=== PATIENT | male | born 1940 | race Caucasian/White ===

== ENCOUNTER → 2018-05-19 09:24 | Outpatient (CLI) | payer MEDICARE, OTHER, SELFPAY | PROVIDERS: PCP Family Medicine; Visit Provider Orthopaedic Surgery | DX: M75.82 Other shoulder lesions, left shoulder (principal) | CPT/HCPCS: 20610; 99213; J1040 ==

== ENCOUNTER → 2018-07-26 07:56 | Outpatient (BNVA) | payer MEDICARE, OTHER, SELFPAY | PROVIDERS: PCP Family Medicine; Visit Provider Surgery | DX: Z86.010 Personal history of colon polyps (principal); I10 Essential (primary) hypertension; Z12.11 Encounter for screening for malignant neoplasm of colon | CPT/HCPCS: 99202; 99213 ==

== ENCOUNTER 2018-08-29 01:32 | Outpatient (CLI) | payer MEDICARE, OTHER, SELFPAY ==
--- NOTE | 2018-08-29 14:33 | DI.CT_ITS ---
SYMPTOMS/DIAGNOSIS: RIGHT-SIDED PAIN S/P SACROILIAC JOINT FUSION, V45.4, Z98.1 , 724.6, M53.3 CT OF THE PELVIS: There is a right hip prosthesis. There have been bilateral SI joint effusions with hardware in place. There is no evidence of SI joint widening, fracture, lytic or blastic bony lesion. Laminectomy defect is seen at L5. There has been a previous posterior fusion at L4-[address] A disc spacer is seen at this level. Severe degenerative disc changes are seen at L3-4. There are moderate degenerative disc changes at L5-S1. The appendix appears normal. Sigmoid diverticulosis is present. The prostate appears mildly enlarged. IMPRESSION: Bilateral SI joint effusion. Posterior fusion at L5-S1, as well as right hip prosthesis, is also present.
== END 2018-08-29 01:52 ==
PROVIDERS: PCP Family Medicine; Visit Provider Neurological Surgery
DX: M54.5 Low back pain (principal); M43.28 Fusion of spine, sacral and sacrococcygeal region; Z98.1 Arthrodesis status; Z96.641 Presence of right artificial hip joint
CPT/HCPCS: 72192

== ENCOUNTER 2018-09-05 09:04 | Outpatient (REF) | payer MEDICARE, OTHER, SELFPAY ==
[2018-09-05 12:34] LABS: Absolute Basophil Count 0.01 k/cumm (0.0-0.2); Absolute Eosinophil Count 0.13 k/cumm (0.0-0.7); Absolute Lymphocyte Count 1.52 k/cumm (1.2-3.4); Absolute Monocyte Count 0.14 k/cumm (0.11-0.7); Absolute Neutrophil Count 1.89 k/cumm (1.2-6.7); Basophils % 0.3; Eosinophils % 3.5; HCT 42.6 % (40.0-50.0); HGB 13.7 g/dL (13.5-17.5); Lymphocytes % 41.2; Mean Corp. HGB Concentration 32.2 g/dL (32.0-36.0); Mean Corpuscular Hemoglobin 33.7 pg (27.0-33.0); Mean Corpuscular Volume 104.7 fL (80-95); Monocytes % 3.8; Neutrophils % 51.2; Platelet Count 144 x1000/uL (130-400); RBC 4.07 m/cumm (4.50-6.00); White Blood Cell Count 3.69 k/cumm (4.4-10.8)
== END 2018-09-05 09:24 ==
LOC: NCHCN 09:04
PROVIDERS: PCP Family Medicine; Visit Provider Family Medicine
DX: D70.9 Neutropenia, unspecified (principal)
CPT/HCPCS: 85025

== ENCOUNTER → 2018-09-06 08:45 | Outpatient (BNVA) | payer MEDICARE, OTHER, SELFPAY | PROVIDERS: PCP Family Medicine; Referring Provider Family Medicine; Visit Provider Orthopaedic Surgery | DX: M75.82 Other shoulder lesions, left shoulder (principal); I10 Essential (primary) hypertension | CPT/HCPCS: 20610; 99211; 99213; J1040 ==

== ENCOUNTER 2019-01-17 07:50 | Outpatient (REF) | payer MEDICARE, OTHER, SELFPAY ==
[2019-01-17 12:47] LABS: HCT 38.3 % (40.0-50.0); Mean Corp. HGB Concentration 33.9 g/dL (32.0-36.0); Mean Corpuscular Hemoglobin 35.8 pg (27.0-33.0); Mean Corpuscular Volume 105.5 fL (80-95); Mean Platelet Volume 10.8 fL (8.0-11.0); Platelet Count 129 x1000/uL (130-400); RBC 3.63 m/cumm (4.50-6.00); White Blood Cell Count 3.32 k/cumm (4.4-10.8)
[2019-01-17 13:30] LABS: Anion Gap 10.7 mmol/L (3-11); BUN 19 mg/dL (7-18); CO2 29.3 mmol/L (21.0-32.0); CREATININE 0.91 mg/dL (0.70-1.30); Calcium 9.5 mg/dL (8.5-10.1); Chloride 104 mmol/L (98-107); Glucose 90 mg/dL (70-100); Potassium 4.5 mmol/L (3.5-5.1); Sodium 144 mmol/L (136-145)
== END 2019-01-17 08:10 ==
LOC: NCHCN 07:50
PROVIDERS: PCP Family Medicine; Visit Provider Family Medicine
DX: I10 Essential (primary) hypertension (principal); D70.9 Neutropenia, unspecified
CPT/HCPCS: 80048; 85027

== ENCOUNTER 2019-01-20 00:38 | Outpatient (CLI) | payer MEDICARE, OTHER, SELFPAY ==
--- NOTE | 2019-01-20 13:08 | DI.CT_ITS ---
SYMPTOMS/DIAGNOSIS: BUTTOCK AND LEG PAIN, M79.606, M79.[address]: Noncontrast CT was performed. There are Fernandez rods in place bilaterally at L4-5 with disc prosthesis also noted at this level. There is vacuum disc phenomenon at L5-S1. Facet hypertrophic changes noted bilaterally at L4-5 and L5-S1. Bilateral SI joint fixation screws in place, which appear well seated. No change in alignment from CT of 08/29/18. Right hip prothesis again noted in position as well, the components appear well seated by CT criteria. No pelvic mass or adenopathy. CONCLUSION: Spinal, SI joint and right hip hardware in place. No change from 08/29/18.
[2019-01-20 13:24] LABS: CREATININE 0.82 mg/dL (0.70-1.30)
--- NOTE | 2019-01-20 14:06 | DI.MRI_ITS ---
SYMPTOMS/DIAGNOSIS: BUTTOCK AND LEFT PAIN, M79.606, M79.18 LUMBOSACRAL SPINE MRI: MRI examination of the lumbosacral spine was performed according to the usual protocol with additional pre and post contrast T1 fat-sat imaging. Examination is compared with most recent lumbar MRI of 02/11/17. There are bilateral Fernandez rods at L4-5, which are new since the previous examination. There is mild geographic enhancement of portions of the L2 and L3 vertebral bodies adjacent to the intervertebral disc. Left pedicle shows some enhancement at L3 as well. The findings are of uncertain significance and may be due to mechanical process as no cortical destruction or destruction of the vertebral endplates is seen. There is artifact from the Fernandez rods. Spinal canal is fairly well visualized. There is improved appearance of the spinal canal at the L4-5 level in comparison with the previous examination. Previously present left lateral recess narrowing appears to have resolved post surgery. No gross interval change in appearance at the L3-4 level. No new neural foraminal encroachment as visualized. No new disc herniation as visualized. Conus medullaris appears intact. CONCLUSION: Some enhancement is present in L2 and L3 vertebrae in a pattern which is nonspecific. Infectious process not excluded, but the findings may be mechanical in nature. No destructive process seen involving the vertebral cortex. No gross interval change in appearance of the disc space in comparison with the previous examination.
[2019-01-20] MEDS: Gadoterate meglumine 20 ML VIAL 18 ML IVP (14:08)
== END 2019-01-20 00:58 ==
PROVIDERS: PCP Family Medicine; Visit Provider Neurological Surgery
DX: M79.604 Pain in right leg (principal); M79.18 Myalgia, other site; Z96.641 Presence of right artificial hip joint; Z96.698 Presence of other orthopedic joint implants
CPT/HCPCS: 72158; 72192; 82565

== ENCOUNTER → 2019-03-07 09:19 | Outpatient (BNVA) | payer MEDICARE, OTHER, SELFPAY | PROVIDERS: PCP Family Medicine; Referring Provider Family Medicine; Visit Provider Orthopaedic Surgery | DX: M75.82 Other shoulder lesions, left shoulder (principal); M25.512 Pain in left shoulder | CPT/HCPCS: 20610; 99211; J1040 ==

== ENCOUNTER → 2019-04-17 08:51 | Outpatient (BNVA) | payer MEDICARE, OTHER, SELFPAY | PROVIDERS: PCP Family Medicine; Referring Provider Family Medicine; Visit Provider Urology | DX: N40.1 Benign prostatic hyperplasia with lower urinary tract symptoms (principal); N13.8 Other obstructive and reflux uropathy; I10 Essential (primary) hypertension | CPT/HCPCS: 99213 ==

== ENCOUNTER → 2019-05-26 14:10 | Outpatient (BNVA) | payer MEDICARE, OTHER, SELFPAY | PROVIDERS: PCP Family Medicine; Visit Provider Urology | DX: N40.1 Benign prostatic hyperplasia with lower urinary tract symptoms (principal); N13.8 Other obstructive and reflux uropathy; I10 Essential (primary) hypertension | CPT/HCPCS: 52000; 99212 ==

== ENCOUNTER 2019-06-22 10:13 | Outpatient (CLI) | payer MEDICARE, OTHER, SELFPAY ==
--- NOTE | 2019-06-22 09:59 | DI.RAD_ITS ---
EXAM: XR SHOULDER LT COMPLETE 2+V INDICATION: f/u L shoulder pain, RTC tear. COMPARISON: No exams were available for comparison TECHNIQUE: 2D digital imaging was performed. FINDINGS: Three views were obtained. There are two suture anchors in the humeral head. There are mild hypertr ophic degenerative changes of the glenohumeral and acromioclavicular joints. There is subchondral sc lerosis and cyst formation of the humeral head. No other significant bony or soft tissue abnormality seen.
== END 2019-06-22 10:33 ==
PROVIDERS: PCP Family Medicine; Referring Provider Family Medicine; Visit Provider Student in an Organized Health Care Education/Training Program
DX: M25.512 Pain in left shoulder (principal); S46.012A Strain of muscle(s) and tendon(s) of the rotator cuff of left shoulder, initial encounter; X58.XXXA Exposure to other specified factors, initial encounter; M75.82 Other shoulder lesions, left shoulder; M12.812 Other specific arthropathies, not elsewhere classified, left shoulder
CPT/HCPCS: 20610; 99213; 73030; J1040

== ENCOUNTER → 2019-08-24 09:52 | Outpatient (BNVA) | payer MEDICARE, OTHER, SELFPAY | PROVIDERS: PCP Family Medicine; Referring Provider Family Medicine; Visit Provider Student in an Organized Health Care Education/Training Program | DX: M75.81 Other shoulder lesions, right shoulder (principal); I10 Essential (primary) hypertension | CPT/HCPCS: 20610; 99213; J1040 ==

== ENCOUNTER → 2019-09-22 15:14 | Outpatient (BNVA) | payer MEDICARE, OTHER, SELFPAY | PROVIDERS: PCP Family Medicine; Referring Provider Family Medicine; Visit Provider Urology | DX: N40.1 Benign prostatic hyperplasia with lower urinary tract symptoms (principal); N13.8 Other obstructive and reflux uropathy | CPT/HCPCS: 99213 ==

== ENCOUNTER → 2019-10-09 10:38 | Outpatient (BNVA) | payer MEDICARE, OTHER, SELFPAY | PROVIDERS: PCP Family Medicine; Referring Provider Family Medicine; Visit Provider Student in an Organized Health Care Education/Training Program | DX: M75.81 Other shoulder lesions, right shoulder (principal); M75.82 Other shoulder lesions, left shoulder | CPT/HCPCS: 20610; 99212; 99213; J1040 ==

== ENCOUNTER 2019-10-17 10:23 | Observation (INO) | payer MEDICARE, OTHER, SELFPAY ==
[2019-10-17] VITALS (74 sets, daily range): BP systolic 103–160; BP diastolic 46–94; PULSE 79–158; RESP 2–32; TEMP 37–37.7; O2SAT 85–99
--- NOTE | 2019-10-17 10:22 | ED.GENADUL_ITS ---
Discharge Plan Disposition Patient Disposition: [facility] INPATIENT Condition: Fair Discharge Details Chief Complaint: RespSymp Clinical Impression: Acute bronchitis, Nausea, Hypoxia Admit Date/Time: 10/17/19 15:15 Admit Provider: Eben Martin Attending Provider: Eben Martin Primary Care Provider: Janina Reinoso ED Provider: Zunilda Khan Discharge Data Discharge Date/Time-TO BE ENTERED AT DEPARTURE: 10/17/19 17:52 Discharge Physician: Znuilda Khan Medical Decision Making 1030 -- 78-year-old male with a history of GERD, hypertension, hyperlipidemia, depression presents with cough with green sputum, fatigue and nausea for the past few days. States he had a temp of 103 at PCP office. Denies chest pain or shortness of breath. Patient appears generally unwell but nontoxic. Pulse 106. Afebrile. O2 sat 89% on room air, increased to low 90s on 2 L. He has rhonchi and diminished breath sounds throughout. He has lower abdominal tenderness. EKG notes a rate of 103, sinus with no acute ST ischemic changes. Differential diagnosis includes pneumonia, influenza, bronchitis, UTI, dehydration, electrolyte abnormality. Will place an IV, bolus IV fluids, duo nebs, Solu-Medrol, screening labs, urinalysis. Patient has a previous history of PE for which he has been treated with anticoagulation in the past but this has since been stopped. He states he takes it in cases of long trips or immobilization. Will obtain a CT chest to rule out PE versus pneumonia versus CHF as well as acute abdominal abnormality. 1310 --patient still hypoxic to the low 90s on room air. Still with rhonchi. Will give 7.5 mg neb and reassess. Labs and imaging reviewed and unremarkable. White blood cell count 3. Lactate 1.4. Troponin negative. BNP minimally elevated at 389. Urinalysis negative. CT negative for pneumonia, PE. There are sclerotic reasons noted in the bony chest which appear likely consistent with metastasis. Patient states he has had a history of extensive skin cancer that is followed by Dr. Solitario. He denies any other history of cancer. 1400 --heart rate 150s and O2 sat 86% on room air. He increases to low 90s on 1 L. Review of previous records note that patient was a previous smoker and has had low O2 sat in the past, and he states it is not unusual for him to be in the low 90s on room air. EKG done which notes a rate of 142 and possible A. fib. There are P waves visible and rhythm appears regular and thus I do not think this is atrial fibrillation. Patient denies a history of atrial fibrillation. A dose of Lopressor 5 mg IV ordered as patient takes this twice daily and is due for his dose shortly. 1440 --heart rate remains tachycardic, 120s 140s. O2 sat 85% on 5 L, increased to 90% on 6 L. Patient denies any acute complaints. Will admit for tachycardia and hypoxia. Differential diagnosis includes acute COPD exacerbation, acute bronchitis. Patient may benefit for O2 at home as needed upon discharge. Will give Xopenex. 1450 --discussed with hospitalist -accepts patient for admission. 1730 --heart rate 110s. O2 sat 91% on 6 L. Medical Records Medical records reviewed: Yes I reviewed the patient's medical records. Imaging Data Radiologic Study: Radiologist's impression: CT CHEST PE ABD PELVIS W CLINICAL HISTORY: hypoxia, h/o PE, r/o PE. TECHNIQUE: Imaging Protocol: Axial computed tomography images with coronal and sagittal reformatted images were created and reviewed CONTRAST MATERIAL: Intravenous: Omnipaque 350 Contrast volume:100 mL Oral: No COMPARISON: CT pelvic wo from 01/20/2019 FINDINGS: CHEST: Tracheobronchial tree: Patent where visualized. Mediastinum and Yamilet: No dominant adenopathy or fluid collection. Pulmonary parenchyma: Dependent atelectasis. No focal consolidating infiltrates. No architectural distortion. Pleura: No effusion or pneumothorax. Lymph nodes: Within normal limits. Aorta: Atherosclerosis. No thoracic aneurysm or dissection. Heart: Mild cardiomegaly. No pericardial effusion or right heart strain. Coronary artery calcifications. Pulmonary arteries: No evidence of a pulmonary embolus. Bones: Sclerotic appearance of the bones suspicious for metastatic disease. No compression fracture deformities. Old right rib fractures. ABDOMEN: Liver: Normal density. No measurable mass. Gallbladder and biliary tract: No radiodense calculus or dilation. Pancreas: Normal density, no abnormal calcifications or inflammatory process. Spleen: Normal. Kidneys: Normal size, contour and axis. No radiodense stones or obstructive uropathy. Bilateral renal cyst. No solid renal mass. Adrenal glands: No masses seen. Aorta: Atherosclerosis. No aneurysmal dilatation. 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 Lymph nodes: Within normal limits. PELVIS: Bladder: Symmetric distention, no gross wall thickening. Bowel: Diverticulosis in the colon but no evidence of acute diverticulitis. No evidence of acute appendicitis. No evidence of bowel obstruction. Peritoneal cavity: No ascites, collection or mesenteric inflammatory response. Bones: Posterior spinal surgery at L4-L5 and the sacroiliac joints bilaterally. Multilevel degenerative changes throughout the thoracic and lumbar spine. Status post right total hip replacement. Reproductive organs: Enlarged prostate gland. IMPRESSION: 1. No evidence of an acute abdominal or pelvic process. 2. No evidence of a pulmonary embolus, thoracic aortic dissection or aneurysm. 3. Sclerotic bones suspicious for metastatic disease. 4. Findings were discussed with the emergency department on the date of the examination. Lab Data Lab results reviewed: Yes I reviewed the patient's lab results. Labs: 10/17/19 11:15 Blood Blood Culture - Pending 10/17/19 11:09 Blood Blood Culture - Pending 10/17/19 10:26 Nasopharynx Influenza Types A,B Antigen - Final Laboratory Tests Range/Units 10/17/19 10/17/19 10/17/19 11:09 11:09 11:09 WBC (4.4-10.8) k/cumm 3.14 L RBC (4.50-6.00) m/cumm 3.79 L Hgb (13.5-17.5) g/dL 12.8 L Hct (40.0-50.0) % 39.5 L MCV (80-95) fL 104.2 H MCH (27.0-33.0) pg 33.8 H MCHC (32.0-36.0) g/dL 32.4 RDW (11.8-14.1) % 15.6 H Plt Count (130-400) x1000/uL 106 L MPV (8.0-11.0) fL 10.1 Immature Gran % % 0.0 Neutrophils % 73.9 Lymphocytes % 19.7 Monocytes % 4.8 Eosinophils % 1.6 Basophils % 0.0 Absolute Neutrophils (1.2-6.7) k/cumm 2.32 Absolute Lymphocytes (1.2-3.4) k/cumm 0.62 L Absolute Monocytes (0.11-0.7) k/cumm 0.15 Absolute Eosinophils (0.0-0.7) k/cumm 0.05 Absolute Basophils (0.0-0.2) k/cumm 0.00 PT (9.3-11.0) sec INR (0.9-1.1) APTT (21.0-31.4) sec Sodium (136-145) mmol/L 143 Potassium (3.5-5.1) mmol/L 4.0 Chloride (98-107) mmol/L 102 Carbon Dioxide (21.0-32.0) mmol/L 30.3 Anion Gap (3-11) mmol/L 10.7 BUN (7-18) mg/dL 15 Creatinine (0.70-1.30) mg/dL 0.83 Estimated GFR/1.73 m2 (mL/min/1.73m2) >= 60.00 Glucose (74-106) mg/dL 118 H Lactate (0.6-1.4) mmol/L 1.4 Calcium (8.5-10.1) mg/dL 8.5 Magnesium (1.8-2.4) mg/dL 1.1 L Total Bilirubin (0.2-1.0) mg/dL 0.4 AST (15-37) U/L 13 L ALT (16-63) U/L 15 L Alkaline Phosphatase (46-116) U/L 49 Troponin I (<0.06) ng/Ml < 0.05 NT-Pro-B Natriuret Pep (<300) pg/mL Total Protein (6.4-8.2) g/dL 7.0 Albumin (3.4-5.0) g/dL 3.3 L Urine Color (Yellow) Urine Clarity (Clear) Urine pH (5-8) Ur Specific [place] (1.005-1.025) Urine Protein (Negative) mg/dL Urine Ketones (Negative) mg/dL Urine Blood (Negative) Urine Nitrite (Negative) Urine Bilirubin (Negative) Urine Urobilinogen (Up TO 0.2) EU/dL Ur Leukocyte Esterase (Negative) Urine RBC (0-2) HPF Urine WBC (0-5) HPF Ur Epithelial Cells (Negative) HPF Urine Crystals (Negative) HPF Urine Bacteria (Negative) HPF Urine Casts (Negative) LPF Urine Mucus (Negative) Ur Culture Indicated? Urine Glucose (Negative) mg/dL Range/Units 10/17/19 10/17/19 10/17/19 11:09 11:09 11:35 WBC (4.4-10.8) k/cumm RBC (4.50-6.00) m/cumm Hgb (13.5-17.5) g/dL Hct (40.0-50.0) % MCV (80-95) fL MCH (27.0-33.0) pg MCHC (32.0-36.0) g/dL RDW (11.8-14.1) % Plt Count (130-400) x1000/uL MPV (8.0-11.0) fL Immature Gran % % Neutrophils % Lymphocytes % Monocytes % Eosinophils % Basophils % Absolute Neutrophils (1.2-6.7) k/cumm Absolute Lymphocytes (1.2-3.4) k/cumm Absolute Monocytes (0.11-0.7) k/cumm Absolute Eosinophils (0.0-0.7) k/cumm Absolute Basophils (0.0-0.2) k/cumm PT (9.3-11.0) sec 10.7 INR (0.9-1.1) 1.1 APTT (21.0-31.4) sec 26.4 Sodium (136-145) mmol/L Potassium (3.5-5.1) mmol/L Chloride (98-107) mmol/L Carbon Dioxide (21.0-32.0) mmol/L Anion Gap (3-11) mmol/L BUN (7-18) mg/dL Creatinine (0.70-1.30) mg/dL Estimated GFR/1.73 m2 (mL/min/1.73m2) Glucose (74-106) mg/dL Lactate (0.6-1.4) mmol/L Calcium (8.5-10.1) mg/dL Magnesium (1.8-2.4) mg/dL Total Bilirubin (0.2-1.0) mg/dL AST (15-37) U/L ALT (16-63) U/L Alkaline Phosphatase (46-116) U/L Troponin I (<0.06) ng/Ml NT-Pro-B Natriuret Pep (<300) pg/mL 389 H Total Protein (6.4-8.2) g/dL Albumin (3.4-5.0) g/dL Urine Color (Yellow) Yellow Urine Clarity (Clear) Clear Urine pH (5-8) 6.0 Ur Specific [place] (1.005-1.025) 1.020 Urine Protein (Negative) mg/dL 30 H Urine Ketones (Negative) mg/dL Negative Urine Blood (Negative) Negative Urine Nitrite (Negative) Negative Urine Bilirubin (Negative) Negative Urine Urobilinogen (Up TO 0.2) EU/dL 0.2 Ur Leukocyte Esterase (Negative) Negative Urine RBC (0-2) HPF 0-2 Urine WBC (0-5) HPF 0-2 Ur Epithelial Cells (Negative) HPF Rare Urine Crystals (Negative) HPF Negative Urine Bacteria (Negative) HPF Rare Urine Casts (Negative) LPF Negative Urine Mucus (Negative) Moderate Ur Culture Indicated? No Urine Glucose (Negative) mg/dL Negative ECG Data Attestation: I personally reviewed and interpreted this ECG (s) as follows: Interpretation: #1 -- Rate of 103, sinus, T wave inversion in lead III. No acute ST elevation or depression. ND 174. QTc 419. QRS 104. #2 --Rate of 142, sinus, P waves visible, no acute ST elevation or depression. T wave inversion in lead III. QTc 464. QRS 108. HPI General Mode of arrival: ambulatory . Date/Time Provider Initiated Documentation: 10/17/19 10:34 . Limitations to Documentation: no limitations . Information obtained by: patient . History of Present Illness 78 year old M presents to the emergency department with the chief complaint of Cough, nausea, fatigue, Patient reports no radiation. Patient started experiencing this day(s) (5) and it has been constant. No relieving factors improve symptom(s), No exacerbating factors reported . Patient notes cough, fever/ch ills, loss of appetite, malaise and nausea/vomiting (no vomiting); denies chest pain, diaphoresis, headaches, rash, seizure, shortness of breath, syncope and weakness. Patient did receive the following treatments prior to arrival, none Related Data Home Medications Medication Instructions Recorded Confirmed allopurinol 300 mg PO DAILY 12/29/12 10/17/19 aspirin [Aspirin Low-Strength] 81 mg PO DAILY tab-cap 12/29/12 10/17/19 montelukast 10 mg PO DAILY PRN tab-cap 12/29/12 10/17/19 omeprazole 20 mg PO DAILY tab-cap 12/29/12 10/17/19 zolpidem 10 mg PO HS PRN PRN 12/29/12 10/17/19 acyclovir 400 mg PO TID PRN PRN 05/07/16 10/17/19 fluticasone propionate [Flonase 2 spray NS DAILY PRN PRN 05/07/16 10/17/19 Allergy Relief] cholecalciferol (vitamin D3) 1,000 unit PO DAILY 05/12/16 10/17/19 metoprolol tartrate 25 mg PO BID 05/12/16 10/17/19 testosterone cypionate 1.5 ml IM .[id number] 05/12/16 10/17/19 duloxetine [Cymbalta] 60 mg PO DAILY 03/07/17 10/17/19 ibuprofen 800 mg PO TID tab-cap 05/05/17 10/17/19 diazepam 5 mg PO PRN 05/31/17 10/17/19 prazosin 10 mg PO DAILY 05/31/17 10/17/19 furosemide 20 mg tablet 20 mg PO DAILY 04/14/19 10/17/19 loratadine 10 mg tablet 20 mg PO DAILY PRN tab 04/14/19 10/17/19 rivaroxaban 20 mg tablet 20 mg PO DAILY PRN 04/14/19 10/17/19 Marijuana PO 04/17/19 10/09/19 mirabegron 25 mg tablet,extended 25 mg PO Q24H #90 tab 09/28/19 10/17/19 release 24 hr Previous Rx's Medication Instructions Recorded mirabegron 25 mg tablet,extended 25 mg PO Q24H #90 tab 09/28/19 release 24 hr Allergies Allergy/AdvReac Type Severity Reaction Status Date / Time Sulfa (Sulfonamide Allergy as a Unverified 10/17/19 12:17 Antibiotics) child, unsure codeine AdvReac Intermediate sick to Unverified 10/17/19 12:17 stomach oxycodone [Oxycodone] AdvReac respiratory Unverified 10/17/19 12:17 depression Review of Systems All systems reviewed & are unremarkable except as noted in HPI and below Constitutional Constitutional: Reports as per HPI, Denies chills, Reports fatigue, Reports fever(s), Reports lethargy and Reports poor appetite Eyes Eyes: Denies blurry vision ENT Ears, Nose, Mouth, and Throat: Denies dizziness, Denies sore throat and Denies throat swelling Cardiovascular Cardiovascular: Denies chest pain and Denies dyspnea Respiratory Respiratory: Reports cough and Denies dyspnea Gastrointestinal Gastrointestinal: Denies abdominal pain, Denies diarrhea and Denies vomiting Genitourinary Genitourinary: Denies hematuria and Denies dysuria Musculoskeletal Musculoskeletal: Denies back pain and Denies numbness Integumentary/Breasts Skin/Breast: Denies lesions and Denies rash Neurologic Neurologic: Denies dizziness, Denies focal weakness and Denies numbness Endocrine Endocrine: Reports fatigue Allergic/Immunologic Allergic/Immunologic: Denies throat swelling [facility] Medical History Abnormal weight loss Actinic keratosis Adenomatous colon polyp (Acute) Alcohol consumption heavy (Acute) Allergic rhinitis (Acute) Benign essential tremor Bilateral artificial lens implant BPH (benign prostatic hyperplasia) Chronic insomnia Diverticulosis Diverticulosis (Acute) Erectile dysfunction (Acute) Essential hypertension (Acute) GERD GERD (gastroesophageal reflux disease) Gout H/O supraventricular tachycardia (Acute) Heavy alcohol consumption History of DVT (deep vein thrombosis) History of positive PPD History of PSVT (paroxysmal supraventricular tachycardia) History of pulmonary embolism Hx of adenomatous colonic polyps Hyperlipidemia Hypertension Hypogonadism (Acute) Impaired fasting glucose Insomnia (Acute) Low testosterone in male (Acute) Lumbar back pain (Acute) Macrocytosis Male hypogonadism Myelodysplasia (myelodysplastic syndrome) (Acute) Neutropenia Ocular migraine Osteoarthritis Other and unspecified hyperlipidemia (Acute) Overactive bladder Peripheral neuropathy Personal history of venous thrombosis and embolism (Acute) Positive PPD (Acute) Renal cyst Sleep apnea Spinal stenosis in cervical region Spondylosis Spondylosis of cervical joint (Acute) Subjective tinnitus Urinary frequency (Acute) Vitamin D deficiency Surgical History Colonoscopy - IV Sedation Cystoscopy Extraction of cataract BILAT HERNIA REPAIR History of intraocular lens implant (Acute) R THUMB RHINOPLASTY S/P TURP (Acute) Tonsillectomy and adenoidectomy Total replacement of hip (05/13/16) RIGHT/DR. OLEA Family History Mother Personal history of malignant neoplasm PANCREATIC/LIVER Father Heart disease Sister No problems noted. Brother Diabetes Heart disease Brother Heart disease Mental disorder BIPOLAR Social History Smoking/Tobacco Use Status: Former Tobacco Use Alcohol Intake: current Alcohol Intake frequency: a few times a week Drug use: Never Substance use type: does not use Household members: spouse Current gender identity: male Do you feel safe in your relationship?: Yes Exam Const General: cooperative, healthy appearing and no acute distress HENMT Head: normal to inspection Face and sinus: normal facial exam Eyes General: appearance normal, both eyes and all related structures EOM: EOM intact bilaterally Neck Neck: normal visual inspection and No submandibular swelling Lymphatic: no lymphadenopathy noted Chest Chest: normal inspection of the chest and no tenderness Resp Effort & Inspection: normal respiratory effort and able to speak in complete sentences Auscultation: diminished lung sounds bilaterally throughout, rhonchi left upper, left lower and right lower and wheezes scattered wheezes Cardio Rate: regular rate Rhythm: regular rhythm GI Inspection: normal to inspection Palpation: soft, not firm, not rigid and nontender Auscultation: normal bowel sounds Skin General skin exam: no rashes or lesions noted Neuro General: alert, awake and oriented x3 Cognition: normal cognition Speech: speech normal Motor: muscle tone normal throughout Sensory Exam: no sensory deficits noted Extrem General: normal to inspection, full ROM, normal capillary refill, no calf tenderness bilaterally and no edema Psych Appearance: grossly normal Mental Status: mental status grossly normal Speech and Movement: speech and movement normal Affect: normal affect Course Lab/Test Results Lab/Test Results: 10/17/19 10:02 Nasopharynx Influenza Types A,B Antigen - Pending
[2019-10-17] MEDS: Ondansetron 4 MG/2 ML VIAL (10:42)
[2019-10-17] MEDS: Albuterol/Ipratropium 3 ML UPD VIAL (10:56)
[2019-10-17 11:20] LABS: Lactate 1.4 mmol/L (0.6-1.4)
[2019-10-17 11:21] LABS: Absolute Eosinophil Count 0.05 k/cumm (0.0-0.7); Absolute Lymphocyte Count 0.62 k/cumm (1.2-3.4); Absolute Monocyte Count 0.15 k/cumm (0.11-0.7); Absolute Neutrophil Count 2.32 k/cumm (1.2-6.7); Eosinophils % 1.6; HCT 39.5 % (40.0-50.0); HGB 12.8 g/dL (13.5-17.5); Lymphocytes % 19.7; Mean Corp. HGB Concentration 32.4 g/dL (32.0-36.0); Mean Corpuscular Hemoglobin 33.8 pg (27.0-33.0); Mean Corpuscular Volume 104.2 fL (80-95); Mean Platelet Volume 10.1 fL (8.0-11.0); Monocytes % 4.8; Neutrophils % 73.9; Platelet Count 106 x1000/uL (130-400); RBC 3.79 m/cumm (4.50-6.00); RBC Distribution Width 15.6 % (11.8-14.1); White Blood Cell Count 3.14 k/cumm (4.4-10.8)
[2019-10-17] MEDS: methylPREDNISolone SUCC 125 MG VIAL IVP (11:23)
[2019-10-17] MEDS: Normal Saline 500 ML IV ×2 (11:24→13:26)
[2019-10-17 11:33] LABS: INR 1.1 (0.9-1.1); PTT Activated 26.4 sec (21.0-31.4); Prothrombin Time 10.7 sec (9.3-11.0)
[2019-10-17 11:42] LABS: ALT 15 U/L (16-63); AST 13 U/L (15-37); Albumin 3.3 g/dL (3.4-5.0); Alkaline Phosphatase 49 U/L (46-116); Anion Gap 10.7 mmol/L (3-11); BUN 15 mg/dL (7-18); Bilirubin, Total 0.4 mg/dL (0.2-1.0); CO2 30.3 mmol/L (21.0-32.0); CREATININE 0.83 mg/dL (0.70-1.30); Calcium 8.5 mg/dL (8.5-10.1); Chloride 102 mmol/L (98-107); Glucose 118 mg/dL (74-106); Magnesium 1.1 mg/dL (1.8-2.4); Sodium 143 mmol/L (136-145); Troponin I < 0.05 ng/Ml (<0.06)
[2019-10-17 11:43] LABS: Bilirubin Negative (Negative); Blood Negative (Negative); Clarity Clear (Clear); Glucose Negative (Negative); Ketones Negative (Negative); Leukocyte Esterase Negative (Negative); Nitrite Negative (Negative); Urobilinogen 0.2 EU/dL (Up TO 0.2)
[2019-10-17 11:45] LABS: NT-proBNP 389 pg/mL (<300)
[2019-10-17 11:48] LABS: Bacteria Rare HPF (Negative); C & S Indicated? No; Casts Negative LPF (Negative); Crystals Negative HPF (Negative); Epithelial Cells Rare HPF (Negative); Mucus Moderate (Negative); RBC 0-2 HPF (0-2); WBC 0-2 HPF (0-5)
[2019-10-17] MEDS: Omnipaque 350 MG/ML 100 ML BTL IJ (12:03)
--- NOTE | 2019-10-17 12:04 | DI.CT_ITS ---
EXAM: CT CHEST PE ABD PELVIS W CLINICAL HISTORY: hypoxia, h/o PE, r/o PE. TECHNIQUE: Imaging Protocol: Axial computed tomography images with coronal and sagittal reformatted images were created and reviewed CONTRAST MATERIAL: Intravenous: Omnipaque 350 Contrast volume:100 mL Oral: No COMPARISON: CT pelvic wo from 01/20/2019 FINDINGS: CHEST: Tracheobronchial tree: Patent where visualized. Mediastinum and Yamilet: No dominant adenopathy or fluid collection. Pulmonary parenchyma: Dependent atelectasis. No focal consolidating infiltrates. No architectural d istortion. Pleura: No effusion or pneumothorax. Lymph nodes: Within normal limits. Aorta: Atherosclerosis. No thoracic aneurysm or dissection. Heart: Mild cardiomegaly. No pericardial effusion or right heart strain. Coronary artery calcificat ions. Pulmonary arteries: No evidence of a pulmonary embolus. Bones: Sclerotic appearance of the bones suspicious for metastatic disease. No compression fracture deformities. Old right rib fractures. ABDOMEN: Liver: Normal density. No measurable mass. Gallbladder and biliary tract: No radiodense calculus or dilation. Pancreas: Normal density, no abnormal calcifications or inflammatory process. Spleen: Normal. Kidneys: Normal size, contour and axis. No radiodense stones or obstructive uropathy. Bilateral renal cyst. No solid renal mass. Adrenal glands: No masses seen. Aorta: Atherosclerosis. No aneurysmal dilatation. There is a 1.3 cm aneurysm arising from the clint c axis. Lymph nodes: Within normal limits. PELVIS: Bladder: Symmetric distention, no gross wall thickening. Bowel: Diverticulosis in the colon but no evidence of acute diverticulitis. No evidence of acute venkat endicitis. No evidence of bowel obstruction. Peritoneal cavity: No ascites, collection or mesenteric inflammatory response. Bones: Posterior spinal surgery at L4-L5 and the sacroiliac joints bilaterally. Multilevel degenerat rodrigo changes throughout the thoracic and lumbar spine. Status post right total hip replacement. Reproductive organs: Enlarged prostate gland. IMPRESSION: 1. No evidence of an acute abdominal or pelvic process. 2. No evidence of a pulmonary embolus, thoracic aortic dissection or aneurysm. 3. Sclerotic bones suspicious for metastatic disease. 4. Findings were discussed with the emergency department on the date of the examination. DATA REPOSITORY: All CT scans at this facility are submitted to the National Radiology Data Registry (NRDR) Dose Index Registry (DIR) with the [employer] (A[employer]). RADIATION OPTIMIZATION: All CT scans at this facility use at least one of these dose optimization te chniques: automated exposure control; mA and/or kV adjustment per patient size (includes targeted exa ms where dose is matched to clinical indication); or iterative reconstruction.
[2019-10-17] MEDS: MAGNESIUM SULFATE 2 GM/50 ML BAG IVPB (12:27)
[2019-10-17] MEDS: Albuterol 2.5 MG/3 ML INH SOLN VIAL 7.5 MG UPD (12:59)
--- NOTE | 2019-10-17 13:28 | NUR.NOTE ---
lunch tray ordered for pt at 1320 Nursing Note:
--- NOTE | 2019-10-17 13:51 | NUR.NOTE ---
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 pt with no complaints at this time. attempted to remove sao2, pt desat to 88% room air, titrated o2 t 4l/nc sao2 92%. pt with no complaints. MD notified, no new orders recieved. pt eating lunch without incident. no distress noted. will monitor. Nursing Note:
[2019-10-17] MEDS: Metoprolol 5 MG/5 ML VIAL IVP (14:50)
[2019-10-17] MEDS: Ketorolac 30 MG/ML VIAL IVP (15:41)
[2019-10-17] MEDS: levoFLOXacin 750 MG/150 ML BAG 100 MG IVPB (15:41)
[2019-10-17] MEDS: methylPREDNISolone SUCC 40 MG VIAL (16:01)
[2019-10-17] MEDS: Levalbuterol 1.25 MG/3 ML UPD VIAL UPD (16:02)
[2019-10-17] MEDS: MORPHine 10 MG/ML VIAL (16:12)
[2019-10-17] MEDS: Normal Saline 1,000 ML 125 ML IV (18:20)
--- NOTE | 2019-10-17 18:31 | W.PM.HP.N ---
Date of service: 10/17/19 Time of Service: 18:31 Assessment and Plan Assessment and plan (1) COPD exacerbation: Status: Suspected Assessment and plan: IV corticosteroids PRN Xopenex nebulizers supplemental oxygen mucolytic's and cough suppressants. Respiratory physiotherapy with Acapella device. Patient will be started on IV Levaquin tonight and transition to oral Levaquin tomorrow. If he is markedly improved and has no fevers overnight he will be discharged home on a tapered dose of prednisone and 7-day course of Levaquin. (2) Acute purulent bronchitis: Status: Acute Assessment and plan: As above (3) Essential hypertension: Status: Acute Assessment and plan: Continue home medications. (4) DVT prophylaxis: Status: Acute Assessment and plan: In light of his pancytopenia and chronic thrombocytopenia I will discontinue enoxaparin and put him on rivaroxaban 10 mg p.o. daily. Apparently this is been prescribed by his former doctors for DVT prevention for whenever he travels long distance. History of Present Illness History of Present Illness Chief Complaint: Fever chills cough Narrative: 78-year-old male with a history of GERD, hypertension, hyperlipidemia, depression, BPH and remote PE (not currently anticoagulated) presents with cough with green sputum, fatigue and nausea for the past few days Along with fever of 103 per his PCPs office and rigors. Upon arrival to the emergency department he was afebrile but hypoxemic with oxygen saturation 89% on room air and tachycardic with a heart rate of 103 bpm. He had a harsh cough and diffuse rhonchi. Patient was seen the emergency department by Dr. Zunilda Khan who performed routine labs as well as chest x-ray and EKG. Routine labs demonstrated pancytopenia consistent with his history of myelodysplastic syndrome. His total white cell count was 3100 hemoglobin 12.8 g and platelets 106,000. He is CMP was unremarkable. His proBNP was mildly elevated at 389 and his troponin is less than 0.05. Magnesium was low at 1.1. CT of the chest abdomen and pelvis was performed with IV contrast. But no oral contrast. Chest CT scan demonstrated patent tracheobronchial tree no mediastinal hilar lymphadenopathy. Lungs show dependent atelectasis but no focal consolidating infiltrates. No pleural effusion. He had no thoracic aortic aneurysm or dissection. There is mild cardiomegaly and no evidence of right heart strain or pericardial effusion. No pulmonary embolus. He has sclerotic appearance to his spine suspicious for metastatic disease but no compression fracture deformity. He has old right rib fractures. CT of the abdomen and pelvis showed diverticulosis but no diverticulitis. He has an enlarged prostate and is status post right total hip replacement and he has lumbar spinal DJD and thoracic DJD. Treatment in the emergency department consisted of multiple aerosols treatments including DuoNeb treatments and initiation of IV corticosteroids including methylprednisolone 125 mg IV and magnesium also 2 g IV. He was given metoprolol 5 mg IV for his tachycardia. And started on Levaquin 750 mg IV and given Toradol as well as morphine for his pain. Patient is now admitted to the hospital for treatment of acute purulent bronchitis and acute bronchospastic airway disease. He was given supplemental oxygen at 6 L/min per nasal cannula and after multiple DuoNeb treatments his oxygen saturation came up to 94%. He is admitted on observation status for treatment of his acute purulent bronchitis and probable COPD exacerbation. Review of Systems Constitutional Constitutional: Reports body ache(s), Reports chills, Reports excessive sweating, Reports fatigue, Reports fever(s) and Reports poor appetite ENT Ears, Nose, Mouth, and Throat: Denies otalgia, Reports nasal congestion, Reports nasal discharge, Reports post nasal drip and Denies sore throat Cardiovascular Cardiovascular: Denies chest pain, Denies lightheadedness, Denies palpitations, Reports dyspnea and Reports dyspnea on exertion Respiratory Respiratory: Reports as per HPI, Reports change in phlegm color, Reports chest congestion, Reports cough, Reports excessive phlegm production, Reports dyspnea and Reports dyspnea on exertion Gastrointestinal Gastrointestinal: Reports nausea and Denies vomiting Genitourinary Genitourinary: Reports urinary frequency and Reports urinary hesitancy Musculoskeletal Musculoskeletal: Reports system reviewed and no additional complaints, except as docu Integumentary/Breasts Skin/Breast: Reports system reviewed and no additional complaints, except as docu Neurologic Neurologic: Reports system reviewed and no additional complaints, except as docu Endocrine Endocrine: Reports excessive sweating, Reports fatigue and Denies palpitations Hematologic/Lymphatic Hematologic/Lymphatic: Reports easy bruising Allergic/Immunologic Allergic/Immunologic: Reports system reviewed and no additional complaints, except as docu [facility] Medical History Abnormal weight loss Actinic keratosis Adenomatous colon polyp (Acute) Alcohol consumption heavy (Acute) Allergic rhinitis (Acute) Benign essential tremor Bilateral artificial lens implant BPH (benign prostatic hyperplasia) BPH with obstruction/lower urinary tract symptoms (Inactive 12/19/13) Chronic insomnia Diverticulosis Diverticulosis (Acute) Erectile dysfunction (Acute) Essential hypertension (Acute) GERD (gastroesophageal reflux disease) Gout H/O supraventricular tachycardia (Acute) Heavy alcohol consumption History of DVT (deep vein thrombosis) History of positive PPD History of PSVT (paroxysmal supraventricular tachycardia) History of pulmonary embolism History of urinary urgency (Inactive 03/09/13) Hx of adenomatous colonic polyps Hyperlipidemia Impaired fasting glucose Insomnia (Acute) Low testosterone in male (Acute) Lumbar back pain (Acute) Macrocytosis Male hypogonadism Myelodysplasia (myelodysplastic syndrome) (Acute) Neutropenia Ocular migraine Osteoarthritis Other and unspecified hyperlipidemia (Acute) Overactive bladder Peripheral neuropathy Personal history of venous thrombosis and embolism (Acute) Positive PPD (Acute) Renal cyst Sleep apnea Spinal stenosis in cervical region Spondylosis Spondylosis of cervical joint (Acute) Subjective tinnitus Urinary frequency (Acute) Vitamin D deficiency Surgical History Colonoscopy - IV Sedation Cystoscopy Extraction of cataract BILAT HERNIA REPAIR History of intraocular lens implant (Acute) History of lumbar fusion (Acute 03/03/17) performed at [facility] [place], Dr. Jovita Roberts THUMB RHINOPLASTY S/P TURP (Acute) S/P TURP (status post transurethral resection of prostate) (Inactive 12/19/13) Tonsillectomy and adenoidectomy Total replacement of hip (05/13/16) RIGHT/DR. OLEA Family History Mother Personal history of malignant neoplasm PANCREATIC/LIVER Father Heart disease Sister No problems noted. Brother Diabetes Heart disease Brother Heart disease Mental disorder BIPOLAR Social History Smoking/Tobacco Use Status: Former Tobacco Use Alcohol Intake: current Alcohol Intake frequency: a few times a week Drug use: Never Substance use type: does not use Household members: spouse Current gender identity: male Do you feel safe in your relationship?: Yes Meds Home Medications and Allergies Home Medications Medication Instructions Recorded Confirmed Type allopurinol 300 mg PO DAILY 12/29/12 10/17/19 History aspirin [Aspirin Low-Strength] 81 mg PO DAILY tab-cap 12/29/12 10/17/19 History montelukast 10 mg PO DAILY PRN tab-cap 12/29/12 10/17/19 History omeprazole 20 mg PO DAILY tab-cap 12/29/12 10/17/19 History zolpidem 10 mg PO HS PRN PRN 12/29/12 10/17/19 History acyclovir 400 mg PO TID PRN PRN 05/07/16 10/17/19 History fluticasone propionate [Flonase 2 spray NS DAILY PRN PRN 05/07/16 10/17/19 History Allergy Relief] cholecalciferol (vitamin D3) 1,000 unit PO DAILY 05/12/16 10/17/19 History metoprolol tartrate 25 mg PO BID 05/12/16 10/17/19 History testosterone cypionate 1.5 ml IM .[id number] 05/12/16 10/17/19 History duloxetine [Cymbalta] 60 mg PO DAILY 03/07/17 10/17/19 History ibuprofen 800 mg PO TID tab-cap 05/05/17 10/17/19 History diazepam 5 mg PO PRN 05/31/17 10/17/19 History prazosin 10 mg PO DAILY 05/31/17 10/17/19 History furosemide 20 mg tablet 20 mg PO DAILY 04/14/19 10/17/19 History loratadine 10 mg tablet 20 mg PO DAILY PRN tab 04/14/19 10/17/19 History rivaroxaban 20 mg tablet 20 mg PO DAILY PRN 04/14/19 10/17/19 History Marijuana PO 04/17/19 10/09/19 History mirabegron 25 mg tablet,extended 25 mg PO Q24H #90 tab 09/28/19 10/17/19 Rx release 24 hr Allergies Allergy/AdvReac Type Severity Reaction Status Date / Time Sulfa (Sulfonamide Allergy as a Unverified 10/17/19 12:17 Antibiotics) child, unsure codeine AdvReac Intermediate sick to Unverified 10/17/19 12:17 stomach oxycodone [Oxycodone] AdvReac respiratory Unverified 10/17/19 12:17 depression Exam Narrative Exam Narrative: Elderly male who appears to be in no acute respiratory distress. He is alert and oriented person place time circumstance. HEENT is unremarkable for any erythema or exudate. He is status post UV PP surgery for sleep apnea. Nares is moist without purulent discharge. Neck is supple without JVD normal carotid pulses no bruits no cervical lymphadenopathy Lungs reveal bibasilar rales and end expiratory wheezing diffusely. Heart is mildly tachycardic without murmur rub or gallop or thrill or heave. Abdomen soft and nontender nondistended NABS no bruits. Extremities without peripheral cyanosis or edema. He has a number of bruises on the skin as well as evidence of multiple seborrheic keratoses and actinic keratoses. Genitalia rectal exam deferred. Results Labs Result diagrams: 10/17/19 11:09 10/17/19 11:09 Labs: Laboratory Results - last 24 hr 10/17/19 10/17/19 10/17/19 11:09 11:09 11:09 WBC 3.14 L RBC 3.79 L Hgb 12.8 L Hct 39.5 L MCV 104.2 H MCH 33.8 H MCHC 32.4 RDW 15.6 H Plt Count 106 L MPV 10.1 Immature Gran % 0.0 Neutrophils % 73.9 Lymphocytes % 19.7 Monocytes % 4.8 Eosinophils % 1.6 Basophils % 0.0 Absolute Neutrophils 2.32 Absolute Lymphocytes 0.62 L Absolute Monocytes 0.15 Absolute Eosinophils 0.05 Absolute Basophils 0.00 PT INR APTT Sodium 143 Potassium 4.0 Chloride 102 Carbon Dioxide 30.3 Anion Gap 10.7 BUN 15 Creatinine 0.83 Estimated GFR/1.73 m2 >= 60.00 Glucose 118 H Lactate 1.4 Calcium 8.5 Magnesium 1.1 L Total Bilirubin 0.4 AST 13 L ALT 15 L Alkaline Phosphatase 49 Troponin I < 0.05 NT-Pro-B Natriuret Pep Total Protein 7.0 Albumin 3.3 L Urine Color Urine Clarity Urine pH Ur Specific [place] Urine Protein Urine Ketones Urine Blood Urine Nitrite Urine Bilirubin Urine Urobilinogen Ur Leukocyte Esterase Urine RBC Urine WBC Ur Epithelial Cells Urine Crystals Urine Bacteria Urine Casts Urine Mucus Ur Culture Indicated? Urine Glucose 10/17/19 10/17/19 10/17/19 11:09 11:09 11:35 WBC RBC Hgb Hct MCV MCH MCHC RDW Plt Count MPV Immature Gran % Neutrophils % Lymphocytes % Monocytes % Eosinophils % Basophils % Absolute Neutrophils Absolute Lymphocytes Absolute Monocytes Absolute Eosinophils Absolute Basophils PT 10.7 INR 1.1 APTT 26.4 Sodium Potassium Chloride Carbon Dioxide Anion Gap BUN Creatinine Estimated GFR/1.73 m2 Glucose Lactate Calcium Magnesium Total Bilirubin AST ALT Alkaline Phosphatase Troponin I NT-Pro-B Natriuret Pep 389 H Total Protein Albumin Urine Color Yellow Urine Clarity Clear Urine pH 6.0 Ur Specific [place] 1.020 Urine Protein 30 H Urine Ketones Negative Urine Blood Negative Urine Nitrite Negative Urine Bilirubin Negative Urine Urobilinogen 0.2 Ur Leukocyte Esterase Negative Urine RBC 0-2 Urine WBC 0-2 Ur Epithelial Cells Rare Urine Crystals Negative Urine Bacteria Rare Urine Casts Negative Urine Mucus Moderate Ur Culture Indicated? No Urine Glucose Negative Last Vital Signs Temp 37.4 C 10/17/19 17:38 Pulse 118 H 10/17/19 17:38 Resp 19 10/17/19 17:38 BP 114/63 10/17/19 17:38 Pulse Ox 91 L 10/17/19 17:38
[2019-10-17] MEDS: Enoxaparin 40 MG/0.4 ML SYR SC (19:22)
[2019-10-17] MEDS: Benzonatate 200 MG CAP PO (20:00)
[2019-10-17] MEDS: guaiFENesin 600 MG TABCR PO (20:00)
[2019-10-17] MEDS: Metoprolol 25 MG TAB PO (20:00)
[2019-10-17] MEDS: Magnesium Gluconate 500 MG TAB PO (20:11)
[2019-10-17] MEDS: Zolpidem 5 MG TAB 10 MG PO (23:42)
[2019-10-17] MEDS: Acetaminophen 325 MG TAB PO (23:42)
[2019-10-17] MEDS: methylPREDNISolone SUCC 125 MG VIAL 80 MG IVP (23:43)
[2019-10-18] VITALS (12 sets, daily range): BP systolic 153–168; BP diastolic 65–80; PULSE 63–83; RESP 18–22; TEMP 37–37.2; O2SAT 91–100
[2019-10-18] MEDS: Normal Saline 1,000 ML 125 ML IV ×2 (01:20→09:30)
[2019-10-18 07:28] LABS: HGB 12.1 g/dL (13.5-17.5); Mean Corp. HGB Concentration 34.6 g/dL (32.0-36.0); Mean Corpuscular Hemoglobin 35.3 pg (27.0-33.0); Mean Platelet Volume 10.3 fL (8.0-11.0); RBC 3.43 m/cumm (4.50-6.00); RBC Distribution Width 15.8 % (11.8-14.1); White Blood Cell Count 6.33 k/cumm (4.4-10.8)
[2019-10-18 07:41] LABS: Anion Gap 10.4 mmol/L (3-11); BUN 17 mg/dL (7-18); CO2 26.6 mmol/L (21.0-32.0); CREATININE 0.73 mg/dL (0.70-1.30); Calcium 8.6 mg/dL (8.5-10.1); Chloride 107 mmol/L (98-107); Glucose 169 mg/dL (74-106); Magnesium 1.8 mg/dL (1.8-2.4); Sodium 144 mmol/L (136-145)
[2019-10-18 07:47] LABS: Absolute Neutrophil Count 5.76 k/cumm (1.2-6.7); Platelet Count 117 x1000/uL (130-400)
[2019-10-18 07:48] LABS: Absolute Lymphocyte Count 0.51 k/cumm (1.2-3.4); Absolute Monocyte Count 0.06 k/cumm (0.11-0.7); Diff Comment Manual Differential; Macrocytosis 2+; Polychromasia Present
[2019-10-18] MEDS: DULoxetine 30 MG CAP 60 MG PO (08:33)
[2019-10-18] MEDS: guaiFENesin 600 MG TABCR PO (08:33)
[2019-10-18] MEDS: Aspirin 81 MG CHEW PO (08:33)
[2019-10-18] MEDS: Cholecalciferol (Vitamin D3) 1,000 UNIT TAB 1000 UNITS PO (08:34)
[2019-10-18] MEDS: Benzonatate 200 MG CAP PO ×2 (08:34→14:54)
[2019-10-18] MEDS: Mirabegron 25 MG TABCR PO (08:34)
[2019-10-18] MEDS: Magnesium Gluconate 500 MG TAB PO (08:34)
[2019-10-18] MEDS: Allopurinol 300 MG TAB PO (08:34)
[2019-10-18] MEDS: methylPREDNISolone SUCC 125 MG VIAL 80 MG IVP ×2 (08:34→15:51)
[2019-10-18] MEDS: Metoprolol 25 MG TAB PO (08:34)
[2019-10-18] MEDS: Omeprazole 20 MG CAPCR PO (09:41)
[2019-10-18] MEDS: Prazosin 5 MG CAP PO (10:06)
--- NOTE | 2019-10-18 10:09 | PDOC.CMIN ---
- If Service Date Differs Date of service: 10/18/19 Time of Service: 10:09 Care Management Initial Assess REASON FOR HOSPITALIZATION:: COPD Exacerbation PAST MEDICAL HISTORY/PAST SURGICAL HISTORY:: Medical History . Abnormal weight loss. Actinic keratosis. Adenomatous colon polyp (Acute). Alcohol consumption heavy (Acute). Allergic rhinitis (Acute). Benign essential tremor. Bilateral artificial lens implant. BPH (benign prostatic hyperplasia). BPH with obstruction/lower urinary tract symptoms (Inactive 12/19/13). Chronic insomnia. Diverticulosis. Diverticulosis (Acute). Erectile dysfunction (Acute). Essential hypertension (Acute). GERD (gastroesophageal reflux disease). Gout. H/O supraventricular tachycardia (Acute). Heavy alcohol consumption. History of DVT (deep vein thrombosis). History of positive PPD. History of PSVT (paroxysmal supraventricular tachycardia). History of pulmonary embolism. History of urinary urgency (Inactive 03/09/13). Hx of adenomatous colonic polyps. Hyperlipidemia. Impaired fasting glucose. Insomnia (Acute). Low testosterone in male (Acute). Lumbar back pain (Acute). Macrocytosis. Male hypogonadism. Myelodysplasia (myelodysplastic syndrome) (Acute). Neutropenia. Ocular migraine. Osteoarthritis. Other and unspecified hyperlipidemia (Acute). Overactive bladder. Peripheral neuropathy. Personal history of venous thrombosis and embolism (Acute). Positive PPD (Acute). Renal cyst. Sleep apnea. Spinal stenosis in cervical region. Spondylosis. Spondylosis of cervical joint (Acute). Subjective tinnitus. Urinary frequency (Acute). Vitamin D deficiency. Surgical History . Colonoscopy - IV Sedation. Cystoscopy. Extraction of cataract. BILAT. HERNIA REPAIR. History of intraocular lens implant (Acute). History of lumbar fusion (Acute 03/03/17). [facility] [place] [place]. Hussein. Armando THUMB. RHINOPLASTY. S/P TURP (Acute). S/P TURP (status post transurethral resection of prostate) (Inactive 12/19/13). Tonsillectomy and adenoidectomy. Total replacement of hip (05/13/16). RIGHT/DR. OLEA PREVIOUS FUNCTIONAL STATUS/SOCIAL/FAMILY SUPPORTS:: Eduar lives in a single family home in [facility] with his Afsaneh. They have 2 sons who live in [place]. Eduar served in the [employer] for 26 years and then worked for the [employer] service for another 18 years. He is now retired and has moved back to [place] from [place]. 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 CURRENT FUNCTIONAL STATUS:: Eduar was sitting up in a chair when CM met with him. He stated that he was waiting to be discharged. When sked if the doctor told him he could go home he stated that he had not seen the doctor nut the nurse told him he was scheduled to leave. He states he feels much better. He is worried about his who has been ill for a couple of years. He states thst she has been to 11 doctors and none of them are able to find the cause of her dizziness. He shared that they have an appointment at [facility] next week and are hopeful that some resolution or answers can be obtained. He states he cannot leave her for very long because she is unsteady on her feet due to dizziness. ADVANCE DIRECTIVES:: on file. Afsaneh Mattson HCA CODE STATUS:: Full Code INSURANCE COVERAGE / FINANCIAL ISSUES:: medicare. for Life CURRENT HOME/COMMUNITY SERVICES/EQUIPMENT:: none PRIMARY CARE PHYSICIAN:: Janina Reinoso POTENTIAL DISCHARGE NEEDS:: follow up with PCP and discharge plan of care PATIENT/FAMILY EDUCATION NEEDS:: Discharge plan, limitations, follow up care, Ask Me Three. TRANSPORTATION:: via private vehicle with friends/family PLAN:: Eduar will likely be discharged home with no new services. he will follow up with his PCP and discharge plan of care. CM will continue to support patient, family and discharge planning concerns.
[2019-10-18] MEDS: levoFLOXacin 500 MG, levoFLOXacin 250 MG 750 MG PO (12:33)
--- NOTE | 2019-10-18 14:06 | W.NUTCONSULT ---
Date of service: 10/18/19 Time of Service: 14:06 Nutritional Consult ASSESSMENT: 78 year old male admitted with COPD exacerbation. PMH: HTN, hyperlipidemia. BMI wnl for age. Following Regular meal plan with excellent intake. Not considered at nutritional risk at this time. MONITORING AND EVALUATION: po intake and weight trends Time Spent in Nutritional Counseling and Treatment: 0 time spent face to face
--- NOTE | 2019-10-18 16:37 | W.PM.DS.N ---
Date of service: 10/18/19 Time of Service: 16:38 DS: Diagnosis Discharge Diagnosis (1) COPD exacerbation: Status: Suspected Asessment and Plan: Patient is suspected of having a COPD exacerbation with acute purulent bronchitis. He has no formal diagnosis of COPD. However once he is over his acute bronchitis he should follow-up with outpatient pulmonary function test. (2) Acute purulent bronchitis: Status: Acute Asessment and Plan: Patient was started on Levaquin 750 mg IV in the emergency department and continued on oral Levaquin 750 mg daily. He will complete a 7-day course along with a 5-day course of prednisone 60 mg daily. He is given a prescription for both the Levaquin and the prednisone as well as prescriptions for Mucinex and Tessalon Perles and a Pro-air HFA 2 puffs every 6 hours as needed wheezing or dyspnea.. (3) Essential hypertension: Status: Acute Asessment and Plan: No change in his current blood pressure medications. (4) DVT prophylaxis: Status: Acute Asessment and Plan: Patient has a prescription for rivaroxaban which he takes on an as-needed basis whenever he goes on a prolonged trip where he is going to be sitting in a confined position for prolonged periods of time such as air flights or long car rides. He should take his rivaroxaban as directed by his PCP. While here in the hospital he was initially put on enoxaparin I switch that to rivaroxaban 10 mg daily for DVT prophylaxis because of his chronic thrombocytopenia decided not to use the enoxaparin. Discharge Plan Disposition Patient Disposition: HOME Condition: Improving Discharge Details Chief Complaint: RespSymp Clinical Impression: Acute bronchitis, Nausea, Hypoxia Reason For Visit: ACUTE BRONCHITIS,HYPOXEMIA,POSSIBLE COPD Admit Date/Time: 10/17/19 15:15 Admit Provider: Eben Martin Attending Provider: Eben Martin Primary Care Provider: Janina Reinoso ED Provider: Zunilda Khan Hospital Course Hospital Course: 78-year-old male with a history of GERD, hypertension, hyperlipidemia, depression, BPH and remote PE (not currently anticoagulated) presents with cough with green sputum, fatigue and nausea for the past few days Along with fever of 103 per his PCPs office and rigors. Patient presented emergency department hypoxemic with oxygen saturation of 89% on room air and tachycardic with a heart rate of 103 bpm with harsh cough with diffuse rhonchi. Chest CT scan demonstrated patent tracheobronchial tree no mediastinal hilar lymphadenopathy. Lungs show dependent atelectasis but no focal consolidating infiltrates. No pleural effusion. He had no thoracic aortic aneurysm or dissection. There is mild cardiomegaly and no evidence of right heart strain or pericardial effusion. No pulmonary embolus. He has sclerotic appearance to his spine suspicious for metastatic disease but no compression fracture deformity. He has old right rib fractures. CT of the abdomen and pelvis showed diverticulosis but no diverticulitis. He has an enlarged prostate and is status post right total hip replacement and he has lumbar spinal DJD and thoracic DJD. Patient received multiple aerosol treatments in the emergency department in a short period of time.This caused significant tachycardia.He was started on IV corticosteroids and given Levaquin for acute purulent bronchitis. He was admitted as an observation patient overnight. His pulse oximetry was not reading accurately in his finger and we switched to an ear probe and were actually able to wean him off of supplemental oxygen. He did well overnight and had no fevers. He is producing a fair amount of purulent sputum. He will be continued on 7-day course of Levaquin and 5 days of prednisone 60 mg. Home Meds and New Rx's Prescriptions: New levofloxacin [Levaquin] 750 mg Tablet 750 mg PO Q24H 7 Days Qty: 7 RF: 0 prednisone 20 mg tablet 60 mg PO DAILY Qty: 15 RF: 0 albuterol sulfate [ProAir HFA] 90 mcg/actuation HFA aerosol inhaler 2 inh IH Q6H PRN (Reason: shortness of breath or wheezing) Qty: 18 RF: 0 guaifenesin [Mucinex] 600 mg tablet extended release 12hr 600 mg PO Q12H PRN (Reason: cough) Qty: 14 RF: 0 benzonatate [Tessalon Perles] 100 mg capsule 100 mg PO TID PRN (Reason: cough) Qty: 30 RF: 0 Continued Xarelto 20 mg tablet 20 mg PO DAILY PRNRF: 0 furosemide 20 mg tablet 20 mg PO DAILY RF: 0 loratadine 10 mg tablet 20 mg PO DAILY PRNRF: 0 Marijuana PO RF: 0 omeprazole 10 MG capsule,delayed release(DR/EC) 20 mg PO DAILY RF: 0 aspirin [Aspirin Low-Strength] 81 MG tablet,chewable 81 mg PO DAILY RF: 0 montelukast 10 MG tablet 10 mg PO DAILY PRNRF: 0 allopurinol 300 MG tablet 300 mg PO DAILY RF: 0 zolpidem 5 MG tablet 10 mg PO HS PRN PRNRF: 0 ibuprofen 800 MG tablet 800 mg PO TID RF: 0 prazosin 5 MG capsule 10 mg PO DAILY RF: 0 diazepam 5 MG tablet 5 mg PO PRN RF: 0 Myrbetriq 25 mg tablet extended release 24 hr 25 mg PO Q24H Qty: 90 RF: 4 acyclovir 400 MG tablet 400 mg PO TID PRN PRNRF: 0 fluticasone propionate [Flonase Allergy Relief] 9.9 ML spray,suspension 2 spray NS DAILY PRN PRNRF: 0 testosterone cypionate 200 MG/ML oil 1.5 ml IM .[id number] RF: 0 metoprolol tartrate 25 MG tablet 25 mg PO BID RF: 0 cholecalciferol (vitamin D3) 1,000 UNITS tablet 1,000 unit PO DAILY RF: 0 duloxetine [Cymbalta] 60 MG capsule,delayed release(DR/EC) 60 mg PO DAILY RF: 0 Discharge Instructions Instructions: Acute Bronchitis (ED), Acute Nausea and Vomiting (ED) Additional Instructions: Use the albuterol inhaler as needed and directed for cough or shortness of breath. Take the cough medication as needed and directed for cough. Take the Zofran as needed and directed for nausea and vomiting. Take the steroids until finished. Follow-up with your primary care doctor in 1 week. Return to the emergency department with any worsening or new concerning symptoms. Stand Alone Forms: Nursing Discharge Form Referrals: Janina Reinoso MD [Primary Care Provider] - 10/23/19 11:10 am Activity:: Activity as Tolerated Equipment/Supplies:: No Equipment Needed Diet:: As Tolerated Discharge Orders Other Ambulatory Orders: PFT ([facility]) (Outpt) (ONCE) Timeframe: 20191101 Location: None Selected Ordered By: Eben Martin DS: Summary Status at Discharge Functional status at discharge: independent ambulation Overall status at discharge: patient is back to baseline Mental Status: mental status grossly normal Speech and Movement: speech and movement normal Mood: congruent mood Affect: normal affect Exam Narrative Exam Narrative: Elderly male who is alert and oriented person place time circumstance. Respirations are nonlabored. Lungs reveal few scattered crackles and end expiratory wheeze. Heart regular rate and rhythm without appreciable murmur rub or gallop. Extremities without peripheral cyanosis or edema. Psych Mental Status: mental status grossly normal Speech and Movement: speech and movement normal Mood: congruent mood Affect: normal affect DS: Data Vitals/I&O Vitals and I&O: Vital Signs Temperature 37.1 C 10/18/19 15:15 Temperature Source Tympanic 10/18/19 15:15 Pulse 77 10/18/19 15:15 Pulse Rhythm Regular 10/18/19 09:51 Pulse 119 H 10/17/19 17:00 Respiratory Rate 18 10/18/19 15:15 Respiratory Effort 10/18/19 10:11 Respiratory Depth Normal 10/18/19 10:11 Respiratory Pattern Normal 10/18/19 10:11 Blood Pressure 154/77 H 10/18/19 15:15 Blood Pressure Mean 61 10/17/19 17:00 Blood Pressure Position Supine 10/17/19 10:20 Pulse Oximetry 97 10/18/19 15:15 Oxygen Delivery Method Room Air 10/18/19 15:15 Oxygen Flow Rate 0 10/18/19 15:15 Pain Level 0 10/18/19 15:15 Comment 10/17/19 15:08 Intake & Output 10/17/19 10/18/19 10/18/19 23:59 11:59 23:59 Intake Total 1200 / 1210 2355 / 2955 600 / 2955 Output Total 350 / 350 850 / 850 Balance 850 / 860 1505 / 2105 600 / 2105 Weight 83.461 kg 84.1 kg Intake: IV 1200 / 1210 1875 / 1875 Oral 480 / 1080 600 / 1080 Output: Urine 350 / 350 850 / 850 Other: Urine Color Straw Yellow Urine Appearance Clear Clear Urine Odor Normal Voiding Methods Urinal Toilet Data Completed and Pending Labs on day of discharge: Labs from last 24 hours 10/18/19 10/18/19 06:30 06:30 WBC 6.33 D RBC 3.43 L Hgb 12.1 L Hct 35.0 L MCV 102.0 H MCH 35.3 H MCHC 34.6 RDW 15.8 H Plt Count 117 L MPV 10.3 Immature Gran % 0.0 Neutrophils % 76.0 Band Neutrophils % 15.0 Lymphocytes % 8.0 Monocytes % 1.0 Eosinophils % 0.0 Basophils % 0.0 Absolute Neutrophils 5.76 Absolute Lymphocytes 0.51 L Absolute Monocytes 0.06 L Absolute Eosinophils 0.00 Absolute Basophils 0.00 Differential Comment Manual differential RBC Morphology See below Polychromasia Present Macrocytosis 2+ Sodium 144 Potassium 4.0 Chloride 107 Carbon Dioxide 26.6 Anion Gap 10.4 BUN 17 Creatinine 0.73 Estimated GFR/1.73 m2 >= 60.00 Glucose 169 H Calcium 8.6 Magnesium 1.8 Path Cons Comment Pending Preliminary micro results at discharge 10/17/19 11:15 Blood Culture - Preliminary Blood NO GROWTH 24 HOURS 10/17/19 11:09 Blood Culture - Preliminary Blood NO GROWTH 24 HOURS 10/17/19 17:20 Sputum Culture - Preliminary Sputum [facility] Medical History Abnormal weight loss Actinic keratosis Adenomatous colon polyp (Acute) Alcohol consumption heavy (Acute) Allergic rhinitis (Acute) Benign essential tremor Bilateral artificial lens implant BPH (benign prostatic hyperplasia) BPH with obstruction/lower urinary tract symptoms (Inactive 12/19/13) Chronic insomnia Diverticulosis Diverticulosis (Acute) Erectile dysfunction (Acute) Essential hypertension (Acute) GERD (gastroesophageal reflux disease) Gout H/O supraventricular tachycardia (Acute) Heavy alcohol consumption History of DVT (deep vein thrombosis) History of positive PPD History of PSVT (paroxysmal supraventricular tachycardia) History of pulmonary embolism History of urinary urgency (Inactive 03/09/13) Hx of adenomatous colonic polyps Hyperlipidemia Impaired fasting glucose Insomnia (Acute) Low testosterone in male (Acute) Lumbar back pain (Acute) Macrocytosis Male hypogonadism Myelodysplasia (myelodysplastic syndrome) (Acute) Neutropenia Ocular migraine Osteoarthritis Other and unspecified hyperlipidemia (Acute) Overactive bladder Peripheral neuropathy Personal history of venous thrombosis and embolism (Acute) Positive PPD (Acute) Renal cyst Sleep apnea Spinal stenosis in cervical region Spondylosis Spondylosis of cervical joint (Acute) Subjective tinnitus Urinary frequency (Acute) Vitamin D deficiency Surgical History Colonoscopy - IV Sedation Cystoscopy Extraction of cataract BILAT HERNIA REPAIR History of intraocular lens implant (Acute) History of lumbar fusion (Acute 03/03/17) [facility] [place] [place]. Pikus R THUMB RHINOPLASTY S/P TURP (Acute) S/P TURP (status post transurethral resection of prostate) (Inactive 12/19/13) Tonsillectomy and adenoidectomy Total replacement of hip (05/13/16) RIGHT/DR. OLEA Family History Mother Personal history of malignant neoplasm PANCREATIC/LIVER Father Heart disease Sister No problems noted. Brother Diabetes Heart disease Brother Heart disease Mental disorder BIPOLAR Social History Smoking/Tobacco Use Status: Former Tobacco Use Alcohol Intake: current Alcohol Intake frequency: a few times a week Drug use: Never Substance use type: does not use Household members: spouse Current gender identity: male Do you feel safe in your relationship?: Yes
== END 2019-10-18 18:17 | disposition home or self-care (01) ==
LOC: ER 15:56 → MS 17:52
PROVIDERS: Admitting Provider Internal Medicine; Emergency Provider Physician Assistant; PCP Family Medicine; Visit Provider Internal Medicine
DX: J44.1 Chronic obstructive pulmonary disease with (acute) exacerbation (principal); J44.0 Chronic obstructive pulmonary disease with (acute) lower respiratory infection; J20.8 Acute bronchitis due to other specified organisms; R09.02 Hypoxemia; R00.0 Tachycardia, unspecified; E83.42 Hypomagnesemia; K21.9 Gastro-esophageal reflux disease without esophagitis; E78.5 Hyperlipidemia, unspecified; I10 Essential (primary) hypertension; F32.9 Major depressive disorder, single episode, unspecified; N40.0 Benign prostatic hyperplasia without lower urinary tract symptoms; Z86.711 Personal history of pulmonary embolism; R93.7 Abnormal findings on diagnostic imaging of other parts of musculoskeletal system
CPT/HCPCS: 36415; 71275; 74177; 80048; 80053; 87040; 87449; 93005; 94640; 96361; 96365; 96366; 96367; 96375; 96376; 99220; 99285; 99315; J1650; 81003; 81015; 83605; 83735; 83880; 84484; 85025; 85610; 85730; 87070; 87205; 93010; 99217; G0378; J1885; J1956; J2270; J2405; J2930; J3490; J7613; J7614; J7620

== ENCOUNTER 2019-10-30 13:01 | Outpatient (REF) | payer MEDICARE, OTHER, SELFPAY ==
[2019-10-30 14:08] LABS: Abs Immature Grans 0.02 k/cumm (0.0-0.09); Absolute Basophil Count 0.01 k/cumm (0.0-0.2); Absolute Lymphocyte Count 1.48 k/cumm (1.2-3.4); Basophils % 0.3; Eosinophils % 2.8; HCT 39.7 % (40.0-50.0); HGB 12.8 g/dL (13.5-17.5); Immature Grans % 0.6 %; Mean Corp. HGB Concentration 32.2 g/dL (32.0-36.0); Mean Corpuscular Volume 105.3 fL (80-95); Mean Platelet Volume 10.9 fL (8.0-11.0); Monocytes % 2.8; Neutrophils % 52.5; Platelet Count 166 x1000/uL (130-400); RBC 3.77 m/cumm (4.50-6.00); RBC Distribution Width 15.5 % (11.8-14.1); White Blood Cell Count 3.61 k/cumm (4.4-10.8)
[2019-10-30 14:32] LABS: Diff Comment RBC Morph Reviewed; Macrocytosis 2+; Polychromasia Present
[2019-10-30 15:55] LABS: AST 14 U/L (15-37); Albumin 3.3 g/dL (3.4-5.0); Alkaline Phosphatase 45 U/L (46-116); Anion Gap 10.1 mmol/L (3-11); BUN 22 mg/dL (7-18); Bilirubin, Total 0.5 mg/dL (0.2-1.0); CO2 29.9 mmol/L (21.0-32.0); CREATININE 1.03 mg/dL (0.70-1.30); Calcium 8.8 mg/dL (8.5-10.1); Calculated LDL 84 mg/dL (<100); Chloride 105 mmol/L (98-107); Cholesterol 146 mg/dL (<200); Glucose 97 mg/dL (74-106); HDL Cholesterol 48 mg/dL (40-60); Potassium 4.2 mmol/L (3.5-5.1); Sodium 145 mmol/L (136-145); Total Protein 6.6 g/dL (6.4-8.2); Triglyceride 71 mg/dL (<150)
[2019-10-30 16:40] LABS: ALT 22 U/L (16-63)
[2019-10-30 19:34] LABS: Hemoglobin A1C 6.2 % (3.8-5.6)
== END 2019-10-30 13:21 ==
LOC: NCHCN 13:01
PROVIDERS: PCP Family Medicine; Visit Provider Family Medicine
DX: I10 Essential (primary) hypertension (principal); E78.5 Hyperlipidemia, unspecified; R73.09 Other abnormal glucose
CPT/HCPCS: 80053; 80061; 83036; 85025

== ENCOUNTER 2019-11-03 02:18 | Outpatient (CLI) | payer MEDICARE, OTHER, SELFPAY ==
--- NOTE | 2019-11-03 | PFT_ITS ---
PULMONARY FUNCTION TEST REPORT Patient - Eduar Mattson DATE OF SERVICE November 03, 2019 REQUESTING PROVIDER Janina Reinoso M.D. INTERPRETATION OF STUDY Spirometry shows no evidence of obstructive airways disease. No bronchodilator response. LUNG VOLUMES - Lung volumes show no evidence of restriction. DIFFUSION CAPACITY- Moderately reduced even when corrected to alveolar volume. AIRWAY RESISTANCE - Normal. IMPRESSION Isolated moderate diffusion defect. Differential diagnosis includes underlying interstitial lung disease versus pulmonary hypertension. Noncommunicating bullous disease can be considered though it is less likely with alveolar volume measured through diffusion capacity and plethysmography being fairly similar. When this study was compared to previous one from 02/26/17, the patient has a stable FVC and FEV1; however, diffusion capacity has declined significantly. Clinical correlation therefore recommended. Princess Nolasco M.D. GALINA/ T- 11/09/19
[2019-11-03] MEDS: Inhaler, Assist Device 1 EACH MC (14:04)
[2019-11-03] MEDS: Albuterol HFA 18 GM 200 PUFF INH IH (14:04)
== END 2019-11-03 02:38 ==
PROVIDERS: PCP Family Medicine; Visit Provider Family Medicine
DX: R05 Cough (principal); J42 Unspecified chronic bronchitis; R94.2 Abnormal results of pulmonary function studies
CPT/HCPCS: 94060; 94726; 94729

== ENCOUNTER 2020-02-27 01:11 | Outpatient (CLI) | payer MEDICARE, OTHER, SELFPAY ==
--- NOTE | 2020-02-27 | DI.MRI_ITS ---
EXAM: MR LUMBAR SPINE WO/W CLINICAL HISTORY: RECURRENT LUMBAGO,S/P LUMBAR AND SI SURGERY. TECHNIQUE: Multiplanar multisequence MRI was performed. Pre and post gadolinium T1 fat-suppressed a xial and sagittal sequences were performed in addition to the routine sequences. 18 milliliters of Dotarem were administered IV. COMPARISON: MR MR lumbar spine wo/w from 01/20/[address] CHEST PE ABD PELVIS W from 10/17/2019 FINDINGS: Prior laminectomy again noted at L4 and L5. Posterior fusion hardware is in place at the L4-5 leve l with disc spacer. Screws are also seen extending through the SI joints bilaterally. There is abnormal low signal on T1 weighted images and abnormal high signal on T2 and STIR sequences in the L2 and L3 vertebral bodies. There is some metallic artifact related to the hardware at L4 and L5 however there is abnormal signal within the vertebral bodies as well. Sclerosis was seen on prev ious CT. There is enhancement following IV gadolinium. There is some enhancement seen extending out side of the confines of the vertebral body. No pathologic fracture is seen. The overall spinal alig nment appears unchanged. The findings are suspicious for metastatic disease. The L1-2 disc shows a tiny right paracentral disc protrusion. The L2-3 disc shows severe loss of hei ght eccentric to the right. Facet degenerative changes are also present. There is mild central ade l stenosis. There is severe right neural foraminal encroachment and mild to moderate left neural for aminal encroachment. At L3-4, there is moderate to severe loss of disc height and broad-based disc osteophytes. There are facet degenerative changes. There is no significant central canal stenosis. There is severe bilate ral neural foraminal narrowing. At L4-5: There has been previous laminectomy. The canal is widely patent. There is mild bilateral n eural foraminal narrowing. A disc spacer is seen at this level. At L5-S1, there is minimal disc bulging. There are facet degenerative changes causing moderate left and mild right neural foraminal encroachment. IMPRESSION: 1. Abnormal marrow signal and contrast enhancement within the L2 through L5 vertebral bodies, suspic ious for metastatic disease. 2. Degenerative disc changes and facet degenerative changes causing mild central canal stenosis at L2-3. Neural foraminal narrowing is noted at multiple levels, greatest at L3-4. DATA REPOSITORY:
[2020-02-27 10:53] LABS: CREATININE 1.01 mg/dL (0.70-1.30)
[2020-02-27] MEDS: Normal Saline Flush 10 ML SYR IVP (11:00)
[2020-02-27] MEDS: Gadoterate meglumine 20 ML VIAL 18 ML IVP (11:02)
== END 2020-02-27 01:31 ==
PROVIDERS: PCP Family Medicine; Visit Provider Neurological Surgery
DX: M54.5 Low back pain (principal); M51.36 Other intervertebral disc degeneration, lumbar region; Z98.1 Arthrodesis status; R93.7 Abnormal findings on diagnostic imaging of other parts of musculoskeletal system; Z13.89 Encounter for screening for other disorder
CPT/HCPCS: 72158; 82565

== ENCOUNTER 2020-03-11 13:02 | Outpatient (REF) | payer MEDICARE, OTHER, SELFPAY ==
[2020-03-11 16:27] LABS: Folate 9.8 ng/mL (8.6-20.0); Vitamin B12 622 pg/mL (193-986)
[2020-03-12 10:55] LABS: Syphilis Serology (RPR) Negative (Negative)
== END 2020-03-11 13:22 ==
LOC: NCHCN 13:02
PROVIDERS: PCP Family Medicine; Visit Provider Family Medicine
DX: R41.3 Other amnesia (principal)
CPT/HCPCS: 82607; 82746; 84443; 86592

== ENCOUNTER 2020-03-13 01:01 | Outpatient (CLI) | payer MEDICARE, OTHER, SELFPAY ==
--- NOTE | 2020-03-13 11:00 | DI.NM_ITS ---
EXAM: NM BONE SCAN 3 PHASE CLINICAL HISTORY: VERTEBRAL BODY ENHANCEMENT ON MRI,LOW BACK PAIN,M54.5,F/U ABNL MRI. TECHNIQUE: Injected Dose: 25 mCi Tc-99m MDP COMPARISON: MR MRI - LUMBAR SPINE WO CONTRAST from 07/14/2016 MR MRI - LUMBAR SPINE WO CONTRAST from 02/11/2017 CT LUMBAR SPINE WITH CONTRAST from 03/07/[address] CHEST PE ABD PELVIS W from 10/17/[address] CHEST PE ABD PELVIS W from 10/17/2019 MR MR LUMBAR SPINE WO/W from 02/27/2020 FINDINGS: Perfusion: Symmetric. Blood Pool: Symmetric. Delayed: Increased radiotracer uptake at the inferior aspect of L2 and superior aspect of L3 vertebra l bodies. There is otherwise normal radiotracer uptake in the visualized spine. Mild scattered area s of increased radiotracer uptake is seen in the shoulders, wrists and feet bilaterally which is like ly degenerative. IMPRESSION: 1. Increased radiotracer uptake seen in the L2 and L3 vertebral bodies as described above. Compared to prior examinations dating back to 2015, there has been progressive abnormal signal on the MRI and increased sclerosis on the CT scan involving the L2 and L3 vertebral bodies. No cortical disruption, soft tissue mass or focal fluid collection is seen on the recent CT scan or MRI. The findings may r epresent Modic type 1 endplate change but neoplasm cannot be excluded. No evidence of disc signal ch anges or fluid collection is seen and infection is considered less likely. DATA REPOSITORY:
== END 2020-03-13 01:21 ==
PROVIDERS: PCP Family Medicine; Visit Provider Physician Assistant Surgical
DX: M54.5 Low back pain (principal); M51.36 Other intervertebral disc degeneration, lumbar region; R93.7 Abnormal findings on diagnostic imaging of other parts of musculoskeletal system
CPT/HCPCS: 78315

== ENCOUNTER 2020-03-15 02:44 | Outpatient (CLI) | payer MEDICARE, OTHER, SELFPAY ==
--- NOTE | 2020-03-15 | DI.MRI_ITS ---
EXAM: MR BRAIN WO CLINICAL HISTORY: MEMORY IMPAIRMENT, R41.3 TECHNIQUE: Multiplanar multisequence MRI of the brain was performed. COMPARISON: No exams were available for comparison FINDINGS: VENTRICLES AND EXTRA AXIAL SPACES: Normal in size and morphology for the patient's age. MIDLINE SHIFT: None. CEREBRAL PARENCHYMA: No focus of restricted diffusion to suggest acute infarct. No space-occupying le augustin identified. Several foci of hyperintense signal are seen in the white matter on the FLAIR and T2 weighted images most consistent with small vessel ischemic disease. HEMORRHAGE: None. BRAINSTEM/CEREBELLUM: Normal. CALVARIUM: Normal. VISUALIZED PARANASAL SINUSES/MASTOIDS:Clear. GRAYLING OF BECKETT: Normal flow void. PITUITARY GLAND: Unremarkable. OTHER FINDINGS: None. IMPRESSION: Small vessel ischemic disease and age appropriate cerebral atrophy. DATA REPOSITORY:
== END 2020-03-15 03:04 ==
PROVIDERS: PCP Family Medicine; Visit Provider Family Medicine
DX: R41.3 Other amnesia (principal); G31.89 Other specified degenerative diseases of nervous system; I67.82 Cerebral ischemia; M75.81 Other shoulder lesions, right shoulder; M75.102 Unspecified rotator cuff tear or rupture of left shoulder, not specified as traumatic; M12.812 Other specific arthropathies, not elsewhere classified, left shoulder; Z98.890 Other specified postprocedural states
CPT/HCPCS: 99213; 70551

== ENCOUNTER → 2020-03-22 09:46 | Outpatient (BNVA) | payer MEDICARE, OTHER, SELFPAY | PROVIDERS: PCP Family Medicine; Referring Provider Family Medicine; Visit Provider Urology | DX: N40.1 Benign prostatic hyperplasia with lower urinary tract symptoms (principal); R35.1 Nocturia | CPT/HCPCS: 99213 ==

== ENCOUNTER → 2020-03-26 08:21 | Outpatient (BNVA) | payer MEDICARE, OTHER, SELFPAY | PROVIDERS: PCP Family Medicine; Referring Provider Family Medicine; Visit Provider Nurse Practitioner Adult Health | DX: G31.84 Mild cognitive impairment of uncertain or unknown etiology (principal); I10 Essential (primary) hypertension | CPT/HCPCS: 99204; 99215 ==

== ENCOUNTER 2020-05-17 21:40 | Outpatient (REF) | payer MEDICARE, OTHER, SELFPAY ==
[2020-05-17 20:48] LABS: Abs Immature Grans 0.01 10^3/uL (0.0-0.06); Absolute Basophil Count 0.01 10^3/uL (0.0-0.2); Absolute Eosinophil Count 0.09 10^3/uL (0.0-0.7); Absolute Lymphocyte Count 0.77 10^3/uL (1.2-3.4); Absolute Monocyte Count 0.04 10^3/uL (0.1-0.8); Absolute Neutrophil Count 3.29 10^3/uL (1.2-6.7); Basophils % 0.2; Eosinophils % 2.1; HCT 39.6 % (40.0-50.0); Immature Grans % 0.2; Lymphocytes % 18.3; MCH 34.3 pg (27.0-33.0); MCHC 32.8 % (32.0-36.0); MCV 104.5 fL (80-95); MPV 11.4 fL (8.0-11.0); Neutrophils % 78.2; Nucleated RBC 0 %; Platelet Count 126 10^3/uL (130-400); RBC 3.79 10^6/uL (4.36-5.78); RDW 16.6 % (11.8-14.1); WBC 4.21 10^3/uL (4.4-10.8)
[2020-05-17 21:37] LABS: Diff Comment Agrees w/ Instrument; Macrocytosis 1+
== END 2020-05-17 22:00 ==
LOC: NCHCN 21:40
PROVIDERS: PCP Family Medicine; Visit Provider Family Medicine
DX: C90.00 Multiple myeloma not having achieved remission (principal)
CPT/HCPCS: 85025

== ENCOUNTER 2020-05-24 18:40 | Outpatient (REF) | payer MEDICARE, OTHER, SELFPAY ==
[2020-05-24 23:26] LABS: Abs Immature Grans 0.01 10^3/uL (0.0-0.06); Absolute Basophil Count 0.01 10^3/uL (0.0-0.2); Absolute Eosinophil Count 0.13 10^3/uL (0.0-0.7); Absolute Lymphocyte Count 0.57 10^3/uL (1.2-3.4); Absolute Monocyte Count 0.03 10^3/uL (0.1-0.8); Absolute Neutrophil Count 1.34 10^3/uL (1.2-6.7); Basophils % 0.5; Eosinophils % 6.2; HCT 35.3 % (40.0-50.0); HGB 11.3 g/dL (13.5-17.5); Immature Grans % 0.5; Lymphocytes % 27.3; MCV 106.3 fL (80-95); MPV 10.9 fL (8.0-11.0); Monocytes % 1.4; Neutrophils % 64.1; Nucleated RBC 0 %; Platelet Count 142 10^3/uL (130-400); RBC 3.32 10^6/uL (4.36-5.78); RDW 15.8 % (11.8-14.1); RDW-SD 62.2 fL; WBC 2.09 10^3/uL (4.4-10.8)
== END 2020-05-24 19:00 ==
LOC: NCHCN 18:40
PROVIDERS: PCP Family Medicine; Visit Provider Family Medicine
DX: C90.00 Multiple myeloma not having achieved remission (principal)
CPT/HCPCS: 85025

== ENCOUNTER 2020-05-31 10:48 | Outpatient (REF) | payer MEDICARE, OTHER, SELFPAY ==
[2020-05-31 18:34] LABS: HCT 34.8 % (40.0-50.0); HGB 11.2 g/dL (13.5-17.5); MCHC 32.2 % (32.0-36.0); MCV 105.8 fL (80-95); Nucleated RBC 0 %; Platelet Count 119 10^3/uL (130-400); RBC 3.29 10^6/uL (4.36-5.78); RDW 15.3 % (11.8-14.1); RDW-SD 59.7 fL; WBC 2.06 10^3/uL (4.4-10.8)
[2020-05-31 19:18] LABS: Absolute Eosinophil Count 0.12 10^3/uL (0.0-0.7); Absolute Lymphocyte Count 0.87 10^3/uL (1.2-3.4); Absolute Neutrophil Count 1.07 10^3/uL (1.2-6.7); Bands % 2; Diff Comment Manual Differential
[2020-05-31 19:19] LABS: Macrocytosis 1+
== END 2020-05-31 11:08 ==
LOC: NCHCN 10:48
PROVIDERS: PCP Family Medicine; Visit Provider Family Medicine
DX: C90.00 Multiple myeloma not having achieved remission (principal)
CPT/HCPCS: 85025

== ENCOUNTER 2020-06-07 11:20 | Outpatient (REF) | payer MEDICARE, OTHER, SELFPAY ==
[2020-06-07 16:16] LABS: Abs Immature Grans 0.01 10^3/uL (0.0-0.06); Absolute Basophil Count 0.05 10^3/uL (0.0-0.2); Absolute Eosinophil Count 0.11 10^3/uL (0.0-0.7); Absolute Lymphocyte Count 1.05 10^3/uL (1.2-3.4); Absolute Monocyte Count 0.12 10^3/uL (0.1-0.8); Absolute Neutrophil Count 1.02 10^3/uL (1.2-6.7); Basophils % 2.1; Eosinophils % 4.7; HCT 35.3 % (40.0-50.0); HGB 11.4 g/dL (13.5-17.5); Immature Grans % 0.4; Lymphocytes % 44.5; MCH 33.6 pg (27.0-33.0); MCHC 32.3 % (32.0-36.0); MCV 104.1 fL (80-95); MPV 10.5 fL (8.0-11.0); Monocytes % 5.1; Neutrophils % 43.2; Nucleated RBC 0 %; Platelet Count 133 10^3/uL (130-400); RBC 3.39 10^6/uL (4.36-5.78); RDW 15.4 % (11.8-14.1); WBC 2.36 10^3/uL (4.4-10.8)
== END 2020-06-07 11:40 ==
LOC: NCHCN 11:20
PROVIDERS: PCP Family Medicine; Visit Provider Family Medicine
DX: C90.00 Multiple myeloma not having achieved remission (principal)
CPT/HCPCS: 85025

== ENCOUNTER 2020-06-14 10:41 | Outpatient (REF) | payer MEDICARE, OTHER, SELFPAY ==
[2020-06-14 20:04] LABS: Abs Immature Grans 0.04 10^3/uL (0.0-0.06); HCT 36.7 % (40.0-50.0); HGB 11.5 g/dL (13.5-17.5); MCH 33.3 pg (27.0-33.0); MCHC 31.3 % (32.0-36.0); MCV 106.4 fL (80-95); MPV 11.8 fL (8.0-11.0); Nucleated RBC 0 %; Platelet Count 127 10^3/uL (130-400); RBC 3.45 10^6/uL (4.36-5.78); RDW 15.9 % (11.8-14.1); RDW-SD 62.3 fL; WBC 4.07 10^3/uL (4.4-10.8)
[2020-06-14 20:29] LABS: Absolute Lymphocyte Count 0.98 10^3/uL (1.2-3.4); Absolute Monocyte Count 0.24 10^3/uL (0.1-0.8); Absolute Neutrophil Count 2.65 10^3/uL (1.2-6.7); Bands % 5
[2020-06-14 20:30] LABS: Diff Comment Manual Differential; Macrocytosis 2+; Polychromasia Present
== END 2020-06-14 11:01 ==
LOC: NCHCN 10:41
PROVIDERS: PCP Family Medicine; Visit Provider Family Medicine
DX: C90.00 Multiple myeloma not having achieved remission (principal)
CPT/HCPCS: 36415; 85025

== ENCOUNTER 2020-06-14 19:11 | Outpatient (CLI) | payer MEDICARE, OTHER, SELFPAY ==
--- NOTE | 2020-06-14 | DI.US_ITS ---
EXAM: US LOWER EXTREMITY VENOUS RT CLINICAL HISTORY: HX OF DVT DUE TO TRAVEL, Z86.718, SWELLING RT LOWER LEG, R22.41. TECHNIQUE: Right lower extremity venous ultrasound performed using grayscale, color-flow, and spectr al Doppler analysis. COMPARISON: No exams were available for comparison FINDINGS: The common femoral, femoral and popliteal veins demonstrate normal compressibility, augmentation, and color Doppler. The posterior tibial veins are patent. No saphenous vein thrombosis or other superfi cial venous thrombosis is seen. No hematoma or Manriquez's cyst is seen. IMPRESSION: Negative right lower extremity ultrasound. No evidence of DVT. DATA REPOSITORY:
== END 2020-06-14 19:31 ==
PROVIDERS: PCP Family Medicine; Visit Provider Family Medicine
DX: R22.41 Localized swelling, mass and lump, right lower limb (principal); Z86.718 Personal history of other venous thrombosis and embolism
CPT/HCPCS: 93971

== ENCOUNTER 2020-06-21 12:50 | Outpatient (REF) | payer MEDICARE, OTHER, SELFPAY ==
[2020-06-21 21:27] LABS: Abs Immature Grans 0.02 10^3/uL (0.0-0.06); HCT 35.8 % (40.0-50.0); HGB 11.2 g/dL (13.5-17.5); MCH 33.3 pg (27.0-33.0); MCHC 31.3 % (32.0-36.0); MCV 106.5 fL (80-95); Nucleated RBC 0 %; Platelet Count 108 10^3/uL (130-400); RBC 3.36 10^6/uL (4.36-5.78); RDW 15.5 % (11.8-14.1); RDW-SD 60.2 fL; WBC 3.06 10^3/uL (4.4-10.8)
[2020-06-21 22:41] LABS: Absolute Eosinophil Count 0.15 10^3/uL (0.0-0.7); Absolute Monocyte Count 0.12 10^3/uL (0.1-0.8); Absolute Neutrophil Count 1.68 10^3/uL (1.2-6.7); Atypical Lymphocytes % 16; Bands % 2; Diff Comment Manual Differential; Macrocytosis 1+
[2020-06-21 22:42] LABS: Polychromasia Present
== END 2020-06-21 13:10 ==
LOC: NCHCN 12:50
PROVIDERS: PCP Family Medicine; Visit Provider Family Medicine
DX: C90.00 Multiple myeloma not having achieved remission (principal)
CPT/HCPCS: 85025

== ENCOUNTER → 2020-06-24 07:59 | Outpatient (BNVA) | payer MEDICARE, OTHER, SELFPAY | PROVIDERS: PCP Family Medicine; Referring Provider Family Medicine; Visit Provider Student in an Organized Health Care Education/Training Program | DX: M75.81 Other shoulder lesions, right shoulder (principal); I10 Essential (primary) hypertension | CPT/HCPCS: 20610; 99213; J1040 ==

== ENCOUNTER 2020-06-26 16:36 | Outpatient (REF) | payer MEDICARE, OTHER, SELFPAY ==
[2020-06-26 20:09] LABS: Abs Immature Grans 0.01 10^3/uL (0.0-0.06); Absolute Basophil Count 0.01 10^3/uL (0.0-0.2); Absolute Eosinophil Count 0.15 10^3/uL (0.0-0.7); Absolute Lymphocyte Count 0.96 10^3/uL (1.2-3.4); Absolute Monocyte Count 0.08 10^3/uL (0.1-0.8); Absolute Neutrophil Count 1.48 10^3/uL (1.2-6.7); Basophils % 0.4; Eosinophils % 5.6; HCT 35.3 % (40.0-50.0); HGB 11.4 g/dL (13.5-17.5); Immature Grans % 0.4; Lymphocytes % 35.7; MCH 33.3 pg (27.0-33.0); MCHC 32.3 % (32.0-36.0); MCV 103.2 fL (80-95); MPV 11.7 fL (8.0-11.0); Neutrophils % 54.9; Nucleated RBC 0 %; Platelet Count 112 10^3/uL (130-400); RBC 3.42 10^6/uL (4.36-5.78); RDW 15.6 % (11.8-14.1); RDW-SD 57.2 fL; WBC 2.69 10^3/uL (4.4-10.8)
== END 2020-06-26 16:56 ==
LOC: NCHCN 16:36
PROVIDERS: PCP Family Medicine; Visit Provider Family Medicine
DX: C90.00 Multiple myeloma not having achieved remission (principal)
CPT/HCPCS: 84443; 85025

== ENCOUNTER 2020-07-02 04:27 | Outpatient (CLI) | payer MEDICARE, OTHER, SELFPAY | END 2020-07-02 04:47 | PROVIDERS: PCP Family Medicine; Visit Provider Urology | DX: R35.0 Frequency of micturition (principal); R97.20 Elevated prostate specific antigen [PSA]; R93.89 Abnormal findings on diagnostic imaging of other specified body structures; I10 Essential (primary) hypertension | CPT/HCPCS: 99213 ==

== ENCOUNTER 2020-07-02 13:19 | Outpatient (REF) | payer MEDICARE, OTHER, SELFPAY ==
[2020-07-02 23:03] LABS: PSA, Diagnostic 5.7 ng/mL (0.0-6.5)
== END 2020-07-02 13:39 ==
LOC: LBN 13:19
PROVIDERS: PCP Family Medicine; Visit Provider Urology
DX: N40.2 Nodular prostate without lower urinary tract symptoms (principal)
CPT/HCPCS: 84153

== ENCOUNTER 2020-07-03 08:57 | Observation (INO) | payer MEDICARE, OTHER, SELFPAY ==
[2020-07-03] VITALS (46 sets, daily range): BP systolic 107–158; BP diastolic 64–105; PULSE 72–130; RESP 13–29; TEMP 36.2–36.8; O2SAT 87–99
--- NOTE | 2020-07-03 09:00 | RT.EKG_ITS ---
APPROVED REPORT Exam: Resting ECG Patient Location: E HR:89 bpm ECG Measurements Heart Rate 89 AXIS DE 165 P 36 QRSd 109 QRS 55 QT 366 T 27 QTc 445 Conclusion Sinus rhythm...normal P axis, V-rate 60- 99 Probable left ventricular hypertrophy...multiple LVH criteria I have reviewed and interpreted ECG and agree with software generated interpretation.
--- NOTE | 2020-07-03 09:02 | W.ED.GENAD ---
Discharge Plan Disposition Patient Disposition: [facility] INPATIENT Condition: Stable Discharge Details Clinical Impression: Pulmonary embolism, History of multiple myeloma Admit Date/Time: 07/03/20 15:52 Admit Provider: Mariah Augustin Attending Provider: Mariah Augustin Primary Care Provider: Janina Reinoso ED Provider: Zunilda Khan Medical Decision Making 0915 -- 79-year-old male with a history of recently diagnosed stage I multiple myeloma currently on Revlimid and dexamethasone, chronic daily alcohol use, history of PE and DVT presents for sudden onset of shortness of breath since yesterday. EKG notes a rate of 89, sinus with no acute ST-T wave ischemic changes. Oxygen saturation 90% on room air. He appears in no acute respiratory distress. Lungs clear. No lower extremity edema. Differential diagnosis includes pneumonia, bronchitis, and acs. Concern for PE due to patient's previous history as well as Revlimid has a risk of thromboembolism and PE. Will obtain screening labs, CT chest to rule out PE. 1130 -- labs and imaging reviewed. White blood cell count at baseline at 2.99. INR 1.1. Magnesium 1.6. Troponin negative. CT notes bilateral upper and lower PEs without evidence of heart strain. Patient has had intermittent oxygen saturations in the 90-91 range with dips down into the high 80s with movement or ambulation with complaint of shortness of breath. Will admit for observation and treatment with Lovenox. 1200 -- Case discussed with hospitalist who would like stat echo obtained to rule out heart strain in case of needing transfer. Discussed with radiology and echo can be done at 3 PM. 1530 -- Ultrasound done at bedside which was negative for heart strain. Patient has remained hemodynamically stable. Case discussed with hospitalist who accepts patient for admission to the floor. Medical Records Medical records reviewed: Yes I reviewed the patient's medical records. Imaging Data Radiologic Study: Radiologist's impression: CT CHEST PE CTA CLINICAL HISTORY: shortness of breath, on revlimid for multiple myeloma TECHNIQUE: Imaging Protocol: Axial computed tomography images with coronal and sagittal reformatted images were created and reviewed CONTRAST MATERIAL: Intravenous: Omnipaque 350 Contrast volume:structured data in ml Oral: No Intravenous: Omnipaque 350 Contrast volume:100 ml COMPARISON: CT CT CHEST PE ABD PELVIS W from 10/17/2019 FINDINGS: CHEST: Heart and great vessels: There is no evidence of aortic dissection. There are bilateral upper and lower lobe pulmonary emboli. There is no evidence of right heart strain. There are no pleural or pericardial effusions. Adenopathy: None. Lungs: No pulmonary nodules, mass or infiltrate. Dependent changes at the lung bases. Bones: There is no evidence of spine or rib fracture. Degenerative changes. Stable sclerotic and lytic bony lesions. Impression: Bilateral upper and lower lobe pulmonary emboli. Lab Data Lab results reviewed: Yes I reviewed the patient's lab results. Labs: Laboratory Tests Range/Units 07/03/20 07/03/20 07/03/20 09:20 09:20 09:20 WBC (4.4-10.8) 10^3/uL 2.99 L RBC (4.36-5.78) 10^6/uL 3.73 L Hgb (13.5-17.5) g/dL 12.5 L Hct (40.0-50.0) % 39.4 L MCV (80-95) fL 105.6 H MCH (27.0-33.0) pg 33.5 H MCHC (32.0-36.0) % 31.7 L RDW (11.8-14.1) % 16.2 H Plt Count (130-400) 10^3/uL 119 L MPV (8.0-11.0) fL 10.1 Immature Gran % 0.7 Neutrophils % 42.4 Lymphocytes % 46.2 Monocytes % 5.7 Eosinophils % 4.7 Basophils % 0.3 Nucleated RBC % % 1 Absolute Neutrophils (1.2-6.7) 10^3/uL 1.27 Absolute Lymphocytes (1.2-3.4) 10^3/uL 1.38 Absolute Monocytes (0.1-0.8) 10^3/uL 0.17 Absolute Eosinophils (0.0-0.7) 10^3/uL 0.14 Absolute Basophils (0.0-0.2) 10^3/uL 0.01 PT (9.3-11.0) sec 10.6 INR (0.9-1.1) 1.1 APTT (21.0-31.4) sec 23.0 Sodium (136-145) mmol/L 141 Potassium (3.5-5.1) mmol/L 3.9 Chloride (98-107) mmol/L 104 Carbon Dioxide (21.0-32.0) mmol/L 27.3 Anion Gap (3-11) mmol/L 9.7 BUN (7-18) mg/dL 18 Creatinine (0.70-1.30) mg/dL 0.86 Estimated GFR/1.73 m2 (mL/min/1.73m2) >= 60.00 Glucose (74-106) mg/dL 121 H Calcium (8.5-10.1) mg/dL 8.9 Magnesium (1.8-2.4) mg/dL 1.6 L Total Bilirubin (0.2-1.0) mg/dL 0.7 AST (15-37) U/L 9 L ALT (16-63) U/L 20 Alkaline Phosphatase (46-116) U/L 53 Troponin I (<0.06) ng/mL < 0.05 Total Protein (6.4-8.2) g/dL 6.7 Albumin (3.4-5.0) g/dL 3.3 L ECG Data Attestation: I personally reviewed and interpreted this ECG (s) as follows: Interpretation: Rate of 89, sinus, no acute ST elevation or depression. IA 165. QRS 109. QTc 445. HPI General Mode of arrival: wheelchair. Date/Time Provider Initiated Documentation: 07/03/20 08:57. Limitations to Documentation: no limitations. Information obtained by: patient. HPI Narrative: Patient is a 79-year-old male with a history of hypertension, hyperlipidemia, heavy alcohol use, GERD, PE, DVT and recently diagnosed multiple myeloma on dexamethasone and Revlimid presents for sudden onset of shortness of breath and weakness that occurred while walking up the stairs yesterday. Patient was sent here by his oncology team at [facility]. Patient also admits to some nausea and chronic cough occasionally productive of brown sputum. He denies fever, chest pain. Patient states he takes aspirin daily and occasionally takes Xarelto if going on a trip due to his previous history of DVT. Related Data Home Medications Medication Instructions Recorded Confirmed allopurinol 300 mg PO DAILY 12/29/12 07/03/20 aspirin [Aspirin Low-Strength] 81 mg PO DAILY tab-cap 12/29/12 07/03/20 montelukast 10 mg PO DAILY PRN tab-cap 12/29/12 07/03/20 omeprazole 20 mg PO DAILY tab-cap 12/29/12 07/03/20 acyclovir 400 mg PO TID PRN PRN 05/07/16 07/02/20 fluticasone propionate [Flonase 2 spray NS DAILY PRN PRN 05/07/16 07/03/20 Allergy Relief] cholecalciferol (vitamin D3) 1,000 unit PO DAILY 05/12/16 07/03/20 metoprolol tartrate 25 mg PO BID 05/12/16 07/03/20 testosterone cypionate 1.5 ml IM .[id number] 05/12/16 07/03/20 duloxetine [Cymbalta] 60 mg PO DAILY 03/07/17 07/03/20 diazepam 5 mg PO PRN 05/31/17 07/03/20 prazosin 10 mg PO DAILY 05/31/17 07/03/20 furosemide 20 mg tablet 20 mg PO DAILY 04/14/19 07/03/20 rivaroxaban 20 mg tablet 20 mg PO DAILY PRN 04/14/19 07/03/20 Marijuana PO 04/17/19 07/02/20 albuterol sulfate [ProAir HFA] 2 inh IH Q6H PRN #18 gm 10/18/19 07/03/20 atorvastatin 40 mg tablet 40 mg PO DAILY 03/13/20 07/03/20 cyanocobalamin (vitamin B-12) 1,000 mcg PO DAILY 03/13/20 07/03/20 1,000 mcg tablet fexofenadine 180 mg tablet 180 mg PO DAILY 03/13/20 07/03/20 glucosamine [id number] 1 tab PO DAILY tab 03/13/20 07/03/20 500 mg-167 mg-400 mg tablet green tea leaf extract cap PO DAILY cap 03/13/20 07/02/20 ibuprofen 800 mg tablet 800 mg PO TID 03/13/20 07/03/20 ipratropium bromide 42 mcg (0.06 2 spray JUSTIN TID 03/13/20 07/03/20 %) nasal spray lactobacillus combo no.11 15 1 cap PO DAILY 03/13/20 07/03/20 billion cell sprinkle capsule zolpidem 10 mg tablet 10 mg PO QHS PRN tab 03/13/20 07/03/20 rivaroxaban 20 mg tablet 20 mg PO .as directed tab 03/26/20 07/03/20 dexamethasone 4 mg tablet 4 mg PO DAILY 06/24/20 07/03/20 lenalidomide 20 mg capsule 20 mg PO DAILY 06/24/20 07/03/20 Previous Rx's Medication Instructions Recorded albuterol sulfate [ProAir HFA] 2 inh IH Q6H PRN #18 gm 10/18/19 Allergies Allergy/AdvReac Type Severity Reaction Status Date / Time Sulfa (Sulfonamide Allergy as a Unverified 07/03/20 09:09 Antibiotics) child, unsure codeine AdvReac Intermediate sick to Unverified 07/03/20 09:09 stomach oxycodone [Oxycodone] AdvReac respiratory Unverified 07/03/20 09:09 depression General CLYDE: 3 Review of Systems All systems reviewed & are unremarkable except as noted in HPI and below Constitutional Constitutional: Reports as per HPI, Denies chills and Denies fever(s) Eyes Eyes: Denies blurry vision ENT Ears, Nose, Mouth, and Throat: Denies dizziness, Denies sore throat and Denies throat swelling Cardiovascular Cardiovascular: Denies chest pain and Reports dyspnea Respiratory Respiratory: Reports cough and Reports dyspnea Gastrointestinal Gastrointestinal: Denies abdominal pain, Denies diarrhea and Denies vomiting Genitourinary Genitourinary: Denies hematuria and Denies dysuria Musculoskeletal Musculoskeletal: Denies back pain and Denies numbness Integumentary/Breasts Skin/Breast: Denies lesions and Denies rash Neurologic Neurologic: Denies dizziness, Denies localized weakness and Denies numbness Allergic/Immunologic Allergic/Immunologic: Denies throat swelling [facility] Medical History (Updated 07/03/20 @ 12:36 by Zunilda Khan DO) Abnormal prostate specific antigen Abnormal weight loss Actinic keratosis Adenomatous colon polyp Alcohol consumption heavy Allergic rhinitis Benign essential tremor Bilateral artificial lens implant BPH (benign prostatic hyperplasia) 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/13) Chronic insomnia Cough Diverticulosis Diverticulosis Erectile dysfunction Essential hypertension GERD (gastroesophageal reflux disease) Gout H/O supraventricular tachycardia Heavy alcohol consumption History of DVT (deep vein thrombosis) History of positive PPD History of prediabetes History of PSVT (paroxysmal supraventricular tachycardia) History of pulmonary embolism History of urinary urgency (03/09/13) Hx of adenomatous colonic polyps Hyperlipidemia Hypertension Hypogonadism Impaired fasting glucose Insomnia Low testosterone in male Lumbar back pain Macrocytosis Male hypogonadism Memory impairment Mild cognitive impairment Myelodysplasia (myelodysplastic syndrome) Neutropenia Ocular migraine Osteoarthritis Other and unspecified hyperlipidemia Overactive bladder Peripheral neuropathy Personal history of venous thrombosis and embolism Positive PPD Preventative health care Renal cyst Sacroiliac joint pain Sleep apnea Spinal stenosis in cervical region Spondylosis Spondylosis of cervical joint Subjective tinnitus Urinary frequency Vitamin D deficiency Surgical History Colonoscopy - IV Sedation Cystoscopy Extraction of cataract BILAT HERNIA REPAIR History of intraocular lens implant History of lumbar fusion (03/03/17) [facility], Dr. Jovita COSTELLO RHINOPLASTY S/P TURP S/P TURP (status post transurethral resection of prostate) (12/19/13) Tonsillectomy and adenoidectomy Total replacement of hip (05/13/16) RIGHT/DR. OLEA Family History Mother Personal history of malignant neoplasm PANCREATIC/LIVER Father Heart disease Sister No problems noted. Brother Diabetes Heart disease Brother Heart disease Mental disorder BIPOLAR Social History (Updated 03/26/20 @ 10:56 by Shanda Ren) Smoking/Tobacco Use Status: Former Tobacco Use Alcohol Intake: current Alcohol Intake frequency: 3 or more drinks per day Drug use: Never Substance use type: does not use Household members: spouse Number of Children: 2 Pets and animals: No Current gender identity: male What is your relationship status?: Panel score (0-1 are the most socially isolated patients): 1 What type of physical activity do you participate in: regular exercise Seatbelt use: always Do you feel safe at home: Yes Do you feel safe in your relationship?: Yes Exam Const General: cooperative and no acute distress HENMT Head: normal to inspection Face and sinus: normal facial exam Eyes General: appearance normal, both eyes and all related structures EOM: EOM intact bilaterally Neck Neck: normal visual inspection and No submandibular swelling Lymphatic: no lymphadenopathy noted Chest Chest: normal inspection of the chest and no tenderness Resp Effort & Inspection: normal respiratory effort and able to speak in complete sentences Auscultation: clear to auscultation bilaterally, no rhonchi and no wheezes Cardio Rate: regular rate Rhythm: regular rhythm GI Inspection: normal to inspection Palpation: soft, not firm, not rigid and nontender Auscultation: normal bowel sounds Skin General skin exam: no rashes or lesions noted Neuro General: patient alert, patient awake and patient oriented x3 Cognition: normal cognition Speech: speech normal Motor: muscle tone normal throughout Sensory Exam: no sensory deficits noted Extrem General: normal to inspection, full ROM, capillary refill normal, no calf tenderness bilaterally and no edema Psych Appearance: grossly normal Mental Status: mental status grossly normal Speech and Movement: speech and movement normal Affect: normal affect
--- NOTE | 2020-07-03 09:15 | DI.CT_ITS ---
EXAM: CT CHEST PE CTA CLINICAL HISTORY: shortness of breath, on revlimid for multiple myeloma TECHNIQUE: Imaging Protocol: Axial computed tomography images with coronal and sagittal reformatted images were created and reviewed CONTRAST MATERIAL: Intravenous: Omnipaque 350 Contrast volume:structured data in ml Oral: No Intravenous: Omnipaque 350 Contrast volume:100 ml COMPARISON: CT CT CHEST PE ABD PELVIS W from 10/17/2019 FINDINGS: CHEST: Heart and great vessels: There is no evidence of aortic dissection. There are bilateral upper and lo wer lobe pulmonary emboli. There is no evidence of right heart strain. There are no pleural or pericardial effusions. Adenopathy: None. Lungs: No pulmonary nodules, mass or infiltrate. Dependent changes at the lung bases. Bones: There is no evidence of spine or rib fracture. Degenerative changes. Stable sclerotic and lyt ic bony lesions. Impression: Bilateral upper and lower lobe pulmonary emboli. RADIATION DOSE DELIVERED: 442.91mGy.cm Total DLP 442.91mGy.cm Total DLP DATA REPOSITORY: All CT scans at this facility are submitted to the National Radiology Data Registry (NRDR) Dose Index Registry (DIR) with the [employer] ([employer]). RADIATION OPTIMIZATION: All CT scans at this facility use at least one of these dose optimization te chniques: automated exposure control; mA and/or kV adjustment per patient size (includes targeted exa ms where dose is matched to clinical indication); or iterative reconstruction.
[2020-07-03 09:43] LABS: Abs Immature Grans 0.02 10^3/uL (0.0-0.06); Absolute Basophil Count 0.01 10^3/uL (0.0-0.2); Absolute Eosinophil Count 0.14 10^3/uL (0.0-0.7); Absolute Lymphocyte Count 1.38 10^3/uL (1.2-3.4); Absolute Monocyte Count 0.17 10^3/uL (0.1-0.8); Absolute Neutrophil Count 1.27 10^3/uL (1.2-6.7); Basophils % 0.3; Eosinophils % 4.7; HCT 39.4 % (40.0-50.0); HGB 12.5 g/dL (13.5-17.5); Immature Grans % 0.7; Lymphocytes % 46.2; MCH 33.5 pg (27.0-33.0); MCHC 31.7 % (32.0-36.0); MCV 105.6 fL (80-95); MPV 10.1 fL (8.0-11.0); Monocytes % 5.7; Neutrophils % 42.4; Nucleated RBC 1 %; Platelet Count 119 10^3/uL (130-400); RBC 3.73 10^6/uL (4.36-5.78); RDW 16.2 % (11.8-14.1); RDW-SD 62.1 fL; WBC 2.99 10^3/uL (4.4-10.8)
[2020-07-03 09:59] LABS: INR 1.1 (0.9-1.1); Prothrombin Time 10.6 sec (9.3-11.0)
[2020-07-03 10:02] LABS: ALT 20 U/L (16-63); AST 9 U/L (15-37); Albumin 3.3 g/dL (3.4-5.0); Alkaline Phosphatase 53 U/L (46-116); Anion Gap 9.7 mmol/L (3-11); BUN 18 mg/dL (7-18); Bilirubin, Total 0.7 mg/dL (0.2-1.0); CO2 27.3 mmol/L (21.0-32.0); CREATININE 0.86 mg/dL (0.70-1.30); Calcium 8.9 mg/dL (8.5-10.1); Chloride 104 mmol/L (98-107); Glucose 121 mg/dL (74-106); Magnesium 1.6 mg/dL (1.8-2.4); Potassium 3.9 mmol/L (3.5-5.1); Sodium 141 mmol/L (136-145); Total Protein 6.7 g/dL (6.4-8.2)
[2020-07-03 10:03] LABS: Troponin I < 0.05 ng/mL (<0.06)
[2020-07-03] MEDS: Normal Saline 500 ML IV (10:15)
[2020-07-03] MEDS: Omnipaque 350 MG/ML 100 ML BTL IJ (10:28)
[2020-07-03] MEDS: Normal Saline - Diluent 50 ML VIAL IV (10:32)
[2020-07-03] MEDS: MAGNESIUM SULFATE 1 GM/100 ML BAG IVPB (11:13)
[2020-07-03] MEDS: Enoxaparin 80 MG/0.8 ML SYR SC ×2 (11:59→23:04)
[2020-07-03 16:38] LABS: NT-proBNP 458 pg/mL (<300)
[2020-07-03 16:40] LABS: Troponin I < 0.05 ng/mL (<0.06)
--- NOTE | 2020-07-03 17:21 | W.PM.HP.N ---
Date of service: 07/03/20 Time of Service: 17:21 Assessment and Plan Assessment and plan (1) Pulmonary embolism: Status: Chronic Assessment and plan: Acute, in setting of underlying malignancy, with ambulatory hypoxia. Monitor on tele with serial troponin. Continue lovenox initiated in ED. Check venous dopplers BLEs. Will discuss further anticoagulation strategy with hem/onc. Recheck ambulatory pulse ox tomorrow. (2) Multiple myeloma: Status: Chronic Assessment and plan: Follow up as outpatient. Treatment and condition itself are pro-coagulable. (3) Alcohol abuse: Status: Chronic Assessment and plan: Monitor on CIWA. Will give a one time dose of thiamine IV, then start PO vitamins tomorrow am. prn PO/SL ativan written. (4) Essential hypertension: Status: Chronic Assessment and plan: Continue outpatient medications (5) Hyperlipidemia: Status: Chronic Assessment and plan: Continue atorvastatin (6) Discharge planning issues: Status: Acute Assessment and plan: Full code Possible discharge home tomorrow with new O2, depending on oxygen walk results. History of Present Illness History of Present Illness Chief Complaint: Shortness of breath Narrative: Mr Mattson is a 79 year old male with PMHx of multiple myeloma, as well as h/o prior DVT/PE's, not on anticoagulation at the time of presentation, HTN, hyperlipidemia, alcohol abuse, who had a sudden onset of shortness of breath yesterday while going up the stairs. This was very unusual for the patient who usually goes to the gym and does cardio. He also felt very weak and tired. He denied chest pain, dizziness, hemoptysis, leg swelling, fever. He denied sx c/w COVID-19 including recent sore throat, runny nose, change/loss of senses of taste and smell. He has not had any COVID-19 positive contacts. He had a sore throat about 4 weeks ago which resolved on its own. His ED workup is consistent with a PEs in bilateral upper and lower lobes by CTA. He is hemodynamically stable, but requiring oxygen on ambulation (2L as he desaturated to 87% on RA). R heart strain was ruled out by echo. He was initiated on therapeutic lovenox, and we were asked to admit the patient for further care. Review of Systems All systems reviewed & are unremarkable except as noted in HPI and below PFSH Medical History (Updated 07/03/20 @ 17:33 by Mariah Augustin MD) Abnormal prostate specific antigen Abnormal weight loss Actinic keratosis Adenomatous colon polyp Alcohol consumption heavy Allergic rhinitis Benign essential tremor Bilateral artificial lens implant BPH (benign prostatic hyperplasia) 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/13) Chronic insomnia Cough Diverticulosis Diverticulosis Erectile dysfunction Essential hypertension GERD (gastroesophageal reflux disease) Gout H/O supraventricular tachycardia Heavy alcohol consumption History of DVT (deep vein thrombosis) History of positive PPD History of prediabetes History of PSVT (paroxysmal supraventricular tachycardia) History of pulmonary embolism History of urinary urgency (03/09/13) Hx of adenomatous colonic polyps Hyperlipidemia Hypertension Hypogonadism Impaired fasting glucose Insomnia Low testosterone in male Lumbar back pain Macrocytosis Male hypogonadism Memory impairment Mild cognitive impairment Myelodysplasia (myelodysplastic syndrome) Neutropenia Ocular migraine Osteoarthritis Other and unspecified hyperlipidemia Overactive bladder Peripheral neuropathy Personal history of venous thrombosis and embolism Positive PPD Preventative health care Renal cyst Sacroiliac joint pain Sleep apnea Spinal stenosis in cervical region Spondylosis Spondylosis of cervical joint Subjective tinnitus Urinary frequency Vitamin D deficiency Surgical History Colonoscopy - IV Sedation Cystoscopy Extraction of cataract BILAT HERNIA REPAIR History of intraocular lens implant History of lumbar fusion (03/03/17) performed at [facility], [place], Dr. Jovita Roberts THUMB RHINOPLASTY S/P TURP S/P TURP (status post transurethral resection of prostate) (12/19/13) Tonsillectomy and adenoidectomy Total replacement of hip (05/13/16) RIGHT/DR. OLEA Family History Mother Personal history of malignant neoplasm PANCREATIC/LIVER Father Heart disease Sister No problems noted. Brother Diabetes Heart disease Brother Heart disease Mental disorder BIPOLAR Social History (Updated 03/26/20 @ 10:56 by Shanda Ren) Smoking/Tobacco Use Status: Former Tobacco Use Alcohol Intake: current Alcohol Intake frequency: 3 or more drinks per day Drug use: Never Substance use type: does not use Household members: spouse Number of Children: 2 Pets and animals: No Current gender identity: male What is your relationship status?: Panel score (0-1 are the most socially isolated patients): 1 What type of physical activity do you participate in: regular exercise Seatbelt use: always Do you feel safe at home: Yes Do you feel safe in your relationship?: Yes Meds Home Medications and Allergies Home Medications Medication Instructions Recorded Confirmed Type allopurinol 300 mg PO DAILY 12/29/12 07/03/20 History aspirin [Aspirin Low-Strength] 81 mg PO DAILY tab-cap 12/29/12 07/03/20 History montelukast 10 mg PO DAILY PRN tab-cap 12/29/12 07/03/20 History omeprazole 20 mg PO DAILY tab-cap 12/29/12 07/03/20 History acyclovir 400 mg PO TID PRN PRN 05/07/16 07/02/20 History fluticasone propionate [Flonase 2 spray NS DAILY PRN PRN 05/07/16 07/03/20 History Allergy Relief] cholecalciferol (vitamin D3) 1,000 unit PO DAILY 05/12/16 07/03/20 History metoprolol tartrate 25 mg PO BID 05/12/16 07/03/20 History testosterone cypionate 1.5 ml IM [id number] 05/12/16 07/03/20 History duloxetine [Cymbalta] 60 mg PO DAILY 03/07/17 07/03/20 History diazepam 5 mg PO PRN 05/31/17 07/03/20 History prazosin 10 mg PO DAILY 05/31/17 07/03/20 History furosemide 20 mg tablet 20 mg PO DAILY 04/14/19 07/03/20 History rivaroxaban 20 mg tablet 20 mg PO DAILY PRN 04/14/19 07/03/20 History Marijuana PO 04/17/19 07/02/20 History albuterol sulfate [ProAir HFA] 2 inh IH Q6H PRN #18 gm 10/18/19 07/03/20 Rx atorvastatin 40 mg tablet 40 mg PO DAILY 03/13/20 07/03/20 History cyanocobalamin (vitamin B-12) 1,000 mcg PO DAILY 03/13/20 07/03/20 History 1,000 mcg tablet fexofenadine 180 mg tablet 180 mg PO DAILY 03/13/20 07/03/20 History glucosamine [id number] 1 tab PO DAILY tab 03/13/20 07/03/20 History 500 mg-167 mg-400 mg tablet green tea leaf extract cap PO DAILY cap 03/13/20 07/02/20 History ibuprofen 800 mg tablet 800 mg PO TID 03/13/20 07/03/20 History ipratropium bromide 42 mcg (0.06 2 spray JUSTIN TID 03/13/20 07/03/20 History %) nasal spray lactobacillus combo no.11 15 1 cap PO DAILY 03/13/20 07/03/20 History billion cell sprinkle capsule zolpidem 10 mg tablet 10 mg PO QHS PRN tab 03/13/20 07/03/20 History rivaroxaban 20 mg tablet 20 mg PO .as directed tab 03/26/20 07/03/20 History dexamethasone 4 mg tablet 4 mg PO DAILY 06/24/20 07/03/20 History lenalidomide 20 mg capsule 20 mg PO DAILY 06/24/20 07/03/20 History Allergies Allergy/AdvReac Type Severity Reaction Status Date / Time Sulfa (Sulfonamide Allergy as a Unverified 07/03/20 09:09 Antibiotics) child, unsure codeine AdvReac Intermediate sick to Unverified 07/03/20 09:09 stomach oxycodone [Oxycodone] AdvReac respiratory Unverified 07/03/20 09:09 depression Exam Narrative Exam Narrative: General: Very pleasant elderly male, who is able to speak in complete sentences and annunciates loudly, A&Ox3, not in acute distress Neurological: A&Ox3, no focal deficits Psychiatric: appropriate speech pattern/content Skin: Does have areas of hyperpigmentation throughout his skin, otherwise dry/intact HEENT: Atraumatic, normocephalic, EOMI, wearing a mask at the time of my exam, no obvious goiter or JVD Cardiovascular: RRR, no m/r/g Lungs: CTAB, but starts coughing with deep breathing Gastrointestinal: soft, nontender, nondistended Genitourinary: deferred Extremities: no e/c/c BLE's; wearing a compression sleeve on RLE Results Imaging Additional studies: CTA chest: Heart and great vessels: There is no evidence of aortic dissection. There are bilateral upper and lower lobe pulmonary emboli. There is no evidence of right heart strain. There are no pleural or pericardial effusions. Adenopathy: None. Lungs: No pulmonary nodules, mass or infiltrate. Dependent changes at the lung bases. Bones: There is no evidence of spine or rib fracture. Degenerative changes. Stable sclerotic and lytic bony lesions. Echo (still in draft form) : Left Ventricle The left ventricle is normal size. The left ventricular systolic function is normal. The left ventricular ejection fraction is within the normal range. There is normal left ventricular wall thickness. There is normal LV segmental wall motion. There is no ventricular septal defect visualized. LVEF is 50-55%. Right Ventricle The right ventricle is normal size. The right ventricular systolic function is normal. The RVSP is 47.2mmHg. Atria The left atrium size is normal. The right atrium size is normal. The interatrial septum is intact with no evidence for an atrial septal defect. Aortic Valve The Aortic valve is sclerotic. Aortic valve is trileaflet. There is no aortic valvular stenosis. Mild aortic regurgitation. Mitral Valve Mild mitral annular calcification. No evidence of mitral valve stenosis. Trace mitral regurgitation. Tricuspid Valve The tricuspid valve is normal in structure. There is no tricuspid valve stenosis. Mild tricuspid regurgitation. Pulmonic Valve The pulmonary valve is normal in structure. There is no pulmonic valvular stenosis. There is no pulmonic valvular regurgitation. Great Vessels The aortic root is normal in size. The ascending aorta is normal in size. Aortic arch is normal in caliber. IVC is normal in size and collapses >50% with inspiration. Pericardium There is no pericardial effusion. Labs Result diagrams: 07/03/20 09:07/03/20 09:20 Labs: Laboratory Results - last 24 hr 07/03/20 07/03/20 07/03/20 09:20 09:20 09:20 WBC 2.99 L RBC 3.73 L Hgb 12.5 L Hct 39.4 L MCV 105.6 H MCH 33.5 H MCHC 31.7 L RDW 16.2 H Plt Count 119 L MPV 10.1 Immature Gran % 0.7 Neutrophils % 42.4 Lymphocytes % 46.2 Monocytes % 5.7 Eosinophils % 4.7 Basophils % 0.3 Nucleated RBC % 1 Absolute Neutrophils 1.27 Absolute Lymphocytes 1.38 Absolute Monocytes 0.17 Absolute Eosinophils 0.14 Absolute Basophils 0.01 PT 10.6 INR 1.1 APTT 23.0 Sodium 141 Potassium 3.9 Chloride 104 Carbon Dioxide 27.3 Anion Gap 9.7 BUN 18 Creatinine 0.86 Estimated GFR/1.73 m2 >= 60.00 Glucose 121 H Calcium 8.9 Magnesium 1.6 L Total Bilirubin 0.7 AST 9 L ALT 20 Alkaline Phosphatase 53 Troponin I < 0.05 NT-Pro-B Natriuret Pep Total Protein 6.7 Albumin 3.3 L 07/03/20 16:02 WBC RBC Hgb Hct MCV MCH MCHC RDW Plt Count MPV Immature Gran % Neutrophils % Lymphocytes % Monocytes % Eosinophils % Basophils % Nucleated RBC % Absolute Neutrophils Absolute Lymphocytes Absolute Monocytes Absolute Eosinophils Absolute Basophils PT INR APTT Sodium Potassium Chloride Carbon Dioxide Anion Gap BUN Creatinine Estimated GFR/1.73 m2 Glucose Calcium Magnesium Total Bilirubin AST ALT Alkaline Phosphatase Troponin I < 0.05 NT-Pro-B Natriuret Pep 458 H Total Protein Albumin Last Vital Signs Temp 36.4 C L 07/03/20 17:05 Pulse 83 07/03/20 17:05 Resp 18 07/03/20 17:05 BP 125/70 07/03/20 17:05 Pulse Ox 99 07/03/20 17:05 COVID-19 Screening Have you,or household,traveled outside [place] in last 14 days?: No Had IN PERSON contact w/suspected or confirmed C-19 person: No
[2020-07-03] MEDS: Normal Saline Flush 10 ML SYR IVP (17:56)
[2020-07-03] MEDS: Normal Saline 1,000 ML 75 ML IV (17:56)
[2020-07-03] MEDS: Acetaminophen 500 MG TAB 1000 MG PO (18:54)
[2020-07-03] MEDS: THIAMINE 100 MG in Normal Saline 100 ML 200 MG IVPB (18:56)
[2020-07-03] MEDS: Moxifloxacin 0.5% 3 ML BTL OS (19:13)
[2020-07-03] MEDS: Metoprolol 25 MG TAB PO (20:34)
[2020-07-03] MEDS: Zolpidem 10 MG TAB PO (21:45)
[2020-07-03] MEDS: Atorvastatin 40 MG TAB PO (21:45)
[2020-07-03] MEDS: Prazosin 5 MG CAP 10 MG PO (22:00)
[2020-07-04] VITALS (72 sets, daily range): BP systolic 109–130; BP diastolic 72–83; PULSE 58–112; RESP 9–26; TEMP 36.2–36.4; O2SAT 87–97
[2020-07-04] MEDS: Acetaminophen 500 MG TAB 1000 MG PO ×2 (01:54→11:52)
[2020-07-04] MEDS: Moxifloxacin 0.5% 3 ML BTL OS ×2 (06:45→11:55)
[2020-07-04] MEDS: Normal Saline 1,000 ML 75 ML IV (06:55)
[2020-07-04 07:49] LABS: Abs Immature Grans 0.01 10^3/uL (0.0-0.06); Absolute Basophil Count 0.02 10^3/uL (0.0-0.2); Absolute Eosinophil Count 0.16 10^3/uL (0.0-0.7); Absolute Lymphocyte Count 1.27 10^3/uL (1.2-3.4); Absolute Monocyte Count 0.15 10^3/uL (0.1-0.8); Absolute Neutrophil Count 1.14 10^3/uL (1.2-6.7); Basophils % 0.7; Eosinophils % 5.8; HCT 37.6 % (40.0-50.0); HGB 12.4 g/dL (13.5-17.5); Immature Grans % 0.4; Lymphocytes % 46.2; MCH 34.5 pg (27.0-33.0); MCV 104.7 fL (80-95); MPV 11.5 fL (8.0-11.0); Monocytes % 5.5; Neutrophils % 41.4; Nucleated RBC 0 %; RBC 3.59 10^6/uL (4.36-5.78); RDW 16.6 % (11.8-14.1); RDW-SD 62.7 fL; WBC 2.75 10^3/uL (4.4-10.8)
--- NOTE | 2020-07-04 08:00 | DI.US_ITS ---
EXAM: US EXTREMITY VENOUS BI CLINICAL HISTORY: acute PE. TECHNIQUE: Lower extremity venous ultrasound performed using grayscale, color-flow, and spectral Dop pler analysis. COMPARISON: No exams were available for comparison FINDINGS: The common femoral, femoral and popliteal veins demonstrate normal compressibility, augmentation, and color Doppler. The posterior tibial veins are patent. The saphenous vein appears free of thrombus. No Manriquez's cyst or hematoma is seen. IMPRESSION: No evidence of DVT. DATA REPOSITORY:
[2020-07-04] MEDS: Glucosamine/Chondroitin CAP 1 CAP PO (08:04)
[2020-07-04] MEDS: DULoxetine 30 MG CAP 60 MG PO (08:04)
[2020-07-04] MEDS: Fexofenadine 180 MG TAB PO (08:04)
[2020-07-04] MEDS: Cholecalciferol (Vitamin D3) 1,000 UNIT TAB 1000 UNITS PO (08:04)
[2020-07-04] MEDS: Allopurinol 300 MG TAB PO (08:04)
[2020-07-04] MEDS: Lactobacillus Acidophilus CAP 1 CAP PO (08:05)
[2020-07-04] MEDS: Metoprolol 25 MG TAB PO (08:05)
[2020-07-04] MEDS: Multivitamin TAB 1 TAB PO (08:05)
[2020-07-04] MEDS: Folic Acid 1 MG TAB PO (08:06)
[2020-07-04] MEDS: Omeprazole 20 MG CAPCR PO (08:06)
[2020-07-04] MEDS: Thiamine 100 MG TAB PO (08:07)
[2020-07-04] MEDS: Cyanocobalamin 500 MCG TAB 1000 MCG PO (08:07)
[2020-07-04 08:08] LABS: Anion Gap 12.3 mmol/L (3-11); BUN 15 mg/dL (7-18); CO2 20.7 mmol/L (21.0-32.0); Calcium 8.4 mg/dL (8.5-10.1); Chloride 106 mmol/L (98-107); Glucose 109 mg/dL (74-106); Magnesium 1.9 mg/dL (1.8-2.4); Sodium 139 mmol/L (136-145)
--- NOTE | 2020-07-04 08:12 | W.PM.PROGNOT ---
Date of Service Date of service: 07/04/20 Time of Service: 13:24 Subjective Subjective Interval history since last seen: 92% on room air at rest. At night dipped to 88% - used 2L. CIWAs 0. Hemoccult neg. Objective Last Vital Signs Temp 36.4 C L 07/04/20 07:56 Pulse 85 07/04/20 07:36 Resp 16 07/04/20 07:56 BP 109/83 07/04/20 07:36 Pulse Ox 90 L 07/04/20 07:56 Laboratory Results - last 24 hr 07/03/20 07/03/20 07/03/20 09:20 09:20 09:20 WBC 2.99 L RBC 3.73 L Hgb 12.5 L Hct 39.4 L MCV 105.6 H MCH 33.5 H MCHC 31.7 L RDW 16.2 H Plt Count 119 L MPV 10.1 Immature Gran % 0.7 Neutrophils % 42.4 Lymphocytes % 46.2 Monocytes % 5.7 Eosinophils % 4.7 Basophils % 0.3 Nucleated RBC % 1 Absolute Neutrophils 1.27 Absolute Lymphocytes 1.38 Absolute Monocytes 0.17 Absolute Eosinophils 0.14 Absolute Basophils 0.01 PT 10.6 INR 1.1 APTT 23.0 Sodium 141 Potassium 3.9 Chloride 104 Carbon Dioxide 27.3 Anion Gap 9.7 BUN 18 Creatinine 0.86 Estimated GFR/1.73 m2 >= 60.00 Glucose 121 H Calcium 8.9 Magnesium 1.6 L Total Bilirubin 0.7 AST 9 L ALT 20 Alkaline Phosphatase 53 Troponin I < 0.05 NT-Pro-B Natriuret Pep Total Protein 6.7 Albumin 3.3 L 07/03/20 16:02 WBC RBC Hgb Hct MCV MCH MCHC RDW Plt Count MPV Immature Gran % Neutrophils % Lymphocytes % Monocytes % Eosinophils % Basophils % Nucleated RBC % Absolute Neutrophils Absolute Lymphocytes Absolute Monocytes Absolute Eosinophils Absolute Basophils PT INR APTT Sodium Potassium Chloride Carbon Dioxide Anion Gap BUN Creatinine Estimated GFR/1.73 m2 Glucose Calcium Magnesium Total Bilirubin AST ALT Alkaline Phosphatase Troponin I < 0.05 NT-Pro-B Natriuret Pep 458 H Total Protein Albumin
[2020-07-04 08:14] LABS: Troponin I < 0.05 ng/mL (<0.06)
[2020-07-04 08:21] LABS: Anisocytosis 1+; Diff Comment Diff Reviewed; Macrocytosis 1+; Platelet Count 90 10^3/uL (130-400); Polychromasia Present
[2020-07-04 08:22] LABS: Poikilocytes 1+
--- NOTE | 2020-07-04 11:27 | INITIAL_ITS ---
- If Service Date Differs Date of service: 07/04/20 Time of Service: 11:27 Care Management Initial Assess REASON FOR HOSPITALIZATION:: Pulmonary Embolism PAST MEDICAL HISTORY/PAST SURGICAL HISTORY:: Medical History (Updated 07/03/20 @ 17:33 by Mariah Augustin MD). Abnormal prostate specific antigen. Abnormal weight loss. Actinic keratosis. Adenomatous colon polyp. Alcohol consumption heavy. Allergic rhinitis. Benign essential tremor. Bilateral artificial lens implant. BPH (benign prostatic hyperplasia). 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/13). Chronic insomnia. Cough. Diverticulosis. Diverticulosis. Erectile dysfunction. Essential hypertension. GERD (gastroesophageal reflux disease). Gout. H/O supraventricular tachycardia. Heavy alcohol consumption. History of DVT (deep vein thrombosis). History of positive PPD. History of prediabetes. History of PSVT (paroxysmal supraventricular tachycardia). History of pulmonary embolism. History of urinary urgency (03/09/13). Hx of adenomatous colonic polyps. Hyperlipidemia. Hypertension. Hypogonadism. Impaired fasting glucose. Insomnia. Low testosterone in male. Lumbar back pain. Macrocytosis. Male hypogonadism. Memory impairment. Mild cognitive impairment. Myelodysplasia (myelodysplastic syndrome). Neutropenia. Ocular migraine. Osteoarthritis. Other and unspecified hyperlipidemia. Overactive bladder. Peripheral neuropathy. Personal history of venous thrombosis and embolism. Positive PPD. Preventative health care. Renal cyst. Sacroiliac joint pain. Sleep apnea. Spinal stenosis in cervical region. Spondylosis. Spondylosis of cervical joint. Subjective tinnitus. Urinary frequency. Vitamin D deficiency. Surgical History . Colonoscopy - IV Sedation. Cystoscopy. Extraction of cataract. BILAT. HERNIA REPAIR. History of intraocular lens implant. History of lumbar fusion (03/03/17). performed at [facility], [facility], Dr. Hussein. R THUMB. RHINOPLASTY. S/P TURP. S/P TURP (status post transurethral resection of prostate) (12/19/13). Tonsillectomy and adenoidectomy. Total replacement of hip (05/13/16). RIGHT/DR. OLEA PREVIOUS FUNCTIONAL STATUS/SOCIAL/FAMILY SUPPORTS:: Eduar lives in a single family home in [facility] with his Afsaneh. They have 2 sons who live in [place]. Eduar served in the [employer] for 26 years and then worked for the [employer] service for another 18 years. He is now retired and has moved back to [place] from [place]. Eduar is independent at baseline and works out at the gym almost every day. ADVANCE DIRECTIVES:: on file Afsaneh Mattson HCA CODE STATUS:: Full Code INSURANCE COVERAGE / FINANCIAL ISSUES:: Medicare. for Life CURRENT HOME/COMMUNITY SERVICES/EQUIPMENT:: none PRIMARY CARE PHYSICIAN:: Janina Reinoso POTENTIAL DISCHARGE NEEDS:: Follow up with PCP and discharge plan of care PATIENT/FAMILY EDUCATION NEEDS:: Discharge plan, limitations, follow up plan. [employer] TRANSPORTATION:: via private vehicle with
[2020-07-04] MEDS: Prazosin 5 MG CAP 10 MG PO (11:53)
[2020-07-04] MEDS: Apixaban 5 MG TAB 10 MG PO (11:54)
[2020-07-04] MEDS: Docusate Sodium 100 MG CAP PO (11:54)
--- NOTE | 2020-07-04 12:01 | W.NUTRFU ---
Date of service: 07/04/20 Time of Service: 12:01 Nutritional Follow up NOTE: 79 year old male admitted with SOB, with PE with hx of multiple myeloma. BMI 27 and wnl for age. Weight has been stable > 1 year. Following Heart Healthy Diet with adequate intake to meet nutrient/fluid needs. Not at nutritional risk at this time. Time Spent in Nutritional Counseling and Treatment: 0 time spent face to face
--- NOTE | 2020-07-04 13:24 | DSE_ITS ---
Date of service: 07/04/20 Time of Service: 13:24 DS: Diagnosis Discharge Diagnosis (1) Pulmonary embolism: Status: Chronic (2) Multiple myeloma: Status: Chronic (3) Alcohol abuse: Status: Chronic (4) Essential hypertension: Status: Chronic (5) Hyperlipidemia: Status: Chronic Discharge Plan Disposition Patient Disposition: HOME Condition: Stable Discharge Details Reason For Visit: ACUTE PE Admit Date/Time: 07/03/20 15:52 Admit Provider: Mariah Augustin Attending Provider: Mariah Augustin Primary Care Provider: Janina Reinoso [facility] Course Hospital Course: Mr Mattson is a 79 year old male with PMHx of prior DVT/PE, multiple myeloma on revlemid, COPD, alcohol abuse, who was a patient on [facility] hospitalist service from 07/03/2020 until 07/04/2020 for acute bilateral PE's. Echo ruled out RV strain, and venous dopplers of BLEs ruled out DVT. The patient was initially treated with therapeutic lovenox. Per [facility] hem/onc recommendation, the patient was switched over to eliquis, for which we verified insurance coverage. He is hemoccult negative. The cause for his VTE is likely underlying malignancy +/- revlemid. The patient does not require oxygen during the day at rest or with ambulation. However, at night he does occasionally desaturate to 88% by finger probe. He is getting discharged home with an order for overnight oximetry, with referral to [facility] pulmonology, and follow up with his oncologist next week. He did not show signs of alcohol withdrawal on this admission. His COVID-19 PCR is still pending at the time of discharge (was done routinely and not because the patient was a PUI). The patient is medically stable for discharge home today with above follow ups. Home Meds and New Rx's Prescriptions: New Eliquis 5 mg tablet See Rx Instructions .ROUTE .COMPLEX Qty: 94 RF: 0 multivitamin [Multiple Vitamins] Tablet 1 tab PO DAILY Qty: 0 RF: 0 acetaminophen [Mapap Extra Strength] 500 mg Tablet 1,000 mg PO Q8H Qty: 0 RF: 0 thiamine mononitrate (vit B1) [Vitamin B-1 (mononitrate)] 100 mg Tablet 100 mg PO DAILY Qty: 30 RF: 0 tramadol 50 mg tablet 50 mg PO Q8H PRN (Reason: pain) Qty: 15 RF: 0 Continued dexamethasone 4 mg tablet 40 mg PO QWEEK RF: 0 omeprazole 10 MG capsule,delayed release(DR/EC) 20 mg PO DAILY RF: 0 montelukast 10 MG tablet 10 mg PO DAILY PRNRF: 0 allopurinol 300 MG tablet 300 mg PO DAILY RF: 0 prazosin 5 MG capsule 5 mg PO BID RF: 0 diazepam 5 MG tablet 5 mg PO PRN RF: 0 ipratropium bromide 42 mcg (0.06 %) spray,non-aerosol 2 spray JUSTIN TID RF: 0 fexofenadine 180 mg tablet 180 mg PO DAILY RF: 0 atorvastatin 40 mg tablet 40 mg PO DAILY RF: 0 zolpidem 10 mg tablet 10 mg PO QHS PRNRF: 0 cyanocobalamin (vitamin B-12) [Vitamin B-12] 1,000 mcg tablet 1,000 mcg PO DAILY RF: 0 glucosamine [id number] 500-167-400 mg tablet 1 tab PO DAILY RF: 0 Probiotic 15 billion cell capsule, sprinkle 1 cap PO DAILY RF: 0 green tea leaf extract Capsule 2 cap PO DAILY RF: 0 acyclovir 400 MG tablet 400 mg PO BID RF: 0 fluticasone propionate [Flonase Allergy Relief] 9.9 ML spray,suspension 2 spray NS DAILY PRN PRNRF: 0 testosterone cypionate 200 MG/ML oil 1.5 ml IM .[id number] RF: 0 metoprolol tartrate 25 MG tablet 25 mg PO BID RF: 0 cholecalciferol (vitamin D3) 1,000 UNITS tablet 1,000 unit PO DAILY RF: 0 magnesium oxide 400 mg (241.3 mg magnesium) Tablet 400 mg PO DAILY RF: 0 Curcumin 95 % Powder 500 MISCELLANEOUS RF: 0 zoledronic acid 4 mg Recon Soln 4 mg IV QMONTH RF: 0 Myrbetriq 25 mg tablet extended release 24 hr 25 mg PO DAILY RF: 0 duloxetine [Cymbalta] 60 MG capsule,delayed release(DR/EC) 60 mg PO DAILY RF: 0 albuterol sulfate [ProAir HFA] 90 mcg/actuation HFA aerosol inhaler 2 inh IH Q6H PRN (Reason: shortness of breath or wheezing) Qty: 18 RF: 0 Discontinued Xarelto 20 mg tablet 20 mg PO DAILY PRNRF: 0 aspirin [Aspirin Low-Strength] 81 MG tablet,chewable 81 mg PO DAILY RF: 0 ibuprofen 800 mg tablet 800 mg PO TID RF: 0 Discharge Instructions Instructions: Tramadol (By mouth), Apixaban (By mouth), Pulmonary Embolism (DC), Abuse of Alcohol (DC) Additional Instructions: Return to the hospital with any fever, bleeding, chest pain,or shortness of breath. Take 10 mg of eliquis (2 tabs) twice daily for the next 11 doses, then start taking 5 mg (1 tab) twice daily. Follow up with your PCP in 1-2 weeks. Follow up with oncology as scheduled. Follow up with [facility] pulmonology (referral is being sent). Referrals: PULMONOLOGY,[facility] [OTHER] - (bilateral PEs, COPD) Janina Reinoso MD [Primary Care Provider] - Jorge Jane [ NON-[facility] STAFF PHYSICIAN] - Activity:: Activity as Tolerated Equipment/Supplies:: No Equipment Needed Diet:: As Tolerated Discharge Orders Discharge Orders: Discharge Order (Routine); Ordered 07/04/20 Ordered By: Mariah Augustin Other Ambulatory Orders: SaO2 Overnight Study (Outpt) (ONCE) Timeframe: 20200705 Facility: [facility] - Location: Respiratory Therapy Ordered By: Mariah Augustin DS: Summary Status at Discharge Functional status at discharge: independent ambulation Overall status at discharge: patient is progressing back to baseline Mental Status: mental status grossly normal Speech and Movement: speech and movement normal Mood: congruent mood Affect: normal affect Exam Narrative Exam Narrative: General: Very pleasant elderly male, A&Ox3, no dyspnea/tachypnea observed while speaking in lengthy sentences. HEENT:EOMI, MMM Cardiovascular: RRR, no m/r/g Lungs: CTAB Gastrointestinal: soft, nontender, nondistended Extremities: no e/c/c BLE's; wearing a compression sleeve on RLE Psych Mental Status: mental status grossly normal Speech and Movement: speech and movement normal Mood: congruent mood Affect: normal affect DS: Data Vitals/I&O Vitals and I&O: Vital Signs Temperature 36.4 C L 07/04/20 07:56 Temperature Source Tympanic 07/04/20 07:56 Pulse 85 07/04/20 07:36 Pulse 89 07/04/20 06:40 Respiratory Rate 16 07/04/20 07:56 Respiratory Effort Non-Labored 07/04/20 07:36 Respiratory Depth Normal 07/04/20 07:36 Respiratory Pattern Normal 07/04/20 07:36 Blood Pressure 109/83 07/04/20 07:36 Blood Pressure Mean 91 07/04/20 07:36 Blood Pressure Position Sitting 07/04/20 07:36 Pulse Oximetry 90 L 07/04/20 07:56 Oxygen Delivery Method Room Air 07/04/20 07:56 Oxygen Flow Rate 0 07/04/20 07:56 Pain Level 4 07/04/20 11:52 Intake & Output 07/03/20 07/04/20 07/04/20 23:59 11:59 23:59 Intake Total 357 / 857 973.75 / 973.75 Output Total 1300 / 1300 575 / 575 Balance -943 / -443 398.75 / 398.75 Weight 85 kg Intake: IV 120 / 620 973.75 / 973.75 Oral 237 / 237 Output: Urine 1000 / 1000 575 / 575 Stool 300 / 300 Other: Urine Color Yellow Yellow Urine Appearance Clear Clear Urine Odor Normal Normal Stool Occult Blood Negative Stool Size Large Stool Characteristics Soft Brown Voiding Methods Urinal Urinal Data Completed and Pending Completed studies during hospitalization [Text1]: CTA chest: Heart and great ve ssels: There is no evidence of aortic dissection. There are bilateral upper and lower lobe pulmonary emboli. There is no evidence of right heart strain. There are no pleural or pericardial effusions. Adenopathy: None. Lungs: No pulmonary nodules, mass or infiltrate. Dependent changes at the lung bases. Bones: There is no evidence of spine or rib fracture. Degenerative changes. Stable sclerotic and lytic bony lesions. Venous doppler of BLEs: No evidence of DVT Echo (draft): Left Ventricle The left ventricle is normal size. The left ventricular systolic function is normal. The left ventricular ejection fraction is within the normal range. There is normal left ventricular wall thickness. There is normal LV segmental wall motion. There is no ventricular septal defect visualized. LVEF is 50-55%. Right Ventricle The right ventricle is normal size. The right ventricular systolic function is normal. The RVSP is 47.2mmHg. Atria The left atrium size is normal. The right atrium size is normal. The interatrial septum is intact with no evidence for an atrial septal defect. Aortic Valve The Aortic valve is sclerotic. Aortic valve is trileaflet. There is no aortic valvular stenosis. Mild aortic regurgitation. Mitral Valve Mild mitral annular calcification. No evidence of mitral valve stenosis. Trace mitral regurgitation. Tricuspid Valve The tricuspid valve is normal in structure. There is no tricuspid valve stenosis. Mild tricuspid regurgitation. Pulmonic Valve The pulmonary valve is normal in structure. There is no pulmonic valvular stenosis. There is no pulmonic valvular regurgitation. Great Vessels The aortic root is normal in size. The ascending aorta is normal in size. Aortic arch is normal in caliber. IVC is normal in size and collapses >50% with inspiration. Pericardium There is no pericardial effusion. Pending studies at discharge: COVID-19 pending Labs on day of discharge: Labs from last 24 hours 07/04/20 07/04/20 07/03/20 07:15 07:15 16:02 WBC 2.75 L RBC 3.59 L Hgb 12.4 L Hct 37.6 L MCV 104.7 H MCH 34.5 H MCHC 33.0 RDW 16.6 H Plt Count 90 L MPV 11.5 H Immature Gran % 0.4 Neutrophils % 41.4 Lymphocytes % 46.2 Monocytes % 5.5 Eosinophils % 5.8 Basophils % 0.7 Nucleated RBC % 0 Absolute Neutrophils 1.14 L Absolute Lymphocytes 1.27 Absolute Monocytes 0.15 Absolute Eosinophils 0.16 Absolute Basophils 0.02 RBC Morphology See below Polychromasia Present Poikilocytosis 1+ Anisocytosis 1+ Macrocytosis 1+ Sodium 139 Potassium 4.0 Chloride 106 Carbon Dioxide 20.7 L Anion Gap 12.3 H BUN 15 Creatinine 0.80 Estimated GFR/1.73 m2 >= 60.00 Glucose 109 H Calcium 8.4 L Magnesium 1.9 Troponin I < 0.05 < 0.05 NT-Pro-B Natriuret Pep 458 H COVID-19 PCR Nasopharyn COVID-19 PCR Ref Test Perform Site 07/03/20 16:00 WBC RBC Hgb Hct MCV MCH MCHC RDW Plt Count MPV Immature Gran % Neutrophils % Lymphocytes % Monocytes % Eosinophils % Basophils % Nucleated RBC % Absolute Neutrophils Absolute Lymphocytes Absolute Monocytes Absolute Eosinophils Absolute Basophils RBC Morphology Polychromasia Poikilocytosis Anisocytosis Macrocytosis Sodium Potassium Chloride Carbon Dioxide Anion Gap BUN Creatinine Estimated GFR/1.73 m2 Glucose Calcium Magnesium Troponin I NT-Pro-B Natriuret Pep COVID-19 PCR Pending Nasopharyn COVID-19 PCR Pending Ref Test Perform Site Pending [facility] Medical History (Updated 07/04/20 @ 13:25 by Mariah Augustin MD) Abnormal prostate specific antigen Abnormal weight loss Actinic keratosis Adenomatous colon polyp Alcohol consumption heavy Allergic rhinitis Benign essential tremor Bilateral artificial lens implant BPH (benign prostatic hyperplasia) 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/13) Chronic insomnia Cough Diverticulosis Diverticulosis Erectile dysfunction Essential hypertension GERD (gastroesophageal reflux disease) Gout H/O supraventricular tachycardia Heavy alcohol consumption History of DVT (deep vein thrombosis) History of positive PPD History of prediabetes History of PSVT (paroxysmal supraventricular tachycardia) History of pulmonary embolism History of urinary urgency (03/09/13) Hx of adenomatous colonic polyps Hyperlipidemia Hypertension Hypogonadism Impaired fasting glucose Insomnia Low testosterone in male Lumbar back pain Macrocytosis Male hypogonadism Memory impairment Mild cognitive impairment Myelodysplasia (myelodysplastic syndrome) Neutropenia Ocular migraine Osteoarthritis Other and unspecified hyperlipidemia Overactive bladder Peripheral neuropathy Personal history of venous thrombosis and embolism Positive PPD Preventative health care Renal cyst Sacroiliac joint pain Sleep apnea Spinal stenosis in cervical region Spondylosis Spondylosis of cervical joint Subjective tinnitus Urinary frequency Vitamin D deficiency Surgical History Colonoscopy - IV Sedation Cystoscopy Extraction of cataract BILAT HERNIA REPAIR History of intraocular lens implant History of lumbar fusion (03/03/17) performed at [facility] [place], [place], Dr. Jovita Roberts THUMB RHINOPLASTY S/P TURP S/P TURP (status post transurethral resection of prostate) (12/19/13) Tonsillectomy and adenoidectomy Total replacement of hip (05/13/16) RIGHT/DR. OLEA Family History Mother Personal history of malignant neoplasm PANCREATIC/LIVER Father Heart disease Sister No problems noted. Brother Diabetes Heart disease Brother Heart disease Mental disorder BIPOLAR Social History (Updated 03/26/20 @ 10:56 by Shanda Ren) Smoking/Tobacco Use Status: Former Tobacco Use Alcohol Intake: current Alcohol Intake frequency: 3 or more drinks per day Drug use: Never Substance use type: does not use Household members: spouse Number of Children: 2 Pets and animals: No Current gender identity: male What is your relationship status?: Panel score (0-1 are the most socially isolated patients): 1 What type of physical activity do you participate in: regular exercise Seatbelt use: always Do you feel safe at home: Yes Do you feel safe in your relationship?: Yes
--- NOTE | 2020-07-04 14:24 | PDOC.CMDIS ---
- If Service Date Differs Date of service: 07/04/20 Time of Service: 14:24 LACE Index Scoring Tool - Questions: Length of Stay (in days): 1 Acuity (Admit via E.D.?): Yes Comorbidities: Chronic Pulmonary Disease, Any Tumor E.D. Visits: 2 - Answers: Total Score: 11 Risk of Readmission: High Risk Care Management Discharge Reason for Hospitalization: PE Discharge Plan: Eduar is alert and oriented at time of visit. He denies any additional needs. Eduar will be discharged home today with no additional services. CM contacted pharmacy and verfied Eliquis prescription for thirty days is approved and contacted primary care to request [facility] supply. Eduar will follow up with primary care post hospital follow up. Patient/Family Education Needs: Discharged education, limitations and follow up plan of care including ask me three and self management. CM reviewed new medication Eliquis and side effects.
[2020-07-04 14:33] LABS: COVID-19 RT-PCR UVMMC Result Negative (Negative)
== END 2020-07-04 14:59 | disposition home or self-care (01) ==
LOC: ER 16:18 → ICU 16:42
PROVIDERS: Admitting Provider Internal Medicine; Emergency Provider Physician Assistant; PCP Family Medicine; Visit Provider Internal Medicine
DX: I26.99 Other pulmonary embolism without acute cor pulmonale (principal); C90.00 Multiple myeloma not having achieved remission; Z11.59 Encounter for screening for other viral diseases; F10.10 Alcohol abuse, uncomplicated; E78.5 Hyperlipidemia, unspecified; I10 Essential (primary) hypertension; Z86.718 Personal history of other venous thrombosis and embolism; Z86.711 Personal history of pulmonary embolism; J44.9 Chronic obstructive pulmonary disease, unspecified; K21.9 Gastro-esophageal reflux disease without esophagitis; M10.9 Gout, unspecified
CPT/HCPCS: 36415; 71275; 80048; 80053; 93005; 94618; 96361; 96365; 96372; 99217; 99220; 99285; U0003; 83735; 83880; 84484; 85025; 85610; 85730; 93010; 93306; 93970; 94762; G0378; J1650; J3475; J3490

== ENCOUNTER 2020-07-22 01:20 | Outpatient (CLI) | payer MEDICARE, OTHER, SELFPAY ==
--- NOTE | 2020-07-22 | DI.MRI_ITS ---
EXAM: MR LUMBAR SPINE WO/W CLINICAL HISTORY: MULTIPLE MYELOMA,REMISSION,C90.00,ACUTE BILAT LOW BACK PAIN,MM54.5. TECHNIQUE: Multiplanar multisequence MRI was performed. COMPARISON: CT CT CHEST PE ABD PELVIS W from 10/17/2019 MR MR LUMBAR SPINE WO/W from 02/27/2020 FINDINGS: Laminectomy and posterior fusion hardware is again seen at L4-5. Screws are also again noted through both SI joints. There is significant metallic artifact. Abnormal low signal is again noted on T1 dayday ghted images in the L2 and L3 vertebral bodies with enhancement following IV gadolinium. There is no evidence of compression fracture. T12-L1 and L1-2 discs are unremarkable. There is loss of disc heigh t and broad-based osteophytes at L2-3. There are mild facet degenerative changes. There is mild centr al canal stenosis. There is mild left and moderate right neural foraminal narrowing. Degenerative dis c changes are also seen at L3-4. There is mild central canal stenosis and severe bilateral neural for aminal narrowing. Central canal is well maintained at L4-5 and L5-S1. Conus medullaris appears normal . IMPRESSION: Stable appearance of abnormal marrow signal with enhancement in the L2 and L3 vertebral bodies. Stabl e degenerative and postsurgical changes. DATA REPOSITORY:
[2020-07-22] MEDS: Gadoterate meglumine 20 ML VIAL 17 ML IVP (14:44)
== END 2020-07-22 01:40 ==
PROVIDERS: PCP Family Medicine; Visit Provider Nurse Practitioner Adult Health
DX: M47.816 Spondylosis without myelopathy or radiculopathy, lumbar region (principal); M54.5 Low back pain; M48.061 Spinal stenosis, lumbar region without neurogenic claudication; C90.01 Multiple myeloma in remission
CPT/HCPCS: 72158

== ENCOUNTER 2020-07-29 11:26 | Emergency (ER) | payer MEDICARE, OTHER, SELFPAY ==
[2020-07-29 11:31] VITALS: BP 132/57; PULSE 95; RESP 18; TEMP 36.3; O2SAT 96
--- NOTE | 2020-07-29 11:45 | DI.CT_ITS ---
EXAM: CT HEAD CERVICAL SPINE WO COMPARISON: MR MR BRAIN WO from 03/15/2020 FINDINGS: CT examination of the cervical spine was performed without contrast administration. There is no evide nce of acute cervical spine fracture or dislocation. Tracheolaryngeal structures appear intact. No ce rvical mass or adenopathy. There are severe degenerative changes of the cervical spine pronounced en dplate and facet hypertrophy and multilevel disc space loss Noncontrast cranial CT was performed. Ventricular system is normal in appearance. No evidence of acut e intracranial hemorrhage, mass effect, or midline shift. No calvarial fracture. The temporal bone s tructures appear intact. There is an air-fluid level in the left optic globe, please correlate clini ronald. No other focal orbital pathology identified. IMPRESSION: No evidence of acute cervical spine injury. No evidence of acute intracranial injury. RADIATION DOSE DELIVERED: 1,309.02mGy.cm Total DLP 1,309.02mGy.cm Total DLP DATA REPOSITORY: All CT scans at this facility are submitted to the National Radiology Data Registry (NRDR) Dose Index Registry (DIR) with the [employer] (A[employer]). RADIATION OPTIMIZATION: All CT scans at this facility use at least one of these dose optimization te chniques: automated exposure control; mA and/or kV adjustment per patient size (includes targeted exa ms where dose is matched to clinical indication); or iterative reconstruction.
[2020-07-29 13:10] VITALS: BP 132/60; PULSE 85; TEMP 36.7; O2SAT 95
--- NOTE | 2020-07-29 13:16 | ED.GENADUL_ITS ---
Discharge Plan Disposition Patient Disposition: HOME Condition: Stable Discharge Details Clinical Impression: Neck strain Primary Care Provider: Janina Reinoso ED Provider: Eben Dow Home Meds and New Rx's Prescriptions: New oxycodone-acetaminophen [Percocet] 5-325 mg tablet 1 tab PO Q8H PRNQty: 8 RF: 0 Continued dexamethasone 4 mg tablet 40 mg PO QWEEK RF: 0 omeprazole 10 MG capsule,delayed release(DR/EC) 20 mg PO DAILY RF: 0 montelukast 10 MG tablet 10 mg PO DAILY PRNRF: 0 allopurinol 300 MG tablet 300 mg PO DAILY RF: 0 prazosin 5 MG capsule 5 mg PO BID RF: 0 diazepam 5 MG tablet 5 mg PO PRN RF: 0 ipratropium bromide 42 mcg (0.06 %) spray,non-aerosol 2 spray JUSTIN TID RF: 0 fexofenadine 180 mg tablet 180 mg PO DAILY RF: 0 atorvastatin 40 mg tablet 40 mg PO DAILY RF: 0 zolpidem 10 mg tablet 10 mg PO QHS PRNRF: 0 cyanocobalamin (vitamin B-12) [Vitamin B-12] 1,000 mcg tablet 1,000 mcg PO DAILY RF: 0 glucosamine [id number]-xoparvryxq 500-167-400 mg tablet 1 tab PO DAILY RF: 0 Probiotic 15 billion cell capsule, sprinkle 1 cap PO DAILY RF: 0 green tea leaf extract Capsule 2 cap PO DAILY RF: 0 acyclovir 400 MG tablet 400 mg PO BID RF: 0 fluticasone propionate [Flonase Allergy Relief] 9.9 ML spray,suspension 2 spray NS DAILY PRN PRNRF: 0 testosterone cypionate 200 MG/ML oil 1.5 ml IM .[id number] RF: 0 metoprolol tartrate 25 MG tablet 25 mg PO BID RF: 0 cholecalciferol (vitamin D3) 1,000 UNITS tablet 1,000 unit PO DAILY RF: 0 magnesium oxide 400 mg (241.3 mg magnesium) Tablet 400 mg PO DAILY RF: 0 Curcumin 95 % Powder 500 MISCELLANEOUS RF: 0 zoledronic acid 4 mg Recon Soln 4 mg IV QMONTH RF: 0 Myrbetriq 25 mg tablet extended release 24 hr 25 mg PO DAILY RF: 0 Eliquis 5 mg tablet See Rx Instructions .ROUTE .COMPLEX Qty: 94 RF: 0 multivitamin [Multiple Vitamins] Tablet 1 tab PO DAILY Qty: 0 RF: 0 thiamine mononitrate (vit B1) [Vitamin B-1 (mononitrate)] 100 mg Tablet 100 mg PO DAILY Qty: 30 RF: 0 tramadol 50 mg tablet 50 mg PO Q8H PRN (Reason: pain) Qty: 15 RF: 0 duloxetine [Cymbalta] 60 MG capsule,delayed release(DR/EC) 60 mg PO DAILY RF: 0 albuterol sulfate [ProAir HFA] 90 mcg/actuation HFA aerosol inhaler 2 inh IH Q6H PRN (Reason: shortness of breath or wheezing) Qty: 18 RF: 0 Discontinued acetaminophen [Mapap Extra Strength] 500 mg Tablet 1,000 mg PO Q8H Qty: 0 RF: 0 Discharge Instructions Instructions: Cervical Strain (ED) Additional Instructions: CT imaging of your neck and head did not reveal any obvious traumatic process. Wear soft cervical collar as needed, advance activity as tolerated. Gentle stretching as tolerated. Cool and/or warm compresses every 2 hours for 20 minutes. I have given you a prescription for Percocet, take as directed. Remember this medication may cause drowsiness, constipation, respiratory depression. Please watch for new or worsening symptoms and return to the ER for any concerns. I recommend that you contact your primary care provider later today or tomorrow for outpatient reevaluation. Referral to orthopedics and/or physical therapy may be indicated if you are not doing significantly better with conservative therapy. Medical Decision Making 79-year-old gentleman who is anticoagulated, presents stating he had a mechanical fall 2 days ago striking the left side of his head and neck. Denies any LOC. Denies headache. He reports left-sided and posterior neck discomfort does not radiate anywhere, is worse with movement. Patient appears well, non toxic, neurologically intact. He was immediately placed into a c-collar. Given his anticoagulation on Eliquis, will obtain head CT, will obtain CT of his C- spine as well for further evaluation status post fall and trauma. Reflexively I will not obtain any laboratory values as these will likely not change his outcome assuming that his CTs are unremarkable. CT imaging of head and C-spine are read by radiology as no acute bleed or C- spine fracture. There is air within the left orbit. Discussed these findings with radiology and given his recent left eye surgery for his retinal detachment, this would be a normal finding. C-collar was removed. Patient does have full range of motion of his neck but certainly ranging his neck causes increased discomfort. Discussed options with patient. He will be placed into a soft collar for support and comfort. He reports that Tylenol and tramadol has not helped his symptoms. We discussed treatment options, will provide a stronger medication such as Percocet. Patient reports that he has taken this in the past and does not have a allergic reaction. In his medical note it states that he has respiratory depression with oxycodone, we discussed the importance of taking the accurate dose and not abusing the medication. Patient states that he is aware and comfortable taking this medication. We discussed the importance of outpatient follow-up through his orthopedic provider for potential physical therapy and/or orthopedic referral if symptoms are to persist. Patient has no additional questions or concerns and is comfortable discharge at this time. He did request a single dose of medication prior to discharge however he is driving home and I do not want to give him any medications that may cause sedation prior to driving. Patient understands this and is agreeable to hot die picker the prescription. We did discuss not taking additional Tylenol while taking the Percocet as well. Medical Records Medical records reviewed: Yes I reviewed the patient's medical records. Imaging Data Radiologic Study: Attestation: I personally reviewed and interpreted this imaging study as follows: Imaging: CT Scan Radiologist's impression: CT imaging of head and neck without contrast reveals no acute cervical spine injury, no acute intracranial injury. The gas of fluid level noted in the left orbit has appearance consistent with recent vitrectomy and gas tamponade of retinal tear. HPI General Mode of arrival: ambulatory . Date/Time Provider Initiated Documentation: 07/29/20 11:26 . Limitations to Documentation: no limitations . Information obtained by: patient . HPI Narrative: This is a 79-year-old gentleman with past medical history that includes history of alcohol use, benign essential tremor, hypertension, GERD, SVT, PE, currently anticoagulated, peripheral neuropathy, multiple myeloma, presenting to the ER today for evaluation of posterior and left-sided neck pain that began 2 days ago. He reports that he has baseline balance and falling issues, fell against a sofa arm striking the left side of his head and neck. He denies LOC, headache, visual changes, chest pain, shortness of breath, abdominal pain, nausea, vomiting, incontinence, numbness or weakness. Does report baseline neuropathy. He states the pain in his neck is moderate but worse with movement or turning of his head. Yesterday he took Tylenol and tramadol without relief of his symptoms. He denies any radiation of the pain from his neck. Related Data Home Medications Medication Instructions Recorded Confirmed allopurinol 300 mg PO DAILY 12/29/12 07/29/20 montelukast 10 mg PO DAILY PRN tab-cap 12/29/12 07/29/20 omeprazole 20 mg PO DAILY tab-cap 12/29/12 07/29/20 acyclovir 400 mg PO BID 05/07/16 07/29/20 fluticasone propionate [Flonase 2 spray NS DAILY PRN PRN 05/07/16 07/29/20 Allergy Relief] cholecalciferol (vitamin D3) 1,000 unit PO DAILY 05/12/16 07/29/20 metoprolol tartrate 25 mg PO BID 05/12/16 07/29/20 testosterone cypionate 1.5 ml IM .[id number] 05/12/16 07/29/20 duloxetine [Cymbalta] 60 mg PO DAILY 03/07/17 07/29/20 diazepam 5 mg PO PRN 05/31/17 07/29/20 prazosin 5 mg PO BID 05/31/17 07/29/20 albuterol sulfate [ProAir HFA] 2 inh IH Q6H PRN #18 gm 10/18/19 07/29/20 atorvastatin 40 mg tablet 40 mg PO DAILY 03/13/20 07/29/20 cyanocobalamin (vitamin B-12) 1,000 mcg PO DAILY 03/13/20 07/29/20 1,000 mcg tablet fexofenadine 180 mg tablet 180 mg PO DAILY 03/13/20 07/29/20 glucosamine QDs-bbf-wxpexowoygl 1 tab PO DAILY tab 03/13/20 07/29/20 500 mg-167 mg-400 mg tablet green tea leaf extract 2 cap PO DAILY cap 03/13/20 07/29/20 ipratropium bromide 42 mcg (0.06 2 spray JUSTIN TID 03/13/20 07/29/20 %) nasal spray lactobacillus combo no.11 15 1 cap PO DAILY 03/13/20 07/29/20 billion cell sprinkle capsule zolpidem 10 mg tablet 10 mg PO QHS PRN tab 03/13/20 07/29/20 dexamethasone 4 mg tablet 40 mg PO QWEEK 06/24/20 07/29/20 Curcumin 500 MISCELLANEOUS 07/04/20 Eliquis See Rx Instructions .ROUTE 07/04/20 07/29/20 .COMPLEX #94 tab Myrbetriq 25 mg PO DAILY 07/04/20 07/29/20 magnesium oxide 400 mg PO DAILY 07/04/20 07/29/20 multivitamin [Multiple Vitamins] 1 tab PO DAILY #0 tab 07/04/20 07/29/20 thiamine mononitrate (vit B1) 100 mg PO DAILY #30 tab 07/04/20 07/29/20 [Vitamin B-1 (mononitrate)] tramadol 50 mg PO Q8H PRN #15 tab 07/04/20 07/29/20 zoledronic acid 4 mg IV QMONTH 07/04/20 07/29/20 oxycodone-acetaminophen [Percocet] 1 tab PO Q8H PRN #8 tab 07/29/20 Previous Rx's Medication Instructions Recorded albuterol sulfate [ProAir HFA] 2 inh IH Q6H PRN #18 gm 10/18/19 Eliquis See Rx Instructions .ROUTE 07/04/20 .COMPLEX #94 tab multivitamin [Multiple Vitamins] 1 tab PO DAILY #0 tab 07/04/20 thiamine mononitrate (vit B1) 100 mg PO DAILY #30 tab 07/04/20 [Vitamin B-1 (mononitrate)] tramadol 50 mg PO Q8H PRN #15 tab 07/04/20 oxycodone-acetaminophen [Percocet] 1 tab PO Q8H PRN #8 tab 07/29/20 Allergies Allergy/AdvReac Type Severity Reaction Status Date / Time Sulfa (Sulfonamide Allergy as a Unverified 07/29/20 11:36 Antibiotics) child, unsure codeine AdvReac Intermediate sick to Unverified 07/29/20 11:36 stomach oxycodone [Oxycodone] AdvReac respiratory Unverified 07/29/20 11:36 depression General Stated Complaint: Nk/Back Pain CLYDE: 3 Review of Systems Constitutional Constitutional: Denies fatigue, Denies fever(s), Denies headache(s) and Denies weakness Eyes Eyes: Reports other (Left eye retinal detachment, s/p surgery 3.5 weeks ago) ENT Ears, Nose, Mouth, and Throat: Denies headache(s) and Reports neck pain Cardiovascular Cardiovascular: Denies chest pain and Denies dyspnea Respiratory Respiratory: Denies cough and Denies dyspnea Gastrointestinal Gastrointestinal: Denies abdominal pain, Denies nausea and Denies vomiting Musculoskeletal Musculoskeletal: Reports back pain (Chronic), Reports neck pain, Denies numbness and Reports tingling Integumentary/Breasts Skin/Breast: Reports rash Neurologic Neurologic: Denies headache(s), Denies numbness, Reports tingling and Denies weakness Endocrine Endocrine: Denies fatigue [facility] [place] Medical History Abnormal prostate specific antigen Abnormal weight loss Actinic keratosis Adenomatous colon polyp Alcohol consumption heavy Allergic rhinitis Benign essential tremor Bilateral artificial lens implant BPH (benign prostatic hyperplasia) 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/13) Chronic insomnia Cough Diverticulosis Diverticulosis Erectile dysfunction Essential hypertension GERD (gastroesophageal reflux disease) Gout H/O supraventricular tachycardia Heavy alcohol consumption History of DVT (deep vein thrombosis) History of positive PPD History of prediabetes History of PSVT (paroxysmal supraventricular tachycardia) History of pulmonary embolism History of urinary urgency (03/09/13) Hx of adenomatous colonic polyps Hyperlipidemia Hypertension Hypogonadism Impaired fasting glucose Insomnia Low testosterone in male Lumbar back pain Macrocytosis Male hypogonadism Memory impairment Mild cognitive impairment Myelodysplasia (myelodysplastic syndrome) Neutropenia Ocular migraine Osteoarthritis Other and unspecified hyperlipidemia Overactive bladder Peripheral neuropathy Personal history of venous thrombosis and embolism Positive PPD Preventative health care Renal cyst Sacroiliac joint pain Sleep apnea Spinal stenosis in cervical region Spondylosis Spondylosis of cervical joint Subjective tinnitus Urinary frequency Vitamin D deficiency Surgical History Colonoscopy - IV Sedation Cystoscopy Extraction of cataract BILAT HERNIA REPAIR History of intraocular lens implant History of lumbar fusion (03/03/17) performed at [facility], Dr. Jovita COSTELLO RHINOPLASTY S/P TURP S/P TURP (status post transurethral resection of prostate) (12/19/13) Tonsillectomy and adenoidectomy Total replacement of hip (05/13/16) RIGHT/DR. OLEA Family History Mother Personal history of malignant neoplasm PANCREATIC/LIVER Father Heart disease Sister No problems noted. Brother Diabetes Heart disease Brother Heart disease Mental disorder BIPOLAR Social History Smoking/Tobacco Use Status: Former Tobacco Use Alcohol Intake: current Alcohol Intake frequency: 3 or more drinks per day Drug use: Never Substance use type: does not use Household members: spouse Number of Children: 2 Pets and animals: No Current gender identity: male What is your relationship status?: Panel score (0-1 are the most socially isolated patients): 1 What type of physical activity do you participate in: regular exercise Seatbelt use: always Do you feel safe at home: Yes Do you feel safe in your relationship?: Yes Exam Const General: cooperative, healthy appearing, comfortable and no acute distress Orientation: alert, awake and oriented x3 HENMT Head: normal to inspection, no palpable skull fracture, normocephalic and atraumatic Ears: external ears normal and EAC's normal Face and sinus: normal facial exam Mouth: oral mucosae normal and moist mucous membranes Throat: posterior oropharynx normal Eyes Alignment and Position: alignment normal Periorbital: periorbital findings normal Eyelids: eyelids normal Conjunctivae: conjunctivae normal Sclera: sclerae normal Cornea: corneas normal Pupils: pupil size on the right 2 and on the left 3 EOM: EOM intact bilaterally Direct ophthalmoscopy: normal light reflex Neck Neck: normal visual inspection, no lymphadenopathy, no meningeal signs, trachea midline, supple, tender (Posterior and left side) and other (Patient presented to ER and immediately placed in c-collar) Resp Effort & Inspection: normal respiratory effort and able to speak in complete sentences Auscultation: clear to auscultation bilaterally Cardio Rate: regular rate Rhythm: regular rhythm GI Palpation: soft and nontender Back/Spine/Pelvis Back: back tenderness (Diffuse mild lumbar) Skin General skin exam: no rashes or lesions noted Neuro General: patient alert, patient awake, patient oriented x3, moves all extremities and no focal motor deficits Cranial Nerves: CN's II-XI intact bilaterally Cognition: normal cognition Speech: speech normal Gait: normal gait Motor: muscle tone normal throughout and strength 5/5 throughout Sensory Exam: no sensory deficits noted Extrem General: normal to inspection, full ROM, capillary refill normal, no pedal edema and no calf tenderness Psych Appearance: grossly normal Mental Status: mental status grossly normal Course Vital Signs Vital signs: Vital Signs Temperature 36.3 C L 07/29/20 11:31 Pulse 95 H 07/29/20 11:31 Respiratory Rate 18 07/29/20 11:31 Blood Pressure 132/57 L 07/29/20 11:31 Pulse Oximetry 96 07/29/20 11:31 Temperature 36.7 C 07/29/20 13:10 Temperature Source Skin 07/29/20 13:10 Pulse 85 07/29/20 13:10 Respiratory Rate 18 07/29/20 11:31 Respiratory Effort Non-Labored 07/29/20 11:34 Blood Pressure 132/60 07/29/20 13:10 Blood Pressure Position Sitting 07/29/20 11:31 Pulse Oximetry 95 07/29/20 13:10 Oxygen Delivery Method Room Air 07/29/20 13:10 Oxygen Flow Rate 0 07/29/20 13:10 Pain Level 7 07/29/20 11:31
== END 2020-07-29 13:36 | disposition home or self-care (01) ==
LOC: ER 13:25
PROVIDERS: Emergency Provider Physician Assistant; PCP Family Medicine
DX: S16.1XXA Strain of muscle, fascia and tendon at neck level, initial encounter (principal); W01.190A Fall on same level from slipping, tripping and stumbling with subsequent striking against furniture, initial encounter; Z86.711 Personal history of pulmonary embolism; Z79.01 Long term (current) use of anticoagulants; I10 Essential (primary) hypertension
CPT/HCPCS: 99284; 70450; 72125; L0120; L0172

== ENCOUNTER 2020-07-30 01:12 | Outpatient (CLI) | payer MEDICARE, OTHER, SELFPAY ==
--- NOTE | 2020-07-30 08:30 | DI.CT_ITS ---
EXAM: CT ABDOMEN PELVIS W CLINICAL HISTORY: MULTIPLE MYELOMA,C90.00,H/O SQUAMOUS CELL CA,Z85.828,RT SIDED PELVIC PAIN,? TECHNIQUE: COMPARISON: CT CT CHEST PE ABD PELVIS W from 10/17/[address] CHEST PE CTA from 07/03/2020 FINDINGS: CT examination pelvis was performed with biphasic hepatic imaging follow injection of 100 cc of Omnip aque 350. Note is made of cardiomegaly and small bilateral pleural effusions. Liver and spleen appear normal. Pancreas appears normal. Gallbladder and bile ducts are CT. There are multiple bilateral renal cysts. There is no hydronephrosis. Renal calcifications are note d bilaterally which are probably vascular. Adrenals are unremarkable in appearance. Abdominal aorta is of normal diameter. 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 No significant abdominal wall hernia. No significant abdominal or pelvic adenopathy. Appendix is normal. There is no evidence of bowel obstruction or diverticulitis. Urinary bladder is nearly empty but probably has a thickened wall. The prostate is enlarged. There is a right hip prosthesis in position. There are Fernandez rods in place in the lumbar spine. Multiple areas bony sclerosis and heterogeneous bone density are noted in patient with reported his tory of multiple myeloma. IMPRESSION: Cardiomegaly, bilateral pleural effusions with question mild CHF. 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 Multiple sclerotic and heterogeneous bony lesions, patient reportedly has a diagnosis of multiple mye lakeisha. No evidence of acute process. RADIATION DOSE DELIVERED: 1,483.56mGy.cm Total DLP
[2020-07-30 08:52] LABS: ALT 18 U/L (16-63); AST 10 U/L (15-37); Albumin 3.1 g/dL (3.4-5.0); Alkaline Phosphatase 48 U/L (46-116); Anion Gap 7.1 mmol/L (3-11); BUN 18 mg/dL (7-18); Bilirubin, Total 0.8 mg/dL (0.2-1.0); CO2 27.9 mmol/L (21.0-32.0); CREATININE 0.81 mg/dL (0.70-1.30); Calcium 8.3 mg/dL (8.5-10.1); Chloride 105 mmol/L (98-107); Glucose 116 mg/dL (74-106); Potassium 3.5 mmol/L (3.5-5.1); Sodium 140 mmol/L (136-145); Total Protein 6.5 g/dL (6.4-8.2)
[2020-07-30] MEDS: Omnipaque 350 MG/ML 50 ML BTL PO (09:38)
[2020-07-30] MEDS: Omnipaque 350 MG/ML 100 ML BTL IJ (09:39)
[2020-07-30] MEDS: Normal Saline - Diluent 50 ML VIAL IV (09:41)
[2020-07-30] MEDS: Breeza Beverage 473 ML BTL PO (10:37)
== END 2020-07-30 01:32 ==
PROVIDERS: PCP Family Medicine; Visit Provider Nurse Practitioner Adult Health
DX: I51.7 Cardiomegaly (principal); J90 Pleural effusion, not elsewhere classified; C90.00 Multiple myeloma not having achieved remission; R10.2 Pelvic and perineal pain; Z96.641 Presence of right artificial hip joint; N28.1 Cyst of kidney, acquired
CPT/HCPCS: 80053; 74177; J3490; Q9967

== ENCOUNTER → 2020-08-13 10:43 | Outpatient (BNVA) | payer MEDICARE, OTHER, SELFPAY | PROVIDERS: PCP Family Medicine; Referring Provider Family Medicine; Visit Provider Urology | DX: R97.20 Elevated prostate specific antigen [PSA] (principal); Z85.79 Personal history of other malignant neoplasms of lymphoid, hematopoietic and related tissues; I10 Essential (primary) hypertension | CPT/HCPCS: 99212; 99441 ==

== ENCOUNTER 2020-08-16 01:54 | Outpatient (CLI) | payer MEDICARE, OTHER, SELFPAY ==
[2020-08-19 16:52] LABS: PSA, Diagnostic 6.1 ng/ml (0-6.5)
== END 2020-08-16 02:14 ==
PROVIDERS: PCP Family Medicine; Visit Provider Urology
DX: R97.20 Elevated prostate specific antigen [PSA] (principal)
CPT/HCPCS: 36415; 84153

== ENCOUNTER 2020-09-13 04:53 | Outpatient (CLI) | payer MEDICARE, OTHER, SELFPAY ==
[2020-09-13 12:34] LABS: ALT 19 U/L (16-63); AST 11 U/L (15-37); Albumin 3.2 g/dL (3.4-5.0); Alkaline Phosphatase 57 U/L (46-116); Anion Gap 8.5 mmol/L (3-11); BUN 21 mg/dL (7-18); Bilirubin, Total 0.5 mg/dL (0.2-1.0); CO2 28.5 mmol/L (21.0-32.0); Calcium 8.6 mg/dL (8.5-10.1); Chloride 104 mmol/L (98-107); Glucose 160 mg/dL (74-106); Potassium 4.5 mmol/L (3.5-5.1); Sodium 141 mmol/L (136-145); Total Protein 6.6 g/dL (6.4-8.2)
== END 2020-09-13 05:13 ==
PROVIDERS: PCP Nurse Practitioner Adult Health; Visit Provider Internal Medicine Hematology & Oncology
DX: C90.00 Multiple myeloma not having achieved remission (principal)
CPT/HCPCS: 36415; 80053

== ENCOUNTER 2020-09-13 17:46 | Outpatient (REF) | payer MEDICARE, OTHER, SELFPAY | END 2020-09-13 18:06 | LOC: NCHCN 17:46 | PROVIDERS: PCP Nurse Practitioner Adult Health; Visit Provider Family Medicine | DX: S81.801A Unspecified open wound, right lower leg, initial encounter (principal); C44.722 Squamous cell carcinoma of skin of right lower limb, including hip | CPT/HCPCS: 87077; 87070; 87186; 87205 ==

== ENCOUNTER 2020-09-16 14:38 | Inpatient (IN) | payer MEDICARE, OTHER, SELFPAY ==
[2020-09-16] VITALS (33 sets, daily range): BP systolic 145–172; BP diastolic 62–86; PULSE 69–123; RESP 12–33; TEMP 36.7–37.3; O2SAT 89–98
--- NOTE | 2020-09-16 14:15 | RT.EKG_ITS ---
APPROVED REPORT Exam: Resting ECG Patient Location: E HR:116 bpm ECG Measurements Heart Rate 116 AXIS MI 174 P -65 QRSd 102 QRS 65 QT 314 T -3 QTc 435 Conclusion Sinus or ectopic atrial tachycardia...P axis (-45,135), rate> 99 Atrial premature complex...SV complex w/ short R-R interval
[2020-09-16 14:54] LABS: Lactate 1.4 mmol/L (0.6-1.4)
--- NOTE | 2020-09-16 14:58 | DI.RAD_ITS ---
EXAM: XR TIB/FIB RT CLINICAL HISTORY: infection. TECHNIQUE: 2D digital imaging was performed. COMPARISON: No exams were available for comparison FINDINGS: There is no evidence of fracture. No osseous lesions. Vascular calcification is noted in the poplit eal artery and runoff vessels in the calf. However, there is no radiographic evidence of osteomyelit is. No radiopaque foreign body. No osseous lesions. IMPRESSION: DATA REPOSITORY: RADIATION DOSE DELIVERED:
[2020-09-16] MEDS: ceFAZolin 2 GM/50 ML BAG IVPB (15:00)
--- NOTE | 2020-09-16 15:00 | ED.GENADUL_ITS ---
Discharge Plan Disposition Patient Disposition: 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 I suspect the patient is septic from cellulitis. Consider immunocompromise given multiple mye lakeisha. I will initiate IV fluid resuscitation with 1 L crystalloid. Will attempt to obtain outside hospital records from cancer center. Plan to initiate broad-spectrum antibiotic coverage with vancomycin and cefepime. We will obtain x-ray of the right lower extremity. Assess for other sources including urinalysis and chest x-ray. Will maintain PUI status given fever and check a Covid test although my suspicion is low. --Initial labs reviewed and patient is leukopenic and neutropenic. Lactate normal. --Nursing notes patient now hypoxic 88 to 90% on room air. He was placed on 2 L nasal cannula is now saturating in the upper 90s. Given leg inflammation, consider DVT and pulmonary embolism. I will obtain CT of the chest. Screening ECG was reviewed and interpreted by me: Sinus tachycardia 116 bpm. 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 <Zunilda Khan DO - Last Filed: 09/16/20 21:18> 1600 --please see Dr. Rodriguez's note for initial presentation, exam and plan. Case endorsed to follow-up on CT chest which was negative for PE and x-ray of right lower extremity which was negative for any acute bony abnormalities CT chest notes: IMPRESSION: 1. Diffuse abnormal density of the bones. Metastatic disease or post radiation changes are not excluded. 2. Minimal atelectasis at the pulmonary bases. No velma infiltrates. XR Right Tibia and Fibula IMPRESSION: 1. No bone abnormalities. 2. Soft tissue swelling compatible with the stated history of infection. 3. Peripheral arterial disease. Patient has been on 2L NC due to saturations in the high 80s to low 90s. Review of previous visits note that patient has had similar oxygen saturation in the past which he does also endorse. He is a former smoker but denies known h/o COPD. He denies any shortness of breath, fever, cough or chest pain. A rapid Covid test was obtained which was negative. 1800 -- Case discussed with hospitalist who accepts patient for admission. Medical Records Medical records reviewed: Yes I reviewed the patient's medical records. Imaging Data Radiologic Study: Radiologist's impression: CT Angiography Chest With Contrast Exam date and time: 09/16/2020 4:12 PM Age: 79 years old Clinical indication: Fever and other: Hypoxia; Patient HX: Hypoxia, fever; Additional info: Multiple myeloma, squam cell carcinoma, on radiation TECHNIQUE: Imaging protocol: Computed tomographic angiography of the chest with intravenous contrast. 3D rendering (Not supervised by radiologist): MIP and/or 3D reconstructed images were created by the technologist. COMPARISON: CT CHEST PE CTA 07/03/2020 10:37 AM FINDINGS: Pulmonary arteries: Normal. No pulmonary emboli. Aorta: Unremarkable. No aortic aneurysm. No aortic dissection. Lungs: Minimal atelectasis at the pulmonary bases. Pleural space: Unremarkable. No pneumothorax. No pleural effusion. Heart: Unremarkable. No cardiomegaly. No pericardial effusion. Lymph nodes: Unremarkable. No enlarged lymph nodes. Bones/joints: degenerative changes in the spine. diffuse abnormal density of the bones. Metastatic disease or post radiation changes are not excluded. Old right rib fractures. Soft tissues: Unremarkable. Other findings: atherosclerosis. left rotator cuff anchors. IMPRESSION: 1. Diffuse abnormal density of the bones. Metastatic disease or post radiation changes are not excluded. 2. Minimal atelectasis at the pulmonary bases. No velma infiltrates. XR Right Tibia and Fibula Exam date and time: 09/16/2020 4:26 PM Age: 79 years old Clinical indication: Other: Infection TECHNIQUE: Imaging protocol: XR Right tibia and fibula. Views: 2 views. COMPARISON: No relevant prior studies available. FINDINGS: Bones/joints: No focal bone defects or periosteal changes. Soft tissues: Mild diffuse right lower extremity edema. The soft tissues are otherwise normal. Vasculature: Diffuse arterial calcification. IMPRESSION: 1. No bone abnormalities. 2. Soft tissue swelling compatible with the stated history of infection. 3. Peripheral arterial disease. Lab Data Lab results reviewed: Yes I reviewed the patient's lab results. Labs: 09/16/20 15:20 Blood Blood Culture - Pending 09/16/20 14:40 Blood Blood Culture - Pending Laboratory Tests Range/Units 09/16/20 09/16/20 09/16/20 14:44 14:44 15:20 WBC (4.4-10.8) 10^3/uL 5.23 RBC (4.36-5.78) 10^6/uL 3.66 L Hgb (13.5-17.5) g/dL 12.1 L Hct (40.0-50.0) % 38.7 L MCV (80-95) fL 105.7 H MCH (27.0-33.0) pg 33.1 H MCHC (32.0-36.0) % 31.3 L RDW (11.8-14.1) % 14.7 H Plt Count (130-400) 10^3/uL 158 MPV (8.0-11.0) fL 9.7 Immature Gran % 0.8 Neutrophils % 86.2 Lymphocytes % 10.5 Monocytes % 1.9 Eosinophils % 0.6 Basophils % 0.0 Nucleated RBC % % 0 Absolute Neutrophils (1.2-6.7) 10^3/uL 4.51 Absolute Lymphocytes (1.2-3.4) 10^3/uL 0.55 L Absolute Monocytes (0.1-0.8) 10^3/uL 0.10 Absolute Eosinophils (0.0-0.7) 10^3/uL 0.03 Absolute Basophils (0.0-0.2) 10^3/uL 0.00 RBC Morphology See below Poikilocytosis 1+ Macrocytosis 1+ VBG Lactate (0.6-1.4) mmol/L 1.4 Sodium (136-145) mmol/L 142 Potassium (3.5-5.1) mmol/L 4.3 Chloride (98-107) mmol/L 106 Carbon Dioxide (21.0-32.0) mmol/L 30.8 Anion Gap (3-11) mmol/L 5.2 BUN (7-18) mg/dL 20 H Creatinine (0.70-1.30) mg/dL 0.96 Estimated GFR/1.73 m2 (mL/min/1.73m2) >= 60.00 Glucose (74-106) mg/dL 115 H Calcium (8.5-10.1) mg/dL 8.6 Total Bilirubin (0.2-1.0) mg/dL 0.4 AST (15-37) U/L 11 L ALT (16-63) U/L 19 Alkaline Phosphatase (46-116) U/L 52 Total Protein (6.4-8.2) g/dL 6.9 Albumin (3.4-5.0) g/dL 3.1 L Urine Color (Yellow) Urine Clarity (Clear) Urine pH (5-8) Ur Specific [place] (1.005-1.025) Urine Protein (Negative) mg/dL Urine Ketones (Negative) mg/dL Urine Blood (Negative) Urine Nitrite (Negative) Urine Bilirubin (Negative) Urine Urobilinogen (Up TO 0.2) EU/dL Ur Leukocyte Esterase (Negative) Urine Glucose (Negative) mg/dL Range/Units 09/16/20 16:05 WBC (4.4-10.8) 10^3/uL RBC (4.36-5.78) 10^6/uL Hgb (13.5-17.5) g/dL Hct (40.0-50.0) % MCV (80-95) fL MCH (27.0-33.0) pg MCHC (32.0-36.0) % RDW (11.8-14.1) % Plt Count (130-400) 10^3/uL MPV (8.0-11.0) fL Immature Gran % Neutrophils % Lymphocytes % Monocytes % Eosinophils % Basophils % Nucleated RBC % % Absolute Neutrophils (1.2-6.7) 10^3/uL Absolute Lymphocytes (1.2-3.4) 10^3/uL Absolute Monocytes (0.1-0.8) 10^3/uL Absolute Eosinophils (0.0-0.7) 10^3/uL Absolute Basophils (0.0-0.2) 10^3/uL RBC Morphology Poikilocytosis Macrocytosis VBG Lactate (0.6-1.4) mmol/L Sodium (136-145) mmol/L Potassium (3.5-5.1) mmol/L Chloride (98-107) mmol/L Carbon Dioxide (21.0-32.0) mmol/L Anion Gap (3-11) mmol/L BUN (7-18) mg/dL Creatinine (0.70-1.30) mg/dL Estimated GFR/1.73 m2 (mL/min/1.73m2) Glucose (74-106) mg/dL Calcium (8.5-10.1) mg/dL Total Bilirubin (0.2-1.0) mg/dL AST (15-37) U/L ALT (16-63) U/L Alkaline Phosphatase (46-116) U/L Total Protein (6.4-8.2) g/dL Albumin (3.4-5.0) g/dL Urine Color (Yellow) Yellow Urine Clarity (Clear) Clear Urine pH (5-8) 6.5 Ur Specific [place] (1.005-1.025) 1.020 Urine Protein (Negative) mg/dL Negative Urine Ketones (Negative) mg/dL Negative Urine Blood (Negative) Negative Urine Nitrite (Negative) Negative Urine Bilirubin (Negative) Negative Urine Urobilinogen (Up TO 0.2) EU/dL 0.2 Ur Leukocyte Esterase (Negative) Negative Urine Glucose (Negative) mg/dL Negative HPI <Dada Rodriguez MD - Last Filed: 09/26/20 21:21> General Mode of arrival: ambulatory . Date/Time Provider Initiated Documentation: 09/16/20 14:40 . Limitations to Documentation: no limitations . Information obtained by: patient . 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 No modifiers. Denies associated cough. Patient notes she last received chemotherapy about 2 weeks ago and did receive radiation therapy this morning. Patient was seen yesterday in the cancer center and started on unknown antibiotic. Related Data Home Medications Medication Instructions Recorded Confirmed allopurinol 300 mg PO DAILY 12/29/12 09/16/20 montelukast 10 mg PO DAILY PRN tab-cap 12/29/12 09/16/20 omeprazole 20 mg PO DAILY tab-cap 12/29/12 09/16/20 fluticasone propionate [Flonase 2 spray NS DAILY PRN PRN 05/07/16 09/16/20 Allergy Relief] cholecalciferol (vitamin D3) 1,000 unit PO DAILY 05/12/16 09/16/20 metoprolol tartrate 25 mg PO BID 05/12/16 09/16/20 testosterone cypionate 1.5 ml IM .[id number] 05/12/16 09/16/20 duloxetine [Cymbalta] 60 mg PO DAILY 03/07/17 09/16/20 diazepam 5 mg PO HS PRN PRN 05/31/17 09/17/20 prazosin 5 mg PO BID 05/31/17 09/16/20 albuterol sulfate [ProAir HFA] 2 inh IH Q6H PRN #18 gm 10/18/19 09/16/20 atorvastatin 40 mg tablet 40 mg PO DAILY 03/13/20 09/16/20 cyanocobalamin (vitamin B-12) 1,000 mcg PO DAILY 03/13/20 09/16/20 1,000 mcg tablet fexofenadine 180 mg tablet 180 mg PO DAILY 03/13/20 09/16/20 glucosamine [id number]-gnp-[id number] 1 tab PO DAILY tab 03/13/20 09/16/20 500 mg-167 mg-400 mg tablet green tea leaf extract 2 cap PO DAILY cap 03/13/20 09/16/20 lactobacillus combo no.11 15 1 cap PO DAILY 03/13/20 09/16/20 billion cell sprinkle capsule zolpidem 10 mg tablet 10 mg PO QHS PRN tab 03/13/20 09/16/20 dexamethasone 4 mg tablet 40 mg PO QWEEK 06/24/20 09/16/20 Curcumin 500 MISCELLANEOUS 07/04/20 Myrbetriq 25 mg PO DAILY 07/04/20 09/16/20 magnesium oxide 400 mg PO DAILY 07/04/20 09/16/20 multivitamin [Multiple Vitamins] 1 tab PO DAILY #0 tab 07/04/20 09/16/20 thiamine mononitrate (vit B1) 100 mg PO DAILY #30 tab 07/04/20 09/16/20 [Vitamin B-1 (mononitrate)] Eliquis 5 mg PO BID 12/15/20 12/15/20 gabapentin See Rx Instructions .ROUTE .COMPLEX 09/17/20 09/17/20 oxycodone 5 - 10 mg PO Q6H PRN PRN 09/17/20 09/17/20 amlodipine 5 mg PO DAILY #30 tab 09/19/20 doxycycline hyclate 100 mg PO BID #10 cap 09/19/20 lanolin cmhvvyd-rf-k.pet-ceres 0 g TOPICAL QID PRN PRN #0 g 09/19/20 [Eucerin] Previous Rx's Medication Instructions Recorded albuterol sulfate [ProAir HFA] 2 inh IH Q6H PRN #18 gm 10/18/19 multivitamin [Multiple Vitamins] 1 tab PO DAILY #0 tab 07/04/20 thiamine mononitrate (vit B1) 100 mg PO DAILY #30 tab 07/04/20 [Vitamin B-1 (mononitrate)] amlodipine 5 mg PO DAILY #30 tab 09/19/20 doxycycline hyclate 100 mg PO BID #10 cap 09/19/20 lanolin nqfhsnh-bm-j.pet-ceres 0 g TOPICAL QID PRN PRN #0 g 09/19/20 [Eucerin] Allergies Allergy/AdvReac Type Severity Reaction Status Date / Time Sulfa (Sulfonamide Allergy as a Unverified 09/16/20 18:43 Antibiotics) child, unsure codeine AdvReac Intermediate sick to Unverified 09/16/20 18:43 stomach oxycodone [Oxycodone] AdvReac respiratory Unverified 09/16/20 18:43 depression General Stated Complaint: GenMedical CLYDE: 2 Review of Systems <Dada Rodriguez MD - Last Filed: 09/26/20 21:21> All systems reviewed & are unremarkable except as noted in HPI and below Constitutional Constitutional: Reports chills, Reports fever(s) and Denies headache(s) ENT Ears, Nose, Mouth, and Throat: Denies headache(s) Gastrointestinal Gastrointestinal: Reports nausea Integumentary/Breasts Comments: Skin lesion right lower extremity Neurologic Neurologic: Denies headache(s) PFSH <Dada Rodriguez MD - Last Filed: 09/26/20 21:21> Medical History Abnormal prostate specific antigen Abnormal weight loss Actinic keratosis Adenomatous colon polyp Alcohol consumption heavy Allergic rhinitis Benign essential tremor Bilateral artificial lens implant BPH (benign prostatic hyperplasia) 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/13) Chronic insomnia Cough Diverticulosis Diverticulosis Erectile dysfunction Essential hypertension GERD (gastroesophageal reflux disease) Gout H/O supraventricular tachycardia Heavy alcohol consumption History of DVT (deep vein thrombosis) History of positive PPD History of prediabetes History of PSVT (paroxysmal supraventricular tachycardia) History of pulmonary embolism History of urinary urgency (03/09/13) Hx of adenomatous colonic polyps Hyperlipidemia Hypertension Hypogonadism Impaired fasting glucose Insomnia Low testosterone in male Lumbar back pain Macrocytosis Male hypogonadism Memory impairment Mild cognitive impairment Myelodysplasia (myelodysplastic syndrome) Neutropenia Ocular migraine Osteoarthritis Other and unspecified hyperlipidemia Overactive bladder Peripheral neuropathy Personal history of venous thrombosis and embolism Positive PPD Preventative health care Renal cyst Sacroiliac joint pain Sleep apnea Spinal stenosis in cervical region Spondylosis Spondylosis of cervical joint Subjective tinnitus Urinary frequency Vitamin D deficiency Surgical History Colonoscopy - IV Sedation Cystoscopy Extraction of cataract BILAT HERNIA REPAIR History of intraocular lens implant History of lumbar fusion (03/03/17) performed at [facility], ., Dr. Jovita Roberts THUMB RHINOPLASTY S/P TURP S/P TURP (status post transurethral resection of prostate) (12/19/13) Tonsillectomy and adenoidectomy Total replacement of hip (05/13/16) RIGHT/DR. OLEA Family History Mother Personal history of malignant neoplasm PANCREATIC/LIVER Father Heart disease Sister No problems noted. Brother Diabetes Heart disease Brother Heart disease Mental disorder BIPOLAR Social History Smoking/Tobacco Use Status: Former Tobacco Use Smoking risk assessment performed?: Yes Alcohol Intake: current Alcohol Intake frequency: 3 or more drinks per day Drug use: Never Substance use type: does not use Household members: spouse Number of Children: 2 Pets and animals: No Current gender identity: male What is your relationship status?: Panel score (0-1 are the most socially isolated patients): 1 What type of physical activity do you participate in: regular exercise Seatbelt use: always Do you feel safe at home: Yes Do you feel safe in your relationship?: Yes Exam <Dada Rodriguez MD - Last Filed: 09/26/20 21:21> Const General: cooperative and no acute distress HENCO Head: normocephalic Mouth: moist mucous membranes Eyes Conjunctivae: normal conjunctivae Sclera: normal sclerae Resp Auscultation: clear to auscultation bilaterally, no rales, no rhonchi and no wheezes Cardio Rate: tachycardic Rhythm: regular rhythm Pulses: dorsalis pedis present on the right 2+ GI Palpation: soft, not firm, no guarding, no masses, not rigid and nontender Skin General skin exam: no rashes or lesions noted and no fluctuance Rashes: rashes noted (Erythema right lower extremity from ankle to knee surrounding ulcers) Neuro General: patient alert, patient awake, patient oriented x3 and tone normal Extrem General: edema (Trace right lower extremity) Psych Appearance: grossly normal Mental Status: mental status grossly normal Course <Dada Rodriguez MD - Last Filed: 09/26/20 21:21> Vital Signs Vital signs: Vital Signs Temperature 36.7 C 09/16/20 14:26 Pulse 116 H 09/16/20 14:26 Respiratory Rate 25 H 09/16/20 14:26 Blood Pressure 163/85 H 09/16/20 14:26 Pulse Oximetry 96 09/16/20 14:26 Temperature 36.7 C 09/16/20 14:26 Temperature Source Skin 09/16/20 14:26 Pulse 116 H 09/16/20 14:26 Respiratory Rate 18 09/16/20 14:51 Respiratory Effort Non-Labored 09/16/20 14:51 Respiratory Depth Normal 09/16/20 14:51 Respiratory Pattern Normal 09/16/20 14:51 Blood Pressure 163/85 H 09/16/20 14:26 Blood Pressure Position Supine 09/16/20 14:26 Pulse Oximetry 96 09/16/20 14:26 Oxygen Delivery Method Room Air 09/16/20 14:26 Oxygen Flow Rate 0 09/16/20 14:26 Pain Level 0 09/16/20 14:26 Lab/Test Results Lab/Test Results: 09/16/20 14:40 Blood Blood Culture - Pending 09/16/20 14:40 Blood Blood Culture - Pending Laboratory Tests Range/Units 09/16/20 14:44 VBG Lactate (0.6-1.4) mmol/L 1.4 Sign Out <Dada Rodriguez MD - Last Filed: 09/26/20 21:21> Sign Out Data: Sign Out Comment: Please see clinical documentation and note. Plan at signout is to follow-up on labs, CT of the chest to assess for pulmonary embolism or other explanation for mild hypoxia, follow-up on x-ray of the right lower extremity to assess for any deeper infection under cellulitis, reassess patient for disposition -likely admission. Last updated by Dada Rodriguez MD at 09/16/20 15:59
[2020-09-16 15:09] LABS: ALT 19 U/L (16-63); AST 11 U/L (15-37); Albumin 3.1 g/dL (3.4-5.0); Alkaline Phosphatase 52 U/L (46-116); Anion Gap 5.2 mmol/L (3-11); BUN 20 mg/dL (7-18); Bilirubin, Total 0.4 mg/dL (0.2-1.0); CO2 30.8 mmol/L (21.0-32.0); CREATININE 0.96 mg/dL (0.70-1.30); Calcium 8.6 mg/dL (8.5-10.1); Chloride 106 mmol/L (98-107); Glucose 115 mg/dL (74-106); Potassium 4.3 mmol/L (3.5-5.1); Sodium 142 mmol/L (136-145); Total Protein 6.9 g/dL (6.4-8.2)
--- NOTE | 2020-09-16 15:15 | DI.CT_ITS ---
EXAM: CT CHEST PE CTA CLINICAL HISTORY: hypoxia, fever. TECHNIQUE: Imaging Protocol: Axial CT angiography was performed with multi-slice acquisition and mu lti-planar and/or 3D reconstructions. CONTRAST MATERIAL: Intravenous: Omnipaque 350 Contrast volume:99 mL COMPARISON: CT CT CHEST PE CTA from 07/03/2020 FINDINGS: Pulmonary Arteries: No evidence of filling defect to suggest pulmonary emboli. Tracheobronchial tree: Patent where visualized. Mediastinum and Yamilet: No dominant adenopathy or fluid collection. Pulmonary parenchyma: No consolidation or dominant measurable mass. No architectural distortion. Depe ndent atelectatic changes are seen in the lung bases. Pleura: No effusion or pneumothorax. Heart: The heart is not dilated. Mild coronary artery calcification. No significant pericardial effu augustin. Aorta: Thoracic aorta non-dilated. No evidence of dissection. Moderate atherosclerosis. Upper abdomen: Unremarkable. Bones: Degenerative changes are present in the thoracic spine.Multiple sclerotic areas are seen withi n the bones. These areas are similar compared to the examination from 07/03/2020. Soft tissues: Unremarkable. IMPRESSION: 1. No evidence of pulmonary embolism, thoracic aortic dissection or aneurysm. 2. Stable diffuse abnormal density of the bones. This may represent metastatic disease or post radia tion changes. RADIATION DOSE DELIVERED: 445.92mGy.cm Total DLP DATA REPOSITORY: All CT scans at this facility are submitted to the National Radiology Data Registry (NRDR) Dose Index Registry (DIR) with the [employer] (A[employer]). RADIATION OPTIMIZATION: All CT scans at this facility use at least one of these dose optimization te chniques: automated exposure control; mA and/or kV adjustment per patient size (includes targeted exa ms where dose is matched to clinical indication); or iterative reconstruction.
[2020-09-16] MEDS: VANCOMYCIN 1,500 MG in Normal Saline 250 ML 166.6666 MG IVPB (15:23)
[2020-09-16] MEDS: Lactated Ringers 1,000 ML 1000 ML IV (15:23)
[2020-09-16 15:28] LABS: Abs Immature Grans 0.04 10^3/uL (0.0-0.06); Absolute Eosinophil Count 0.03 10^3/uL (0.0-0.7); Absolute Lymphocyte Count 0.55 10^3/uL (1.2-3.4); Absolute Neutrophil Count 4.51 10^3/uL (1.2-6.7); Eosinophils % 0.6; HCT 38.7 % (40.0-50.0); HGB 12.1 g/dL (13.5-17.5); Immature Grans % 0.8; Lymphocytes % 10.5; MCH 33.1 pg (27.0-33.0); MCHC 31.3 % (32.0-36.0); MCV 105.7 fL (80-95); MPV 9.7 fL (8.0-11.0); Monocytes % 1.9; Neutrophils % 86.2; Nucleated RBC 0 %; Platelet Count 158 10^3/uL (130-400); RBC 3.66 10^6/uL (4.36-5.78); RDW 14.7 % (11.8-14.1); RDW-SD 57.4 fL; WBC 5.23 10^3/uL (4.4-10.8)
[2020-09-16 15:31] LABS: Diff Comment RBC Morph Reviewed
[2020-09-16 15:36] LABS: Macrocytosis 1+
[2020-09-16 15:37] LABS: Poikilocytes 1+
[2020-09-16] MEDS: Omnipaque 350 MG/ML 100 ML BTL IJ (16:21)
[2020-09-16] MEDS: Normal Saline - Diluent 50 ML VIAL IV (16:22)
[2020-09-16 16:32] LABS: Bilirubin Negative (Negative); Blood Negative (Negative); Clarity Clear (Clear); Glucose Negative (Negative); Ketones Negative (Negative); Leukocyte Esterase Negative (Negative); Nitrite Negative (Negative); Urobilinogen 0.2 EU/dL (Up TO 0.2); pH 6.5 (5-8)
--- NOTE | 2020-09-16 16:40 | DI.VRAD_ITS ---
PROCEDURE INFORMATION: Exam: CT Angiography Chest With Contrast Exam date and time: 09/16/2020 4:12 PM Age: 79 years old Clinical indication: Fever and other: Hypoxia; Patient HX: Hypoxia, fever; Additional info: Multiple myeloma, squam cell carcinoma, on radiation TECHNIQUE: Imaging protocol: Computed tomographic angiography of the chest with intravenous contrast. 3D rendering (Not supervised by radiologist): MIP and/or 3D reconstructed images were created by the technologist. COMPARISON: CT CHEST PE CTA 07/03/2020 10:37 AM FINDINGS: Pulmonary arteries: Normal. No pulmonary emboli. Aorta: Unremarkable. No aortic aneurysm. No aortic dissection. Lungs: Minimal atelectasis at the pulmonary bases. Pleural space: Unremarkable. No pneumothorax. No pleural effusion. Heart: Unremarkable. No cardiomegaly. No pericardial effusion. Lymph nodes: Unremarkable. No enlarged lymph nodes. Bones/joints: degenerative changes in the spine. diffuse abnormal density of the bones. Metastatic disease or post radiation changes are not excluded. Old right rib fractures. Soft tissues: Unremarkable. Other findings: atherosclerosis. left rotator cuff anchors. IMPRESSION: 1. Diffuse abnormal density of the bones. Metastatic disease or post radiation changes are not excluded. 2. Minimal atelectasis at the pulmonary bases. No velma infiltrates. Dictated and Authenticated by: Jacob Cuello MD. Ordering:JM Garland MD
--- NOTE | 2020-09-16 17:00 | DI.VRAD_ITS ---
PROCEDURE INFORMATION: Exam: XR Right Tibia and Fibula Exam date and time: 09/16/2020 4:26 PM Age: 79 years old Clinical indication: Other: Infection TECHNIQUE: Imaging protocol: XR Right tibia and fibula. Views: 2 views. COMPARISON: No relevant prior studies available. FINDINGS: Bones/joints: No focal bone defects or periosteal changes. Soft tissues: Mild diffuse right lower extremity edema. The soft tissues are otherwise normal. Vasculature: Diffuse arterial calcification. IMPRESSION: 1. No bone abnormalities. 2. Soft tissue swelling compatible with the stated history of infection. 3. Peripheral arterial disease. Dictated and Authenticated by: Beto Gutierrez MD. Ordering:JM Garland MD
--- NOTE | 2020-09-16 18:18 | HPE_ITS ---
Date of service: 09/16/20 Time of Service: 18:18 Assessment and Plan Assessment and plan (1) Cellulitis of leg, right: Status: Acute Assessment and plan: Cellulitis. Much of this appears by history to be more subacute but the rigors suggest an acute event, likely bacteremia. I will presume the leg is the source, suffice to say I see no other source. As to antibiotics I think continuing Ancef reasonable, but but will continue Vanco at least until blood cxx out. I note that he was described as neutropenic in ER but this is not the case and there is no need for coverage of such. Reviewed ADs, requests Full Code History of Present Illness History of Present Illness Chief Complaint: rigors Narrative: 79 male with h/o MM and SCCA RLE, here with one day of rigors. In ER findings of note for cllulitis RLE, ordered for Vanco and cefipime (though I note Ancef hanging). P jacque reports to ER that he has been having more pain in RLE than usual though he tells me that this is chronic, as is the extnsive ulcers and erythema (he says). While in ER sats dropped 88-90%, placed on 2.5 L O2 with sats up to high 90s. CT chest neg PE , neg acute pulmonary disease. Patient denies cough, CP or SOB Review of Systems All systems reviewed & are unremarkable except as noted in HPI and below PFSH Medical History Abnormal prostate specific antigen Abnormal weight loss Actinic keratosis Adenomatous colon polyp Alcohol consumption heavy Allergic rhinitis Benign essential tremor Bilateral artificial lens implant BPH (benign prostatic hyperplasia) 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/13) Chronic insomnia Cough Diverticulosis Diverticulosis Erectile dysfunction Essential hypertension GERD (gastroesophageal reflux disease) Gout H/O supraventricular tachycardia Heavy alcohol consumption History of DVT (deep vein thrombosis) History of positive PPD History of prediabetes History of PSVT (paroxysmal supraventricular tachycardia) History of pulmonary embolism History of urinary urgency (03/09/13) Hx of adenomatous colonic polyps Hyperlipidemia Hypertension Hypogonadism Impaired fasting glucose Insomnia Low testosterone in male Lumbar back pain Macrocytosis Male hypogonadism Memory impairment Mild cognitive impairment Myelodysplasia (myelodysplastic syndrome) Neutropenia Ocular migraine Osteoarthritis Other and unspecified hyperlipidemia Overactive bladder Peripheral neuropathy Personal history of venous thrombosis and embolism Positive PPD Preventative health care Renal cyst Sacroiliac joint pain Sleep apnea Spinal stenosis in cervical region Spondylosis Spondylosis of cervical joint Subjective tinnitus Urinary frequency Vitamin D deficiency Surgical History Colonoscopy - IV Sedation Cystoscopy Extraction of cataract BILAT HERNIA REPAIR History of intraocular lens implant History of lumbar fusion (03/03/17) performed at [facility] [place], Dr. Jovita Roberts THUMB RHINOPLASTY S/P TURP S/P TURP (status post transurethral resection of prostate) (12/19/13) Tonsillectomy and adenoidectomy Total replacement of hip (05/13/16) RIGHT/DR. OLEA Family History Mother Personal history of malignant neoplasm PANCREATIC/LIVER Father Heart disease Sister No problems noted. Brother Diabetes Heart disease Brother Heart disease Mental disorder BIPOLAR Social History Smoking/Tobacco Use Status: Former Tobacco Use Smoking risk assessment performed?: Yes Alcohol Intake: current Alcohol Intake frequency: 3 or more drinks per day Drug use: Never Substance use type: does not use Household members: spouse Number of Children: 2 Pets and animals: No Current gender identity: male What is your relationship status?: Panel score (0-1 are the most socially isolated patients): 1 What type of physical activity do you participate in: regular exercise Seatbelt use: always Do you feel safe at home: Yes Do you feel safe in your relationship?: Yes Meds Home Medications and Allergies Home Medications Medication Instructions Recorded Confirmed Type allopurinol 300 mg PO DAILY 12/29/12 07/29/20 History montelukast 10 mg PO DAILY PRN tab-cap 12/29/12 07/29/20 History omeprazole 20 mg PO DAILY tab-cap 12/29/12 07/29/20 History acyclovir 400 mg PO BID 05/07/16 07/29/20 History fluticasone propionate [Flonase 2 spray NS DAILY PRN PRN 05/07/16 07/29/20 History Allergy Relief] cholecalciferol (vitamin D3) 1,000 unit PO DAILY 05/12/16 07/29/20 History metoprolol tartrate 25 mg PO BID 05/12/16 07/29/20 History testosterone cypionate 1.5 ml IM .[id number] 05/12/16 07/29/20 History duloxetine [Cymbalta] 60 mg PO DAILY 03/07/17 07/29/20 History diazepam 5 mg PO PRN 05/31/17 07/29/20 History prazosin 5 mg PO BID 05/31/17 07/29/20 History albuterol sulfate [ProAir HFA] 2 inh IH Q6H PRN #18 gm 10/18/19 07/29/20 Rx atorvastatin 40 mg tablet 40 mg PO DAILY 03/13/20 07/29/20 History cyanocobalamin (vitamin B-12) 1,000 mcg PO DAILY 03/13/20 07/29/20 History 1,000 mcg tablet fexofenadine 180 mg tablet 180 mg PO DAILY 03/13/20 07/29/20 History glucosamine [id number]-onw-[id number] 1 tab PO DAILY tab 03/13/20 07/29/20 History 500 mg-167 mg-400 mg tablet green tea leaf extract 2 cap PO DAILY cap 03/13/20 07/29/20 History ipratropium bromide 42 mcg (0.06 2 spray JUSTIN TID 03/13/20 07/29/20 History %) nasal spray lactobacillus combo no.11 15 1 cap PO DAILY 03/13/20 07/29/20 History billion cell sprinkle capsule zolpidem 10 mg tablet 10 mg PO QHS PRN tab 03/13/20 07/29/20 History dexamethasone 4 mg tablet 40 mg PO QWEEK 06/24/20 07/29/20 History Curcumin 500 MISCELLANEOUS 07/04/20 History Eliquis See Rx Instructions .ROUTE 07/04/20 07/29/20 Rx .COMPLEX #94 tab Myrbetriq 25 mg PO DAILY 07/04/20 07/29/20 History magnesium oxide 400 mg PO DAILY 07/04/20 07/29/20 History multivitamin [Multiple Vitamins] 1 tab PO DAILY #0 tab 07/04/20 07/29/20 Rx thiamine mononitrate (vit B1) 100 mg PO DAILY #30 tab 07/04/20 07/29/20 Rx [Vitamin B-1 (mononitrate)] tramadol 50 mg PO Q8H PRN #15 tab 07/04/20 07/29/20 Rx zoledronic acid 4 mg IV QMONTH 07/04/20 07/29/20 History oxycodone-acetaminophen [Percocet] 1 tab PO Q8H PRN #8 tab 07/29/20 Rx Allergies Allergy/AdvReac Type Severity Reaction Status Date / Time Sulfa (Sulfonamide Allergy as a Unverified 07/29/20 11:36 Antibiotics) child, unsure codeine AdvReac Intermediate sick to Unverified 07/29/20 11:36 stomach oxycodone [Oxycodone] AdvReac respiratory Unverified 07/29/20 11:36 depression Exam Narrative Exam Narrative: 153/65, 92, 36.7, 22, 94% (2,5L). HEENT unremarkable; neck supple; lungs clear; heart RRR w/o MRG; abdomen soft and NT; extremities multiple ulcers right lower leg with extensive erythema involving most of the leg Results Labs Result diagrams: 09/16/20 15:20 09/16/20 14:44 Labs: Laboratory Results - last 24 hr 09/16/20 09/16/20 09/16/20 14:44 14:44 15:20 WBC 5.23 RBC 3.66 L Hgb 12.1 L Hct 38.7 L MCV 105.7 H MCH 33.1 H MCHC 31.3 L RDW 14.7 H Plt Count 158 MPV 9.7 Immature Gran % 0.8 Neutrophils % 86.2 Lymphocytes % 10.5 Monocytes % 1.9 Eosinophils % 0.6 Basophils % 0.0 Nucleated RBC % 0 Absolute Neutrophils 4.51 Absolute Lymphocytes 0.55 L Absolute Monocytes 0.10 Absolute Eosinophils 0.03 Absolute Basophils 0.00 RBC Morphology See below Poikilocytosis 1+ Macrocytosis 1+ VBG Lactate 1.4 Sodium 142 Potassium 4.3 Chloride 106 Carbon Dioxide 30.8 Anion Gap 5.2 BUN 20 H Creatinine 0.96 Estimated GFR/1.73 m2 >= 60.00 Glucose 115 H Calcium 8.6 Total Bilirubin 0.4 AST 11 L ALT 19 Alkaline Phosphatase 52 Total Protein 6.9 Albumin 3.1 L Urine Color Urine Clarity Urine pH Ur Specific [place] Urine Protein Urine Ketones Urine Blood Urine Nitrite Urine Bilirubin Urine Urobilinogen Ur Leukocyte Esterase Urine Glucose 12/14/20 16:05 WBC RBC Hgb Hct MCV MCH MCHC RDW Plt Count MPV Immature Gran % Neutrophils % Lymphocytes % Monocytes % Eosinophils % Basophils % Nucleated RBC % Absolute Neutrophils Absolute Lymphocytes Absolute Monocytes Absolute Eosinophils Absolute Basophils RBC Morphology Poikilocytosis Macrocytosis VBG Lactate Sodium Potassium Chloride Carbon Dioxide Anion Gap BUN Creatinine Estimated GFR/1.73 m2 Glucose Calcium Total Bilirubin AST ALT Alkaline Phosphatase Total Protein Albumin Urine Color Yellow Urine Clarity Clear Urine pH 6.5 Ur Specific [place] 1.020 Urine Protein Negative Urine Ketones Negative Urine Blood Negative Urine Nitrite Negative Urine Bilirubin Negative Urine Urobilinogen 0.2 Ur Leukocyte Esterase Negative Urine Glucose Negative Last Vital Signs Temp 36.7 C 09/16/20 14:26 Pulse 92 H 09/16/20 18:16 Resp 22 09/16/20 18:16 BP 153/65 H 09/16/20 18:16 Pulse Ox 94 09/16/20 18:16 COVID-19 Screening Have you, or household traveled for leisure in last 14 days?: No Had IN PERSON contact w/suspected or confirmed C-19 person: No
[2020-09-16 18:24] LABS: Source Nasopharynx
[2020-09-16 19:04] LABS: COVID-19 PCR Negative (Negative); Influenza A PCR Negative (Negative); Influenza B PCR Negative (Negative); RSV PCR Negative (Negative)
[2020-09-16] MEDS: Prazosin 5 MG CAP PO (21:00)
[2020-09-16] MEDS: Apixaban 5 MG TAB 10 MG PO (21:00)
[2020-09-16] MEDS: Acyclovir 400 MG TAB PO (21:00)
[2020-09-16] MEDS: Normal Saline Flush 10 ML SYR IVP ×2 (21:00→22:18)
[2020-09-16] MEDS: Metoprolol 25 MG TAB PO (21:00)
[2020-09-16] MEDS: oxyCODONE 5 mg/Acetaminophen 325 mg TAB 1 TAB PO (21:00)
[2020-09-16] MEDS: ceFAZolin 1 GM/50 ML BAG IV (22:16)
[2020-09-16] MEDS: diazePAM 5 MG TAB PO (23:42)
[2020-09-17] MEDS: Normal Saline Flush 10 ML SYR IVP ×2 (03:28→22:02)
[2020-09-17] MEDS: ceFAZolin 1 GM/50 ML BAG IV ×4 (03:29→22:02)
[2020-09-17 04:21] VITALS: BP 170/79; PULSE 80; RESP 16; TEMP 37.1; O2SAT 93
[2020-09-17] MEDS: VANCOMYCIN 1,250 MG in Normal Saline 250 ML 166.6666 MG IVPB (04:31)
[2020-09-17] MEDS: oxyCODONE 5 mg/Acetaminophen 325 mg TAB 1 TAB PO ×4 (04:38→22:01)
[2020-09-17 06:51] LABS: CREATININE 0.95 mg/dL (0.70-1.30)
[2020-09-17 07:37] VITALS: BP 155/70; PULSE 71; RESP 18; TEMP 36.7; O2SAT 95
[2020-09-17] MEDS: Atorvastatin 40 MG TAB PO (08:27)
[2020-09-17] MEDS: Acyclovir 400 MG TAB PO (08:27)
[2020-09-17] MEDS: Prazosin 5 MG CAP PO ×2 (08:27→20:17)
[2020-09-17] MEDS: Allopurinol 300 MG TAB PO (08:28)
[2020-09-17] MEDS: Fexofenadine 180 MG TAB PO (08:28)
[2020-09-17] MEDS: DULoxetine 30 MG CAP 60 MG PO (08:28)
[2020-09-17] MEDS: Mirabegron 25 MG TABCR PO (08:28)
[2020-09-17] MEDS: Metoprolol 25 MG TAB PO ×2 (08:28→20:19)
[2020-09-17] MEDS: Omeprazole 20 MG CAPCR PO (08:28)
[2020-09-17] MEDS: Apixaban 5 MG TAB 10 MG PO ×2 (08:30→20:19)
[2020-09-17 08:32] LABS: COVID-19 RT-PCR UVMMC Result Negative (Negative)
[2020-09-17 09:15] VITALS: O2SAT 96
[2020-09-17] MEDS: Ketorolac 30 MG/ML VIAL IVP (12:36)
--- NOTE | 2020-09-17 14:18 | PGE_ITS ---
Date of Service Date of service: 09/17/20 Time of Service: 09:19 Assessment and Plan Assessment and plan (1) Cellulitis of leg, right: Status: Acute Assessment and plan: skin culture of RLE on 09/13/2020 grew MSSA and strep sanguinis. On Ancef and Vancomycin currently. Blood cultures obtain; if positive will help with deciding on a final antibiotic. However, it is not clear if this is an infectious process. He had been using a Silvadene compound on the LLE and the skin changes may be a result of irritation / reaction to the topical treatment. Watch for any improvement in the erythema. (2) Alcohol abuse: Status: Chronic Assessment and plan: Daily use. No withdrawal during last hospitalization at [facility] though it was a short stay. If starts to show signs/sxs of withdrawal will initiate CIWA and treatment. (3) Multiple myeloma: Status: Chronic Assessment and plan: Cont Dexamethasone 40mg Q Wednesday. WBC count and platelets show improvement compared to previous results in chart. Subjective Subjective Patient reports: no new complaints, still having pain (R leg below the knee.), tolerating a regular diet and afebrile; denies diarrhea, nausea, vomiting and shortness of breath Exam Const General: cooperative and no acute distress Nutritional Appearance: average body habitus Orientation: alert and oriented x3 Resp Effort & Inspection: normal respiratory effort Auscultation: clear to auscultation bilaterally Cardio Rate: regular rate Rhythm: regular rhythm Heart Sounds: S1 normal and S2 normal Skin Lesions: lesion noted (Erythema of gutierrez and ankle with numerous shallow lesions, some crusted.) right lower leg , left lower leg other (several crusted, shallow lesions.) Extrem General: pedal edema on the right non-pitting Objective Last Vital Signs Temp 36.7 C 09/17/20 07:37 Pulse 71 09/17/20 07:37 Resp 18 09/17/20 07:37 BP 155/70 H 09/17/20 07:37 Pulse Ox 96 09/17/20 09:15 Laboratory Results - last 24 hr 09/16/20 09/16/20 09/16/20 14:44 14:44 15:20 WBC 5.23 RBC 3.66 L Hgb 12.1 L Hct 38.7 L MCV 105.7 H MCH 33.1 H MCHC 31.3 L RDW 14.7 H Plt Count 158 MPV 9.7 Immature Gran % 0.8 Neutrophils % 86.2 Lymphocytes % 10.5 Monocytes % 1.9 Eosinophils % 0.6 Basophils % 0.0 Nucleated RBC % 0 Absolute Neutrophils 4.51 Absolute Lymphocytes 0.55 L Absolute Monocytes 0.10 Absolute Eosinophils 0.03 Absolute Basophils 0.00 RBC Morphology See below Poikilocytosis 1+ Macrocytosis 1+ VBG Lactate 1.4 Sodium 142 Potassium 4.3 Chloride 106 Carbon Dioxide 30.8 Anion Gap 5.2 BUN 20 H Creatinine 0.96 Estimated GFR/1.73 m2 >= 60.00 Glucose 115 H Calcium 8.6 Total Bilirubin 0.4 AST 11 L ALT 19 Alkaline Phosphatase 52 Total Protein 6.9 Albumin 3.1 L Urine Color Urine Clarity Urine pH Ur Specific [place] Urine Protein Urine Ketones Urine Blood Urine Nitrite Urine Bilirubin Urine Urobilinogen Ur Leukocyte Esterase Urine Glucose COVID-19 Source SARS-CoV-2 (PCR) Nasopharyn COVID-19 PCR Influenza Type A (PCR) Influenza Type B (PCR) RSV (PCR) Ref Test Perform Site 09/16/20 09/16/20 09/16/20 15:27 16:05 18:20 WBC RBC Hgb Hct MCV MCH MCHC RDW Plt Count MPV Immature Gran % Neutrophils % Lymphocytes % Monocytes % Eosinophils % Basophils % Nucleated RBC % Absolute Neutrophils Absolute Lymphocytes Absolute Monocytes Absolute Eosinophils Absolute Basophils RBC Morphology Poikilocytosis Macrocytosis VBG Lactate Sodium Potassium Chloride Carbon Dioxide Anion Gap BUN Creatinine Estimated GFR/1.73 m2 Glucose Calcium Total Bilirubin AST ALT Alkaline Phosphatase Total Protein Albumin Urine Color Yellow Urine Clarity Clear Urine pH 6.5 Ur Specific [place] 1.020 Urine Protein Negative Urine Ketones Negative Urine Blood Negative Urine Nitrite Negative Urine Bilirubin Negative Urine Urobilinogen 0.2 Ur Leukocyte Esterase Negative Urine Glucose Negative COVID-19 Source Nasopharynx SARS-CoV-2 (PCR) Negative Negative Nasopharyn COVID-19 PCR Not Applicable Influenza Type A (PCR) Negative Influenza Type B (PCR) Negative RSV (PCR) Negative Ref Test Perform Site Counts include 234 beds at the [facility] lab 09/17/20 06:20 WBC RBC Hgb Hct MCV MCH MCHC RDW Plt Count MPV Immature Gran % Neutrophils % Lymphocytes % Monocytes % Eosinophils % Basophils % Nucleated RBC % Absolute Neutrophils Absolute Lymphocytes Absolute Monocytes Absolute Eosinophils Absolute Basophils RBC Morphology Poikilocytosis Macrocytosis VBG Lactate Sodium Potassium Chloride Carbon Dioxide Anion Gap BUN Creatinine 0.95 Estimated GFR/1.73 m2 >= 60.00 Glucose Calcium Total Bilirubin AST ALT Alkaline Phosphatase Total Protein Albumin Urine Color Urine Clarity Urine pH Ur Specific [place] Urine Protein Urine Ketones Urine Blood Urine Nitrite Urine Bilirubin Urine Urobilinogen Ur Leukocyte Esterase Urine Glucose COVID-19 Source SARS-CoV-2 (PCR) Nasopharyn COVID-19 PCR Influenza Type A (PCR) Influenza Type B (PCR) RSV (PCR) Ref Test Perform Site
[2020-09-17] MEDS: VANCOMYCIN/WATER (PEG) 1.25 GM/250 ML BAG IVPB (15:36)
--- NOTE | 2020-09-17 16:02 | CHAPLAIN ---
I introduced myself to Eduar, explained my role and offered support. He asked me to get him a cup of coffee and I did.
[2020-09-17 16:16] VITALS: BP 157/73; PULSE 70; RESP 18; TEMP 37.2; O2SAT 94
--- NOTE | 2020-09-17 18:29 | INITIAL_ITS ---
- If Service Date Differs Date of service: 09/17/20 Time of Service: 18:29 Care Management Initial Assess REASON FOR HOSPITALIZATION:: Cellulitis of right leg PAST MEDICAL HISTORY/PAST SURGICAL HISTORY:: Medical History . Abnormal prostate specific antigen. Abnormal weight loss. Actinic keratosis. Adenomatous colon polyp. Alcohol consumption heavy. Allergic rhinitis. Benign essential tremor. Bilateral artificial lens implant. BPH (benign prostatic hyperplasia). 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/13). Chronic insomnia. Cough. Diverticulosis. Diverticulosis. Erectile dysfunction. Essential hypertension. GERD (gastroesophageal reflux disease). Gout. H/O supraventricular tachycardia. Heavy alcohol consumption. History of DVT (deep vein thrombosis). History of positive PPD. History of prediabetes. History of PSVT (paroxysmal supraventricular tachycardia). History of pulmonary embolism. History of urinary urgency (03/09/13). Hx of adenomatous colonic polyps. Hyperlipidemia. Hypertension. Hypogonadism. Impaired fasting glucose. Insomnia. Low testosterone in male. Lumbar back pain. Macrocytosis. Male hypogonadism. Memory impairment. Mild cognitive impairment. Myelodysplasia (myelodysplastic syndrome). Neutropenia. Ocular migraine. Osteoarthritis. Other and unspecified hyperlipidemia. Overactive bladder. Peripheral neuropathy. Pers onal history of venous thrombosis and embolism. Positive PPD. Preventative health care. Renal cyst. Sacroiliac joint pain. Sleep apnea. Spinal stenosis in cervical region. Spondylosis. Spondylosis of cervical joint. Subjective tinnitus. Urinary frequency. Vitamin D deficiency. Surgical History . Colonoscopy - IV Sedation. Cystoscopy. Extraction of cataract. BILAT. HERNIA REPAIR. History of intraocular lens implant. History of lumbar fusion (03/03/17). performed at [facility], [place], Dr. Hussein. Armando THUMB. RHINOPLASTY. S/P TURP. S/P TURP (status post transurethral resection of prostate) (12/19/13). Tonsillectomy and adenoidectomy. Total replacement of hip (05/13/16). RIGHT/DR. OLEA PREVIOUS FUNCTIONAL STATUS/SOCIAL/FAMILY SUPPORTS:: Carter lives in a single family, 2 story home in [facility] with his of 54 years, Afsaneh. They have 2 sons, 2 granddaughters and 2 great granddaughters. He describes his family as supportive, although the children and grandchildren live in [place]. Until this recent illness Carter was active and independent, going to the gym and working out 7 days a week. he receives no community services. CURRENT FUNCTIONAL STATUS:: Carter was sitting up in bed when CM met with him. He was very pleasant and engaged well with CM. He shared many of the details of his life and career and how he met his in [place] while serving in the [employer]. One of Carter's passions is working out in a gym, which he does 7 days a week when he is healthy. He requested that his goals of care include the ability to resume that activity as soon as feasible. 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 He attributes these to working outside for the [employer] for many years in [place]. ADVANCE DIRECTIVES:: yes, but not on file. Will try to bring in copy. Has patient been provided with info about the portal/API?: Yes Did the patient sign up for the portal?: No (considering) CODE STATUS:: Full Code INSURANCE COVERAGE / FINANCIAL ISSUES:: Medicare. for Life CURRENT HOME/COMMUNITY SERVICES/EQUIPMENT:: none PRIMARY CARE PHYSICIAN:: Janina Milian POTENTIAL DISCHARGE NEEDS:: Follow up with PCP and discharge plan PATIENT/FAMILY EDUCATION NEEDS:: Discharge sharif, lauro, follow up, [facility] TRANSPORTATION:: via private vehicle with PLAN:: Carter will likely return home with no new services. He will follow up with his commmunity providers and plan of care and transport with his . CM will continue to support Carter and assess for discharge needs.
[2020-09-17 23:47] VITALS: BP 173/86; PULSE 64; RESP 17; TEMP 36.7; O2SAT 93
[2020-09-18] VITALS (8 sets, daily range): BP systolic 145–199; BP diastolic 76–87; PULSE 64–78; RESP 17–18; TEMP 36.3–37.1; O2SAT 93–95
[2020-09-18] MEDS: diazePAM 5 MG TAB PO (01:29)
[2020-09-18] MEDS: oxyCODONE 5 mg/Acetaminophen 325 mg TAB 1 TAB PO ×3 (02:18→17:19)
[2020-09-18] MEDS: Zolpidem 10 MG TAB PO (02:18)
[2020-09-18] MEDS: Normal Saline Flush 10 ML SYR IVP ×3 (04:06→14:17)
[2020-09-18] MEDS: ceFAZolin 1 GM/50 ML BAG IV (04:06)
[2020-09-18] MEDS: VANCOMYCIN/WATER (PEG) 1.25 GM/250 ML BAG IVPB (04:07)
[2020-09-18] MEDS: Apixaban 5 MG TAB 10 MG PO (07:49)
[2020-09-18] MEDS: DULoxetine 30 MG CAP 60 MG PO (07:49)
[2020-09-18] MEDS: Omeprazole 20 MG CAPCR PO (07:49)
[2020-09-18] MEDS: Fexofenadine 180 MG TAB PO (07:50)
[2020-09-18] MEDS: Atorvastatin 40 MG TAB PO (07:50)
[2020-09-18] MEDS: Metoprolol 25 MG TAB PO ×2 (07:50→20:21)
[2020-09-18] MEDS: Prazosin 5 MG CAP PO ×2 (07:51→20:21)
[2020-09-18] MEDS: Mirabegron 25 MG TABCR PO (07:51)
[2020-09-18] MEDS: Allopurinol 300 MG TAB PO (07:51)
--- NOTE | 2020-09-18 08:36 | CMPROGNOTE_ITS ---
- If Service Date Differs Date of service: 09/18/20 Time of Service: 08:36 Care Management Progress Note S/O: Carter was reclining in his bed when CM met with him. He was irritable and stated that he is tired of being here and would like to go home. Earlier in the day he had become agitated and was given a dose of Lorazepam and placed on a CIWA protocol. Carter has been experiencing a lot of pain which he attributes to his multiple myeloma, and was medicated for it. He shared that his blood press ure has been high today and he is afraid it may keep him in the hospital longer. While he did have some readings in excess of 190 systolic early this morning, it has come down since receiving the lorazepam. Of note is the fact that Carter's blood pressure has been consistently high since admission and he carries the diagnosis of essential hypertension.. A: Carter is a 79 year old gentleman admitted on 09/16/20 with cellulitis P:Carter will likely return home with no new services. He will follow up with his community providers and plan of care and transport with his . CM will continue to support Carter and assess for discharge needs.
[2020-09-18] MEDS: Ondansetron 4 MG/2 ML VIAL IVP (09:32)
[2020-09-18] MEDS: amLODIPine 5 MG TAB PO (09:35)
[2020-09-18] MEDS: Baclofen 10 MG TAB PO (09:35)
[2020-09-18] MEDS: Doxycycline Hyclate 100 MG CAP PO ×2 (09:35→20:21)
--- NOTE | 2020-09-18 12:41 | W.PM.PROGNOT ---
Date of Service Date of service: 09/18/20 Time of Service: 12:45 Assessment and Plan Assessment and plan (1) Cellulitis of leg, right: Status: Acute Assessment and plan: Question of infectious process vs topical irritation from radiation treatments and silvidene. D/C'd IV antibiotics. Initiated oral doxycycline. (2) Multiple myeloma: Status: Chronic Assessment and plan: Cont his weekly dexamethasone. (3) Essential hypertension: Status: Chronic Assessment and plan: Elevated BP. Cont metoprolol 25mg BID Added amlodipine 5mg daily. Hydralazine 10mg IV x 1. Monitor. Subjective Subjective Patient reports: denies shortness of breath Interval history since last seen: Ongoing burning / tight feeling pain in the RLE below the knee. Also c/o low back pain; that's the multiple myeloma pain. No F/C. + nausea w/o emesis. Exam Const General: cooperative and no acute distress Nutritional Appearance: average body habitus Orientation: alert and oriented x3 Resp Effort & Inspection: normal respiratory effort Auscultation: clear to auscultation bilaterally Cardio Rate: regular rate Rhythm: regular rhythm Heart Sounds: S1 normal and S2 normal Skin Full body images: 1. Erythema; has not retreated from previously marked area. linear array of multiple shallow open lesions with some crusting along the medial gutierrez. Extrem General: no calf tenderness and edema Laterality: right (tr to 1+) Objective Last Vital Signs Temp 37.1 C 09/18/20 07:41 Pulse 64 09/18/20 07:41 Resp 18 09/18/20 07:41 BP 188/80 H 09/18/20 07:45 Pulse Ox 94 09/18/20 07:55 Laboratory Results - last 24 hr 09/18/20 15:00 Vancomycin Trough Cancelled
--- NOTE | 2020-09-18 13:00 | WOUNDCONS ---
- If Service Date Differs Date of service: 09/18/20 Time of Service: 12:40 Wound Initial Evaluation Narrative: Patient is a 79 yom, he is seen here for a cellulitis of the right lower extremity. He has a history of myeloma and is seen at [facility] for radiation. I reviewed Patient H&P, allergies, and other pertinent information r/t the wound. I spoke to nursing at the [facility] who is managing the wound to review their current treatment plan. Currently they are cleaning the wound with NS, apply aquafor to the jeromy skin, silvadene to the wound bed, covering with telfa and securing with kerlix, changing the dressing daily. - Wound Right Medial Calf Wound Type: Radiation Burn, Partial Thickness Wound General Appearance: Draining, Bleeding, Necrotic Wound Bed Greatest Portion: Yellow (Slough) Wound Bed Lesser Portion: Red (Granulation) Wound Surrounding Tissue Appearance: Dark Red, Edematous Percent of Wound Bed Granulated/Red: 10 Percent of Wound Bed Slough/Yellow: 90 Wound Length: 12.3 cm Wound Width: 1.5 cm Wound Depth: 0.3 cm Wound Drainage Amount: Moderate Wound Drainage Odor: Strong Wound Drainage Description: Bloody, Brown Wound Topical Solution/Irrigant: Saline Irrigant Wound Debridement Method: Mechanical, Conservative Sharp Wound Debridement Result: Healthy Tissue Revealed, Yellow Sloughing Remains Wound Debridement Amount of Tissue Removed: Minimal (, dry skin removed from the jeromy skin, some slough removed from the wound bed) Right Anterior Ankle Wound Type: Radiation Burn, Partial Thickness Degree of Burn: 2nd Degree Wound General Appearance: Draining, Bleeding, Necrotic Wound Bed Greatest Portion: Yellow (Slough) Wound Bed Lesser Portion: Red (Granulation) Wound Surrounding Tissue Appearance: Dark Red Percent of Wound Bed Granulated/Red: 10 Percent of Wound Bed Slough/Yellow: 90 Wound Length: 1.6 cm Wound Width: 1.1 cm Wound Depth: 0.1 cm Wound Drainage Amount: Minimal Wound Drainage Odor: Strong Wound Drainage Description: Bloody Wound Topical Solution/Irrigant: Saline Irrigant Wound Debridement Method: Mechanical Wound Debridement Result: Healthy Tissue Revealed, Yellow Sloughing Remains Wound Debridement Amount of Tissue Removed: Minimal (very small amount of slough removed) - VIOLETTA Comment:: not indicated d/t cellulitis - Pain Pain Level: 6 (with debridement, none at rest) Pain Scale Used: Visual Analog Scale 0-10 Pain Description: Sharp Pain Duration/Frequency: With Palpation Patient who has had this 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 This is held at this time due to hx of allergy to sulfa medications. Patient agrees to err on the side of caution and hold medication. Plan is to control exudate, Manage jeromy skin, and monitor current treat ment plan and change or adapt as neccessary - Treatment/Dressing Change Cleanse With: Saline Dressing Types: Aquacell (Specialty Absorptive), Kerlix (Gauze Roll), Pressure Dressing, Opti-Lock, Other - Recomendation Recomendation:: Clean wound using Normal Saline and gauze, then pat dry. Apply Eucerin to jeromy skin Apply Mepitel to the wound bed as a contact layer, leave contact layer in place for 7 days. Cover with Opti-Loc Secure with Kerlix, then cover with stockingnette. Leave mepitel in place for 7 days , the rest change daily, or PRN. Physcian/Nurse Practioner Notified: Yes (Dr. Rangel) Treatment Time - Time Total Time Spent with Patient: 70 minutes - Patient Will be Seen Weekly Treatment: daily - For: For:: 1 week
[2020-09-18] MEDS: LORazepam 2 MG/ML VIAL 0.5 MG IVP (14:17)
--- NOTE | 2020-09-18 15:40 | PHA.REVIEW ---
Pharmacy Admission Review - Admission Clinical Review (Last Reviewed 09/16/20 @ 18:24 by Jose Angel Martell MD) Shaking chills (Acute) Low grade fever (Acute) Cellulitis of leg, right (Acute) Sulfa (Sulfonamide Antibiotics) Allergy (Unverified 09/16/20 18:43) as a child, unsure codeine Adverse Reaction (Intermediate, Unverified 09/16/20 18:43) sick to stomach oxycodone [Oxycodone] Adverse Reaction (Unverified 09/16/20 18:43) respiratory depression Height 6 ft Weight 87.997 kg - Renal Dosing Renal Dosing: BUN 20 mg/dL (7-18) H 09/16/20 14:44 Creatinine 0.95 mg/dL (0.70-1.30) 09/17/20 06:20 Medications needing adjustments: Reviewed List of meds needing interventions: no adjustments needed - Anticoagulation Anticoagulation: Hgb 12.1 g/dL (13.5-17.5) L 09/16/20 15:20 Hct 38.7 % (40.0-50.0) L 09/16/20 15:20 Plt Count 158 10^3/uL (130-400) 09/16/20 15:20 Creatinine 0.95 mg/dL (0.70-1.30) 09/17/20 06:20 Therapeutic Anticoagulation: Reviewed Medications: Apixaban - Opiate Usage Evaluate Pain Scale/Pains Meds: Reviewed Scheduled Bowel Reg ordered if on Opiates?: No - Relevant Labs Sodium 142 mmol/L (136-145) 09/16/20 14:44 Potassium 4.3 mmol/L (3.5-5.1) 09/16/20 14:44 Chloride 106 mmol/L (98-107) 09/16/20 14:44 Electrolytes, C-Reactive P, ESR: Reviewed - DM Control DM Control: Glucose 115 mg/dL (74-106) H 09/16/20 14:44 Insulin Dosing: N/A - Heart Failure/ME EF%, JC's, B-Blockers, Diuretics: Reviewed - BP Control BP Control: Blood Pressure 151/78 Blood Pressure 145/83 Blood Pressure 188/80 Blood Pressure 199/87 If elevated: Reviewed (Amlodipine added, cont metoprolol) - Qtc Review If Elevated: Reviewed List meds needing interventions: 435 on adm - IV to PO Switch IV Medications: Reviewed - Home Meds Home Med List reviewed: Reviewed (recently filled silvadene cream not on med list but will leave off as RN noted being held due to allergy;) Relevent Home Meds Not ordered & why?: cyanocobalamin, gabapentin, MAG OX, montelukast, mvi, other otcs, testosterone ([id number]) - Current meds Current Medication Order Review: Intervened (Patient had completed the 10mg BID dosing of eliquis back in july when it was originally prescribed -- med list was updated accordingly but order was still active -- dc'd after speaking with MD) - Comments Comments/Follow Ups: PO doxycyline ordered for cellulitis (could be a radiation burn), IV cefazolin and vancomycin dc'd
[2020-09-18] MEDS: Apixaban 5 MG TAB PO (20:21)
[2020-09-19] VITALS (7 sets, daily range): BP systolic 146–169; BP diastolic 67–85; PULSE 63–72; RESP 16–20; TEMP 36.5–37.1; O2SAT 92–96
[2020-09-19] MEDS: oxyCODONE 5 mg/Acetaminophen 325 mg TAB 1 TAB PO (06:26)
[2020-09-19] MEDS: DULoxetine 30 MG CAP 60 MG PO (07:48)
[2020-09-19] MEDS: Doxycycline Hyclate 100 MG CAP PO (07:48)
[2020-09-19] MEDS: Omeprazole 20 MG CAPCR PO (07:49)
[2020-09-19] MEDS: Prazosin 5 MG CAP PO (07:49)
[2020-09-19] MEDS: Apixaban 5 MG TAB PO (07:49)
[2020-09-19] MEDS: Allopurinol 300 MG TAB PO (07:49)
[2020-09-19] MEDS: Fexofenadine 180 MG TAB PO (07:50)
[2020-09-19] MEDS: Mirabegron 25 MG TABCR PO (07:50)
[2020-09-19] MEDS: Metoprolol 25 MG TAB PO (07:50)
[2020-09-19] MEDS: amLODIPine 5 MG TAB PO (07:50)
[2020-09-19] MEDS: Atorvastatin 40 MG TAB PO (07:50)
[2020-09-19] MEDS: Thiamine 100 MG TAB PO (07:50)
--- NOTE | 2020-09-19 09:42 | DSE_ITS ---
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 In ER findings of note for concerns for cellulitis of RLE. Ancef and Vancomyin initiated. Patient reports to ER that he has been having more pain in RLE than usual though he tells me that this is chronic d/t the squamous cell carcinoma lesions on the leg and subsequent radiation treatments to the leg. While in ER sats dropped 88-90%, placed on 2.5 L O2 with sats up to high 90s. CT chest neg PE , neg acute pulmonary disease. Patient denied cough, CP or SOB. Covid-19 was found to be negative. He had a wound culture of the RLE on 09/13/2020 and it grew MSSA and strep sanguinis. It was unclear if he had an active cellulitis or not. The erythema did not improve with antibiotics. He was changed over to oral doxycyline to complete a course. The more likely etiology of the erythema of the RLE was radiation burn. He may have had some irritation from Silvadene that was used as an outpt since he has a sulfa allergy, but this was evidently only placed on the shallow open areas. He did show some possible signs/symptoms of alcohol withdrawal the day before being discharged. He was given a single dose of IV Ativan and required no further dosing per [facility] protocol. He was alert, oriented and appropriate behavior butterfield on day of discharge. Wound care consulted and he will continue to apply Eucerin to the unopened areas of the RLE / below the knee and then gauze wraps to soak up exudate. His blood pressure readings were elevated during the course of this hospitalization; SBP as high as 199. His routine metoprolol was continued and amlodipine 5mg was initiated. His pressures improved but will need close outpt follow up. He will be receiving radiation treatment to his L-spine for pain relief d/t effects of multiple myeloma. F/U with PCP in 1-2 weeks. He has f/u and treatments schedule with radiation oncology, as well as oncology. Dermatology follow up recommended. Home Meds and New Rx's Prescriptions: New Eucerin Cream 0 g topical QID PRN PRNQty: 0 RF: 0 doxycycline hyclate 100 mg capsule 100 mg PO BID Qty: 10 RF: 0 amlodipine 5 mg tablet 5 mg PO DAILY Qty: 30 RF: 0 Continued dexamethasone 4 mg tablet 40 mg PO QWEEK RF: 0 omeprazole 10 MG capsule,delayed release(DR/EC) 20 mg PO DAILY RF: 0 montelukast 10 MG tablet 10 mg PO DAILY PRNRF: 0 allopurinol 300 MG tablet 300 mg PO DAILY RF: 0 prazosin 5 MG capsule 5 mg PO BID RF: 0 diazepam 5 MG tablet 5 mg PO HS PRN PRNRF: 0 fexofenadine 180 mg tablet 180 mg PO DAILY RF: 0 atorvastatin 40 mg tablet 40 mg PO DAILY RF: 0 zolpidem 10 mg tablet 10 mg PO QHS PRNRF: 0 cyanocobalamin (vitamin B-12) [Vitamin B-12] 1,000 mcg tablet 1,000 mcg PO DAILY RF: 0 glucosamine QOl-rta-bmiswndcbp 500-167-400 mg tablet 1 tab PO DAILY RF: 0 Probiotic 15 billion cell capsule, sprinkle 1 cap PO DAILY RF: 0 green tea leaf extract Capsule 2 cap PO DAILY RF: 0 fluticasone propionate [Flonase Allergy Relief] 9.9 ML spray,suspension 2 spray NS DAILY PRN PRNRF: 0 testosterone cypionate 200 MG/ML oil 1.5 ml IM .[id number] RF: 0 metoprolol tartrate 25 MG tablet 25 mg PO BID RF: 0 cholecalciferol (vitamin D3) 1,000 UNITS tablet 1,000 unit PO DAILY RF: 0 magnesium oxide 400 mg (241.3 mg magnesium) Tablet 400 mg PO DAILY RF: 0 Curcumin 95 % Powder 500 MISCELLANEOUS RF: 0 Myrbetriq 25 mg tablet extended release 24 hr 25 mg PO DAILY RF: 0 multivitamin [Multiple Vitamins] Tablet 1 tab PO DAILY Qty: 0 RF: 0 thiamine mononitrate (vit B1) [Vitamin B-1 (mononitrate)] 100 mg Tablet 100 mg PO DAILY Qty: 30 RF: 0 duloxetine [Cymbalta] 60 MG capsule,delayed release(DR/EC) 60 mg PO DAILY RF: 0 albuterol sulfate [ProAir HFA] 90 mcg/actuation HFA aerosol inhaler 2 inh IH Q6H PRN (Reason: shortness of breath or wheezing) Qty: 18 RF: 0 oxycodone 5 mg tablet 5 - 10 mg PO Q6H PRN PRNRF: 0 gabapentin 100 mg capsule See Rx Instructions .ROUTE .COMPLEX RF: 0 Eliquis 5 mg tablet 5 mg PO BID RF: 0 Discharge Instructions Instructions: Cellulitis (DC), Side Effects of Radiation Therapy (DC) Stand Alone Forms: Nursing Discharge Form Referrals: Janina Reinoso MD [Primary Care Provider] - 10/02/20 8:30 am Activity:: Activity as Tolerated Equipment/Supplies:: No Equipment Needed Diet:: Low Sodium Discharge Orders Discharge Orders: Discharge Order (Routine); Ordered 09/19/20 Ordered By: Ben Rangel Discharge Data Discharge Date/Time-TO BE ENTERED AT DEPARTURE: 09/19/20 11:55 DS: Summary Status at Discharge Functional status at discharge: independent ambulation Overall status at discharge: patient is back to baseline Mental Status: mental status grossly normal Speech and Movement: speech and movement normal Mood: congruent mood Affect: normal affect Exam Const General: cooperative and no acute distress Nutritional Appearance: average body habitus Orientation: alert and oriented x3 Resp Effort & Inspection: normal respiratory effort Auscultation: clear to auscultation bilaterally Cardio Rate: regular rate Rhythm: regular rhythm Heart Sounds: S1 normal and S2 normal Skin Full body images: 1. Erythema; unchanged. Bandage in place. 2. shallow, crusted lesions w/o erythema. Psych Appearance: grossly normal Mental Status: mental status grossly normal Speech and Movement: speech and movement normal Mood: congruent mood Affect: normal affect Attitude: cooperative DS: Data Vitals/I&O Vitals and I&O: Vital Signs Temperature 36.8 C 09/19/20 09:31 Temperature Source Tympanic 09/19/20 09:31 Pulse 72 09/19/20 09:31 Pulse Rhythm Regular 09/19/20 07:50 Pulse 83 09/16/20 19:00 Respiratory Rate 16 09/19/20 09:31 Respiratory Effort Non-Labored 09/19/20 07:50 Respiratory Depth Normal 09/19/20 07:50 Respiratory Pattern Normal 09/19/20 07:50 Blood Pressure 146/85 H 09/19/20 09:31 Blood Pressure Mean 92 09/16/20 19:00 Blood Pressure Position Supine 09/16/20 14:26 Pulse Oximetry 94 09/19/20 09:31 Oxygen Delivery Method Room Air 09/19/20 09:31 Oxygen Flow Rate 0 09/19/20 09:31 Pain Level 5 09/19/20 07:11 Comment 09/17/20 23:47 Intake & Output 09/18/20 09/18/20 09/19/20 11:59 23:59 11:59 Intake Total 480 / 480 170 / 170 Output Total 800 / 1075 275 / 1075 800 / 800 Balance -800 / -595 205 / -595 -630 / -630 Intake: IV 50 / 50 Oral 480 / 480 120 / 120 Output: Urine 800 / 1075 275 / 1075 800 / 800 Other: Urine Color Yellow Straw Yellow Urine Appearance Clear Clear Clear Voiding Methods Toilet Urinal Toilet Urinal Data Completed and Pending Labs on day of discharge: Preliminary micro results at discharge 09/16/20 15:00 Blood Culture - Preliminary Blood NO GROWTH 48 HOURS 09/16/20 15:20 Blood Culture - Preliminary Blood NO GROWTH 48 HOURS PFS Medical History Abnormal prostate specific antigen Abnormal weight loss Actinic keratosis Adenomatous colon polyp Alcohol consumption heavy Allergic rhinitis Benign essential tremor Bilateral artificial lens implant BPH (benign prostatic hyperplasia) 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/13) Chronic insomnia Cough Diverticulosis Diverticulosis Erectile dysfunction Essential hypertension GERD (gastroesophageal reflux disease) Gout H/O supraventricular tachycardia Heavy alcohol consumption History of DVT (deep vein thrombosis) History of positive PPD History of prediabetes History of PSVT (paroxysmal supraventricular tachycardia) History of pulmonary embolism History of urinary urgency (03/09/13) Hx of adenomatous colonic polyps Hyperlipidemia Hypertension Hypogonadism Impaired fasting glucose Insomnia Low testosterone in male Lumbar back pain Macrocytosis Male hypogonadism Memory impairment Mild cognitive impairment Myelodysplasia (myelodysplastic syndrome) Neutropenia Ocular migraine Osteoarthritis Other and unspecified hyperlipidemia Overactive bladder Peripheral neuropathy Personal history of venous thrombosis and embolism Positive PPD Preventative health care Renal cyst Sacroiliac joint pain Sleep apnea Spinal stenosis in cervical region Spondylosis Spondylosis of cervical joint Subjective tinnitus Urinary frequency Vitamin D deficiency Surgical History Colonoscopy - IV Sedation Cystoscopy Extraction of cataract BILAT HERNIA REPAIR History of intraocular lens implant History of lumbar fusion (03/03/17) performed at [facility] [place], Dr. Jovita COSTELLO RHINOPLASTY S/P TURP S/P TURP (status post transurethral resection of prostate) (12/19/13) Tonsillectomy and adenoidectomy Total replacement of hip (05/13/16) RIGHT/DR. OLEA Family History Mother Personal history of malignant neoplasm PANCREATIC/LIVER Father Heart disease Sister No problems noted. Brother Diabetes Heart disease Brother Heart disease Mental disorder BIPOLAR Social History Smoking/Tobacco Use Status: Former Tobacco Use Smoking risk assessment performed?: Yes Alcohol Intake: current Alcohol Intake frequency: 3 or more drinks per day Drug use: Never Substance use type: does not use Household members: spouse Number of Children: 2 Pets and animals: No Current gender identity: male What is your relationship status?: Panel score (0-1 are the most socially isolated patients): 1 What type of physical activity do you participate in: regular exercise Seatbelt use: always Do you feel safe at home: Yes Do you feel safe in your relationship?: Yes
--- NOTE | 2020-09-19 13:40 | PDOC.CMDIS ---
- If Service Date Differs Date of service: 09/19/20 Time of Service: 13:40 LACE Index Scoring Tool - Questions: Length of Stay (in days): 3 Acuity (Admit via E.D.?): Yes Comorbidities: Any Tumor E.D. Visits: 4 - Answers: Total Score: 12 Risk of Readmission: High Risk Care Management Discharge Reason for Hospitalization: Cellulitis of right leg Discharge Plan: Eduar will be discharged home with no new services. nursing for wound care was suggested, but Carter declined. He will follow up with his community providers and plan of care. Carter will transport home via private vehicle with family. Patient/Family Education Needs: Discharge plan, limitations, follow up plan, Ask Me Three
== END 2020-09-19 11:55 | disposition home or self-care (01) | DRG 603 ==
LOC: ER 18:49 → MS 19:29
PROVIDERS: Student in an Organized Health Care Education/Training Program; Admitting Provider General Practice; Emergency Provider Physician Assistant; PCP Family Medicine; Visit Provider General Practice
DX: L03.115 Cellulitis of right lower limb (principal); C90.00 Multiple myeloma not having achieved remission; F10.139 Alcohol abuse with withdrawal, unspecified; G25.0 Essential tremor; N40.1 Benign prostatic hyperplasia with lower urinary tract symptoms; I10 Essential (primary) hypertension; K21.9 Gastro-esophageal reflux disease without esophagitis; M10.9 Gout, unspecified; E78.5 Hyperlipidemia, unspecified; E55.9 Vitamin D deficiency, unspecified; R73.01 Impaired fasting glucose; M54.5 Low back pain; G31.84 Mild cognitive impairment of uncertain or unknown etiology; N32.81 Overactive bladder; G62.9 Polyneuropathy, unspecified; M47.812 Spondylosis without myelopathy or radiculopathy, cervical region; Z87.891 Personal history of nicotine dependence; Z86.711 Personal history of pulmonary embolism; Z86.718 Personal history of other venous thrombosis and embolism; F10.10 Alcohol abuse, uncomplicated; B95.61 Methicillin susceptible Staphylococcus aureus infection as the cause of diseases classified elsewhere; T24.001A Burn of unspecified degree of unspecified site of right lower limb, except ankle and foot, initial encounter; Y84.2 Radiological procedure and radiotherapy as the cause of abnormal reaction of the patient, or of later complication, without mention of misadventure at the time of the procedure; Y78.1 Therapeutic (nonsurgical) and rehabilitative radiological devices associated with adverse incidents; C76.51 Malignant neoplasm of right lower limb
CPT/HCPCS: 36415; 71275; 80053; 87040; 87637; 93005; 96361; 96365; 96366; 96367; 99222; 99232; 99239; 99285; U0003; 73590; 80202; 81003; 82565; 83605; 85025; 93010; J0690; J1885; J2060; J2405; J3490

== ENCOUNTER → 2020-10-07 08:04 | Outpatient (BNVA) | payer MEDICARE, OTHER, SELFPAY | PROVIDERS: PCP Family Medicine; Referring Provider Family Medicine; Visit Provider Nurse Practitioner Adult Health | DX: G31.84 Mild cognitive impairment of uncertain or unknown etiology (principal); C90.00 Multiple myeloma not having achieved remission | CPT/HCPCS: 99213; 99442 ==

== ENCOUNTER → 2020-10-08 13:42 | Outpatient (BNVA) | payer MEDICARE, OTHER, SELFPAY | PROVIDERS: PCP Family Medicine; Referring Provider Family Medicine; Visit Provider Urology | DX: R35.0 Frequency of micturition (principal); R97.20 Elevated prostate specific antigen [PSA] | CPT/HCPCS: 99213 ==

== ENCOUNTER 2020-10-08 18:32 | Outpatient (REF) | payer MEDICARE, OTHER, SELFPAY | END 2020-10-08 18:52 | LOC: LBN 18:32 | PROVIDERS: PCP Family Medicine; Visit Provider Urology | DX: R97.20 Elevated prostate specific antigen [PSA] (principal) | CPT/HCPCS: 84153 ==

== ENCOUNTER 2020-10-25 03:03 | Outpatient (CLI) | payer MEDICARE, OTHER, SELFPAY ==
--- NOTE | 2020-10-25 | DI.MRI_ITS ---
EXAM: MR LUMBAR SPINE WO/W CLINICAL HISTORY: MULTIPLE MYELOMA,NO REMISSION,C90.00,INCREASING BACK PAIN,S/P XRT,EVALUATE. TECHNIQUE: Multiplanar multisequence MRI of the Lumbar Spine was performed. CONTRAST MATERIAL: IV Contrast: 18 mL of Dotarem contrast administered. COMPARISON: MR MR LUMBAR SPINE WO/W from 07/22/2020 FINDINGS: Bones: The last intervertebral disc space is designated the L5/S1 level for the numbering purpose of this examination. There again seen posterior spinal surgery from the sacrum. There is a again seen at L4-5 discectomy. The vertebral body heights are well maintained. Alignment of the lumbar spine is unchanged with retrolisthesis of L2 on L3 and L3 on L4. There is no change in the abnormal signal se en in the L2 and L3 vertebral bodies. There is also again seen enhancement of these vertebral bodies following gadolinium administration. There has been no change in the enhancement pattern compared t o the prior examination from 07/22/2020. Cord: The conus tip ends at the T12 level. It is of normal size and signal intensity. T12-L1: No disc herniations or bulges are present. No central spinal canal or neural foraminal stenos is. L1-2: Mild diffuse disc bulge. No central spinal canal or neural foraminal stenosis. L2-3: There is prominence of the osteophyte disc complex. There is [id number] narrowing of the central spinal canal. There is moderate right and mild left neural foraminal stenosis. L3-4: There is a diffuse disc bulge. There are degenerative changes of the facets. Mild narrowing o f the central spinal canal is noted. There is marked bilateral neural foraminal stenosis. L4-5: No disc herniations or bulges are present. No significant central spinal canal stenosis.There i s artifact partially obscuring the neural foramen at this level but there does appear to be at least mild neural foraminal stenosis bilaterally. L5-S1: There is an eccentric disc herniation at L5-S1 predominantly to the left. No significant cent ral spinal canal stenosis is seen. There is no right neural foraminal stenosis. There is mild left neural foraminal stenosis. Soft tissues: The visualized SI joints and sacrum are well maintained. The paraspinal soft tissues ar e unremarkable. IMPRESSION: 1. There has been no significant change in appearance of the lumbar spine since the prior examination from 07/22/2020. 2. Persistent enhancement of the L2 and L3 vertebral bodies. No new enhancement is identified. 3. Stable degenerative and postsurgical changes. DATA REPOSITORY:
[2020-10-25] MEDS: Normal Saline Flush 10 ML SYR IVP (12:22)
[2020-10-25] MEDS: Gadoterate meglumine 20 ML VIAL 18 ML IVP (12:22)
== END 2020-10-25 03:23 ==
PROVIDERS: PCP Family Medicine; Visit Provider Preventive Medicine Undersea and Hyperbaric Medicine
DX: C90.00 Multiple myeloma not having achieved remission (principal); M48.061 Spinal stenosis, lumbar region without neurogenic claudication; M54.9 Dorsalgia, unspecified; M43.16 Spondylolisthesis, lumbar region; M51.26 Other intervertebral disc displacement, lumbar region
CPT/HCPCS: 72158

== ENCOUNTER 2020-10-30 10:32 | Outpatient (RCR) | payer MEDICARE, OTHER, SELFPAY ==
[2020-10-30 10:49] LABS: Abs Immature Grans 0.05 10^3/uL (0.0-0.06); Absolute Basophil Count 0.01 10^3/uL (0.0-0.2); Absolute Eosinophil Count 0.11 10^3/uL (0.0-0.7); Absolute Lymphocyte Count 1.58 10^3/uL (1.2-3.4); Absolute Monocyte Count 0.13 10^3/uL (0.1-0.8); Absolute Neutrophil Count 2.77 10^3/uL (1.2-6.7); Basophils % 0.2; Eosinophils % 2.4; HCT 36.5 % (40.0-50.0); HGB 11.8 g/dL (13.5-17.5); Immature Grans % 1.1; MCH 32.7 pg (27.0-33.0); MCHC 32.3 % (32.0-36.0); MCV 101.1 fL (80-95); MPV 10.2 fL (8.0-11.0); Monocytes % 2.8; Neutrophils % 59.5; Nucleated RBC 0 %; Platelet Count 147 10^3/uL (130-400); RBC 3.61 10^6/uL (4.36-5.78); RDW 14.6 % (11.8-14.1); RDW-SD 53.6 fL; WBC 4.65 10^3/uL (4.4-10.8)
[2020-10-30 11:03] LABS: ALT 28 U/L (16-63); AST 14 U/L (15-37); Albumin 3.5 g/dL (3.4-5.0); Alkaline Phosphatase 61 U/L (46-116); Anion Gap 9.2 mmol/L (3-11); BUN 23 mg/dL (7-18); Bilirubin, Total 0.5 mg/dL (0.2-1.0); CO2 29.8 mmol/L (21.0-32.0); CREATININE 1.01 mg/dL (0.70-1.30); Calcium 9.1 mg/dL (8.5-10.1); Chloride 104 mmol/L (98-107); Glucose 121 mg/dL (74-106); Potassium 3.7 mmol/L (3.5-5.1); Sodium 143 mmol/L (136-145); Total Protein 7.1 g/dL (6.4-8.2)
[2020-10-31 10:19] LABS: IgA 786 mg/dL (85-499); IgG 231 mg/dL (610-1,616); IgM 14 mg/dL (35-242); Kappa Free Light Chain 0.58 mg/dL (0.33-1.94); Lambda Free Light Chain <0.44 mg/dL (0.57-2.63)
[2020-10-31 12:28] LABS: Albumin 55.9 % (55.8-66.1); Comment (See Note); Monoclonal Spike 15.2 % (None Seen); Total Protein 6.6 g/dL (6.3-8.2)
== END 2020-11-03 23:59 | disposition home or self-care (01) ==
LOC: INF 10:32
PROVIDERS: PCP Family Medicine; Visit Provider Internal Medicine Hematology & Oncology
DX: C90.00 Multiple myeloma not having achieved remission (principal)
CPT/HCPCS: 36415; 80053; 82784; 83883; 84165; 85025

== ENCOUNTER 2020-11-18 02:02 | Outpatient (CLI) | payer MEDICARE, OTHER, SELFPAY ==
[2020-11-18 07:33] LABS: Abs Immature Grans 0.03 10^3/uL (0.0-0.06); Absolute Basophil Count 0.01 10^3/uL (0.0-0.2); Absolute Eosinophil Count 0.07 10^3/uL (0.0-0.7); Absolute Lymphocyte Count 1.12 10^3/uL (1.2-3.4); Absolute Neutrophil Count 2.48 10^3/uL (1.2-6.7); Basophils % 0.3; Eosinophils % 1.8; HCT 34.6 % (40.0-50.0); HGB 11.1 g/dL (13.5-17.5); Immature Grans % 0.8; Lymphocytes % 28.6; MCHC 32.1 % (32.0-36.0); MPV 9.4 fL (8.0-11.0); Monocytes % 5.1; Neutrophils % 63.4; Nucleated RBC 0 %; Platelet Count 144 10^3/uL (130-400); RBC 3.36 10^6/uL (4.36-5.78); RDW 15.1 % (11.8-14.1); RDW-SD 57.2 fL; WBC 3.91 10^3/uL (4.4-10.8)
[2020-11-18 07:54] LABS: ALT 28 U/L (16-63); AST 14 U/L (15-37); Albumin 3.2 g/dL (3.4-5.0); Alkaline Phosphatase 58 U/L (46-116); Anion Gap 8.6 mmol/L (3-11); BUN 22 mg/dL (7-18); Bilirubin, Total 0.5 mg/dL (0.2-1.0); CO2 28.4 mmol/L (21.0-32.0); CREATININE 0.8 mg/dL (0.70-1.30); Calcium 8.9 mg/dL (8.5-10.1); Chloride 107 mmol/L (98-107); Glucose 112 mg/dL (74-106); Potassium 3.7 mmol/L (3.5-5.1); Sodium 144 mmol/L (136-145); Total Protein 6.9 g/dL (6.4-8.2)
[2020-11-18 08:51] LABS: TSH 2.38 uIU/mL (0.36-3.74)
[2020-11-19 10:51] LABS: Albumin 54.5 % (55.8-66.1); Comment (See Note); Total Protein 6.9 g/dL (6.3-8.2)
[2020-11-19 11:30] LABS: IgA 828 mg/dL (85-499); IgG 260 mg/dL (610-1,616); IgM <12 mg/dL (35-242); Kappa Free Light Chain 0.46 mg/dL (0.33-1.94); Lambda Free Light Chain <0.44 mg/dL (0.57-2.63)
== END 2020-11-18 02:03 | disposition home or self-care (01) ==
LOC: LBO 02:03
PROVIDERS: PCP Family Medicine; Visit Provider Internal Medicine Hematology & Oncology
DX: D64.89 Other specified anemias (principal); Z85.828 Personal history of other malignant neoplasm of skin; C90.00 Multiple myeloma not having achieved remission; E07.9 Disorder of thyroid, unspecified
CPT/HCPCS: 36415; 80053; 82784; 83883; 84165; 84439; 84443; 85025

== ENCOUNTER → 2020-11-19 14:19 | Outpatient (BNVA) | payer MEDICARE, OTHER, SELFPAY | PROVIDERS: PCP Family Medicine; Referring Provider Family Medicine; Visit Provider Urology | DX: R97.20 Elevated prostate specific antigen [PSA] (principal); R39.15 Urgency of urination | CPT/HCPCS: 99213; 99214 ==

== ENCOUNTER 2020-11-21 15:49 | Inpatient (IN) | payer MEDICARE, OTHER, SELFPAY ==
[2020-11-21] VITALS (38 sets, daily range): BP systolic 116–162; BP diastolic 47–88; PULSE 85–126; RESP 13–35; TEMP 36.9–39.5; O2SAT 87–97
--- NOTE | 2020-11-21 15:45 | RT.EKG_ITS ---
APPROVED REPORT Exam: Resting ECG Patient Location: E HR:117 bpm ECG Measurements Heart Rate 117 AXIS FL 180 P -50 QRSd 97 QRS 56 QT 319 T 21 QTc 446 Conclusion Sinus or ectopic atrial tachycardia...P axis (-45,135), rate> 99 I have reviewed and interpreted ECG and agree with software generated interpretation.
--- NOTE | 2020-11-21 15:54 | W.ED.GENAD ---
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 EMS called the ED for a potential septic alert. Oral temp on arrival 98.4. Rectal temp 103.1. Heart rate 110s. Patient admits to productive cough with yellow sputum. He is not on home O2 oxygen and oxygen saturation mid to high 80s on room air, increased to mid to high 90s on 3 L. Stat respiratory pneumonia but also consider coronavirus, UTI, COPD exacerbation, PE. Patient is A & O x3 but has attempted to get out of bed a few times so sitter placed at bedside. 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 He has minimally coarse breath sounds bilaterally but no wheezing or rhonchi. Will place an IV, bolus IV fluids, IV Tylenol and reassess. Screening labs and imaging obtained. Lactate minimally elevated at 1.7. White blood cell count normal at 5. Magnesium 1.1, will replete. Troponin negative. Urinalysis negative. Rapid Covid test negative. CT chest negative for pneumonia. CT abdomen and pelvis negative for acute findings. There is potential metastatic disease in the spine. Repeat temp downtrending but still febrile at 101 rectal. Will admit patient for fever of unknown origin but will plan to treat for potential pneumonia as he has a productive cough and is hypoxic requiring nasal cannula oxygen. Also consider possible early developing cellulitis of his chronic wound R leg associated with his squamous cell carcnioma. Case discussed with hospitalist who accepts patient for admission. Will give Vanco and Zosyn. Will also order Ativan prn for his potential for alcohol withdrawal. Discussed with over the phone and she states that patient was hallucinating today at home and was speaking to people that were not there. Suspect this was associated with pt's fever. Medical Records Medical records reviewed: Yes I reviewed the patient's medical records. Imaging Data Radiologic Study: Radiologist's impression: CT Angiography Chest With Contrast Exam date and time: 11/21/2020 4:48 PM Age: 80 years old Clinical indication: Fever TECHNIQUE: Imaging protocol: Computed tomographic angiography of the chest with contrast. 3D rendering (Not supervised by radiologist): MIP and/or 3D reconstructed images were created by the technologist. COMPARISON: CT CHEST PE CTA 09/16/2020 4:11 PM FINDINGS: Pulmonary arteries: No evidence of pulmonary embolism. Aorta: Normal caliber thoracic aorta without dissection or aneurysm. Lungs: No alveolar or ground glass infiltrate. Pleural spaces: No pleural fluid collection. No pneumothorax. Heart: No right ventricular strain. No pericardial effusion. Coronary artery calcification. Lymph nodes: No enlarged lymph nodes. Bones/joints: Prior left shoulder surgery. Spinal degenerative changes. Likely old right rib fractures. Compared to the prior examination dated 09/16/2020, once again noted are scattered areas of increased density within the skeleton (e.g. C7, T3, T4, T5 and T10) - metastatic disease cannot be excluded. Soft tissues: Unremarkable. IMPRESSION: 1. No evidence of pulmonary embolism. 2. No pulmonary infiltrate. 3. Compared to the prior examination dated 09/16/2020, once again noted are scattered areas of increased density within the skeleton (e.g. C7, T3, T4, T5 and T10) - metastatic disease cannot be excluded. CT Angiography Abdomen With Contrast Exam date and time: 11/21/2020 4:48 PM Age: 80 years old Clinical indication: Fever TECHNIQUE: Imaging protocol: Computed tomographic angiography images of the abdomen with intravenous contrast material. 3D rendering (Not supervised by radiologist): MIP and/or 3D reconstructed images were created by the technologist. COMPARISON: CT CHEST PE CTA 09/16/2020, CT abdomen/pelvis 10/17/2019 FINDINGS: Aorta: No abdominal aortic aneurysm. 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 Celiac trunk and mesenteric arteries: See Aorta finding. Renal arteries: No occlusion or significant stenosis. Liver: Normal. No mass. Gallbladder and bile ducts: Normal. No calcified stones. No ductal dilation. Pancreas: Normal. No ductal dilation. Spleen: Normal. No splenomegaly. Adrenals: Normal. No mass. Kidneys and ureters: Compared to 10/17/2019, bilateral renal cortical stable benign simple cysts with largest being right-sided and measuring 5.2 cm transversely - no followup is necessary. No hydronephrosis. Stomach and bowel: No generalized ileus or bowel obstruction. Scattered colon diverticuli without evidence of diverticulitis. Lymph nodes: Unremarkable. No enlarged lymph nodes. Intraperitoneal space: No intraperitoneal free air. Trace free fluid in the pelvis. Reproductive: Prominent prostate gland measuring 4.8 cm transversely. Bones/joints: Prior lower lumbar surgery. Prior surgery in the region of each SI joint. Streak artifact from metallic right hip prosthesis obscures portions of the lower pelvis. Compared to the prior examination dated 09/16/2020, once again noted are scattered areas of increased density within the skeleton (e.g. T10, and L2 through L5) - metastatic disease cannot be excluded. Soft tissues: Unremarkable. IMPRESSION: 1. No acute intra-abdominal or pelvic process. No acute interval change compared to 10/17/2019. 2. No generalized ileus or bowel obstruction. 3. Scattered colon diverticuli without evidence of diverticulitis. 4. Compared to the prior examination dated 09/16/2020, once again noted are scattered areas of increased density within the skeleton (e.g. T10, and L2 through L5) - metastatic disease cannot be excluded. Lab Data Lab results reviewed: Yes I reviewed the patient's lab results. Labs: 11/21/20 16:54 Blood Blood Culture - Pending 11/21/20 16:36 Blood Blood Culture - Pending Laboratory Tests Range/Units 11/21/20 11/21/20 11/21/20 16:05 16:05 16:05 WBC (4.4-10.8) 10^3/uL RBC (4.36-5.78) 10^6/uL Hgb (13.5-17.5) g/dL Hct (40.0-50.0) % MCV (80-95) fL MCH (27.0-33.0) pg MCHC (32.0-36.0) % RDW (11.8-14.1) % Plt Count (130-400) 10^3/uL MPV (8.0-11.0) fL Immature Gran % Neutrophils % Lymphocytes % Monocytes % Eosinophils % Basophils % Nucleated RBC % % Absolute Neutrophils (1.2-6.7) 10^3/uL Absolute Lymphocytes (1.2-3.4) 10^3/uL Absolute Monocytes (0.1-0.8) 10^3/uL Absolute Eosinophils (0.0-0.7) 10^3/uL Absolute Basophils (0.0-0.2) 10^3/uL PT (9.3-11.0) sec 10.7 INR (0.9-1.1) 1.1 APTT (21.0-27.5) sec 26.8 VBG Lactate (0.6-1.4) mmol/L 1.7 H Sodium (136-145) mmol/L 139 Potassium (3.5-5.1) mmol/L 4.3 Chloride (98-107) mmol/L 101 Carbon Dioxide (21.0-32.0) mmol/L 24.7 Anion Gap (3-11) mmol/L 13.3 H BUN (7-18) mg/dL 16 Creatinine (0.70-1.30) mg/dL 1.1 Estimated GFR/1.73 m2 (mL/min/1.73m2) >= 60.00 Glucose (74-106) mg/dL 160 H Calcium (8.5-10.1) mg/dL 9.0 Magnesium (1.8-2.4) mg/dL 1.1 L Total Bilirubin (0.2-1.0) mg/dL 0.7 AST (15-37) U/L 12 L ALT (16-63) U/L 24 Alkaline Phosphatase (46-116) U/L 58 Troponin I (<0.06) ng/mL < 0.05 Total Protein (6.4-8.2) g/dL 7.0 Albumin (3.4-5.0) g/dL 3.0 L Urine Color (Yellow) Urine Clarity (Clear) Urine pH (5-8) Ur Specific [place] (1.005-1.025) Urine Protein (Negative) mg/dL Urine Ketones (Negative) mg/dL Urine Blood (Negative) Urine Nitrite (Negative) Urine Bilirubin (Negative) Urine Urobilinogen (Up TO 0.2) EU/dL Ur Leukocyte Esterase (Negative) Urine Glucose (Negative) mg/dL COVID-19 Source SARS-CoV-2 (PCR) (Negative) Influenza Type A (PCR) (Negative) Influenza Type B (PCR) (Negative) RSV (PCR) (Negative) Range/Units 11/21/20 11/21/20 11/21/20 16:05 16:35 18:20 WBC (4.4-10.8) 10^3/uL 5.93 RBC (4.36-5.78) 10^6/uL 3.20 L Hgb (13.5-17.5) g/dL 10.6 L Hct (40.0-50.0) % 32.5 L MCV (80-95) fL 101.6 H MCH (27.0-33.0) pg 33.1 H MCHC (32.0-36.0) % 32.6 RDW (11.8-14.1) % 14.8 H Plt Count (130-400) 10^3/uL 143 MPV (8.0-11.0) fL 10.1 Immature Gran % 0.5 Neutrophils % 79.9 Lymphocytes % 14.5 Monocytes % 2.5 Eosinophils % 2.4 Basophils % 0.2 Nucleated RBC % % 0 Absolute Neutrophils (1.2-6.7) 10^3/uL 4.74 Absolute Lymphocytes (1.2-3.4) 10^3/uL 0.86 L Absolute Monocytes (0.1-0.8) 10^3/uL 0.15 Absolute Eosinophils (0.0-0.7) 10^3/uL 0.14 Absolute Basophils (0.0-0.2) 10^3/uL 0.01 PT (9.3-11.0) sec INR (0.9-1.1) APTT (21.0-27.5) sec VBG Lactate (0.6-1.4) mmol/L Sodium (136-145) mmol/L Potassium (3.5-5.1) mmol/L Chloride (98-107) mmol/L Carbon Dioxide (21.0-32.0) mmol/L Anion Gap (3-11) mmol/L BUN (7-18) mg/dL Creatinine (0.70-1.30) mg/dL Estimated GFR/1.73 m2 (mL/min/1.73m2) Glucose (74-106) mg/dL Calcium (8.5-10.1) mg/dL Magnesium (1.8-2.4) mg/dL Total Bilirubin (0.2-1.0) mg/dL AST (15-37) U/L ALT (16-63) U/L Alkaline Phosphatase (46-116) U/L Troponin I (<0.06) ng/mL Total Protein (6.4-8.2) g/dL Albumin (3.4-5.0) g/dL Urine Color (Yellow) Yellow Urine Clarity (Clear) Clear Urine pH (5-8) 5.5 Ur Specific [place] (1.005-1.025) 1.015 Urine Protein (Negative) mg/dL Negative Urine Ketones (Negative) mg/dL 15 H Urine Blood (Negative) Negative Urine Nitrite (Negative) Negative Urine Bilirubin (Negative) Negative Urine Urobilinogen (Up TO 0.2) EU/dL 0.2 Ur Leukocyte Esterase (Negative) Negative Urine Glucose (Negative) mg/dL Negative COVID-19 Source Nasopharynx SARS-CoV-2 (PCR) (Negative) Negative Influenza Type A (PCR) (Negative) Negative Influenza Type B (PCR) (Negative) Negative RSV (PCR) (Negative) Negative ECG Data Attestation: I personally reviewed and interpreted this ECG (s) as follows: Interpretation: rate of 117, sinus, no acute ST elevation or depression, [place] 180, QRS 97, QTc 446. HPI General Mode of arrival: EMS. Date/Time Provider Initiated Documentation: 11/21/20 15:55. Limitations to Documentation: no limitations. Information obtained by: patient. HPI Narrative: Patient is an 80-year-old male with a history of multiple myeloma, squamous cell carcinoma of his right leg, pulmonary embolism on Eliquis, hypertension, hyperlipidemia, COPD, chronic alcohol abuse presents for shaking chills and rigors since yesterday. Patient also admits to decreased appetite and productive cough. He uses a walker for ambulation. Patient denies any chest pain, shortness of breath, abdominal pain, vomiting, diarrhea. Patient had a recent contact with someone who traveled to [place] but he denies any known exposure to coronavirus. It was reported that patient had a recent negative Covid test. Related Data Home Medications Medication Instructions Recorded Confirmed allopurinol 300 mg PO DAILY 12/29/12 11/21/20 montelukast 10 mg PO DAILY PRN tab-cap 12/29/12 11/21/20 fluticasone propionate [Flonase 2 spray NS DAILY PRN PRN 05/07/16 11/21/20 Allergy Relief] cholecalciferol (vitamin D3) 1,000 unit PO DAILY 05/12/16 11/21/20 metoprolol tartrate 25 mg PO BID 05/12/16 11/21/20 testosterone cypionate 1.5 ml IM .[id number] 05/12/16 11/21/20 diazepam 5 mg PO HS PRN PRN 05/31/17 11/21/20 prazosin 5 mg PO BID 05/31/17 11/21/20 albuterol sulfate [ProAir HFA] 2 inh IH Q6H PRN #18 gm 10/18/19 11/21/20 atorvastatin 40 mg tablet 40 mg PO HS 03/13/20 11/21/20 cyanocobalamin (vitamin B-12) 1,000 mcg PO DAILY 03/13/20 11/21/20 1,000 mcg tablet fexofenadine 180 mg tablet 180 mg PO DAILY 03/13/20 11/21/20 lactobacillus combo no.11 15 1 cap PO DAILY 03/13/20 11/21/20 billion cell sprinkle capsule zolpidem 10 mg tablet 10 mg PO QHS PRN tab 03/13/20 11/21/20 magnesium oxide 400 mg PO DAILY 07/04/20 11/21/20 thiamine mononitrate (vit B1) 100 mg PO DAILY #30 tab 07/04/20 11/21/20 [Vitamin B-1 (mononitrate)] Eliquis 5 mg PO BID 09/17/20 11/21/20 oxycodone 5 - 10 mg PO Q6H PRN PRN 09/17/20 11/21/20 acyclovir 400 mg tablet 400 mg PO BID tab 10/07/20 11/21/20 acitretin 10 mg capsule 25 mg PO DAILY 10/08/20 11/21/20 pantothenic ac-glyc-pet,h anil 1 applic TOPICAL TID 11/06/20 11/21/20 topical cream oxycodone 20 mg tablet,crush 20 mg PO Q12H #60 tab MDD 60 mg 11/19/20 11/21/20 resistant,extended release 12 hr cemiplimab-rwlc [Libtayo] 350 mg IV Q3W 11/21/20 11/21/20 dexamethasone 40 mg PO QWEEK 11/21/20 11/21/20 ipratropium bromide 2 spray INTRANASAL TID PRN 11/21/20 11/21/20 multivitamin 1 cap PO DAILY 11/21/20 11/21/20 omeprazole 20 mg PO DAILY 11/21/20 11/21/20 turmeric root extract 500 mg PO DAILY 11/21/20 11/21/20 silver sulfadiazine [SSD] 1 applic TOPICAL DIRECTED PRN 11/22/20 11/22/20 Previous Rx's Medication Instructions Recorded albuterol sulfate [ProAir HFA] 2 inh IH Q6H PRN #18 gm 10/18/19 thiamine mononitrate (vit B1) 100 mg PO DAILY #30 tab 07/04/20 [Vitamin B-1 (mononitrate)] oxycodone 20 mg tablet,crush 20 mg PO Q12H #60 tab MDD 60 mg 11/19/20 resistant,extended release 12 hr Allergies Allergy/AdvReac Type Severity Reaction Status Date / Time Sulfa (Sulfonamide Allergy as a Unverified 11/21/20 20:32 Antibiotics) child, unsure codeine AdvReac Intermediate sick to Unverified 11/21/20 20:32 stomach oxycodone [Oxycodone] AdvReac respiratory Unverified 11/21/20 20:32 depression General CLYDE: 2 Review of Systems All systems reviewed & are unremarkable except as noted in HPI and below Constitutional Constitutional: Reports as per HPI, Reports chills and Reports fever(s) Eyes Eyes: Denies blurry vision ENT Ears, Nose, Mouth, and Throat: Denies dizziness, Denies sore throat and Denies throat swelling Cardiovascular Cardiovascular: Denies chest pain and Denies dyspnea Respiratory Respiratory: Reports cough and Denies dyspnea Gastrointestinal Gastrointestinal: Denies abdominal pain, Denies diarrhea and Denies vomiting Genitourinary Genitourinary: Denies hematuria and Denies dysuria Musculoskeletal Musculoskeletal: Denies back pain and Denies numbness Integumentary/Breasts Skin/Breast: Denies lesions and Denies rash Neurologic Neurologic: Denies dizziness, Denies localized weakness and Denies numbness Allergic/Immunologic Allergic/Immunologic: Denies throat swelling [facility] Medical History Abnormal prostate specific antigen Abnormal weight loss Actinic keratosis Adenomatous colon polyp Alcohol consumption heavy Allergic rhinitis Ataxic gait Benign essential tremor Bilateral artificial lens implant BPH (benign prostatic hyperplasia) 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/13) Cancer related pain Chronic insomnia Cough Diverticulosis Diverticulosis Erectile dysfunction Essential hypertension Ex-smoker quit 1985 Frequent falls GERD (gastroesophageal reflux disease) Gout H/O supraventricular tachycardia Heavy alcohol consumption History of DVT (deep vein thrombosis) History of positive PPD History of prediabetes History of PSVT (paroxysmal supraventricular tachycardia) History of pulmonary embolism History of urinary urgency (03/09/13) Hx of adenomatous colonic polyps Hyperlipidemia Hypertension Hypogonadism Impaired fasting glucose Insomnia Low testosterone in male Lumbar back pain Macrocytosis Male hypogonadism Memory impairment Mild cognitive impairment Myelodysplasia (myelodysplastic syndrome) Neutropenia Ocular migraine Osteoarthritis Other and unspecified hyperlipidemia Overactive bladder Palliative care patient Peripheral neuropathy Personal history of venous thrombosis and embolism Positive PPD Preventative health care Renal cyst Sacroiliac joint pain Shaking chills Sleep apnea Spinal stenosis in cervical region Spondylosis Spondylosis of cervical joint 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 Jovita Roberts THUMB RHINOPLASTY S/P TURP S/P TURP (status post transurethral resection of prostate) (12/19/13) Tonsillectomy and adenoidectomy Total replacement of hip (05/13/16) RIGHT/DR. OLEA Family History Mother , age 81 of pancreatic cancer with mets to liver Personal history of malignant neoplasm PANCREATIC/LIVER Father , from alcoholism and cardiomyopathy Heart disease Alcohol abuse Sister , in MVC age 37 due to motor vehicle traffic accident Brother Heart disease Brother Heart disease Mental disorder BIPOLAR Brother Hypertension Diabetes Hyperlipidemia Son Obesity Diabetes Son Arthritis Daughter No problems noted. Social History Smoking/Tobacco Use Status: Former Tobacco Use Tobacco: How many years used: 25 Smoking risk assessment performed?: Yes Alcohol Intake: current Alcohol Intake frequency: 3 or more drinks per day Alcohol type: beer, wine and hard liquor Counseling given: Yes Counseling provided: reduce to 2 or less/day Drug use: Never Substance use type: does not use Caregiver/Support person: Yes Household members: spouse Housing: house Number of Children: 3 Communication Needs: Corrective Lenses Education Level: college Do you need help understanding health information?: Often current occupation: retired from [employer] and from [employer] Pets and animals: No Current gender identity: male What is your relationship status?: How often do you talk on the phone with friends or family?: three or more times per week How often do you get together with friends or relatives?: never Panel score (0-1 are the most socially isolated patients): 2 What type of physical activity do you participate in: aerobic, regular exercise and weight lifting Duration: 30-45 minutes/day Frequency: 3-4 times per week Special geetha needs: No Seatbelt use: always Working smoke detector in home: Yes Fire extinguisher in home: Yes Firearms in home: Yes Do you feel safe at home: Yes Do you feel safe in your relationship?: Yes Additional Social history: to [place] , who is chronically ill with vertigo of unknown etiology. He started exercising regular when he was 33 yo; very hard for him not to be able to continue to exercise. Has a VERY unsteady gait; says he has fallen about 4 x in last 6 weeks. Says that PT doesn't help. He refuses to use a cane or walker, due to personal pride. Hard for him to access himself as both sick and older. Not interested in cutting back on etoh. Was planning on relocating to [facility] but cannot due to COVID. Exam Const General: cooperative and no acute distress Orientation: alert, awake and oriented x3 HENMT Head: normal to inspection Face and sinus: normal facial exam Eyes General: appearance normal, both eyes and all related structures Pupils: PERRL EOM: EOM intact bilaterally Neck Neck: normal visual inspection and No submandibular swelling Lymphatic: no lymphadenopathy noted Chest Chest: normal inspection of the chest and no tenderness Resp Effort & Inspection: normal respiratory effort and able to speak in complete sentences Auscultation: other (Coarse breath sounds throughout) Cardio Rate: tachycardic Rhythm: regular rhythm GI Inspection: normal to inspection Palpation: soft, not firm, not rigid and nontender Auscultation: normal bowel sounds Back/Spine/Pelvis Thoracic/Lumbar Spine: thoracic and lumbar spine normal to inspection Sacrum: erythema midline and other (No evidence of ulceration) Skin General skin exam: no rashes or lesions noted Neuro General: patient alert, patient awake, patient oriented x3, moves all extremities and no meningeal signs Cognition: normal cognition Speech: speech normal Motor: muscle tone normal throughout Sensory Exam: no sensory deficits noted Extrem General: full ROM, capillary refill normal, no calf tenderness bilaterally and no edema Ankle/foot/toe images: 1. Multiple scattered open wounds, ranging from 1 to 3 cm on right medial leg. Right leg edematous but without erythema, crepitus. Psych Appearance: grossly normal Mental Status: mental status grossly normal Speech and Movement: speech and movement normal Affect: normal affect Course Lab/Test Results Lab/Test Results: 11/21/20 15:49 Blood Blood Culture - Pending 11/21/20 15:49 Blood Blood Culture - Pending
[2020-11-21 16:18] LABS: Abs Immature Grans 0.03 10^3/uL (0.0-0.06); Absolute Basophil Count 0.01 10^3/uL (0.0-0.2); Absolute Eosinophil Count 0.14 10^3/uL (0.0-0.7); Absolute Lymphocyte Count 0.86 10^3/uL (1.2-3.4); Absolute Monocyte Count 0.15 10^3/uL (0.1-0.8); Absolute Neutrophil Count 4.74 10^3/uL (1.2-6.7); Basophils % 0.2; Eosinophils % 2.4; HCT 32.5 % (40.0-50.0); HGB 10.6 g/dL (13.5-17.5); Immature Grans % 0.5; Lymphocytes % 14.5; MCH 33.1 pg (27.0-33.0); MCHC 32.6 % (32.0-36.0); MCV 101.6 fL (80-95); MPV 10.1 fL (8.0-11.0); Monocytes % 2.5; Neutrophils % 79.9; Nucleated RBC 0 %; Platelet Count 143 10^3/uL (130-400); RDW 14.8 % (11.8-14.1); RDW-SD 55.3 fL; WBC 5.93 10^3/uL (4.4-10.8)
[2020-11-21 16:19] LABS: Lactate 1.7 mmol/L (0.6-1.4)
[2020-11-21 16:30] LABS: INR 1.1 (0.9-1.1); PTT Activated 26.8 sec (21.0-27.5); Prothrombin Time 10.7 sec (9.3-11.0)
[2020-11-21 16:39] LABS: ALT 24 U/L (16-63); AST 12 U/L (15-37); Alkaline Phosphatase 58 U/L (46-116); Anion Gap 13.3 mmol/L (3-11); BUN 16 mg/dL (7-18); Bilirubin, Total 0.7 mg/dL (0.2-1.0); CO2 24.7 mmol/L (21.0-32.0); CREATININE 1.1 mg/dL (0.70-1.30); Chloride 101 mmol/L (98-107); Glucose 160 mg/dL (74-106); Magnesium 1.1 mg/dL (1.8-2.4); Potassium 4.3 mmol/L (3.5-5.1); Sodium 139 mmol/L (136-145)
[2020-11-21 16:40] LABS: Troponin I < 0.05 ng/mL (<0.06)
--- NOTE | 2020-11-21 16:45 | DI.CT_ITS ---
EXAM: CT CHEST PE ABD PELVIS W CLINICAL HISTORY: fever, cough, r/o PE. TECHNIQUE: Imaging Protocol: Axial CT angiography was performed with multi-slice acquisition and mu lti-planar and/or 3D reconstructions. CONTRAST MATERIAL: Intravenous: Omnipaque 350 Contrast volume:structured data in ml COMPARISON: CT CT CHEST PE CTA from 09/16/2020 FINDINGS: PE chest CT: There is no evidence of pulmonary emboli or aortic dissection. No pleural or pericardial effusions. The heart is mildly enlarged. Coronary artery calcifications are seen. No mass or adenopathy is id entified. The lungs are poorly evaluated due to respiratory motion and dependent changes. There is some asymmetric increased density posteriorly in the right lower lobe which could represent a superim posed pneumonia. The bones show abnormal sclerotic foci, greater in the lower cervical and upper tho racic regions. The sternum also shows abnormal sclerotic areas. The patient has a history of multip le myeloma. Abdomen pelvic CT: There is no evidence abdominal aortic aneurysm. Moderate mural calcification is seen. 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 The iliac arteries are normal in diameter. The renal an d mesenteric vessels appear patent. The liver, gallbladder, spleen, adrenals and pancreas are unremarkable. There are bilateral renal cy sts. There is no hydronephrosis. No bowel dilatation or inflammatory changes are seen. There is ri ght hip prosthesis causing artifact in the pelvis. The bladder and prostate are grossly unremarkable . There is diverticulosis of the sigmoid without evidence of diverticulitis. There is hardware in t he lower lumbar spine. Sclerotic lesions are again noted multiple vertebral bodies. There is a disc spacer at L4-5. IMPRESSION: Chest: No evidence of pulmonary embolism. Right lower lobe pneumonia versus atelectasis. Abdomen pelvis: No acute abnormality. Stable sclerotic bony lesions. RADIATION DOSE DELIVERED: 1,690.15mGy.cm Total DLP DATA REPOSITORY: All CT scans at this facility are submitted to the National Radiology Data Registry (NRDR) Dose Index Registry (DIR) with the [employer] (A[employer]). RADIATION OPTIMIZATION: All CT scans at this facility use at least one of these dose optimization te chniques: automated exposure control; mA and/or kV adjustment per patient size (includes targeted exa ms where dose is matched to clinical indication); or iterative reconstruction.
[2020-11-21 17:03] LABS: Source Nasopharynx
[2020-11-21] MEDS: Normal Saline - Diluent 50 ML VIAL IV (17:26)
[2020-11-21] MEDS: Normal Saline Flush 10 ML SYR IVP ×3 (17:26→22:30)
[2020-11-21] MEDS: Omnipaque 350 MG/ML 100 ML BTL IJ (17:27)
[2020-11-21] MEDS: Normal Saline 250 ML 500 ML IV ×2 (17:37→19:55)
[2020-11-21] MEDS: ACETAMINOPHEN 1,000 MG/100 ML BTL 400 MG IVPB (17:37)
[2020-11-21 17:42] LABS: COVID-19 PCR Negative (Negative); Influenza A PCR Negative (Negative); Influenza B PCR Negative (Negative); RSV PCR Negative (Negative)
[2020-11-21] MEDS: MAGNESIUM SULFATE 2 GM/50 ML BAG IVPB (18:18)
--- NOTE | 2020-11-21 18:33 | DI.VRAD_ITS ---
PROCEDURE INFORMATION: Exam: CT Angiography Chest With Contrast Exam date and time: 11/21/2020 4:48 PM Age: 80 years old Clinical indication: Fever TECHNIQUE: Imaging protocol: Computed tomographic angiography of the chest with contrast. 3D rendering (Not supervised by radiologist): MIP and/or 3D reconstructed images were created by the technologist. COMPARISON: CT CHEST PE CTA 09/16/2020 4:11 PM FINDINGS: Pulmonary arteries: No evidence of pulmonary embolism. Aorta: Normal caliber thoracic aorta without dissection or aneurysm. Lungs: No alveolar or ground glass infiltrate. Pleural spaces: No pleural fluid collection. No pneumothorax. Heart: No right ventricular strain. No pericardial effusion. Coronary artery calcification. Lymph nodes: No enlarged lymph nodes. Bones/joints: Prior left shoulder surgery. Spinal degenerative changes. Likely old right rib fractures. Compared to the prior examination dated 09/16/2020, once again noted are scattered areas of increased density within the skeleton (e.g. C7, T3, T4, T5 and T10) - metastatic disease cannot be excluded. Soft tissues: Unremarkable. IMPRESSION: 1. No evidence of pulmonary embolism. 2. No pulmonary infiltrate. 3. Compared to the prior examination dated 09/16/2020, once again noted are scattered areas of increased density within the skeleton (e.g. C7, T3, T4, T5 and T10) - metastatic disease cannot be excluded. PROCEDURE INFORMATION: Exam: CT Angiography Abdomen With Contrast Exam date and time: 11/21/2020 4:48 PM Age: 80 years old Clinical indication: Fever TECHNIQUE: Imaging protocol: Computed tomographic angiography images of the abdomen with intravenous contrast material. 3D rendering (Not supervised by radiologist): MIP and/or 3D reconstructed images were created by the technologist. COMPARISON: CT CHEST PE CTA 09/16/2020, CT abdomen/pelvis 10/17/2019 FINDINGS: Aorta: No abdominal aortic aneurysm. 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 Celiac trunk and mesenteric arteries: See Aorta finding. Renal arteries: No occlusion or significant stenosis. Liver: Normal. No mass. Gallbladder and bile ducts: Normal. No calcified stones. No ductal dilation. Pancreas: Normal. No ductal dilation. Spleen: Normal. No splenomegaly. Adrenals: Normal. No mass. Kidneys and ureters: Compared to 10/17/2019, bilateral renal cortical stable benign simple cysts with largest being right-sided and measuring 5.2 cm transversely - no followup is necessary. No hydronephrosis. Stomach and bowel: No generalized ileus or bowel obstruction. Scattered colon diverticuli without evidence of diverticulitis. Lymph nodes: Unremarkable. No enlarged lymph nodes. Intraperitoneal space: No intraperitoneal free air. Trace free fluid in the pelvis. Reproductive: Prominent prostate gland measuring 4.8 cm transversely. Bones/joints: Prior lower lumbar surgery. Prior surgery in the region of each SI joint. Streak artifact from metallic right hip prosthesis obscures portions of the lower pelvis. Compared to the prior examination dated 09/16/2020, once again noted are scattered areas of increased density within the skeleton (e.g. T10, and L2 through L5) - metastatic disease cannot be excluded. Soft tissues: Unremarkable. IMPRESSION: 1. No acute intra-abdominal or pelvic process. No acute interval change compared to 10/17/2019. 2. No generalized ileus or bowel obstruction. 3. Scattered colon diverticuli without evidence of diverticulitis. 4. Compared to the prior examination dated 09/16/2020, once again noted are scattered areas of increased density within the skeleton (e.g. T10, and L2 through L5) - metastatic disease cannot be excluded. Dictated and Authenticated by: Kiet Pimentel MD. Ordering:JORDAN Mauro MD
[2020-11-21 18:34] LABS: Bilirubin Negative (Negative); Blood Negative (Negative); Clarity Clear (Clear); Glucose Negative (Negative); Ketones 15 mg/dL (Negative); Leukocyte Esterase Negative (Negative); Nitrite Negative (Negative); Specific Gravity 1.015 (1.005-1.025); Urobilinogen 0.2 EU/dL (Up TO 0.2); pH 5.5 (5-8)
[2020-11-21] MEDS: VANCOMYCIN 1,500 MG in Normal Saline 250 ML 166.6666 MG IVPB (19:37)
[2020-11-21] MEDS: PIPERACILLIN/TAZO 3.375 GM in Normal Saline 50 ML IVPB (19:37)
--- NOTE | 2020-11-21 21:12 | W.PM.HP.N ---
Date of service: 11/21/20 Time of Service: 21:12 Assessment and Plan Assessment and plan (1) Fever and chills: Status: Acute Assessment and plan: Fever without clear source patient who is immune suppressed with multiple myeloma and chronic steroids and immune modulator. I agree with Dr. Khan that we must consider pulmonary source even with negative CT angiogram, given new cough and sputum and his immune suppression. Fortunately he is not neutropenic. Were not in the right season for tickborne illness such as anaplasmosis. The timing after the new Libtayo therapy suggest this may be a drug reaction. I will discuss with the patient's oncologist before continuing this medication. Given his possible infection and chronic steroid use, will use stress dose IV steroids for now. Consider stopping antibiotics if no focal symptoms develop after blood cultures are negative for 48 hours. (2) Cancer related pain: Status: Acute Assessment and plan: We will continue his chronic long and short acting oxycodone. Avoid NSAIDs given anticoagulant therapy. Discussed he should get Narcan from his PCP given his opiate and benzodiazepine use. 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 I asked the room team to take a look at document his wound. (4) Multiple myeloma: Status: Chronic Assessment and plan: Mild anemia, close to baseline on admission. Lesions on CT likely represent his multiple myeloma. (5) Pulmonary embolism: Status: Chronic Assessment and plan: No PE on CT scan today. Continue apixaban. (6) Alcohol abuse: Status: Chronic Assessment and plan: He is precontemplative in terms of cessation. Alcohol withdrawal protocol has been ordered. (7) Hypogonadism in male: Status: Chronic Assessment and plan: Patient is on chronic testosterone therapy, but this may have been a risk factor in his pulmonary embolus. (8) Hypomagnesemia: Status: Acute Assessment and plan: Given 2 g in the emergency room. Follow in the morning, he is likely to need additional dosing. (9) DVT prophylaxis: Status: Acute Assessment and plan: On full dose anticoagulation with apixaban. (10) Discharge planning issues: Status: Acute Assessment and plan: Patient confirmed she is a full code, but but does not want prolonged intubation or life support. He is a palliative care patient, will consult that team. History of Present Illness History of Present Illness Chief Complaint: fever Narrative: 80-year-old man with history of active multiple myeloma and aggressive squamous cell carcinoma of the skin, history of pulmonary embolus on Eliquis, alcohol use disorder with history of withdrawal, and COPD brought to the emergency room today by EMS with shaking chills and rigors for the past 2 days. Mr. Mattson describes feeling like he was going to . He reports worse back pain, especially at the right nuchal area, and will weakness and fatigue, and mental fogginess during this time. Does report more frequent cough and increased sputum during this time as well. He denies feeling short of breath, but he does feel more fatigue with any exertion. Of note, he received his first infusion of cemiplirab (Libtayo), and immune modulating monoclonal antibody agent that affects the PD1 pathway in T cells, 1 week prior to admission. He has also been taking 40 mg weekly of dexamethasone, which reports gives him few days of relief from his only pain. Does report 2-3 alcoholic beverages a day, but denies a history of overt withdrawal. Review of Systems Constitutional Constitutional: Reports anorexia, Reports chills, Reports fever(s), Reports lethargy, Reports weakness and Denies weight loss Eyes Eyes: Denies change in vision, Denies diplopia and Denies irritation ENT Ears, Nose, Mouth, and Throat: Reports dysphagia (Associated with dry mouth, has to wash food down), Denies dizziness, Denies nasal congestion, Denies nasal discharge and Reports sore throat (Right side) Cardiovascular Cardiovascular: Denies chest pain, Denies palpitations and Denies orthopnea Respiratory Respiratory: Reports cough, Reports excessive phlegm production and Denies wheezing Gastrointestinal Gastrointestinal: Denies abdominal pain, Denies change in stool character, Denies heartburn, Denies diarrhea and Denies vomiting Genitourinary Genitourinary: Denies hematuria, Denies dysuria and Denies urinary incontinence Musculoskeletal Musculoskeletal: Reports back pain and Denies muscle weakness Comments: No new pain Integumentary/Breasts Skin/Breast: Denies rash and Reports skin ulcer Comments: Open wound in right gutierrez not worse in the past few days Neurologic Neurologic: Denies dizziness, Denies sensory deficit, Denies tremor(s) and Reports weakness Psychiatric Psychiatric: Denies mood swings, Denies panic attacks and Reports visual hallucinations (Per he was speaking to people that were not there earlier today) Endocrine Endocrine: Denies palpitations Hematologic/Lymphatic Hematologic/Lymphatic: Denies easy bleeding Allergic/Immunologic Allergic/Immunologic: Denies wheezing PFSH Medical History Abnormal prostate specific antigen Abnormal weight loss Actinic keratosis Adenomatous colon polyp Alcohol consumption heavy Allergic rhinitis Ataxic gait Benign essential tremor Bilateral artificial lens implant BPH (benign prostatic hyperplasia) 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/13) Cancer related pain Chronic insomnia Cough Diverticulosis Diverticulosis Erectile dysfunction Essential hypertension Ex-smoker quit 1985 Frequent falls GERD (gastroesophageal reflux disease) Gout H/O supraventricular tachycardia Heavy alcohol consumption History of DVT (deep vein thrombosis) History of positive PPD History of prediabetes History of PSVT (paroxysmal supraventricular tachycardia) History of pulmonary embolism History of urinary urgency (03/09/13) Hx of adenomatous colonic polyps Hyperlipidemia Hypertension Hypogonadism Impaired fasting glucose Insomnia Low testosterone in male Lumbar back pain Macrocytosis Male hypogonadism Memory impairment Mild cognitive impairment Myelodysplasia (myelodysplastic syndrome) Neutropenia Ocular migraine Osteoarthritis Other and unspecified hyperlipidemia Overactive bladder Palliative care patient Peripheral neuropathy Personal history of venous thrombosis and embolism Positive PPD Preventative health care Renal cyst Sacroiliac joint pain Shaking chills Sleep apnea Spinal stenosis in cervical region Spondylosis Spondylosis of cervical joint 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 Jovita Roberts THUMB RHINOPLASTY S/P TURP S/P TURP (status post transurethral resection of prostate) (12/19/13) Tonsillectomy and adenoidectomy Total replacement of hip (05/13/16) RIGHT/DR. OLEA Family History Mother , age 81 of pancreatic cancer with mets to liver Personal history of malignant neoplasm PANCREATIC/LIVER Father , from alcoholism and cardiomyopathy Heart disease Alcohol abuse Sister , in MVC age 37 due to motor vehicle traffic accident Brother Heart disease Brother Heart disease Mental disorder BIPOLAR Brother Hypertension Diabetes Hyperlipidemia Son Obesity Diabetes Son Arthritis Daughter No problems noted. Social History Smoking/Tobacco Use Status: Former Tobacco Use Tobacco: How many years used: 25 Smoking risk assessment performed?: Yes Alcohol Intake: current Alcohol Intake frequency: 3 or more drinks per day Alcohol type: beer, wine and hard liquor Counseling given: Yes Counseling provided: reduce to 2 or less/day Drug use: Never Substance use type: does not use Caregiver/Support person: Yes Household members: spouse Housing: house Number of Children: 3 Communication Needs: Corrective Lenses Education Level: college Do you need help understanding health information?: Often current occupation: retired from [employer] and from [employer] Pets and animals: No Current gender identity: male What is your relationship status?: How often do you talk on the phone with friends or family?: three or more times per week How often do you get together with friends or relatives?: never Panel score (0-1 are the most socially isolated patients): 2 What type of physical activity do you participate in: aerobic, regular exercise and weight lifting Duration: 30-45 minutes/day Frequency: 3-4 times per week Special geetha needs: No Seatbelt use: always Working smoke detector in home: Yes Fire extinguisher in home: Yes Firearms in home: Yes Do you feel safe at home: Yes Do you feel safe in your relationship?: Yes Additional Social history: to [place] , who is chronically ill with vertigo of unknown etiology. He started exercising regular when he was 33 yo; very hard for him not to be able to continue to exercise. Has a VERY unsteady gait; says he has fallen about 4 x in last 6 weeks. Says that PT doesn't help. He refuses to use a cane or walker, due to personal pride. Hard for him to access himself as both sick and older. Not interested in cutting back on etoh. Was planning on relocating to [facility] but cannot due to COVID. Meds Home Medications and Allergies Home Medications Medication Instructions Recorded Confirmed Type allopurinol 300 mg PO DAILY 12/29/12 11/21/20 History montelukast 10 mg PO DAILY PRN tab-cap 12/29/12 11/21/20 History fluticasone propionate [Flonase 2 spray NS DAILY PRN PRN 05/07/16 11/21/20 History Allergy Relief] cholecalciferol (vitamin D3) 1,000 unit PO DAILY 05/12/16 11/21/20 History metoprolol tartrate 25 mg PO BID 05/12/16 11/21/20 History testosterone cypionate 1.5 ml IM .[id number] 05/12/16 11/21/20 History diazepam 5 mg PO HS PRN PRN 05/31/17 11/21/20 History prazosin 5 mg PO BID 05/31/17 11/21/20 History albuterol sulfate [ProAir HFA] 2 inh IH Q6H PRN #18 gm 10/18/19 11/21/20 Rx atorvastatin 40 mg tablet 40 mg PO HS 03/13/20 11/21/20 History cyanocobalamin (vitamin B-12) 1,000 mcg PO DAILY 03/13/20 11/21/20 History 1,000 mcg tablet fexofenadine 180 mg tablet 180 mg PO DAILY 03/13/20 11/21/20 History lactobacillus combo no.11 15 1 cap PO DAILY 03/13/20 11/21/20 History billion cell sprinkle capsule zolpidem 10 mg tablet 10 mg PO QHS PRN tab 03/13/20 11/21/20 History magnesium oxide 400 mg PO DAILY 07/04/20 11/21/20 History thiamine mononitrate (vit B1) 100 mg PO DAILY #30 tab 07/04/20 11/21/20 Rx [Vitamin B-1 (mononitrate)] Eliquis 5 mg PO BID 09/17/20 11/21/20 History oxycodone 5 - 10 mg PO Q6H PRN PRN 09/17/20 11/21/20 History acyclovir 400 mg tablet 400 mg PO BID tab 10/07/20 11/21/20 History acitretin 10 mg capsule 25 mg PO DAILY 10/08/20 11/21/20 History pantothenic ac-glyc-pet,h anil 1 applic TOPICAL TID 11/06/20 11/21/20 History topical cream oxycodone 20 mg tablet,crush 20 mg PO Q12H #60 tab MDD 60 mg 11/19/20 11/21/20 Rx resistant,extended release 12 hr amoxicillin 500 mg PO TID 11/21/20 11/21/20 History cemiplimab-rwlc [Libtayo] 350 mg IV Q3W 11/21/20 11/21/20 History dexamethasone 40 mg PO QWEEK 11/21/20 11/21/20 History ipratropium bromide 2 spray INTRANASAL TID PRN 11/21/20 11/21/20 History multivitamin 1 cap PO DAILY 11/21/20 11/21/20 History omeprazole 20 mg PO DAILY 11/21/20 11/21/20 History tramadol 50 mg PO Q8H PRN 11/21/20 11/21/20 History turmeric root extract 500 mg PO DAILY 11/21/20 11/21/20 History Allergies Allergy/AdvReac Type Severity Reaction Status Date / Time Sulfa (Sulfonamide Allergy as a Unverified 11/21/20 20:32 Antibiotics) child, unsure codeine AdvReac Intermediate sick to Unverified 11/21/20 20:32 stomach oxycodone [Oxycodone] AdvReac respiratory Unverified 11/21/20 20:32 depression Exam Narrative Exam Narrative: GEN: Alert and oriented x3, pleasent and cooperative, gives linear history. No acute distress at rest. HEENT: Head atraumatic. Conjunctiva clear, no icterus. PEERL, EOMI. no rhinorrhea. MM slightly dry, OP benign. Neck is supple with no masses or lymphadenopathy, trachea midline. LUNGS: normal effort. No wheezing. I do appreciate rales in bilateral bases. CV: RRR with no murmurs, gallops, or rubs. ABD: +BS, soft, NT/ND EXT: no cyanosis, clubbing, or edema MSK: No joint redness or marked effusions. NEURO: CN 2-12 grossly intact. Normal movement of 4 extremities. Normal speech and coordination SKIN: No rashes, diffuse sun damage. Right lower leg with several nodules and open area with surrounding erythema and medial calf. PSYCH: normal mood and affect, currently normal thought process and content Results CTA Chest: IMPRESSION: 1. No evidence of pulmonary embolism. 2. No pulmonary infiltrate. 3. Compared to the prior examination dated 09/16/2020, once again noted are scattered areas of increased density within the skeleton (e.g. C7, T3, T4, T5 and T10) - metastatic disease cannot be excluded. CT A/P w/ IMPRESSION: 1. No acute intra-abdominal or pelvic process. No acute interval change compared to 10/17/2019. 2. No generalized ileus or bowel obstruction. 3. Scattered colon diverticuli without evidence of diverticulitis. 4. Compared to the prior examination dated 09/16/2020, once again noted are scattered areas of increased density within the skeleton (e.g. T10, and L2 through L5) - metastatic disease cannot be excluded. Labs Result diagrams: 11/21/20 16:05 11/21/20 21:26 Labs: Laboratory Results - last 24 hr 11/21/20 11/21/20 11/21/20 16:05 16:05 16:05 WBC RBC Hgb Hct MCV MCH MCHC RDW Plt Count MPV Immature Gran % Neutrophils % Lymphocytes % Monocytes % Eosinophils % Basophils % Nucleated RBC % Absolute Neutrophils Absolute Lymphocytes Absolute Monocytes Absolute Eosinophils Absolute Basophils PT 10.7 INR 1.1 APTT 26.8 VBG Lactate 1.7 H Sodium 139 Potassium 4.3 Chloride 101 Carbon Dioxide 24.7 Anion Gap 13.3 H BUN 16 Creatinine 1.1 Estimated GFR/1.73 m2 >= 60.00 Glucose 160 H Calcium 9.0 Magnesium 1.1 L Total Bilirubin 0.7 AST 12 L ALT 24 Alkaline Phosphatase 58 Troponin I < 0.05 Total Protein 7.0 Albumin 3.0 L Urine Color Urine Clarity Urine pH Ur Specific [place] Urine Protein Urine Ketones Urine Blood Urine Nitrite Urine Bilirubin Urine Urobilinogen Ur Leukocyte Esterase Urine Glucose COVID-19 Source SARS-CoV-2 (PCR) Influenza Type A (PCR) Influenza Type B (PCR) RSV (PCR) 11/21/20 11/21/20 11/21/20 16:05 16:35 18:20 WBC 5.93 RBC 3.20 L Hgb 10.6 L Hct 32.5 L MCV 101.6 H MCH 33.1 H MCHC 32.6 RDW 14.8 H Plt Count 143 MPV 10.1 Immature Gran % 0.5 Neutrophils % 79.9 Lymphocytes % 14.5 Monocytes % 2.5 Eosinophils % 2.4 Basophils % 0.2 Nucleated RBC % 0 Absolute Neutrophils 4.74 Absolute Lymphocytes 0.86 L Absolute Monocytes 0.15 Absolute Eosinophils 0.14 Absolute Basophils 0.01 PT INR APTT VBG Lactate Sodium Potassium Chloride Carbon Dioxide Anion Gap BUN Creatinine Estimated GFR/1.73 m2 Glucose Calcium Magnesium Total Bilirubin AST ALT Alkaline Phosphatase Troponin I Total Protein Albumin Urine Color Yellow Urine Clarity Clear Urine pH 5.[address] 1.015 Urine Protein Negative Urine Ketones 15 H Urine Blood Negative Urine Nitrite Negative Urine Bilirubin Negative Urine Urobilinogen 0.2 Ur Leukocyte Esterase Negative Urine Glucose Negative COVID-19 Source Nasopharynx SARS-CoV-2 (PCR) Negative Influenza Type A (PCR) Negative Influenza Type B (PCR) Negative RSV (PCR) Negative Last Vital Signs Temp 38.3 C H 11/21/20 18:49 Pulse 85 11/21/20 20:01 Resp 13 11/21/20 20:10 BP 118/47 L 11/21/20 20:01 Pulse Ox 96 11/21/20 20:10 COVID-19 Screening Have you, or household traveled for leisure in last 14 days?: No Had IN PERSON contact w/suspected or confirmed C-19 person: No
[2020-11-21 21:39] LABS: Anion Gap 9.9 mmol/L (3-11); BUN 16 mg/dL (7-18); CO2 26.1 mmol/L (21.0-32.0); Calcium 8.8 mg/dL (8.5-10.1); Chloride 103 mmol/L (98-107); Glucose 127 mg/dL (74-106); Potassium 4.1 mmol/L (3.5-5.1); Sodium 139 mmol/L (136-145)
[2020-11-21] MEDS: Atorvastatin 40 MG TAB PO (22:04)
[2020-11-21] MEDS: oxyCODONE-CR 20 MG TABCR PO (22:05)
[2020-11-21] MEDS: Hydrocortisone SOD SUC. 100 MG VIAL 50 MG IVP (22:29)
[2020-11-22] VITALS (10 sets, daily range): BP systolic 116–145; BP diastolic 70–83; PULSE 72–83; RESP 17–18; TEMP 36.2–37; O2SAT 93–97
[2020-11-22] MEDS: PIPERACILLIN/TAZO 3.375 GM in Normal Saline 50 ML IVPB ×3 (02:45→14:46)
[2020-11-22] MEDS: Normal Saline 500 ML 30 ML IV (02:46)
[2020-11-22] MEDS: Normal Saline Flush 10 ML SYR IVP ×2 (06:11→20:00)
[2020-11-22] MEDS: Hydrocortisone SOD SUC. 100 MG VIAL 50 MG IVP ×3 (06:12→21:16)
[2020-11-22 07:05] LABS: Abs Immature Grans 0.04 10^3/uL (0.0-0.06); Absolute Eosinophil Count 0.04 10^3/uL (0.0-0.7); Absolute Lymphocyte Count 0.89 10^3/uL (1.2-3.4); Absolute Monocyte Count 0.13 10^3/uL (0.1-0.8); Absolute Neutrophil Count 4.91 10^3/uL (1.2-6.7); Eosinophils % 0.7; HCT 30.9 % (40.0-50.0); HGB 10.1 g/dL (13.5-17.5); Immature Grans % 0.7; Lymphocytes % 14.8; MCH 32.9 pg (27.0-33.0); MCHC 32.7 % (32.0-36.0); MCV 100.7 fL (80-95); MPV 10.5 fL (8.0-11.0); Monocytes % 2.2; Neutrophils % 81.6; Nucleated RBC 0 %; Platelet Count 157 10^3/uL (130-400); RBC 3.07 10^6/uL (4.36-5.78); RDW 14.9 % (11.8-14.1); RDW-SD 55.1 fL; WBC 6.01 10^3/uL (4.4-10.8)
[2020-11-22 07:08] LABS: Magnesium 2.1 mg/dL (1.8-2.4)
[2020-11-22] MEDS: Cholecalciferol (Vitamin D3) 1,000 UNIT TAB 1000 UNITS PO (07:51)
[2020-11-22] MEDS: Omeprazole 20 MG CAPCR PO (07:52)
[2020-11-22] MEDS: amLODIPine 5 MG TAB PO (07:52)
[2020-11-22] MEDS: Cyanocobalamin 500 MCG TAB 1000 MCG PO (07:52)
[2020-11-22] MEDS: Prazosin 5 MG CAP PO ×2 (07:52→19:57)
[2020-11-22] MEDS: Lactobacillus Acidophilus CAP 1 CAP PO (07:52)
[2020-11-22] MEDS: Allopurinol 300 MG TAB PO (07:52)
[2020-11-22] MEDS: Metoprolol 25 MG TAB PO ×2 (07:52→20:00)
[2020-11-22] MEDS: Acyclovir 400 MG TAB PO ×2 (07:53→20:00)
[2020-11-22] MEDS: Fexofenadine 180 MG TAB PO (07:53)
[2020-11-22] MEDS: Multivitamin TAB 1 TAB PO (07:53)
[2020-11-22] MEDS: Thiamine 100 MG TAB PO (07:53)
[2020-11-22] MEDS: Magnesium Oxide 400 MG TAB PO (07:53)
[2020-11-22] MEDS: Apixaban 5 MG TAB PO ×2 (07:54→20:00)
[2020-11-22] MEDS: oxyCODONE-CR 20 MG TABCR PO ×2 (09:06→19:57)
[2020-11-22 09:50] LABS: ALT 26 U/L (16-63); AST 16 U/L (15-37); Albumin 2.9 g/dL (3.4-5.0); Alkaline Phosphatase 60 U/L (46-116); Anion Gap 12.7 mmol/L (3-11); BUN 13 mg/dL (7-18); Bilirubin, Total 0.6 mg/dL (0.2-1.0); CO2 25.3 mmol/L (21.0-32.0); CREATININE 0.8 mg/dL (0.70-1.30); Calcium 9.1 mg/dL (8.5-10.1); Chloride 103 mmol/L (98-107); Glucose 132 mg/dL (74-106); Potassium 4.1 mmol/L (3.5-5.1); Sodium 141 mmol/L (136-145); Total Protein 7.3 g/dL (6.4-8.2)
[2020-11-22] MEDS: VANCOMYCIN/WATER (PEG) 1.25 GM/250 ML BAG IVPB ×2 (10:45→21:16)
--- NOTE | 2020-11-22 12:19 | PHACLINREV_ITS ---
Pharmacy Admission Review - Admission Clinical Review (Last Reviewed 11/21/20 @ 22:40 by Jayy Ramirez) Hypomagnesemia (Acute) Fever and chills (Acute) Cancer related pain (Acute) Discharge planning issues (Acute) DVT prophylaxis (Acute) Sulfa (Sulfonamide Antibiotics) Allergy (Unverified 11/21/20 20:32) as a child, unsure codeine Adverse Reaction (Intermediate, Unverified 11/21/20 20:32) sick to stomach oxycodone [Oxycodone] Adverse Reaction (Unverified 11/21/20 20:32) respiratory depression Height 5 ft 11 in Weight 88.4 kg - Renal Dosing Renal Dosing: BUN 13 mg/dL (7-18) 11/22/20 06:17 Creatinine 0.8 mg/dL (0.70-1.30) 11/22/20 06:17 Medications needing adjustments: Reviewed - Anticoagulation Anticoagulation: Hgb 10.1 g/dL (13.5-17.5) L 11/22/20 06:17 Hct 30.9 % (40.0-50.0) L 11/22/20 06:17 Plt Count 157 10^3/uL (130-400) 11/22/20 06:17 INR 1.1 (0.9-1.1) 11/21/20 16:05 Creatinine 0.8 mg/dL (0.70-1.30) 11/22/20 06:17 Therapeutic Anticoagulation: Reviewed Medications: Apixaban - Opiate Usage Evaluate Pain Scale/Pains Meds: Reviewed Scheduled Bowel Reg ordered if on Opiates?: No (paged to add) - Relevant Labs Sodium 141 mmol/L (136-145) 11/22/20 06:17 Potassium 4.1 mmol/L (3.5-5.1) 11/22/20 06:17 Chloride 103 mmol/L (98-107) 11/22/20 06:17 Magnesium 2.1 mg/dL (1.8-2.4) 11/22/20 06:17 Electrolytes, C-Reactive P, ESR: Reviewed - DM Control DM Control: Glucose 132 mg/dL (74-106) H 11/22/20 06:17 Insulin Dosing: N/A - Heart Failure/MN Heart Failure/MN: Troponin I < 0.05 ng/mL (<0.06) 11/21/20 16:05 EF%, JC's, B-Blockers, Diuretics: Reviewed (amlodipine, metoprolol) - BP Control BP Control: Blood Pressure 116/72 Blood Pressure 136/74 Blood Pressure 143/76 Blood Pressure 139/73 If elevated: Reviewed - Qtc Review If Elevated: Reviewed List meds needing interventions: QTc 446 on admission - IV to PO Switch IV Medications: Reviewed - Home Meds Home Med List reviewed: Intervened Relevent Home Meds Not ordered & why?: Acitretin (retinoid ), libtayo (iv q3w), dexamethasone (takes once weekly), SSD cream, testosterone, turmeric; oxycodone+diazepam+zolpidem= multiple [employer] depressants, increased sedation risk - Current meds Current Medication Order Review: Intervened (made some time changes per medical administrator policy) - Comments Comments/Follow Ups: Pneumonia bacterial vs. viral illness vs. tumor fever -- started on zosyn plus vancomycin, blood cultures are pending
--- NOTE | 2020-11-22 14:14 | PDOC.HHF2F_ITS ---
Home Health Certification Home Health Certification: 1. Encounter Date and Reason I certify that LIBERTY HAMMER was seen by Eben Martin on 11/22/20 and that I had a [id number] encounter with this patient that meets the physician face to face encounter requirements. 2. Clinical Findings Supporting Skilled Need and Homebound Status I certify that home health services are medically necessary, include either intermittent half-way and/or physical/speech therapy, and that this patient is homebound in that absences from the home require considerable and taxing effort and are infrequent or of short duration, or are attributable to the need to receive medical care. [X] (a) Attached documentation from encounter provides clinical findings supporting skilled need and homebound status (including what assistance patient requires to leave the home). The encounter with the patient was in whole, or in part, for the following medical condition, which is the primary reason for home health care: FEVER, GENERALIZED WEAKNESS, PNEUMONIA [facility]: nursing to monitor response to her medications and pain control. coordinate w/ PCP and specialists on any medication changes. M.S.W. to help coordinate patient's services and follow up w/ specialists and PCP Physical Therapy: home P.T. and O.T. to evaluate and treat for decreased ambulatory function and generalized weakness d/t Lyme disease and spinal stenosis. Speech Therapy: Homebound: Patient's back pain and leg weakness make it unsafe for her to travel outside her home to receive medical care/services 3. Certification and Authentication I certify that I composed the above information based on my clinical judgement relating to this patient's medical condition and, if applicable, clinical findings communicated to me by the NPP or inpatient physician who performed the Home Health Referral. All further orders will be obtained through Janina Reinoso (Community Based Physician - PCP)
--- NOTE | 2020-11-22 15:23 | W.PM.PROGNOT ---
Date of Service Date of service: 11/22/20 Time of Service: 15:23 Assessment and Plan Assessment and plan (1) Fever and chills: Status: Acute Assessment and plan: Think his fever and chills probably are secondary to cellulitis of his right leg. I do not feel that he has pneumonia based on his clinical exam and symptoms. I reviewed the CT scan I think he has some underlying fibrosis and COPD. We are awaiting his blood cultures. I will continue the vancomycin until we have ruled out MRSA. I change the Zosyn to high-dose penicillin G 2,500,000 units IV every 4 hours. I requested wound care consult from the nurse as well as a surgical consult to consider whether we need debridement of these skin lesions. 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 (4) Alcohol abuse: Status: Chronic Assessment and plan: Reportedly patient has a history of alcohol withdrawal. We are currently monitoring CIWA score but not treating him with any benzodiazepines or phenobarbital. His CIWA score has been 0-1. Most of his hospital stays have been short in and out overnight stays. He did have one recent stay in September from September 16-2019. He reportedly started to show some signs of withdrawal on the night prior to discharge was given a single dose of Ativan which improved his symptoms. For now we will continue to monitor with CIWA scores. If he shows signs of acute alcohol withdrawal I would recommend loading him with phenobarbital at 10-15 mg/kg (5) Multiple myeloma: Status: Chronic Subjective Subjective Interval history since last seen: Patient is an 80-year-old male with a history of multiple myeloma with axial skeletal lesions is stable chronic anemia but no renal dysfunction. He also has a history of squamous cell carcinoma of his right leg for which she has had radiation treatment and is currently receiving chemotherapy every 3 weeks he receives Libtayo. Last infusion was about a week ago. He is also on dexamethasone 40 mg weekly for his MM. He has PMH of dvt. He presented acute fever of 39.5 ?C and rigors. He says he has an occasional cough of light yellow mucus but not very much not very often. He has no shortness of breath no chest discomfort. CT scan of his chest and abdomen pelvis was performed last night was performed with contrast. V rad read as showing no evidence of pulmonary embolism and no pulmonary infiltrates. Again noted were scattered increased densities within the axial skeleton involving C7, T3, T4, T5 and T10. Of note our in-house radiologist reread this this morning and while she did not see evidence of pulmonary embolism she read as right lower lobe pneumonia versus atelectasis. Stable sclerotic bony lesions which she compared her prior CTA of the chest from September 16, 2020. Blood cultures were obtained last night and patient was started on vancomycin and Zosyn. He was also put on stress dose hydrocortisone 50 mg IV every 8 hours. In addition to not coughing up any significant sputum and not having any significant dyspnea he also denies any dysuria or change in bowel habits. He does have pain over his right leg where he had previous radiation treatment for squamous cell carcinoma. Right leg is erythematous and he has multiple round ulcerated lesions over the medial aspect of his right leg with a yellowish eschar base. Exam Narrative Exam Narrative: Elderly male lying in bed semifowler position who is alert and oriented person place time circumstance she is very hard of hearing but we were able to communicate by talking slowly and loudly through my mask. He is not a respiratory discomfort not short of breath not having any chest pain. He is afebrile stable vital signs with normal blood pressure not tachycardic. O2 saturation is 94% on room air. Lungs are clear to auscultation Heart regular rate and rhythm Abdomen soft and nontender lower extremities: Right leg has multiple ulcerated lesions that look purulent and there is surrounding erythema and induration. Objective Last Vital Signs Temp 36.8 C 11/22/20 11:13 Pulse 83 11/22/20 11:13 Resp 17 11/22/20 11:13 BP 116/72 11/22/20 11:13 Pulse Ox 94 11/22/20 11:13 Laboratory Results - last 24 hr 11/21/20 11/21/20 11/21/20 16:05 16:05 16:05 WBC RBC Hgb Hct MCV MCH MCHC RDW Plt Count MPV Immature Gran % Neutrophils % Lymphocytes % Monocytes % Eosinophils % Basophils % Nucleated RBC % Absolute Neutrophils Absolute Lymphocytes Absolute Monocytes Absolute Eosinophils Absolute Basophils PT 10.7 INR 1.1 APTT 26.8 VBG Lactate 1.7 H Sodium 139 Potassium 4.3 Chloride 101 Carbon Dioxide 24.7 Anion Gap 13.3 H BUN 16 Creatinine 1.1 Estimated GFR/1.73 m2 >= 60.00 Glucose 160 H Calcium 9.0 Magnesium 1.1 L Total Bilirubin 0.7 AST 12 L ALT 24 Alkaline Phosphatase 58 Troponin I < 0.05 Total Protein 7.0 Albumin 3.0 L Free T4 Urine Color Urine Clarity Urine pH Ur Specific [place] Urine Protein Urine Ketones Urine Blood Urine Nitrite Urine Bilirubin Urine Urobilinogen Ur Leukocyte Esterase Urine Glucose COVID-19 Source SARS-CoV-2 (PCR) Influenza Type A (PCR) Influenza Type B (PCR) RSV (PCR) 11/21/20 11/21/20 11/21/20 16:05 16:35 18:20 WBC 5.93 RBC 3.20 L Hgb 10.6 L Hct 32.5 L MCV 101.6 H MCH 33.1 H MCHC 32.6 RDW 14.8 H Plt Count 143 MPV 10.1 Immature Gran % 0.5 Neutrophils % 79.9 Lymphocytes % 14.5 Monocytes % 2.5 Eosinophils % 2.4 Basophils % 0.2 Nucleated RBC % 0 Absolute Neutrophils 4.74 Absolute Lymphocytes 0.86 L Absolute Monocytes 0.15 Absolute Eosinophils 0.14 Absolute Basophils 0.01 PT INR APTT VBG Lactate Sodium Potassium Chloride Carbon Dioxide Anion Gap BUN Creatinine Estimated GFR/1.73 m2 Glucose Calcium Magnesium Total Bilirubin AST ALT Alkaline Phosphatase Troponin I Total Protein Albumin Free T4 Urine Color Yellow Urine Clarity Clear Urine pH 5.5 Ur Specific [place] 1.015 Urine Protein Negative Urine Ketones 15 H Urine Blood Negative Urine Nitrite Negative Urine Bilirubin Negative Urine Urobilinogen 0.2 Ur Leukocyte Esterase Negative Urine Glucose Negative COVID-19 Source Nasopharynx SARS-CoV-2 (PCR) Negative Influenza Type A (PCR) Negative Influenza Type B (PCR) Negative RSV (PCR) Negative 11/21/20 11/22/20 11/22/20 21:26 06:17 06:17 WBC 6.01 RBC 3.07 L Hgb 10.1 L Hct 30.9 L MCV 100.7 H MCH 32.9 MCHC 32.7 RDW 14.9 H Plt Count 157 MPV 10.5 Immature Gran % 0.7 Neutrophils % 81.6 Lymphocytes % 14.8 Monocytes % 2.2 Eosinophils % 0.7 Basophils % 0.0 Nucleated RBC % 0 Absolute Neutrophils 4.91 Absolute Lymphocytes 0.89 L Absolute Monocytes 0.13 Absolute Eosinophils 0.04 Absolute Basophils 0.00 PT INR APTT VBG Lactate Sodium 139 Potassium 4.1 Chloride 103 Carbon Dioxide 26.1 Anion Gap 9.9 BUN 16 Creatinine 1.0 Estimated GFR/1.73 m2 >= 60.00 Glucose 127 H Calcium 8.8 Magnesium 2.1 Total Bilirubin AST ALT Alkaline Phosphatase Troponin I Total Protein Albumin Free T4 Urine Color Urine Clarity Urine pH Ur Specific [place] Urine Protein Urine Ketones Urine Blood Urine Nitrite Urine Bilirubin Urine Urobilinogen Ur Leukocyte Esterase Urine Glucose COVID-19 Source SARS-CoV-2 (PCR) Influenza Type A (PCR) Influenza Type B (PCR) RSV (PCR) 11/22/20 06:17 WBC RBC Hgb Hct MCV MCH MCHC RDW Plt Count MPV Immature Gran % Neutrophils % Lymphocytes % Monocytes % Eosinophils % Basophils % Nucleated RBC % Absolute Neutrophils Absolute Lymphocytes Absolute Monocytes Absolute Eosinophils Absolute Basophils PT INR APTT VBG Lactate Sodium 141 Potassium 4.1 Chloride 103 Carbon Dioxide 25.3 Anion Gap 12.7 H BUN 13 Creatinine 0.8 Estimated GFR/1.73 m2 >= 60.00 Glucose 132 H Calcium 9.1 Magnesium Total Bilirubin 0.6 AST 16 ALT 26 Alkaline Phosphatase 60 Troponin I Total Protein 7.3 Albumin 2.9 L Free T4 1.30 Urine Color Urine Clarity Urine pH Ur Specific [place] Urine Protein Urine Ketones Urine Blood Urine Nitrite Urine Bilirubin Urine Urobilinogen Ur Leukocyte Esterase Urine Glucose COVID-19 Source SARS-CoV-2 (PCR) Influenza Type A (PCR) Influenza Type B (PCR) RSV (PCR)
[2020-11-22] MEDS: Acetaminophen 325 MG TAB 650 MG PO (16:14)
--- NOTE | 2020-11-22 17:58 | WOUNDCONS ---
- If Service Date Differs Date of service: 11/22/20 Time of Service: 17:58 Wound Initial Evaluation Narrative: Patient is an 80 yom being treated here for pneumonia and cellulitis.
--- NOTE | 2020-11-22 18:14 | WOUNDCONS_ITS ---
- If Service Date Differs Date of service: 11/22/20 Time of Service: 18:00 Wound Initial Evaluation Narrative: Keiko is an 80- yom, seen here for pneumonia and cellulitis, with a pmx of multiple myeloma and squamous cell carcinoma. H&P labs and other pertinent treatment information was reviewed. - Wound Right Lower Tib/Fib(lower leg) Wound Type: Radiation Burn, Partial Thickness Wound General Appearance: Necrotic Wound Bed Lesser Portion: Red (Granulation) Wound Surrounding Tissue Appearance: Dark Red Percent of Wound Bed Granulated/Red: 70 Percent of Wound Bed Slough/Yellow: 30 Percent of Wound Bed Eschar/Black: 0 Wound Length: 24.9 cm Wound Width: 8.9 cm Wound Depth: 0.1 cm Wound Drainage Amount: Minimal Wound Drainage Odor: None/Absent Wound Drainage Description: Brown Wound Topical Solution/Irrigant: Enzymatic Irrigant Wound Debridement Method: Mechanical Wound Debridement Result: Yellow Sloughing Remains Wound Debridement Amount of Tissue Removed: Minimal - Circulation, Sensation, Motion Edema Degree: 1+ Peripheral Pulse Strength: Normal Capillary Refill: Less than 3 seconds Sensation Description: Pain (with debridement) Skin Temperature: Warm Skin Color: Erythema - VIOLETTA Comment:: not indicated - Pain Pain Level: 6 (with debridement) Pain Scale Used: Visual Analog Scale 0-10 Pain Description: Burning Pain Duration (Hours): 0 (pain only with debridement) Patient is being seen at [facility] for cancer treatment. He is been treating this wound topically at home with silvadene and a bandage. patient stated that he feels that wound has not gotten any better, and suggests that it is getting worse. - Treatment/Dressing Change Cleanse With: Anasept Dressing Types: Mepilex w/Border - Recomendation Recomendation:: Cleanse wound with anasept , then pat dry. Apply [facility]enac[facility] to the areas of slough. Cover with a mepilex, border. Change daily or prn. Physcian/Nurse Practioner Notified: Yes (DR. Martin) Treatment Time - Time Total Time Spent with Patient: 30 minutes - Patient Will be Seen Weekly Treatment: 1x/wk - For: For:: 1 week
[2020-11-22] MEDS: Docusate Sodium 100 MG CAP PO (20:00)
--- NOTE | 2020-11-22 20:01 | PDOC.CMIN ---
- If Service Date Differs Date of service: 11/22/20 Time of Service: 20:02 Care Management Initial Assess REASON FOR HOSPITALIZATION:: Fever, Generalized weakness, Pneumonia PAST MEDICAL HISTORY/PAST SURGICAL HISTORY:: Medical History . Abnormal prostate specific antigen. Abnormal weight loss. Actinic keratosis. Adenomatous colon polyp. Alcohol consumption heavy. Allergic rhinitis. Ataxic gait. Benign essential tremor. Bilateral artificial lens implant. BPH (benign prostatic hyperplasia). 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/13). Cancer related pain. Chronic insomnia. Cough. Diverticulosis. Diverticulosis. Erectile dysfunction. Essential hypertension. Ex-smoker. quit 1985. Frequent falls. GERD (gastroesophageal reflux disease). Gout. H/O supraventricular tachycardia. Heavy alcohol consumption. History of DVT (deep vein thrombosis). History of positive PPD. History of prediabetes. History of PSVT (paroxysmal supraventricular tachycardia). History of pulmonary embolism. History of urinary urgency (03/09/13). Hx of adenomatous colonic polyps. Hyperlipidemia. Hypertension. Hypogonadism. Impaired fasting glucose. Insomnia. Low testosterone in male. Lumbar back pain. Macrocytosis. Male hypogonadism. Memory impairment. Mild cognitive impairment. Myelodysplasia (myelodysplastic syndrome). Neutropenia. Ocular migraine. Osteoarthritis. Other and unspecified hyperlipidemia. Overactive bladder. Palliative care patient. Peripheral neuropathy. Personal history of venous thrombosis and embolism. Positive PPD. Preventative health care. Renal cyst. Sacroiliac joint pain. Shaking chills. Sleep apnea. Spinal stenosis in cervical region. Spondylosis. Spondylosis of cervical joint. 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 treated with radiation and chemo. chronic wound still; Dr Saenz is med onc. Subjective tinnitus. Urinary frequency. Vitamin D deficiency. Surgical History . Colonoscopy - IV Sedation. Cystoscopy. Extraction of cataract. BILAT. HERNIA REPAIR. History of intraocular lens implant. History of lumbar fusion (03/03/17). performed at [facility] [place] Dr. Hussein. Armando THUMB. RHINOPLASTY. S/P TURP. S/P TURP (status post transurethral resection of prostate) (03/18/14). Tonsillectomy and adenoidectomy. Total replacement of hip (05/13/16). RIGHT/DR. OLEA PREVIOUS FUNCTIONAL STATUS/SOCIAL/FAMILY SUPPORTS:: Carter lives in a single family, 2 story home in [place] with his of 54 years, Afsaneh. They have 2 sons, 2 granddaughters and 2 great granddaughters. He describes his family as supportive, although the children and grandchildren live in [place]. Until this recent illness Carter was active and independent, going to the gym and working out 7 days a week. he receives no community services. CURRENT FUNCTIONAL STATUS:: Carter was sitting up in bed when CM met with him. He was pleasant and engaged in conversation. He reported that he was very sick yesterday, so much so that he was talking to a relative. He stated that he is feeling much better today. He discussed details of his life, including being in the [employer], and then working for the [employer] service. Him and his would like to return to [place], but are waiting until Covid clears. He stated that his main goal currently is to return to the gym, but his back pain has been limiting his physical ability lately. CM will continue to follow. ADVANCE DIRECTIVES:: yes, but not on file. Will try to bring in copy. Has patient been provided with info about the portal/API?: Yes Did the patient sign up for the portal?: No CODE STATUS:: Full Code INSURANCE COVERAGE / FINANCIAL ISSUES:: [facility]/ for time. CURRENT HOME/COMMUNITY SERVICES/EQUIPMENT:: None. PRIMARY CARE PHYSICIAN:: Janina Reinoso POTENTIAL DISCHARGE NEEDS:: Follow up appointments PATIENT/FAMILY EDUCATION NEEDS:: Discharge plan, limitations, follow up, Ask Me Three ANTICIPATED BARRIERS TO DISCHARGE:: none TRANSPORTATION:: Via private vehicle by friends. His does not drive. PLAN:: Carter will likely return home with no new services. He will follow up with his commmunity providers and plan of care and transport with a friend. CM will continue to support Carter and assess for discharge needs.
[2020-11-22] MEDS: Atorvastatin 40 MG TAB PO (21:16)
[2020-11-23] VITALS (9 sets, daily range): BP systolic 125–161; BP diastolic 68–82; PULSE 56–75; RESP 17–18; TEMP 36.1–36.7; O2SAT 93–96
[2020-11-23] MEDS: Acetaminophen 325 MG TAB 650 MG PO (04:32)
[2020-11-23] MEDS: Normal Saline Flush 10 ML SYR IVP ×6 (06:18→21:55)
[2020-11-23] MEDS: Hydrocortisone SOD SUC. 100 MG VIAL 50 MG IVP ×3 (06:18→21:54)
[2020-11-23 07:19] LABS: Abs Immature Grans 0.02 10^3/uL (0.0-0.06); Absolute Eosinophil Count 0.07 10^3/uL (0.0-0.7); Absolute Lymphocyte Count 0.84 10^3/uL (1.2-3.4); Absolute Monocyte Count 0.11 10^3/uL (0.1-0.8); Absolute Neutrophil Count 2.87 10^3/uL (1.2-6.7); Eosinophils % 1.8; HCT 29.2 % (40.0-50.0); HGB 9.6 g/dL (13.5-17.5); Immature Grans % 0.5; Lymphocytes % 21.5; MCHC 32.9 % (32.0-36.0); MCV 100.3 fL (80-95); MPV 10.2 fL (8.0-11.0); Monocytes % 2.8; Neutrophils % 73.4; Nucleated RBC 0 %; Platelet Count 166 10^3/uL (130-400); RBC 2.91 10^6/uL (4.36-5.78); RDW 14.4 % (11.8-14.1); RDW-SD 53.1 fL; WBC 3.91 10^3/uL (4.4-10.8)
[2020-11-23 07:40] LABS: Anion Gap 10.5 mmol/L (3-11); BUN 13 mg/dL (7-18); C-Reactive Protein 7.89 mg/dL (0.0-0.3); CO2 26.5 mmol/L (21.0-32.0); CREATININE 0.9 mg/dL (0.70-1.30); Calcium 8.9 mg/dL (8.5-10.1); Chloride 107 mmol/L (98-107); Glucose 145 mg/dL (74-106); Potassium 3.7 mmol/L (3.5-5.1); Sodium 144 mmol/L (136-145)
[2020-11-23 07:53] LABS: Procalcitonin 0.7 ng/mL
[2020-11-23] MEDS: Metoprolol 25 MG TAB PO ×2 (08:04→19:36)
[2020-11-23] MEDS: Cholecalciferol (Vitamin D3) 1,000 UNIT TAB 1000 UNITS PO (08:04)
[2020-11-23] MEDS: Allopurinol 300 MG TAB PO (08:05)
[2020-11-23] MEDS: Fexofenadine 180 MG TAB PO (08:05)
[2020-11-23] MEDS: Omeprazole 20 MG CAPCR PO (08:05)
[2020-11-23] MEDS: amLODIPine 5 MG TAB PO (08:05)
[2020-11-23] MEDS: Docusate Sodium 100 MG CAP PO ×3 (08:05→19:37)
[2020-11-23] MEDS: Magnesium Oxide 400 MG TAB PO (08:05)
[2020-11-23] MEDS: Apixaban 5 MG TAB PO ×2 (08:05→19:37)
[2020-11-23] MEDS: Lactobacillus Acidophilus CAP 1 CAP PO (08:05)
[2020-11-23] MEDS: Cyanocobalamin 500 MCG TAB 1000 MCG PO (08:05)
[2020-11-23] MEDS: Thiamine 100 MG TAB PO (08:05)
[2020-11-23] MEDS: Multivitamin TAB 1 TAB PO (08:05)
[2020-11-23] MEDS: Prazosin 5 MG CAP PO ×2 (08:05→19:36)
[2020-11-23] MEDS: Acyclovir 400 MG TAB PO (08:06)
[2020-11-23] MEDS: oxyCODONE-CR 20 MG TABCR PO ×2 (08:06→19:36)
[2020-11-23] MEDS: Normal Saline 500 ML 100 ML IV (08:07)
[2020-11-23] MEDS: Ondansetron 4 MG/2 ML VIAL IVP (08:41)
--- NOTE | 2020-11-23 09:47 | SCONE_ITS ---
Date of service: 11/23/20 Time of Service: 09:48 Assessment and Plan Assessment and plan (1) Squamous cell carcinoma of right lower leg: Status: Acute Assessment and plan: Current regimen of dressing changes seems to be working very well. There is no indication for surgical debridement at this time. History of Present Illness History of Present Illness Chief Complaint: Multiple ulcerations right lower extremity Narrative: This 80-year-old gentleman with a diagnosis of multiple myeloma and squamous cell skin cancers of his right lower extremity. He was being treated for the skin cancers with radiation however developed ulcerations which were getting worse on Silvadene management and radiation was stopped. He was admitted with cellulitis around these ulcerations and fever. He was seen in consultation by wound care nurse. A new regimen of dressing changes was sta rted. Antibiotics were started and he has improved. [facility] Medical History Abnormal prostate specific antigen Abnormal weight loss Actinic keratosis Adenomatous colon polyp Alcohol consumption heavy Allergic rhinitis Ataxic gait Benign essential tremor Bilateral artificial lens implant BPH (benign prostatic hyperplasia) 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/13) Cancer related pain Chronic insomnia Cough Diverticulosis Diverticulosis Erectile dysfunction Essential hypertension Ex-smoker quit 1985 Frequent falls GERD (gastroesophageal reflux disease) Gout H/O supraventricular tachycardia Heavy alcohol consumption History of DVT (deep vein thrombosis) History of positive PPD History of prediabetes History of PSVT (paroxysmal supraventricular tachycardia) History of pulmonary embolism History of urinary urgency (03/09/13) Hx of adenomatous colonic polyps Hyperlipidemia Hypertension Hypogonadism Impaired fasting glucose Insomnia Low testosterone in male Lumbar back pain Macrocytosis Male hypogonadism Memory impairment Mild cognitive impairment Myelodysplasia (myelodysplastic syndrome) Neutropenia Ocular migraine Osteoarthritis Other and unspecified hyperlipidemia Overactive bladder Palliative care patient Peripheral neuropathy Personal history of venous thrombosis and embolism Positive PPD Preventative health care Renal cyst Sacroiliac joint pain Shaking chills Sleep apnea Spinal stenosis in cervical region Spondylosis Spondylosis of 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 Jovita COSTELLO RHINOPLASTY S/P TURP S/P TURP (status post transurethral resection of prostate) (12/19/13) Tonsillectomy and adenoidectomy Total replacement of hip (05/13/16) RIGHT/DR. OLEA Family History Mother , age 81 of pancreatic cancer with mets to liver Personal history of malignant neoplasm PANCREATIC/LIVER Father , from alcoholism and cardiomyopathy Heart disease Alcohol abuse Sister , in MVC age 37 due to motor vehicle traffic accident Brother Heart disease Brother Heart disease Mental disorder BIPOLAR Brother Hypertension Diabetes Hyperlipidemia Son Obesity Diabetes Son Arthritis Daughter No problems noted. Social History Smoking/Tobacco Use Status: Former Tobacco Use Tobacco: How many years used: 25 Smoking risk assessment performed?: Yes Alcohol Intake: current Alcohol Intake frequency: 3 or more drinks per day Alcohol type: beer, wine and hard liquor Counseling given: Yes Counseling provided: reduce to 2 or less/day Drug use: Never Substance use type: does not use Caregiver/Support person: Yes Household members: spouse Housing: house Number of Children: 3 Communication Needs: Corrective Lenses Education Level: college Do you need help understanding health information?: Often current occupation: retired from [employer] and from [employer] Pets and animals: No Current gender identity: male What is your relationship status?: How often do you talk on the phone with friends or family?: three or more times per week How often do you get together with friends or relatives?: never Panel score (0-1 are the most socially isolated patients): 2 What type of physical activity do you participate in: aerobic, regular exercise and weight lifting Duration: 30-45 minutes/day Frequency: 3-4 times per week Special geetha needs: No Seatbelt use: always Working smoke detector in home: Yes Fire extinguisher in home: Yes Firearms in home: Yes Do you feel safe at home: Yes Do you feel safe in your relationship?: Yes Additional Social history: to Thai , who is chronically ill with vertigo of unknown etiology. He started exercising regular when he was 33 yo; very hard for him not to be able to continue to exercise. Has a VERY unsteady gait; says he has fallen about 4 x in last 6 weeks. Says that PT doesn't help. He refuses to use a cane or walker, due to personal pride. Hard for him to access himself as both sick and older. Not interested in cutting back on etoh. Was planning on relocating to [facility] but cannot due to COVID. Exam Extrem Other: In the right lower extremity medially there are multiple ulcerations which are epidermal. At present surrounding erythema is much improved from the initial photo in the chart. The ulcerations have some shallow slough which is also improving on the dressing change regimen currently being used. Results Last Vital Signs Temp 97.7 F 11/23/20 07:28 Pulse 62 11/23/20 07:28 Resp 17 11/23/20 07:28 BP 155/82 H 11/23/20 07:28 Pulse Ox 94 11/23/20 07:28 Labs Result diagrams: 11/23/20 06:30 11/23/20 06:30 Labs: Laboratory Results - last 24 hr 11/22/20 11/23/20 11/23/20 06:17 06:30 06:30 WBC 3.91 L D RBC 2.91 L Hgb 9.6 L Hct 29.2 L MCV 100.3 H MCH 33.0 MCHC 32.9 RDW 14.4 H Plt Count 166 MPV 10.2 Immature Gran % 0.5 Neutrophils % 73.4 Lymphocytes % 21.5 Monocytes % 2.8 Eosinophils % 1.8 Basophils % 0.0 Nucleated RBC % 0 Absolute Neutrophils 2.87 Absolute Lymphocytes 0.84 L Absolute Monocytes 0.11 Absolute Eosinophils 0.07 Absolute Basophils 0.00 Sodium 141 144 Potassium 4.1 3.7 Chloride 103 107 Carbon Dioxide 25.3 26.5 Anion Gap 12.7 H 10.5 BUN 13 13 Creatinine 0.8 0.9 Estimated GFR/1.73 m2 >= 60.00 >= 60.00 Glucose 132 H 145 H Calcium 9.1 8.9 Total Bilirubin 0.6 AST 16 ALT 26 Alkaline Phosphatase 60 C-Reactive Protein 7.89 H Total Protein 7.3 Albumin 2.9 L Procalcitonin Free T4 1.30 11/23/20 06:30 WBC RBC Hgb Hct MCV MCH MCHC RDW Plt Count MPV Immature Gran % Neutrophils % Lymphocytes % Monocytes % Eosinophils % Basophils % Nucleated RBC % Absolute Neutrophils Absolute Lymphocytes Absolute Monocytes Absolute Eosinophils Absolute Basophils Sodium Potassium Chloride Carbon Dioxide Anion Gap BUN Creatinine Estimated GFR/1.73 m2 Glucose Calcium Total Bilirubin AST ALT Alkaline Phosphatase C-Reactive Protein Total Protein Albumin Procalcitonin 0.7 Free T4
[2020-11-23] MEDS: VANCOMYCIN/WATER (PEG) 1.25 GM/250 ML BAG IVPB ×2 (09:55→21:55)
--- NOTE | 2020-11-23 10:17 | NUR.NOTE ---
Nursing Note: Looked at the wound with DR. Ulloa. A surgical consult had been ordered for the patient. Wound was cleaned and debrided per wound order. Belle skin is now a pinkish color vs the dark red that it was yesterday. with debridement bleeding a small amount of granulation tissue were revealed at the base of some pustules. Dr. Ulloa has deferred to wound treatment as he felt surgical intervention was unnecessary
--- NOTE | 2020-11-23 12:14 | W.PM.PROGNOT ---
Date of Service Date of service: 11/23/20 Time of Service: 12:15 Assessment and Plan Assessment and plan (1) History of alcohol abuse: Status: Acute Assessment and plan: Scoring 0 on CIWA scale. (2) Squamous cell carcinoma of right lower leg: Status: Acute Assessment and plan: Hold his chemotx agent, Libtayo, while being treated for RLE cellulitis. (3) Cellulitis of leg, right: Status: Acute Assessment and plan: Improved. Ulceration of medial calf was cleansed and debrided of slough and necrotic tissue by wound care nurse. Cont current wound care. MRSA nasal swab result pending. Cont IV PCN G and Vancomycin today and plan to change to oral agent tomorrow when MRSA nasal swab result is available. Subjective Subjective Patient reports: feels better and afebrile; denies diarrhea, nausea, vomiting and shortness of breath Exam Const General: cooperative and no acute distress Nutritional Appearance: average body habitus Orientation: alert Resp Effort & Inspection: normal respiratory effort Auscultation: clear to auscultation bilaterally Cardio Rate: regular rate Rhythm: regular rhythm Heart Sounds: S1 normal and S2 normal GI Palpation: soft and nontender Skin Wounds: wounds noted (R leg ulcerations with bandages in place.) Extrem General: no pedal edema and no calf tenderness Objective Last Vital Signs Temp 36.6 C 11/23/20 11:15 Pulse 71 11/23/20 11:15 Resp 18 11/23/20 11:15 BP 161/80 H 11/23/20 11:15 Pulse Ox 95 11/23/20 11:15 Laboratory Results - last 24 hr 11/23/20 11/23/20 11/23/20 06:30 06:30 06:30 WBC 3.91 L D RBC 2.91 L Hgb 9.6 L Hct 29.2 L MCV 100.3 H MCH 33.0 MCHC 32.9 RDW 14.4 H Plt Count 166 MPV 10.2 Immature Gran % 0.5 Neutrophils % 73.4 Lymphocytes % 21.5 Monocytes % 2.8 Eosinophils % 1.8 Basophils % 0.0 Nucleated RBC % 0 Absolute Neutrophils 2.87 Absolute Lymphocytes 0.84 L Absolute Monocytes 0.11 Absolute Eosinophils 0.07 Absolute Basophils 0.00 Sodium 144 Potassium 3.7 Chloride 107 Carbon Dioxide 26.5 Anion Gap 10.5 BUN 13 Creatinine 0.9 Estimated GFR/1.73 m2 >= 60.00 Glucose 145 H Calcium 8.9 C-Reactive Protein 7.89 H Procalcitonin 0.7
[2020-11-23] MEDS: Gabapentin 100 MG CAP 200 MG PO (16:52)
--- NOTE | 2020-11-23 17:22 | PDOC.CMPRO ---
- If Service Date Differs Date of service: 11/23/20 Time of Service: 17:22 Care Management Progress Note S/O: Carter was lying in bed when CM met with him. He was pleasant and cooperative and engaged readily with CM, known to him from a previous admission. Carter shared the details of his current illness which began with shaking chills, fever and hallucinations. He talked about his skin cancer and the fact that he is a bit discouraged because he does not feel mhis leg wounds are getting any better. he did share that the wound nurse Martin examined and cleaned them today and told him that he felt there was definite improvement. Carter also talked about his who is not in the best health and the challenge that his recurrent illnesses have posed for both of them. He did tell CM that his of 55 years is very even tempered and a great source of support for him. Carter is unsure how long he will need to be hospitalized but hopes to go home tomorrow. He admitted with a smile, that he is mentally prepared to stay until Wednesday, if absolutely necessary. No promises after that he joked. A: Carter is a very pleasant 80 year old man admitted on 11/21/20 with fever, weakness and pneumonia. P: Carter will likely return home with no new services. He will follow up with his community providers and plan of care and transport with a friend. CM will continue to support Carter and assess for discharge needs.
[2020-11-23] MEDS: Atorvastatin 40 MG TAB PO (21:54)
[2020-11-24 03:39] VITALS: BP 110/54; PULSE 78; RESP 18; TEMP 36.8; O2SAT 96
[2020-11-24] MEDS: Acetaminophen 325 MG TAB 650 MG PO ×2 (03:42→08:23)
[2020-11-24] MEDS: Normal Saline Flush 10 ML SYR IVP ×2 (06:25→08:24)
[2020-11-24] MEDS: Hydrocortisone SOD SUC. 100 MG VIAL 50 MG IVP (06:25)
[2020-11-24 07:36] VITALS: BP 186/89; PULSE 64; RESP 20; TEMP 36.4; O2SAT 96
--- NOTE | 2020-11-24 08:00 | W.PM.DS.N ---
Date of service: 11/24/20 Time of Service: 08:03 DS: Diagnosis Discharge Diagnosis (1) History of alcohol abuse: Status: Acute (2) Squamous cell carcinoma of right lower leg: Status: Acute (3) Cellulitis of leg, right: Status: Acute Discharge Plan Disposition Patient Disposition: HOME Condition: Stable Discharge Details Reason For Visit: FEVER, GENERALIZED WEAKNESS, PNEUMONIA Admit Date/Time: 11/21/20 19:11 Admit Provider: Jayy Ramirez Attending Provider: Jayy Raimrez [facility] Hospital Course: This an 80-year-old man with history of active multiple myeloma and 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 He was brought to the emergency room by EMS with shaking chills and rigors for the past 2 days. Mr. Mattson described feeling like he was going to . He reported worse back pain, especially at the right nuchal area, and will weakness and fatigue, and mental fogginess during that time. He also did report more frequent cough and increased sputum during this time as well. He denied feeling short of breath, but he does feel more fatigue with any exertion. Of note, he received his first infusion of cemiplirab (Libtayo), and immune modulating monoclonal antibody agent that affects the PD1 pathway in T cells, 1 week prior to admission. He has also been taking 40 mg weekly of dexamethasone, which reports gives him few days of relief from pain. CT chest: No evidence of pulmonary embolism. Right lower lobe pneumonia versus atelectasis He did report 2-3 alcoholic beverages a day, but denied a history of overt withdrawal. Fever and sxs thought to be secondary to cellulitis. Zosyn and vancomycin were initially started, then changed to PCN G and Vancomycin. WBC count trend: 5.93 > 6.01 > 3.91. Wound care consulted as well as general surgery. Bedside debridement of RLE ulceration performed by wound care; necrotic tissue and slough removed. MRSA nasal swab was negative. With marked improvement in the RLE erythema and post-debridement, discharged to home on doxycycline for 7 days. Has follow up with Oncology this Wednesday, 11/27. F/U with PCP in 1-2 weeks. Home Meds and New Rx's Prescriptions: New amlodipine 5 mg Tablet 5 mg PO DAILY Qty: 0 RF: 0 doxycycline hyclate 100 mg capsule 100 mg PO BID Qty: 14 RF: 0 Continued oxycodone 20 mg tablet,oral only,ext.rel.12 hr 20 mg PO Q12H MDD 60 mg Qty: 60 RF: 0 montelukast 10 MG tablet 10 mg PO DAILY PRNRF: 0 allopurinol 300 MG tablet 300 mg PO DAILY RF: 0 prazosin 5 MG capsule 5 mg PO BID RF: 0 diazepam 5 MG tablet 5 mg PO HS PRN PRNRF: 0 fexofenadine 180 mg tablet 180 mg PO DAILY RF: 0 atorvastatin 40 mg tablet 40 mg PO HS RF: 0 zolpidem 10 mg tablet 10 mg PO QHS PRNRF: 0 cyanocobalamin (vitamin B-12) [Vitamin B-12] 1,000 mcg tablet 1,000 mcg PO DAILY RF: 0 Probiotic 15 billion cell capsule, sprinkle 1 cap PO DAILY RF: 0 pantothenic ac-glyc-pet,h anil Cream 1 applic topical TID RF: 0 fluticasone propionate [Flonase Allergy Relief] 9.9 ML spray,suspension 2 spray NS DAILY PRN PRNRF: 0 testosterone cypionate 200 MG/ML oil 1.5 ml IM .[id number] RF: 0 metoprolol tartrate 25 MG tablet 25 mg PO BID RF: 0 cholecalciferol (vitamin D3) 1,000 UNITS tablet 1,000 unit PO DAILY RF: 0 magnesium oxide 400 mg (241.3 mg magnesium) Tablet 400 mg PO DAILY RF: 0 thiamine mononitrate (vit B1) [Vitamin B-1 (mononitrate)] 100 mg Tablet 100 mg PO DAILY Qty: 30 RF: 0 turmeric root extract 500 mg Capsule 500 mg PO DAILY RF: 0 dexamethasone 4 mg tablet 40 mg PO QWEEK RF: 0 omeprazole 20 mg Capsule,Delayed Release(Dr/Ec) 20 mg PO DAILY RF: 0 ipratropium bromide 42 mcg (0.06 %) [place],Non-Aerosol 2 spray INTRANASAL TID PRNRF: 0 multivitamin Capsule 1 cap PO DAILY RF: 0 Libtayo 50 mg/mL Solution 350 mg IV Q3W RF: 0 acitretin 10 mg capsule 25 mg PO DAILY Qty: 0 RF: 0 albuterol sulfate [ProAir HFA] 90 mcg/actuation HFA aerosol inhaler 2 inh IH Q6H PRN (Reason: shortness of breath or wheezing) Qty: 18 RF: 0 oxycodone 5 mg tablet 5 - 10 mg PO Q6H PRN PRNRF: 0 Eliquis 5 mg tablet 5 mg PO BID RF: 0 Changed acyclovir 400 mg tablet 400 mg PO BID PRN PRNQty: 0 RF: 0 Discontinued silver sulfadiazine [SSD] 1 % cream 1 applic topical DIRECTED PRNRF: 0 Discharge Instructions Instructions: Cellulitis (DC) Additional Instructions: Cleanse wound with anasept , then pat dry. Apply [facility] to the areas of slough. Cover with a mepilex, border. Change daily or prn. Stand Alone Forms: Nursing Discharge Form Referrals: Oncology [Other] - 11/27/20 Janina Reinoso MD [Primary Care Provider] - (Please call Wednesday to make a follow up appt for 1-2 weeks.) Activity:: Activity as Tolerated Equipment/Supplies:: No Equipment Needed Diet:: Normal Diet Discharge Orders Discharge Orders: Discharge Order (Routine); Ordered 11/24/20 Ordered By: Ben Rangel Discharge Data Discharge Date/Time-TO BE ENTERED AT DEPARTURE: 11/24/20 09:51 DS: Summary Time Spent with Patient providing and/or coordinating discharge services: Greater than 30 minutes Status at Discharge Functional status at discharge: independent ambulation Overall status at discharge: patient is progressing back to baseline Mental Status: mental status grossly normal Speech and Movement: speech and movement normal Mood: congruent mood Affect: anxious affect Exam Narrative Exam Narrative: Lying in bed. Anxious to go home; he cares for a chronically ill . Const General: cooperative and no acute distress Nutritional Appearance: overweight Resp Effort & Inspection: normal respiratory effort Auscultation: clear to auscultation bilaterally Cardio Rate: regular rate Rhythm: regular rhythm Heart Sounds: S1 normal and S2 normal GI Palpation: soft and nontender Skin General skin exam: erythema (Minimal erythema) Lesions: no lesions (RLE ulcer with bandage in place. ) Extrem General: no pedal edema and no calf tenderness Psych Mental Status: mental status grossly normal Speech and Movement: speech and movement normal Mood: congruent mood Affect: anxious affect DS: Data Vitals/I&O Vitals and I&O: Vital Signs Temperature 36.4 C L 11/24/20 07:36 Temperature Source Tympanic 11/24/20 07:36 Pulse 64 11/24/20 07:36 Pulse Rhythm Regular 11/24/20 03:43 Pulse 89 11/21/20 20:10 Respiratory Rate 20 11/24/20 07:36 Respiratory Effort Non-Labored 11/24/20 03:43 Respiratory Depth Normal 11/24/20 03:43 Respiratory Pattern Normal 11/23/20 19:43 Blood Pressure 186/89 H 11/24/20 07:36 Blood Pressure Mean 63 11/21/20 20:01 Blood Pressure Position Supine 11/21/20 15:55 Pulse Oximetry 96 11/24/20 07:36 Oxygen Delivery Method Room Air 11/24/20 07:36 Oxygen Flow Rate 0 11/24/20 07:36 Pain Level 3 11/24/20 07:36 Comment 11/23/20 16:10 Intake & Output 11/23/20 11/23/20 11/24/20 11:59 23:59 11:59 Intake Total 1008.334 / 2078.334 1070 / 2078.334 100 / 100 Output Total 600 / 600 450 / 450 Balance 408.334 / 4495.509 6917 / 1478.334 -350 / -350 Intake: IV 1008.334 / 1528.334 520 / 1528.334 100 / 100 Oral 550 / 550 Output: Urine 600 / 600 450 / 450 Other: Urine Color Straw Straw Yellow Urine Appearance Clear Clear Clear Urine Odor Normal Normal Comment Void x1 in the urinal. Void x1 in the toilet. Voiding Methods Urinal Toilet Urinal Data Completed and Pending Labs on day of discharge: Labs from last 24 hours 11/24/20 09:00 Vancomycin Trough Pending Preliminary micro results at discharge 11/21/20 16:54 Blood Culture - Preliminary Blood NO GROWTH 48 HOURS 11/21/20 16:36 Blood Culture - Preliminary Blood NO GROWTH 48 HOURS [facility] Medical History Abnormal prostate specific antigen Abnormal weight loss Actinic keratosis Adenomatous colon polyp Alcohol consumption heavy Allergic rhinitis Ataxic gait Benign essential tremor Bilateral artificial lens implant BPH (benign prostatic hyperplasia) 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/13) Cancer related pain Chronic insomnia Cough Diverticulosis Diverticulosis Erectile dysfunction Essential hypertension Ex-smoker quit 1985 Frequent falls GERD (gastroesophageal reflux disease) Gout H/O supraventricular tachycardia Heavy alcohol consumption History of DVT (deep vein thrombosis) History of positive PPD History of prediabetes History of PSVT (paroxysmal supraventricular tachycardia) History of pulmonary embolism History of urinary urgency (03/09/13) Hx of adenomatous colonic polyps Hyperlipidemia Hypertension Hypogonadism Impaired fasting glucose Insomnia Low testosterone in male Lumbar back pain Macrocytosis Male hypogonadism Memory impairment Mild cognitive impairment Myelodysplasia (myelodysplastic syndrome) Neutropenia Ocular migraine Osteoarthritis Other and unspecified hyperlipidemia Overactive bladder Palliative care patient Peripheral neuropathy Personal history of venous thrombosis and embolism Positive PPD Preventative health care Renal cyst Sacroiliac joint pain Shaking chills Sleep apnea Spinal stenosis in cervical region Spondylosis Spondylosis of cervical joint 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 Jovita Roberts THUMB RHINOPLASTY S/P TURP S/P TURP (status post transurethral resection of prostate) (12/19/13) Tonsillectomy and adenoidectomy Total replacement of hip (05/13/16) RIGHT/DR. OLEA Family History Mother , age 81 of pancreatic cancer with mets to liver Personal history of malignant neoplasm PANCREATIC/LIVER Father , from alcoholism and cardiomyopathy Heart disease Alcohol abuse Sister , in MVC age 37 due to motor vehicle traffic accident Brother Heart disease Brother Heart disease Mental disorder BIPOLAR Brother Hypertension Diabetes Hyperlipidemia Son Obesity Diabetes Son Arthritis Daughter No problems noted. Social History Smoking/Tobacco Use Status: Former Tobacco Use Tobacco: How many years used: 25 Smoking risk assessment performed?: Yes Alcohol Intake: current Alcohol Intake frequency: 3 or more drinks per day Alcohol type: beer, wine and hard liquor Counseling given: Yes Counseling provided: reduce to 2 or less/day Drug use: Never Substance use type: does not use Caregiver/Support person: Yes Household members: spouse Housing: house Number of Children: 3 Communication Needs: Corrective Lenses Education Level: college Do you need help understanding health information?: Often current occupation: retired from [employer] and from [employer] Pets and animals: No Current gender identity: male What is your relationship status?: How often do you talk on the phone with friends or family?: three or more times per week How often do you get together with friends or relatives?: never Panel score (0-1 are the most socially isolated patients): 2 What type of physical activity do you participate in: aerobic, regular exercise and weight lifting Duration: 30-45 minutes/day Frequency: 3-4 times per week Special geetha needs: No Seatbelt use: always Working smoke detector in home: Yes Fire extinguisher in home: Yes Firearms in home: Yes Do you feel safe at home: Yes Do you feel safe in your relationship?: Yes Additional Social history: to Irish , who is chronically ill with vertigo of unknown etiology. He started exercising regular when he was 33 yo; very hard for him not to be able to continue to exercise. Has a VERY unsteady gait; says he has fallen about 4 x in last 6 weeks. Says that PT doesn't help. He refuses to use a cane or walker, due to personal pride. Hard for him to access himself as both sick and older. Not interested in cutting back on etoh. Was planning on relocating to [facility] but cannot due to COVID.
[2020-11-24] MEDS: Prazosin 5 MG CAP PO (08:22)
[2020-11-24] MEDS: Metoprolol 25 MG TAB PO (08:22)
[2020-11-24] MEDS: Allopurinol 300 MG TAB PO (08:22)
[2020-11-24] MEDS: oxyCODONE-CR 20 MG TABCR PO (08:22)
[2020-11-24] MEDS: Cholecalciferol (Vitamin D3) 1,000 UNIT TAB 1000 UNITS PO (08:22)
[2020-11-24] MEDS: Lactobacillus Acidophilus CAP 1 CAP PO (08:23)
[2020-11-24] MEDS: Magnesium Oxide 400 MG TAB PO (08:23)
[2020-11-24] MEDS: Thiamine 100 MG TAB PO (08:23)
[2020-11-24] MEDS: Fexofenadine 180 MG TAB PO (08:23)
[2020-11-24] MEDS: amLODIPine 5 MG TAB PO (08:23)
[2020-11-24] MEDS: Docusate Sodium 100 MG CAP PO (08:23)
[2020-11-24] MEDS: Multivitamin TAB 1 TAB PO (08:23)
[2020-11-24] MEDS: Cyanocobalamin 500 MCG TAB 1000 MCG PO (08:23)
[2020-11-24] MEDS: Omeprazole 20 MG CAPCR PO (08:23)
[2020-11-24] MEDS: Apixaban 5 MG TAB PO (08:24)
[2020-11-24 08:30] VITALS: BP 158/62
--- NOTE | 2020-11-24 10:07 | PDOC.CMDIS ---
- If Service Date Differs Date of service: 11/24/20 Time of Service: 10:07 LACE Index Scoring Tool - Questions: Length of Stay (in days): 3 Acuity (Admit via E.D.?): Yes Comorbidities: Any Tumor E.D. Visits: 4 - Answers: Total Score: 12 Risk of Readmission: High Risk Care Management Discharge Reason for Hospitalization: Fever, Generalized weakness, Pneumonia Discharge Plan: Carter will return home with no new services. He will follow up with his commmunity providers and plan of care and transport with a friend. Patient/Family Education Needs: Discharge plan, limitations, follow up, Ask Me Three
[2020-11-25 09:57] LABS: IgA 775 mg/dL (85-499); IgG 224 mg/dL (610-1,616); IgM 17 mg/dL (35-242); Kappa Free Light Chain 0.55 mg/dL (0.33-1.94); Lambda Free Light Chain <0.44 mg/dL (0.57-2.63)
[2020-11-25 13:51] LABS: Comment (See Note); Monoclonal Spike 15.6 % (None Seen); Total Protein 6.4 g/dL (6.3-8.2)
== END 2020-11-24 09:51 | disposition home or self-care (01) | DRG 603 ==
LOC: ER 20:24 → MS 20:42
PROVIDERS: Internal Medicine; Internal Medicine Hematology & Oncology; Nurse Practitioner Adult Health; Admitting Provider Family Medicine; Emergency Provider Physician Assistant; PCP Family Medicine; Visit Provider Family Medicine
DX: L03.115 Cellulitis of right lower limb (principal); C90.00 Multiple myeloma not having achieved remission; Z86.718 Personal history of other venous thrombosis and embolism; Z86.711 Personal history of pulmonary embolism; Z79.01 Long term (current) use of anticoagulants; C44.722 Squamous cell carcinoma of skin of right lower limb, including hip; G89.3 Neoplasm related pain (acute) (chronic); F10.10 Alcohol abuse, uncomplicated; E83.42 Hypomagnesemia; E29.1 Testicular hypofunction; Z79.890 Hormone replacement therapy; Z87.891 Personal history of nicotine dependence; K21.9 Gastro-esophageal reflux disease without esophagitis; G25.0 Essential tremor; F51.04 Psychophysiologic insomnia; R29.6 Repeated falls; R26.0 Ataxic gait; E78.9 Disorder of lipoprotein metabolism, unspecified; D70.9 Neutropenia, unspecified; M19.90 Unspecified osteoarthritis, unspecified site; G47.30 Sleep apnea, unspecified; M48.02 Spinal stenosis, cervical region; J44.9 Chronic obstructive pulmonary disease, unspecified; D75.89 Other specified diseases of blood and blood-forming organs; T24.291A Burn of second degree of multiple sites of right lower limb, except ankle and foot, initial encounter; Y84.2 Radiological procedure and radiotherapy as the cause of abnormal reaction of the patient, or of later complication, without mention of misadventure at the time of the procedure
CPT/HCPCS: 36415; 71275; 74177; 80048; 80053; 82784; 84145; 87040; 87081; 87637; 93005; 96361; 96365; 96366; 96368; 96375; 99221; 99222; 99232; 99233; 99239; 99285; 80202; 81003; 83605; 83735; 83883; 84165; 84439; 84484; 85025; 85610; 85730; 86140; 93010; J0131; J1720; J2405; J2540; J2543; J3490

== ENCOUNTER 2020-12-15 19:17 | Emergency (ER) | payer MEDICARE, OTHER, SELFPAY ==
[2020-12-15] VITALS (22 sets, daily range): BP systolic 105–175; BP diastolic 36–70; PULSE 96–118; RESP 16–30; TEMP 36.4; O2SAT 87–93
--- NOTE | 2020-12-15 19:30 | RT.EKG_ITS ---
APPROVED REPORT Exam: Resting ECG Patient Location: E HR:103 bpm ECG Measurements Heart Rate 103 AXIS VT 164 P 25 QRSd 102 QRS 57 QT 347 T 29 QTc 451 Conclusion Sinus tachycardia...rate> 99 Atrial premature complexes...SV complexes w/ short R-R intvls
--- NOTE | 2020-12-15 19:30 | DI.CT_ITS ---
EXAM: CT LOWER EXTREMITY RT W CLINICAL HISTORY: Wounds, Purulent cellulitis. TECHNIQUE: Imaging Protocol: Axial computed tomography images with coronal and sagittal reformatted images were created and reviewed. CONTRAST MATERIAL: Intravenous: Omnipaque 350 Contrast volume:structured data in ml Contrast route:I V - Oral: yes / no COMPARISON: CT CT CHEST PE ABD PELVIS W from 11/21/2020 FINDINGS: Osseous: No fracture evident. No lytic or blastic osseous lesions evident. Soft tissues: No evidence of knee joint effusion. There is edema throughout the subcutaneous soft tissue both sides of the calf but without a drainable fluid collection. This edema extends into the foot. There is no radiopaque foreign body. Vessels: There is atherosclerotic disease of the arteries. No embolus in the popliteal vein. No nenita dence of popliteal artery aneurysm. IMPRESSION: Diffuse subcutaneous edema. No drainable fluid collection. No osseous lesions. RADIATION DOSE DELIVERED: Total DLP DATA REPOSITORY: All CT scans at this facility are submitted to the National Radiology Data Registry (NRDR) Dose Index Registry (DIR) with the [employer] (ACR). RADIATION OPTIMIZATION: All CT scans at this facility use at least one of these dose optimization te chniques: automated exposure control; mA and/or kV adjustment per patient size (includes targeted exa ms where dose is matched to clinical indication); or iterative reconstruction.
--- NOTE | 2020-12-15 19:45 | DI.CT_ITS ---
EXAM: CT CHEST PE CTA CLINICAL HISTORY: R/O Pneumonia, Hx of PE, Tachycardia. TECHNIQUE: Imaging Protocol: CT angiography of the chest was performed using pulmonary embolus jacob col. Multi planar reconstructions were performed. CONTRAST MATERIAL: Intravenous: Omnipaque 350 Contrast volume: 100 cc COMPARISON: CT CT CHEST PE ABD PELVIS W from 11/21/2020 FINDINGS: CHEST: PULMONARY ARTERIES: There are no intraluminal filling defects to suggest acute pulmonary emboli. LUNGS: There are no infiltrates nor evidence of pulmonary infarction.. There are no pleural effusions . MEDIASTINUM: There is no hilar nor mediastinal adenopathy. Visualized thyroid unremarkable. CARDIAC: Cardiomegaly noted. There is no pericardial effusion.Caliber of the thoracic aorta is withi n normal limits. There is no evidence of shift of the interventricular septum. PARTIALLY VISUALIZED UPPERMOST ABDOMEN: No obvious findings OSSEOUS: Sclerotic osseous metastatic disease again noted in the thoracic spinal column.There is no a cute compromise of the thoracic spinal column.. IMPRESSION: 1. No evidence of acute pulmonary emboli. No evidence of pulmonary infarction.No pleural effusions. 2. Osseous metastatic blastic disease again noted. 3. RADIATION DOSE DELIVERED: LINK-TO-SR Total DLP DATA REPOSITORY: All CT scans at this facility are submitted to the National Radiology Data Registry (NRDR) Dose Index Registry (DIR) with the [employer] (ACR). RADIATION OPTIMIZATION: All CT scans at this facility use at least one of these dose optimization te chniques: automated exposure control; mA and/or kV adjustment per patient size (includes targeted exa ms where dose is matched to clinical indication); or iterative reconstruction.
--- NOTE | 2020-12-15 19:56 | ED.GENADUL_ITS ---
Discharge Plan Disposition Patient Disposition: [facility] Condition: Improving Discharge Details Clinical Impression: Cellulitis of leg, right, SIRS (systemic inflammatory response syndrome) Primary Care Provider: Janina Reinoso ED Provider: Sonia Ho Arnold Meds and New Rx's Prescriptions: No Action oxycodone 30 mg tablet,oral only,ext.rel.12 hr 30 mg PO Q12H MDD 60 mg Qty: 60 RF: 0 oxycodone 10 mg tablet 10 mg PO Q4H MDD 40 mg PRN (Reason: pain) Qty: 60 RF: 0 montelukast 10 MG tablet 10 mg PO DAILY PRNRF: 0 allopurinol 300 MG tablet 300 mg PO DAILY RF: 0 prazosin 5 MG capsule 5 mg PO BID RF: 0 diazepam 5 MG tablet 5 mg PO HS PRN PRNRF: 0 fexofenadine 180 mg tablet 180 mg PO DAILY RF: 0 atorvastatin 40 mg tablet 40 mg PO HS RF: 0 zolpidem 10 mg tablet 10 mg PO QHS PRNRF: 0 cyanocobalamin (vitamin B-12) [Vitamin B-12] 1,000 mcg tablet 1,000 mcg PO DAILY RF: 0 pantothenic ac-glyc-pet,h anil Cream 1 applic topical TID RF: 0 fluticasone propionate [Flonase Allergy Relief] 9.9 ML spray,suspension 2 spray NS DAILY PRN PRNRF: 0 testosterone cypionate 200 MG/ML oil 1.5 ml IM .[id number] RF: 0 metoprolol tartrate 25 MG tablet 25 mg PO BID RF: 0 cholecalciferol (vitamin D3) 1,000 UNITS tablet 1,000 unit PO DAILY RF: 0 magnesium oxide 400 mg (241.3 mg magnesium) Tablet 400 mg PO DAILY RF: 0 thiamine mononitrate (vit B1) [Vitamin B-1 (mononitrate)] 100 mg Tablet 100 mg PO DAILY Qty: 30 RF: 0 turmeric root extract 500 mg Capsule 500 mg PO DAILY RF: 0 dexamethasone 4 mg tablet 40 mg PO QWEEK RF: 0 omeprazole 20 mg Capsule,Delayed Release(Dr/Ec) 20 mg PO DAILY RF: 0 ipratropium bromide 42 mcg (0.06 %) [place],Non-Aerosol 2 spray INTRANASAL TID PRNRF: 0 Libtayo 50 mg/mL Solution 350 mg IV Q3W RF: 0 amlodipine 5 mg Tablet 5 mg PO DAILY Qty: 0 RF: 0 doxycycline hyclate 100 mg capsule 100 mg PO BID Qty: 14 RF: 0 acitretin 10 mg capsule 25 mg PO DAILY Qty: 0 RF: 0 acyclovir 400 mg tablet 400 mg PO BID PRN PRNQty: 0 RF: 0 albuterol sulfate [ProAir HFA] 90 mcg/actuation HFA aerosol inhaler 2 inh IH Q6H PRN (Reason: shortness of breath or wheezing) Qty: 18 RF: 0 Eliquis 5 mg tablet 5 mg PO BID RF: 0 Discharge Data Discharge Date/Time-TO BE ENTERED AT DEPARTURE: 12/15/20 23:38 Medical Decision Making 80-year-old male presents to the ED chief complaint fatigue, diaphoresis, and, increased pain to his right lower extremity. He has a hx of Multiple myeloma, Admitted here 1 month ago for Pneumonia, He does endorse Rigors, took 1gm Tylenol PO [employer]. He is due for Chemo infusion tomorrow. Primary initial exam he is tachycardic 117, temperature 36.4, blood pressure is 125/70. O2 sat 93% on room air. Alert and oriented x3. 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 Initial work-up including CBC, CMP, EKG right lower extremity, CT chest PE study. Lactate 3.0 NS 1 L bolus ordered and Cefazolin. 2128: [facility] Transfer Center Paged for possible transfer for RLE cellulitis, And Hx of CA. Patient in DI at this time. Patient soft on O2 saturation 88%-93% RA. 2201: Spoke with Dr. Harrison with Heme/onc at [facility] regarding patient case and details, he does agree that patient may need to be transferred for further care to [facility], Transfer Center to speak with Hospitalist and call back. 2229: Spoke with Dr. Kuo with [facility] Hospitalist team who agrees to accept patient for Transfer. Patient and family aware of Plan of care. RLE cellulitis. HPI General Mode of arrival: EMS . Date/Time Provider Initiated Documentation: 12/15/20 19:37 . Limitations to Documentation: no limitations . Information obtained by: patient and RN notes reviewed . HPI Narrative: 80-year-old male presents to the ED chief complaint fatigue, diaphoresis, and, increased pain to his right lower extremity. He has a hx of Multiple myeloma, Admitted here 1 month ago for Pneumonia, He does endorse Rigors, took 1gm Tylenol PO [employer]. He is due for Chemo infusion tomorrow. Primary initial exam he is tachycardic 117, temperature 36.4, blood pressure is 125/70. O2 sat 93% on room air. Alert and oriented x3. 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 Related Data Home Medications Medication Instructions Recorded Confirmed allopurinol 300 mg PO DAILY 12/29/12 12/10/20 montelukast 10 mg PO DAILY PRN tab-cap 12/29/12 12/10/20 fluticasone propionate [Flonase 2 spray NS DAILY PRN PRN 05/07/16 12/10/20 Allergy Relief] cholecalciferol (vitamin D3) 1,000 unit PO DAILY 05/12/16 12/10/20 metoprolol tartrate 25 mg PO BID 05/12/16 12/10/20 testosterone cypionate 1.5 ml IM .[id number] 05/12/16 12/10/20 diazepam 5 mg PO HS PRN PRN 05/31/17 12/10/20 prazosin 5 mg PO BID 05/31/17 12/10/20 albuterol sulfate [ProAir HFA] 2 inh IH Q6H PRN #18 gm 10/18/19 12/10/20 atorvastatin 40 mg tablet 40 mg PO HS 03/13/20 12/10/20 cyanocobalamin (vitamin B-12) 1,000 mcg PO DAILY 03/13/20 12/10/20 1,000 mcg tablet fexofenadine 180 mg tablet 180 mg PO DAILY 03/13/20 12/10/20 zolpidem 10 mg tablet 10 mg PO QHS PRN tab 03/13/20 12/10/20 magnesium oxide 400 mg PO DAILY 07/04/20 12/10/20 thiamine mononitrate (vit B1) 100 mg PO DAILY #30 tab 07/04/20 12/10/20 [Vitamin B-1 (mononitrate)] Eliquis 5 mg PO BID 09/17/20 12/10/20 pantothenic ac-glyc-pet,h anil 1 applic TOPICAL TID 11/06/20 12/10/20 topical cream Libtayo 350 mg IV Q3W 11/21/20 12/10/20 dexamethasone 40 mg PO QWEEK 11/21/20 12/10/20 ipratropium bromide 2 spray INTRANASAL TID PRN 11/21/20 12/10/20 omeprazole 20 mg PO DAILY 11/21/20 12/10/20 turmeric root extract 500 mg PO DAILY 11/21/20 12/10/20 acitretin 25 mg PO DAILY #0 cap 11/24/20 12/10/20 acyclovir 400 mg PO BID PRN PRN #0 tab 11/24/20 12/10/20 amlodipine 5 mg PO DAILY #0 tab 11/24/20 12/10/20 doxycycline hyclate 100 mg PO BID #14 cap 11/24/20 12/10/20 oxycodone 10 mg tablet 10 mg PO Q4H PRN #60 tab MDD 40 mg 12/10/20 12/10/20 oxycodone 30 mg tablet,crush 30 mg PO Q12H #60 tab MDD 60 mg 12/10/20 12/10/20 resistant,extended release 12 hr Previous Rx's Medication Instructions Recorded albuterol sulfate [ProAir HFA] 2 inh IH Q6H PRN #18 gm 10/18/19 thiamine mononitrate (vit B1) 100 mg PO DAILY #30 tab 07/04/20 [Vitamin B-1 (mononitrate)] acitretin 25 mg PO DAILY #0 cap 11/24/20 acyclovir 400 mg PO BID PRN PRN #0 tab 11/24/20 amlodipine 5 mg PO DAILY #0 tab 11/24/20 doxycycline hyclate 100 mg PO BID #14 cap 11/24/20 oxycodone 10 mg tablet 10 mg PO Q4H PRN #60 tab MDD 40 mg 12/10/20 oxycodone 30 mg tablet,crush 30 mg PO Q12H #60 tab MDD 60 mg 12/10/20 resistant,extended release 12 hr Allergies Allergy/AdvReac Type Severity Reaction Status Date / Time Sulfa (Sulfonamide Allergy as a Verified 12/15/20 19:14 Antibiotics) child, unsure codeine AdvReac Intermediate sick to Verified 12/15/20 19:14 stomach oxycodone [Oxycodone] AdvReac respiratory Verified 12/15/20 19:14 depression General Stated Complaint: GenMedical CLYDE: 3 Review of Systems Narrative: Constitutional: Negative for weight loss, alert and oriented, well groomed, normal body habitus, appears uncomfortable. Positive for fatigue, d iaphoresis, rigors. HEENT: Denies trauma, , blurry vision, nasal discharge, sore throat, trouble swa llowing. Chest: Denies chest pain, irregular rhythm. Respiratory: Denies Shortness of breath, hemoptysis. History of PE and pneumonia. GI: Denies abdominal pain, vomiting, diarrhea, constipation. : Denies dysuria, hematuria, flank pain, rectal bleeding. Musculoskeletal: Does have open wound history of squamous cell carcinoma to his right lower extremity is draining which she reports is new. Neuro: Denies dizziness, blurry vision, syncope, or facial numbness. Hematologic: Denies easy bruising, intolerance to heat or cold, hair loss. [facility] Medical History Abnormal prostate specific antigen Abnormal weight loss Actinic keratosis Adenomatous colon polyp Alcohol consumption heavy Allergic rhinitis Ataxic gait Benign essential tremor Bilateral artificial lens implant BPH (benign prostatic hyperplasia) 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/13) Cancer related pain Chronic insomnia Cough Diverticulosis Diverticulosis Erectile dysfunction Essential hypertension Ex-smoker quit 1985 Frequent falls GERD (gastroesophageal reflux disease) Gout H/O supraventricular tachycardia Heavy alcohol consumption History of DVT (deep vein thrombosis) History of positive PPD History of prediabetes History of PSVT (paroxysmal supraventricular tachycardia) History of pulmonary embolism History of urinary urgency (03/09/13) Hx of adenomatous colonic polyps Hyperlipidemia Hypertension Hypogonadism Impaired fasting glucose Insomnia Low testosterone in male Lumbar back pain Macrocytosis Male hypogonadism Memory impairment Mild cognitive impairment Myelodysplasia (myelodysplastic syndrome) Neutropenia Ocular migraine Osteoarthritis Other and unspecified hyperlipidemia Overactive bladder Palliative care patient Peripheral neuropathy Personal history of venous thrombosis and embolism Positive PPD Preventative health care Renal cyst Sacroiliac joint pain Shaking chills Sleep apnea Spinal stenosis in cervical region Spondylosis Spondylosis of cervical joint 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 Jovita Roberts THUMB RHINOPLASTY S/P TURP S/P TURP (status post transurethral resection of prostate) (12/19/13) Tonsillectomy and adenoidectomy Total replacement of hip (05/13/16) RIGHT/DR. OLEA Family History Mother , age 81 of pancreatic cancer with mets to liver Personal history of malignant neoplasm PANCREATIC/LIVER Father , from alcoholism and cardiomyopathy Heart disease Alcohol abuse Sister , in MVC age 37 due to motor vehicle traffic accident Brother Heart disease Brother Heart disease Mental disorder BIPOLAR Brother Hypertension Diabetes Hyperlipidemia Son Obesity Diabetes Son Arthritis Daughter No problems noted. Social History Smoking/Tobacco Use Status: Former Tobacco Use Tobacco: How many years used: 25 Smoking risk assessment performed?: Yes Alcohol Intake: current Alcohol Intake frequency: 3 or more drinks per day Alcohol type: beer, wine and hard liquor Counseling given: Yes Counseling provided: reduce to 2 or less/day Drug use: Never Substance use type: does not use Details: vodka/wine drink [employer] Caregiver/Support person: Yes Household members: spouse Housing: house Number of Children: 3 Communication Needs: Corrective Lenses Education Level: college Do you need help understanding health information?: Often current occupation: retired from [employer] and from [employer] Pets and animals: No Current gender identity: male What is your relationship status?: How often do you talk on the phone with friends or family?: three or more times per week How often do you get together with friends or relatives?: never Panel score (0-1 are the most socially isolated patients): 2 What type of physical activity do you participate in: aerobic, regular exercise and weight lifting Duration: 30-45 minutes/day Frequency: 3-4 times per week Special geetha needs: No Seatbelt use: always Working smoke detector in home: Yes Fire extinguisher in home: Yes Firearms in home: Yes Do you feel safe at home: Yes Do you feel safe in your relationship?: Yes Additional Social history: to [place] , who is chronically ill with vertigo of unknown etiology. He started exercising regular when he was 33 yo; very hard for him not to be able to continue to exercise. Has a VERY unsteady gait; says he has fallen about 4 x in last 6 weeks. Says that PT doesn't help. He refuses to use a cane or walker, due to personal pride. Hard for him to access himself as both sick and older. Not interested in cutting back on etoh. Was planning on relocating to [facility] but cannot due to COVID. Exam Narrative Exam Narrative: Constitutional: Alert and oriented x3. Appears stated age. Normal body habitus. Head: Normocephalic, no trauma. Eyes: Pupils PERRLA, Red reflex noted, EOM's intact. Eyelids symmetrical without lesions, discharge, or swelling. ENT: Bilateral TM's WNL, External ear normal to inspection, no mastoid TTP, swelling, or erythema, Nasal turbinates WNL, no nasal discharge. Normal dentition, Posterior pharynx WNL, no exudate. Chest: Tachycardic, normal S1, S2, distal pulses intact. Resp: Lungs clear to auscultation bilaterally, no wheezes, rales, or rhonchi. Abdomen: Soft not distended nontender to palpation all 4 quadrants. Musculoskeletal: Unable to assess gait. Have some drainage from the lesion right lower extremity medial aspect, multiple scattered ulcerative lesions with surrounding erythema warmth. Skin: Capillary refill less than 2 sec. Neurologic: Cranial nerves II-XII intact. Alert and oriented x 3. Hematologic/Lymphatic: No ecchymosis, no lymphadenopathy. Extrem Upper/lower leg/hip images: 1. Erythema, induration and warmth, scattered ulcerative time lesions with yellow serosanguinous drainage. Course Vital Signs Vital signs: Vital Signs Temperature 36.4 C L 12/15/20 19:08 Pulse 110 H 12/15/20 19:08 Respiratory Rate 22 12/15/20 19:08 Blood Pressure 175/70 H 12/15/20 19:08 Pulse Oximetry 93 12/15/20 19:08 Temperature 36.4 C L 12/15/20 19:08 Temperature Source Skin 12/15/20 19:08 Pulse 110 H 12/15/20 19:08 Respiratory Rate 22 12/15/20 19:08 Respiratory Effort Non-Labored 12/15/20 19:15 Blood Pressure 175/70 H 12/15/20 19:08 Blood Pressure Position Sitting 12/15/20 19:08 Pulse Oximetry 93 12/15/20 19:08 Oxygen Delivery Method Room Air 12/15/20 19:08 Oxygen Flow Rate 0 12/15/20 19:08 Pain Level 5 12/15/20 19:08 Lab/Test Results Lab/Test Results: 12/15/20 19:38 Blood Blood Culture - Pending 12/15/20 19:38 Blood Blood Culture - Pending
[2020-12-15 20:04] LABS: Abs Immature Grans 0.03 10^3/uL (0.0-0.06); Absolute Eosinophil Count 0.02 10^3/uL (0.0-0.7); Absolute Lymphocyte Count 0.49 10^3/uL (1.2-3.4); Absolute Monocyte Count 0.06 10^3/uL (0.1-0.8); Absolute Neutrophil Count 4.09 10^3/uL (1.2-6.7); Eosinophils % 0.4; HCT 32.6 % (40.0-50.0); HGB 10.2 g/dL (13.5-17.5); Immature Grans % 0.6; Lymphocytes % 10.4; MCH 32.4 pg (27.0-33.0); MCHC 31.3 % (32.0-36.0); MCV 103.5 fL (80-95); MPV 10.7 fL (8.0-11.0); Monocytes % 1.3; Neutrophils % 87.3; Nucleated RBC 0 %; Platelet Count 112 10^3/uL (130-400); RBC 3.15 10^6/uL (4.36-5.78); RDW 15.2 % (11.8-14.1); RDW-SD 56.4 fL; WBC 4.69 10^3/uL (4.4-10.8)
[2020-12-15] MEDS: Normal Saline 1,000 ML 1000 ML IV (20:24)
[2020-12-15] MEDS: ceFAZolin 1 GM/50 ML BAG IVPB (20:25)
[2020-12-15 20:31] LABS: ALT 25 U/L (16-63); AST 11 U/L (15-37); Albumin 3.1 g/dL (3.4-5.0); Alkaline Phosphatase 59 U/L (46-116); Anion Gap 13.5 mmol/L (3-11); BUN 22 mg/dL (7-18); Bilirubin, Total 0.6 mg/dL (0.2-1.0); CO2 23.5 mmol/L (21.0-32.0); CREATININE 0.9 mg/dL (0.70-1.30); Calcium 8.1 mg/dL (8.5-10.1); Chloride 109 mmol/L (98-107); Glucose 156 mg/dL (74-106); Magnesium 1.4 mg/dL (1.8-2.4); Potassium 3.8 mmol/L (3.5-5.1); Sodium 146 mmol/L (136-145); Total Protein 6.2 g/dL (6.4-8.2)
[2020-12-15 21:05] LABS: Bilirubin Negative (Negative); Blood Negative (Negative); Clarity Clear (Clear); Glucose Negative (Negative); Ketones Negative (Negative); Leukocyte Esterase Negative (Negative); Nitrite Negative (Negative); Specific Gravity 1.025 (1.005-1.025); Urobilinogen 0.2 EU/dL (Up TO 0.2); pH 5.5 (5-8)
[2020-12-15] MEDS: Normal Saline - Diluent 50 ML VIAL IV (21:46)
[2020-12-15] MEDS: Omnipaque 350 MG/ML 100 ML BTL IJ (21:47)
[2020-12-15] MEDS: Normal Saline Flush 10 ML SYR IVP (21:48)
--- NOTE | 2020-12-15 22:02 | DI.VRAD_ITS ---
PROCEDURE INFORMATION: Exam: CT Angiography Chest With Contrast Exam date and time: 12/15/2020 21:31 Age: 80 years old Clinical indication: Other: HX of pe, tachycardia, R/O pna TECHNIQUE: Imaging protocol: Computed tomographic angiography of the chest with contrast. 3D rendering (Not supervised by radiologist): MIP and/or 3D reconstructed images were created by the technologist. Radiation optimization: All CT scans at this facility use at least one of these dose optimization techniques: automated exposure control; mA and/or kV adjustment per patient size (includes targeted exams where dose is matched to clinical indication); or iterative reconstruction. Contrast material: OMNIPAQUE 350; Contrast volume: 100 ml; Contrast route: INTRAVENOUS (IV); COMPARISON: CT CHEST PE ABD PELVIS W 11/21/2020 17:15 FINDINGS: Pulmonary arteries: No pulmonary emboli. Aorta: No aortic aneurysm. No aortic dissection. Lungs: Minor pulmonary emphysema, stable. No airspace consolidation. Mild dependent subsegmental atelectasis. Pleural spaces: No pneumothorax. No pleural effusion. Heart: Stable mild cardiomegaly. Lymph nodes: No enlarged lymph nodes. Bones/joints: Numerous small sclerotic osseous lesions are similar to prior and most concerning for metastatic disease. Chronic rib fractures. No acute fracture or subluxation. Soft tissues: No suspicious lesions. IMPRESSION: 1. No pulmonary emboli are seen. 2. Stable mild cardiomegaly. 3. Minor pulmonary emphysema, stable. 4. Mild dependent subsegmental atelectasis. 5. 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 Dictated and Authenticated by: Kathleen Botello MD. Ordering:DEMI Scott MD
--- NOTE | 2020-12-15 22:03 | DI.VRAD_ITS ---
PROCEDURE INFORMATION: Exam: CT Right Lower Extremity With Contrast; Lower Leg Exam date and time: 12/15/2020 21:31 Age: 80 years old Clinical indication: Other: Wounds, purulent cellulitis TECHNIQUE: Imaging protocol: CT of the Right lower extremity with intravenous contrast was performed. Exam focused on the lower leg. Radiation optimization: All CT scans at this facility use at least one of these dose optimization techniques: automated exposure control; mA and/or kV adjustment per patient size (includes targeted exams where dose is matched to clinical indication); or iterative reconstruction. Contrast material: OMNIPAQUE 350; Contrast volume: 100 ml; Contrast route: INTRAVENOUS (IV); COMPARISON: CR XR TIB/FIB RT 09/16/2020 16:10 FINDINGS: Bones/joints: Degenerative changes in the midfoot and forefoot. No acute fracture. No subluxation. No evidence osteomyelitis. Soft tissues: Induration of the subcutaneous fat most pronounced about hindfoot, along with skin thickening. No focal fluid collection is seen. Dependent subcutaneous edema in the upper calf. Vasculature: Atherosclerosis. The dominant deep venous structures are grossly patent. IMPRESSION: Edema and/or cellulitis with no abscess. Dictated and Authenticated by: Kathleen Botello MD. Ordering:DEMI Scott MD
[2020-12-15 22:14] LABS: C-Reactive Protein 1.34 mg/dL (0.0-0.3)
[2020-12-15 22:32] LABS: COVID-19 PCR Negative (Negative); Influenza A PCR Negative (Negative); Influenza B PCR Negative (Negative); RSV PCR Negative (Negative)
--- NOTE | 2020-12-15 22:45 | NUR.NOTE ---
Nursing Note: Pt's called to update on careplan and transfer, Darvin [phone] is number used to reach her at. Pt has cellphone in hand and reports he will call her himself as well.
--- NOTE | 2020-12-15 22:49 | NUR.NOTE ---
Nursing Note: Pt uses call light , requests tylenol for headache that just started. Light dimmed for comfort..Pt given ice.
[2020-12-15] MEDS: Acetaminophen 500 MG TAB PO (22:55)
--- NOTE | 2020-12-15 23:06 | NUR.NOTE ---
Sat to 87% while sleeping. BRENDA Scott aware. Placed on 2L O2, up to 92.
--- NOTE | 2020-12-16 11:16 | NUR.NOTE ---
Nursing Note: Faxed to [facility] [address] the preliminary blood culture result. Kirstin Cruz
== END 2020-12-15 23:38 | disposition short-term general hospital (02) ==
PROVIDERS: Emergency Provider Registered Nurse Emergency; PCP Family Medicine
DX: L03.115 Cellulitis of right lower limb (principal); R65.20 Severe sepsis without septic shock; C90.00 Multiple myeloma not having achieved remission; D04.71 Carcinoma in situ of skin of right lower limb, including hip; Z79.899 Other long term (current) drug therapy; Z03.818 Encounter for observation for suspected exposure to other biological agents ruled out
CPT/HCPCS: 36415; 71275; 80053; 87040; 87077; 93005; 96361; 96365; 99285; 73701; 81003; 83605; 83735; 85025; 86140; 87186; 93010; J0690; J3490

== ENCOUNTER 2020-12-30 04:28 | Outpatient (CLI) | payer MEDICARE, OTHER, SELFPAY ==
[2020-12-30 12:13] LABS: Abs Immature Grans 0.05 10^3/uL (0.0-0.06); Absolute Basophil Count 0.01 10^3/uL (0.0-0.2); Absolute Eosinophil Count 0.14 10^3/uL (0.0-0.7); Absolute Monocyte Count 0.22 10^3/uL (0.1-0.8); Absolute Neutrophil Count 3.13 10^3/uL (1.2-6.7); Basophils % 0.2; Eosinophils % 2.6; HCT 32.5 % (40.0-50.0); HGB 10.3 g/dL (13.5-17.5); Immature Grans % 0.9; Lymphocytes % 33.6; MCH 32.5 pg (27.0-33.0); MCHC 31.7 % (32.0-36.0); MCV 102.5 fL (80-95); MPV 9.6 fL (8.0-11.0); Monocytes % 4.1; Neutrophils % 58.6; Nucleated RBC 0 %; RBC 3.17 10^6/uL (4.36-5.78); RDW 13.9 % (11.8-14.1); RDW-SD 51.8 fL; WBC 5.35 10^3/uL (4.4-10.8)
[2020-12-30 12:18] LABS: Platelet Count 296 10^3/uL (130-400)
[2020-12-30 12:31] LABS: ALT 16 U/L (16-63); AST 12 U/L (15-37); Albumin 3.2 g/dL (3.4-5.0); Alkaline Phosphatase 63 U/L (46-116); Anion Gap 8.2 mmol/L (3-11); BUN 21 mg/dL (7-18); Bilirubin, Total 0.3 mg/dL (0.2-1.0); CO2 30.8 mmol/L (21.0-32.0); CREATININE 1.2 mg/dL (0.70-1.30); Chloride 107 mmol/L (98-107); Estimated GFR 58.26 (mL/min/1.73m2); FREE T4 1.02 ng/dL (0.76-1.46); Glucose 125 mg/dL (74-106); Potassium 4.2 mmol/L (3.5-5.1); Sodium 146 mmol/L (136-145); Total Protein 7.1 g/dL (6.4-8.2)
[2020-12-31 10:06] LABS: IgA 817 mg/dL (85-499); IgG 241 mg/dL (610-1,616); IgM 15 mg/dL (35-242); Kappa Free Light Chain 0.57 mg/dL (0.33-1.94); Lambda Free Light Chain <0.44 mg/dL (0.57-2.63)
[2020-12-31 13:09] LABS: Albumin 52.5 % (55.8-66.1); Comment (See Note); Monoclonal Spike 15.6 % (None Seen); Total Protein 6.5 g/dL (6.3-8.2)
== END 2020-12-30 04:29 | disposition home or self-care (01) ==
LOC: LBO 04:28
PROVIDERS: PCP Family Medicine; Visit Provider Internal Medicine Hematology & Oncology
DX: C90.00 Multiple myeloma not having achieved remission (principal); E07.9 Disorder of thyroid, unspecified; Z85.828 Personal history of other malignant neoplasm of skin
CPT/HCPCS: 36415; 80053; 82784; 83883; 84165; 84439; 85025

== ENCOUNTER 2021-01-01 15:35 | Observation (INO) | payer MEDICARE, OTHER, SELFPAY ==
[2021-01-01] VITALS (22 sets, daily range): BP systolic 135–185; BP diastolic 72–97; PULSE 59–84; RESP 15–28; TEMP 36.6–37.3; O2SAT 93–97
--- NOTE | 2021-01-01 15:45 | DI.CT_ITS ---
EXAM: CT HEAD WO CLINICAL HISTORY: pain and nausea/vomit. TECHNIQUE: Imaging Protocol: Axial computed tomography images with coronal and sagittal reformatted images were created and reviewed COMPARISON: CT CT HEAD CERVICAL SPINE WO from 07/29/2020 FINDINGS: There are no skull fractures nor fluid in the visualized paranasal sinuses. Present fluid level in the left optic lobe is no longer seen. There is no evidence of intracranial hemorrhage, mass effect, or shift of midline structures. There are no extra-axial fluid collections. Amount of involutional changes consistent with this patient's advanced age and appears unchanged as do the size of the ventricles. There are no new findings in th e cerebellar hemispheres nor within the julio cesar and midbrain and thalami. Small CSF density lacunar inf arct in the right caudate is unchanged from the prior study. Heavy calcification within the carotid arteries at the skull base as well as within both vertebral arteries at the skull base is again noted . No obvious new territorial infarction. IMPRESSION: No acute intracranial findings on this noninfused CT scan of the brain. Small nonacute lacunar infarct in the right caudate is unchanged from the prior study. No new territ orial infarction. No evidence of intracranial hemorrhage, intra or extra-axial. Report called by myself to ER provider RADIATION DOSE DELIVERED: 745.27mGy.cm Total DLP DATA REPOSITORY: All CT scans at this facility are submitted to the National Radiology Data Registry (NRDR) Dose Index Registry (DIR) with the [employer] (A[employer]). RADIATION OPTIMIZATION: All CT scans at this facility use at least one of these dose optimization te chniques: automated exposure control; mA and/or kV adjustment per patient size (includes targeted exa ms where dose is matched to clinical indication); or iterative reconstruction.
--- NOTE | 2021-01-01 15:45 | DI.CT_ITS ---
EXAM: CT ABDOMEN PELVIS W CLINICAL HISTORY: abdominal pain, nausea and vomit TECHNIQUE: COMPARISON: CT CT CHEST PE CTA from 12/15/2020 FINDINGS: CT examination of the abdomen and pelvis was performed with bolus infusion of 100 cc of Omnipaque 350 . Images obtained through the lung bases are unremarkable. 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 SI joint fixation noted bilatera lly. Right hip prosthesis noted in position. Fernandez rods noted at L4-5 along with a disc prosth esis. The liver appears normal with no evidence of a focal mass. Spleen is unremarkable in appearance.. Gallbladder and bile ducts are unremarkable. Pancreas is unremarkable in appearance. Adrenals appear normal bilaterally. Kidneys appear normal except for multiple bilateral cysts with no evidence of a solid mass, hydroneph rosis, or nephrolithiasis There is no evidence of abdominal or pelvic adenopathy. 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 Appendix is normal. No evidence diverticulitis or bowel obstruction. No significant abdominal wall hernia seen. Impression: No evidence of acute intra-abdominal process. Presumed widespread bony metastatic lesions as previously described. RADIATION DOSE DELIVERED: 1,319.8mGy.cm Total DLP 1,319.8mGy.cm Total DLP DATA REPOSITORY: All CT scans at this facility are submitted to the National Radiology Data Registry (NRDR) Dose Index Registry (DIR) with the [employer] (ACR). RADIATION OPTIMIZATION: All CT scans at this facility use at least one of these dose optimization te chniques: automated exposure control; mA and/or kV adjustment per patient size (includes targeted exa ms where dose is matched to clinical indication); or iterative reconstruction.
--- NOTE | 2021-01-01 15:45 | RT.EKG_ITS ---
APPROVED REPORT Exam: Resting ECG Patient Location: E HR:69 bpm ECG Measurements Heart Rate 69 AXIS CA 176 P 19 QRSd 107 QRS 27 QT 419 T 51 QTc 466 Conclusion Sinus rhythm...normal P axis, V-rate 60- 99 Sinus pause...long R-R interval, normal QRSd
--- NOTE | 2021-01-01 15:45 | DI.RAD_ITS ---
EXAM: XR PORTABLE CHEST AP CLINICAL HISTORY: chills, abdominal pain. TECHNIQUE: 2D digital imaging was performed. COMPARISON: CR CHEST 2 VIEWS PA,LAT from 03/07/[address] CHEST PE CTA from 12/15/2020 FINDINGS: Mild cardiomegaly. Mediastinum not widened. Lungs are clear. No infiltrates nor obvious pleural effusions. There is no pneumothorax. 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 DATA REPOSITORY: RADIATION DOSE DELIVERED: All CT scans at this facility use at least one of these dose optimization techniques: automated exposure control; mA and/or kV adjustment per patient size (includes targeted e xams where dose is matched to clinical indication); or iterative reconstruction.
--- NOTE | 2021-01-01 15:56 | ED.GENADUL_ITS ---
Discharge Plan Disposition Patient Disposition: [facility] INPATIENT Condition: Stable Discharge Details Chief Complaint: Nausea/Vomit/Diar Clinical Impression: Nausea & vomiting, Abdominal pain, Head pain Primary Care Provider: Janina Reinoso ED Provider: Jaime Mathis [place] Meds and New Rx's Prescriptions: No Action oxycodone 30 mg tablet,oral only,ext.rel.12 hr 30 mg PO Q12H MDD 60 mg Qty: 60 RF: 0 oxycodone 10 mg tablet 10 mg PO Q4H MDD 40 mg PRN (Reason: pain) Qty: 60 RF: 0 montelukast 10 MG tablet 10 mg PO DAILY PRNRF: 0 allopurinol 300 MG tablet 300 mg PO DAILY RF: 0 prazosin 5 MG capsule 5 mg PO BID RF: 0 diazepam 5 MG tablet 5 mg PO HS PRN PRNRF: 0 fexofenadine 180 mg tablet 180 mg PO DAILY RF: 0 atorvastatin 40 mg tablet 40 mg PO HS RF: 0 zolpidem 10 mg tablet 10 mg PO QHS PRNRF: 0 cyanocobalamin (vitamin B-12) [Vitamin B-12] 1,000 mcg tablet 1,000 mcg PO DAILY RF: 0 pantothenic ac-glyc-pet,h anil Cream 1 applic topical TID RF: 0 fluticasone propionate [Flonase Allergy Relief] 9.9 ML spray,suspension 2 spray NS DAILY PRN PRNRF: 0 testosterone cypionate 200 MG/ML oil 1.5 ml IM .[id number] RF: 0 metoprolol tartrate 25 MG tablet 25 mg PO BID RF: 0 cholecalciferol (vitamin D3) 1,000 UNITS tablet 1,000 unit PO DAILY RF: 0 magnesium oxide 400 mg (241.3 mg magnesium) Tablet 400 mg PO DAILY RF: 0 thiamine mononitrate (vit B1) [Vitamin B-1 (mononitrate)] 100 mg Tablet 100 mg PO DAILY Qty: 30 RF: 0 turmeric root extract 500 mg Capsule 500 mg PO DAILY RF: 0 dexamethasone 4 mg tablet 40 mg PO QWEEK RF: 0 omeprazole 20 mg Capsule,Delayed Release(Dr/Ec) 20 mg PO DAILY RF: 0 ipratropium bromide 42 mcg (0.06 %) [place],Non-Aerosol 2 spray INTRANASAL TID PRNRF: 0 Libtayo 50 mg/mL Solution 350 mg IV Q3W RF: 0 amlodipine 5 mg Tablet 5 mg PO DAILY Qty: 0 RF: 0 doxycycline hyclate 100 mg capsule 100 mg PO BID Qty: 14 RF: 0 acitretin 10 mg capsule 25 mg PO DAILY Qty: 0 RF: 0 acyclovir 400 mg tablet 400 mg PO BID PRN PRNQty: 0 RF: 0 albuterol sulfate [ProAir HFA] 90 mcg/actuation HFA aerosol inhaler 2 inh IH Q6H PRN (Reason: shortness of breath or wheezing) Qty: 18 RF: 0 Eliquis 5 mg tablet 5 mg PO BID RF: 0 Medical Decision Making 80 yo male with hx of multiple myeloma, 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 He states he got chemotherapy on Wednesday and felt fine. Yesterday evening he started to feel nausea and had shaking of his arms and legs. Denies any fevers, chest pain, dyspnea, has a mild headache located in the front of his forehead no severe pain and not the worst of his life. Has mild abdominal discomfort as well, denies changes in urinary or bowel habits. He is stable on arrival with normal room air oxygen saturations speaking in full sentences. He has clear lung sounds and mild mid to upper abdominal discomfort, no guarding or rebound. He has a history ofright lower leg cellulitis that is recurrent and was treated for this at [facility] earlier this month, refuse to go to rehab and went home. Denies falls since being home. His right lower leg has no erythema on exam and he denies any pain and no swelling compared to the left. Suspect this could be medication side effects including side effects from his chemotherapy. Will obtain ct head to evaluate for possible mets given the mild headache, pain is not severe nor thunderclap so doubt intracranial hemorrhage including subarachnoid hemorrhage. No cough or dypnea nor chest pain so doubt acs, pe or dissection. Given the abdominal discomfort will evaluate for pancreatitis and hepatitis and also obtain ct to evaluate for small bowel obstruction, no pain out of proportion to exam so doubt mesenteric ischemia pt's labs show no acute changes from baseline and ct head per dr. yin shows no acute findings. He feels mildly better after zofran but still has nauesa, will try compazine patient with no acute findings on ct abd/pelvis and he still has nausea and can't take anything orally and doesn't feel he can go home and would like to be admitted for observation. Will discuss with hospitalist about admission for ivf and persistent nausea and unable to take po Differential Diagnosis Differential Diagnosis: chemotherapy related nausea, electrolyte abnormality, mets, sbo Medical Records Medical records reviewed: Yes I reviewed the patient's medical records. 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 Radiologic Study #2: Attestation: I personally reviewed and interpreted this imaging study as follows: Imaging: CT Scan Radiologist's impression: IMPRESSION: No acute intracranial findings on this noninfused CT scan of the brain. Small nonacute lacunar infarct in the right caudate is unchanged from the prior study. No new territorial infarction. No evidence of intracranial hemorrhage, intra or extra-axial. Report called by myself to ER provider Radiologic Study #3: Attestation: I personally reviewed and interpreted this imaging study as follows: Imaging: CT Scan Radiologist's impression: IMPRESSION: 1. No acute findings in the abdomen and pelvis 2. Areas of sclerosis in the visualized bones suspicious for sclerotic metastases or treated myeloma 3. Renal cysts 4. 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 ECG Data Attestation: I personally reviewed and interpreted this ECG (s) as follows: Prior ECG tracings: available for review Interpretation: sinus rhythm, rate of 69, pr [address] t wave ischemic findings HPI General Date/Time Provider Initiated Documentation: 01/01/21 15:38 . Limitations to Documentation: no limitations . Information obtained by: patient . History of Present Illness 80 year old M pr esents to the emergency department with the chief complaint of nausea and vomit, described as moderate, Patient started experiencing this day(s) (1) and it has been constant. No relieving factors improve symptom(s), No exacerbating factors reported . Patient did receive the following treatments prior to arrival, none Related Data Home Medications Medication Instructions Recorded Confirmed allopurinol 300 mg PO DAILY 12/29/12 12/10/20 montelukast 10 mg PO DAILY PRN tab-cap 12/29/12 12/10/20 fluticasone propionate [Flonase 2 spray NS DAILY PRN PRN 05/07/16 12/10/20 Allergy Relief] cholecalciferol (vitamin D3) 1,000 unit PO DAILY 05/12/16 12/10/20 metoprolol tartrate 25 mg PO BID 05/12/16 12/10/20 testosterone cypionate 1.5 ml IM .[id number] 05/12/16 12/10/20 diazepam 5 mg PO HS PRN PRN 05/31/17 12/10/20 prazosin 5 mg PO BID 05/31/17 12/10/20 albuterol sulfate [ProAir HFA] 2 inh IH Q6H PRN #18 gm 10/18/19 12/10/20 atorvastatin 40 mg tablet 40 mg PO HS 03/13/20 12/10/20 cyanocobalamin (vitamin B-12) 1,000 mcg PO DAILY 03/13/20 12/10/20 1,000 mcg tablet fexofenadine 180 mg tablet 180 mg PO DAILY 03/13/20 12/10/20 zolpidem 10 mg tablet 10 mg PO QHS PRN tab 03/13/20 12/10/20 magnesium oxide 400 mg PO DAILY 07/04/20 12/10/20 thiamine mononitrate (vit B1) 100 mg PO DAILY #30 tab 07/04/20 12/10/20 [Vitamin B-1 (mononitrate)] Eliquis 5 mg PO BID 09/17/20 12/10/20 pantothenic ac-glyc-pet,h anil 1 applic TOPICAL TID 11/06/20 12/10/20 topical cream Libtayo 350 mg IV Q3W 11/21/20 12/10/20 dexamethasone 40 mg PO QWEEK 11/21/20 12/10/20 ipratropium bromide 2 spray INTRANASAL TID PRN 11/21/20 12/10/20 omeprazole 20 mg PO DAILY 11/21/20 12/10/20 turmeric root extract 500 mg PO DAILY 11/21/20 12/10/20 acitretin 25 mg PO DAILY #0 cap 11/24/20 12/10/20 acyclovir 400 mg PO BID PRN PRN #0 tab 11/24/20 12/10/20 amlodipine 5 mg PO DAILY #0 tab 11/24/20 12/10/20 doxycycline hyclate 100 mg PO BID #14 cap 11/24/20 12/10/20 oxycodone 10 mg tablet 10 mg PO Q4H PRN #60 tab MDD 40 mg 12/10/20 12/10/20 oxycodone 30 mg tablet,crush 30 mg PO Q12H #60 tab MDD 60 mg 12/10/20 12/10/20 resistant,extended release 12 hr Previous Rx's Medication Instructions Recorded albuterol sulfate [ProAir HFA] 2 inh IH Q6H PRN #18 gm 10/18/19 thiamine mononitrate (vit B1) 100 mg PO DAILY #30 tab 07/04/20 [Vitamin B-1 (mononitrate)] acitretin 25 mg PO DAILY #0 cap 11/24/20 acyclovir 400 mg PO BID PRN PRN #0 tab 11/24/20 amlodipine 5 mg PO DAILY #0 tab 11/24/20 doxycycline hyclate 100 mg PO BID #14 cap 11/24/20 oxycodone 10 mg tablet 10 mg PO Q4H PRN #60 tab MDD 40 mg 12/10/20 oxycodone 30 mg tablet,crush 30 mg PO Q12H #60 tab MDD 60 mg 12/10/20 resistant,extended release 12 hr Allergies Allergy/AdvReac Type Severity Reaction Status Date / Time Sulfa (Sulfonamide Allergy as a Verified 12/15/20 19:14 Antibiotics) child, unsure codeine AdvReac Intermediate sick to Verified 12/15/20 19:14 stomach oxycodone [Oxycodone] AdvReac respiratory Verified 12/15/20 19:14 depression General Stated Complaint: Nausea/Vomit/Diar CLYDE: 2 Review of Systems All systems reviewed & are unremarkable except as noted in HPI and below Constitutional Constitutional: Denies fever(s) and Denies weakness Cardiovascular Cardiovascular: Denies chest pain and Denies dyspnea Respiratory Respiratory: Denies cough and Denies dyspnea Neurologic Neurologic: Denies weakness [facility] Medical History Abnormal prostate specific antigen Abnormal weight loss Actinic keratosis Adenomatous colon polyp Alcohol consumption heavy Allergic rhinitis Ataxic gait Benign essential tremor Bilateral artificial lens implant BPH (benign prostatic hyperplasia) 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/13) Cancer related pain Chronic insomnia Cough Diverticulosis Diverticulosis Encounter for hospice care discussion Erectile dysfunction Essential hypertension Ex-smoker quit 1985 Frequent falls GERD (gastroesophageal reflux disease) Goals of care, counseling/discussion Gout H/O supraventricular tachycardia Heavy alcohol consumption History of DVT (deep vein thrombosis) History of positive PPD History of prediabetes History of PSVT (paroxysmal supraventricular tachycardia) History of pulmonary embolism History of urinary urgency (03/09/13) Hx of adenomatous colonic polyps Hyperlipidemia Hypertension Hypogonadism Impaired fasting glucose Insomnia Low testosterone in male Lumbar back pain Macrocytosis Male hypogonadism Memory impairment Mild cognitive impairment Myelodysplasia (myelodysplastic syndrome) Neutropenia Ocular migraine Osteoarthritis Other and unspecified hyperlipidemia Overactive bladder Palliative care patient Peripheral neuropathy Personal history of venous thrombosis and embolism Positive PPD Preventative health care 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 Jovita Roberts THUMB RHINOPLASTY S/P TURP S/P TURP (status post transurethral resection of prostate) (12/19/13) Tonsillectomy and adenoidectomy Total replacement of hip (05/13/16) RIGHT/DR. OLEA Family History Mother , age 81 of pancreatic cancer with mets to liver Personal history of malignant neoplasm PANCREATIC/LIVER Father , from alcoholism and cardiomyopathy Heart disease Alcohol abuse Sister , in MVC age 37 due to motor vehicle traffic accident Brother Heart disease Brother Heart disease Mental disorder BIPOLAR Brother Hypertension Diabetes Hyperlipidemia Son Obesity Diabetes Son Arthritis Daughter No problems noted. 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 Caregiver/Support person: Yes Household members: spouse Housing: house Number of Children: 3 Communication Needs: Corrective Lenses Education Level: college Do you need help understanding health information?: Often current occupation: retired from [email or web address] and from [place] Pets and animals: No Current gender identity: male What is your relationship status?: How often do you talk on the phone with friends or family?: three or more times per week How often do you get together with friends or relatives?: never Panel score (0-1 are the most socially isolated patients): 2 What type of physical activity do you participate in: aerobic, regular exercise and weight lifting Duration: 30-45 minutes/day Frequency: 3-4 times per week Special geetha needs: No Seatbelt use: always Working smoke detector in home: Yes Fire extinguisher in home: Yes Firearms in home: Yes Do you feel safe at home: Yes Do you feel safe in your relationship?: Yes Additional Social history: to [place] , who is chronically ill with vertigo of unknown etiology. He started exercising regular when he was 33 yo; very hard for him not to be able to continue to exercise. Has a VERY unsteady gait; says he has fallen about 4 x in last 6 weeks. Says that PT doesn't help. He refuses to use a cane or walker, due to personal pride. Hard for him to access himself as both sick and older. Not interested in cutting back on etoh. Was planning on relocating to [facility] but cannot due to COVID. Exam Const General: no acute distress Orientation: alert HENMT Head: normal to inspection Ears: external ears normal General nose exam: external nose normal Mouth: moist mucous membranes Eyes General: appearance normal, both eyes and all related structures Neck Neck: normal visual inspection Resp Effort & Inspection: normal respiratory effort and able to speak in complete sentences Cardio Rate: regular rate GI Palpation: soft, not firm and tender Skin General skin exam: no rashes or lesions noted Neuro General: patient alert and patient oriented x3 Extrem General: normal to inspection Psych Mental Status: mental status grossly normal Course Vital Signs Vital signs: Vital Signs Temperature 36.8 C 01/01/21 15:41 Pulse 79 01/01/21 15:41 Respiratory Rate 18 01/01/21 15:41 Blood Pressure 162/80 H 01/01/21 15:41 Pulse Oximetry 97 01/01/21 15:41 Temperature 36.8 C 01/01/21 15:41 Temperature Source Oral 01/01/21 15:41 Pulse 79 01/01/21 15:41 Respiratory Rate 18 01/01/21 15:41 Blood Pressure 162/80 H 01/01/21 15:41 Blood Pressure Position Supine 01/01/21 15:41 Pulse Oximetry 97 01/01/21 15:41 Oxygen Delivery Method Room Air 01/01/21 15:41 Oxygen Flow Rate 0 01/01/21 15:41 Pain Level 4 01/01/21 15:41
[2021-01-01] MEDS: Normal Saline 1,000 ML 1000 ML IV (16:10)
[2021-01-01] MEDS: Ondansetron 4 MG/2 ML VIAL IVP (16:10)
[2021-01-01 16:13] LABS: Lactate 1.9 mmol/L (0.6-1.4)
[2021-01-01 16:14] LABS: Abs Immature Grans 0.03 10^3/uL (0.0-0.06); Absolute Basophil Count 0.01 10^3/uL (0.0-0.2); Absolute Lymphocyte Count 1.37 10^3/uL (1.2-3.4); Absolute Monocyte Count 0.15 10^3/uL (0.1-0.8); Basophils % 0.2; Eosinophils % 2.2; HCT 33.4 % (40.0-50.0); HGB 10.6 g/dL (13.5-17.5); Immature Grans % 0.7; Lymphocytes % 30.7; MCH 31.9 pg (27.0-33.0); MCHC 31.7 % (32.0-36.0); MCV 100.6 fL (80-95); MPV 9.8 fL (8.0-11.0); Monocytes % 3.4; Neutrophils % 62.8; Nucleated RBC 0 %; Platelet Count 305 10^3/uL (130-400); RBC 3.32 10^6/uL (4.36-5.78); RDW-SD 50.7 fL; WBC 4.46 10^3/uL (4.4-10.8)
[2021-01-01 16:27] LABS: Lipase 94 U/L (73-393); Magnesium 1.6 mg/dL (1.8-2.4)
[2021-01-01 16:36] LABS: ALT 17 U/L (16-63); AST 14 U/L (15-37); Albumin 3.2 g/dL (3.4-5.0); Alkaline Phosphatase 65 U/L (46-116); Anion Gap 12.7 mmol/L (3-11); BUN 9 mg/dL (7-18); Bilirubin, Direct 0.1 mg/dL (0.0-0.2); Bilirubin, Total 0.6 mg/dL (0.2-1.0); CO2 25.3 mmol/L (21.0-32.0); CREATININE 0.9 mg/dL (0.70-1.30); Calcium 9.3 mg/dL (8.5-10.1); Chloride 108 mmol/L (98-107); Glucose 136 mg/dL (74-106); Potassium 3.7 mmol/L (3.5-5.1); Sodium 146 mmol/L (136-145); Total Protein 7.1 g/dL (6.4-8.2)
[2021-01-01 16:42] LABS: INR 1.1 (0.9-1.1); PTT Activated 23.9 sec (21.0-27.5); Prothrombin Time 10.6 sec (9.3-11.0)
[2021-01-01 16:45] LABS: Troponin I < 0.05 ng/mL (<0.06)
[2021-01-01] MEDS: Normal Saline - Diluent 50 ML VIAL IV (16:57)
[2021-01-01] MEDS: Omnipaque 350 MG/ML 100 ML BTL IJ (16:57)
[2021-01-01] MEDS: Normal Saline Flush 10 ML SYR IVP ×2 (16:58→21:39)
--- NOTE | 2021-01-01 17:38 | DI.VRAD_ITS ---
PROCEDURE INFORMATION: Exam: CT Abdomen And Pelvis With Contrast Exam date and time: 01/01/2021 4:49 PM Age: 80 years old Clinical indication: Other: Abdominal pain, nausea and vomit TECHNIQUE: Imaging protocol: Computed tomography of the abdomen and pelvis with contrast. Radiation optimization: All CT scans at this facility use at least one of these dose optimization techniques: automated exposure control; mA and/or kV adjustment per patient size (includes targeted exams where dose is matched to clinical indication); or iterative reconstruction. Contrast material: OMNIPAQUE 350; Contrast volume: 100 ml; Contrast route: INTRAVENOUS (IV); COMPARISON: CT ABDOMEN PELVIS W 07/30/2020 9:50 AM FINDINGS: Liver: Normal. No mass. Gallbladder and bile ducts: Normal. No calcified stones. No ductal dilation. Pancreas: Normal. No ductal dilation. Spleen: Normal. No splenomegaly. Adrenal glands: Normal. No mass. Kidneys and ureters: Water density lesions in both kidneys consistent with benign cysts. Stomach and bowel: Unremarkable. No obstruction. No mucosal thickening. Appendix: No evidence of appendicitis. Intraperitoneal space: Unremarkable. No free air. No significant fluid collection. Vasculature: Vascular calcifications. 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 No enlarged lymph nodes. Urinary bladder: Unremarkable as visualized. Reproductive: Unremarkable as visualized. Bones/joints: Areas of sclerosis throughout visualized bones, most prominent in lower lumbar spine and sacrum inferior aspect of T10. This could be due to metastatic disease. It appears grossly unchanged from 07/30/2020. Right total hip arthroplasty. Postoperative changes of lower lumbar spine and bilateral sacroiliac fusion with metallic fixation. 5.8 cm cyst lower pole right kidney. The bones are demineralized and there is degenerative arthritis in the spine and pelvis. Soft tissues: Unremarkable. Other findings: Metallic artifact obscures detail in the pelvis. IMPRESSION: 1. No acute findings in the abdomen and pelvis 2. Areas of sclerosis in the visualized bones suspicious for sclerotic metastases or treated myeloma 3. Renal cysts 4. 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 Ordering:KARLO Sandoval MD
[2021-01-01] MEDS: Prochlorperazine 10 MG/2 ML VIAL IVP (17:53)
[2021-01-01] MEDS: MAGNESIUM SULFATE 2 GM/50 ML BAG IVPB (17:53)
[2021-01-01 18:52] LABS: Bilirubin Negative (Negative); Blood Negative (Negative); Clarity Clear (Clear); Glucose Negative (Negative); Ketones 40 mg/dL (Negative); Leukocyte Esterase Negative (Negative); Nitrite Negative (Negative); Specific Gravity 1.015 (1.005-1.025); Urobilinogen 0.2 EU/dL (Up TO 0.2); pH 8.5 (5-8)
[2021-01-01 19:41] LABS: Troponin I < 0.05 ng/mL (<0.06)
--- NOTE | 2021-01-01 20:32 | W.PM.HP.N ---
Date of service: 01/01/21 Time of Service: 20:32 Assessment and Plan Assessment and plan (1) Nausea & vomiting: Status: Acute Assessment and plan: Unclear etiology but appears coincidental to his MM chemotx; Libtayo. No acute findings on CT abd/pelvis. Symtomatic treatment with antinausea meds. He is drinking fluids adequately. Monitor (2) Hypomagnesemia: Status: Acute Assessment and plan: IV replacement given in ED. Cont home oral Mgoxide 400mg daily. Monitor (3) Squamous cell carcinoma of right lower leg: Status: Acute Assessment and plan: Has bandage in place. Sees dermatology at [facility]. (4) History of alcohol abuse: Status: Acute Assessment and plan: Previously admitted from 11/21 to 11/24/2020 w/o withdrawal. He has a baseline anxiety that was apparent at last admission. Watch for signs/symptoms of withdrawal. (5) Frequent falls: Status: Acute Assessment and plan: Uses a cane or walker at home. Was at [facility] earlier this month for recurrence of RLE cellulitis; same dx at previous admission her on 11/21/2020. He was encouraged to d/c to rehab from [facility] but he chose to go home. PT. (6) Multiple myeloma: Status: Chronic Assessment and plan: Receiving infusions of cemiplirab (Libtayo), and immune modulating monoclonal antibody agent that affects the PD1 pathway in T cells. No previous N/V post-infusion. On dexamethasone 40mg po weekly for bone pain from metastatic lesions. (7) COPD (chronic obstructive pulmonary disease): Status: Chronic Assessment and plan: No acute exacerbation. PRN duonebs or albuterol MDI. History of Present Illness History of Present Illness Chief Complaint: Nausea and vomiting Narrative: This is an 80 yo male with the following medical problems: multiple myeloma, COPD, HTN, HLD, squamous cell cancer of RLE, h/o alcohol abuse, frequent falls. He presented to the ED with c/o N/V that began at 7 PM the previous evening. He had received a dose of his chemotherapy, Libtayo on the Wednesday preceding this admission. No previous N/V after his treatment. No diarrhea. + mild headache. + chills but no fever. No c/o increased cough or SOA beyond his baseline. He endorses feeling very weak. In the ED his CXR showed no acute findings. CT brain negative for any acute findings. CT abd/pelvis with no GI abnormalities. + findings of enoch lesions consistent with his myeloma. WBC count normal. Hgb 10.6. Platelets normal. VBG lactate 1.9 (elevated), Na 146, K+ 3.7, BUN 9, creatinine 0.9, Mg+ 1.6. Troponin negative. UA negative for infectious markers. He was given Zofran and then IV compazine in the ED but continued to have nausea; no emesis. Review of Systems All systems reviewed & are unremarkable except as noted in HPI and below PFS Medical History Abnormal prostate specific antigen Abnormal weight loss Actinic keratosis Adenomatous colon polyp Alcohol consumption heavy Allergic rhinitis Ataxic gait Benign essential tremor Bilateral artificial lens implant BPH (benign prostatic hyperplasia) 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/13) Cancer related pain Chronic insomnia Cough Diverticulosis Diverticulosis Encounter for hospice care discussion Erectile dysfunction Essential hypertension Ex-smoker quit 1985 Frequent falls GERD (gastroesophageal reflux disease) Goals of care, counseling/discussion Gout H/O supraventricular tachycardia Heavy alcohol consumption History of DVT (deep vein thrombosis) History of positive PPD History of prediabetes History of PSVT (paroxysmal supraventricular tachycardia) History of pulmonary embolism History of urinary urgency (03/09/13) Hx of adenomatous colonic polyps Hyperlipidemia Hypertension Hypogonadism Impaired fasting glucose Insomnia Low testosterone in male Lumbar back pain Macrocytosis Male hypogonadism Memory impairment Mild cognitive impairment Myelodysplasia (myelodysplastic syndrome) Neutropenia Ocular migraine Osteoarthritis Other and unspecified hyperlipidemia Overactive bladder Palliative care patient Peripheral neuropathy Personal history of venous thrombosis and embolism Positive PPD Preventative health care Recurrent cellulitis of lower leg with sepsis related to his RLE SCC Renal cyst Sacroiliac joint pain Shaking chills Sleep apnea Spinal stenosis in cervical region Spondylosis Spondylosis of cervical joint 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 Hussein R THUMB RHINOPLASTY S/P TURP S/P TURP (status post transurethral resection of prostate) (12/19/13) Tonsillectomy and adenoidectomy Total replacement of hip (05/13/16) RIGHT/DR. OLEA Family History Mother , age 81 of pancreatic cancer with mets to liver Personal history of malignant neoplasm PANCREATIC/LIVER Father , from alcoholism and cardiomyopathy Heart disease Alcohol abuse Sister , in MVC age 37 due to motor vehicle traffic accident Brother Heart disease Brother Heart disease Mental disorder BIPOLAR Brother Hypertension Diabetes Hyperlipidemia Son Obesity Diabetes Son Arthritis Daughter No problems noted. Social History Smoking/Tobacco Use Status: Former Tobacco Use Tobacco: How many years used: 25 Smoking risk assessment performed?: Yes Alcohol Intake: current Alcohol Intake frequency: 3 or more drinks per day Alcohol type: beer, wine and hard liquor Counseling given: Yes Counseling provided: reduce to 2 or less/day Drug use: Never Substance use type: does not use Details: vodka/wine drink DINING ROOM MAID Caregiver/Support person: Yes Household members: spouse Housing: house Number of Children: 3 Communication Needs: Corrective Lenses Education Level: college Do you need help understanding health information?: Often current occupation: retired from [employer] and from [employer] Pets and animals: No Current gender identity: male What is your relationship status?: How often do you talk on the phone with friends or family?: three or more times per week How often do you get together with friends or relatives?: never Panel score (0-1 are the most socially isolated patients): 2 What type of physical activity do you participate in: aerobic, regular exercise and weight lifting Duration: 30-45 minutes/day Frequency: 3-4 times per week Special geetha needs: No Seatbelt use: always Working smoke detector in home: Yes Fire extinguisher in home: Yes Firearms in home: Yes Do you feel safe at home: Yes Do you feel safe in your relationship?: Yes Additional Social history: to [place] , who is chronically ill with vertigo of unknown etiology. He started exercising regular when he was 33 yo; very hard for him not to be able to continue to exercise. Has a VERY unsteady gait; says he has fallen about 4 x in last 6 weeks. Says that PT doesn't help. He refuses to use a cane or walker, due to personal pride. Hard for him to access himself as both sick and older. Not interested in cutting back on etoh. Was planning on relocating to [facility] but cannot due to COVID. Meds Home Medications and Allergies Allergies Allergy/AdvReac Type Severity Reaction Status Date / Time Sulfa (Sulfonamide Allergy as a Verified 12/15/20 19:14 Antibiotics) child, unsure codeine AdvReac Intermediate sick to Verified 12/15/20 19:14 stomach oxycodone [Oxycodone] AdvReac respiratory Verified 12/15/20 19:14 depression Home Medications Medication Instructions Recorded Confirmed Type allopurinol 300 mg PO DAILY 12/29/12 01/01/21 History montelukast 10 mg PO DAILY PRN tab-cap 12/29/12 01/01/21 History fluticasone propionate [Flonase 2 spray NS DAILY PRN PRN 05/07/16 01/01/21 History Allergy Relief] cholecalciferol (vitamin D3) 1,000 unit PO DAILY 05/12/16 01/01/21 History metoprolol tartrate 25 mg PO BID 05/12/16 01/01/21 History testosterone cypionate 1.5 ml IM .[id number] 05/12/16 01/01/21 History diazepam 5 mg PO HS PRN PRN 05/31/17 01/01/21 History prazosin 5 mg PO BID 05/31/17 01/01/21 History albuterol sulfate [ProAir HFA] 2 inh IH Q6H PRN #18 gm 10/18/19 01/01/21 Rx atorvastatin 40 mg tablet 40 mg PO HS 03/13/20 01/01/21 History cyanocobalamin (vitamin B-12) 1,000 mcg PO DAILY 03/13/20 01/01/21 History 1,000 mcg tablet fexofenadine 180 mg tablet 180 mg PO DAILY 03/13/20 01/01/21 History zolpidem 10 mg tablet 10 mg PO QHS PRN tab 03/13/20 01/01/21 History magnesium oxide 400 mg PO DAILY 07/04/20 01/01/21 History thiamine mononitrate (vit B1) 100 mg PO DAILY #30 tab 07/04/20 01/01/21 Rx [Vitamin B-1 (mononitrate)] Eliquis 5 mg PO BID 09/17/20 01/01/21 History pantothenic ac-glyc-pet,h anil 1 applic TOPICAL TID 11/06/20 01/01/21 History topical cream Libtayo 350 mg IV Q3W 11/21/20 01/01/21 History dexamethasone 40 mg PO QWEEK 11/21/20 01/01/21 History ipratropium bromide 2 spray INTRANASAL TID PRN 11/21/20 01/01/21 History omeprazole 20 mg PO DAILY 11/21/20 01/01/21 History turmeric root extract 500 mg PO DAILY 11/21/20 01/01/21 History acitretin 25 mg PO DAILY #0 cap 11/24/20 01/01/21 Rx acyclovir 400 mg PO BID PRN PRN #0 tab 11/24/20 01/01/21 Rx amlodipine 5 mg PO DAILY #0 tab 11/24/20 01/01/21 Rx doxycycline hyclate 100 mg PO BID #14 cap 11/24/20 01/01/21 Rx oxycodone 10 mg tablet 10 mg PO Q4H PRN #60 tab MDD 40 mg 12/10/20 01/01/21 Rx oxycodone 30 mg tablet,crush 30 mg PO Q12H #60 tab MDD 60 mg 12/10/20 01/01/21 Rx resistant,extended release 12 hr Exam Const General: cooperative and no acute distress Nutritional Appearance: average body habitus Orientation: alert and oriented to person [facility] Head: normocephalic, atraumatic and no abrasions Eyes Sclera: sclerae normal Pupils: PERRL Resp Effort & Inspection: normal respiratory effort Auscultation: clear to auscultation bilaterally and diminished lung sounds bilaterally in the lower lung jennings Cardio Rate: regular rate Rhythm: regular rhythm Heart Sounds: S1 normal and S2 normal GI Palpation: soft and nontender Auscultation: normal bowel sounds Skin General skin exam: other (brawny skin discoloration of BLEs. Scattered red, macular areas of BLE's.) Rashes: no rashes Full body images: 1. Bandage in place. Extrem General: no pedal edema and no calf tenderness Psych Appearance: grossly normal Mental Status: mental status grossly normal Speech and Movement: speech and movement normal Affect: anxious affect Results Labs Result diagrams: 01/01/21 15:55 01/01/21 15:55 Labs: Laboratory Results - last 24 hr 01/01/21 01/01/21 01/01/21 15:55 15:55 15:55 WBC RBC Hgb Hct MCV MCH MCHC RDW Plt Count MPV Immature Gran % Neutrophils % Lymphocytes % Monocytes % Eosinophils % Basophils % Nucleated RBC % Absolute Neutrophils Absolute Lymphocytes Absolute Monocytes Absolute Eosinophils Absolute Basophils PT INR APTT VBG Lactate 1.9 H Sodium 146 H Potassium 3.7 Chloride 108 H Carbon Dioxide 25.3 Anion Gap 12.7 H BUN 9 D Creatinine 0.9 Estimated GFR/1.73 m2 >= 60.00 Glucose 136 H Calcium 9.3 Magnesium 1.6 L Total Bilirubin 0.6 Conjugated Bilirubin 0.1 AST 14 L ALT 17 Alkaline Phosphatase 65 Troponin I < 0.05 Total Protein 7.1 Albumin 3.2 L Lipase 94 Urine Color Urine Clarity Urine pH Ur Specific [place] Urine Protein Urine Ketones Urine Blood Urine Nitrite Urine Bilirubin Urine Urobilinogen Ur Leukocyte Esterase Urine Glucose COVID-19 Source 01/01/21 01/01/21 01/01/21 15:55 15:55 18:12 WBC 4.46 RBC 3.32 L Hgb 10.6 L Hct 33.4 L MCV 100.6 H MCH 31.9 MCHC 31.7 L RDW 14.0 Plt Count 305 MPV 9.8 Immature Gran % 0.7 Neutrophils % 62.8 Lymphocytes % 30.7 Monocytes % 3.4 Eosinophils % 2.2 Basophils % 0.2 Nucleated RBC % 0 Absolute Neutrophils 2.80 Absolute Lymphocytes 1.37 Absolute Monocytes 0.15 Absolute Eosinophils 0.10 Absolute Basophils 0.01 PT 10.6 INR 1.1 APTT 23.9 VBG Lactate Sodium Potassium Chloride Carbon Dioxide Anion Gap BUN Creatinine Estimated GFR/1.73 m2 Glucose Calcium Magnesium Total Bilirubin Conjugated Bilirubin AST ALT Alkaline Phosphatase Troponin I Total Protein Albumin Lipase Urine Color Urine Clarity Urine pH Ur Specific [place] Urine Protein Urine Ketones Urine Blood Urine Nitrite Urine Bilirubin Urine Urobilinogen Ur Leukocyte Esterase Urine Glucose COVID-19 Source Nasopharyx 01/01/21 01/01/21 18:20 18:55 WBC RBC Hgb Hct MCV MCH MCHC RDW Plt Count MPV Immature Gran % Neutrophils % Lymphocytes % Monocytes % Eosinophils % Basophils % Nucleated RBC % Absolute Neutrophils Absolute Lymphocytes Absolute Monocytes Absolute Eosinophils Absolute Basophils PT INR APTT VBG Lactate Sodium Potassium Chloride Carbon Dioxide Anion Gap BUN Creatinine Estimated GFR/1.73 m2 Glucose Calcium Magnesium Total Bilirubin Conjugated Bilirubin AST ALT Alkaline Phosphatase Troponin I < 0.05 Total Protein Albumin Lipase Urine Color Yellow Urine Clarity Clear Urine pH 8.5 H Ur Specific [place] 1.015 Urine Protein Negative Urine Ketones 40 H Urine Blood Negative Urine Nitrite Negative Urine Bilirubin Negative Urine Urobilinogen 0.2 Ur Leukocyte Esterase Negative Urine Glucose Negative COVID-19 Source Last Vital Signs Temp 36.6 C 01/01/21 19:46 Pulse 63 01/01/21 19:46 Resp 20 01/01/21 19:46 BP 185/79 H 01/01/21 19:46 Pulse Ox 95 01/01/21 19:46 COVID-19 Screening Have you, or household traveled for leisure in last 14 days?: No Had IN PERSON contact w/suspected or confirmed C-19 person: No
[2021-01-01] MEDS: Zolpidem 10 MG TAB PO (21:37)
[2021-01-01] MEDS: amLODIPine 5 MG TAB PO (21:38)
[2021-01-01] MEDS: Atorvastatin 40 MG TAB PO (21:38)
[2021-01-01 22:32] LABS: COVID-19 PCR Negative (Negative)
[2021-01-02] VITALS: BP 117/74; PULSE 104; RESP 16; TEMP 36.4; O2SAT 93
[2021-01-02 00:15] VITALS: O2SAT 93
[2021-01-02 05:00] VITALS: BP 137/73; PULSE 82; RESP 16; TEMP 36.4; O2SAT 96
[2021-01-02 07:26] LABS: Abs Immature Grans 0.02 10^3/uL (0.0-0.06); Absolute Basophil Count 0.01 10^3/uL (0.0-0.2); Absolute Eosinophil Count 0.12 10^3/uL (0.0-0.7); Absolute Monocyte Count 0.17 10^3/uL (0.1-0.8); Absolute Neutrophil Count 2.85 10^3/uL (1.2-6.7); Basophils % 0.2; Eosinophils % 2.9; HCT 29.7 % (40.0-50.0); HGB 9.7 g/dL (13.5-17.5); Immature Grans % 0.5; MCH 32.8 pg (27.0-33.0); MCHC 32.7 % (32.0-36.0); MCV 100.3 fL (80-95); MPV 10.2 fL (8.0-11.0); Monocytes % 4.1; Neutrophils % 68.3; Nucleated RBC 0 %; Platelet Count 251 10^3/uL (130-400); RBC 2.96 10^6/uL (4.36-5.78); RDW 14.4 % (11.8-14.1); RDW-SD 51.9 fL; WBC 4.17 10^3/uL (4.4-10.8)
[2021-01-02 07:45] LABS: Anion Gap 9.6 mmol/L (3-11); BUN 8 mg/dL (7-18); CO2 26.4 mmol/L (21.0-32.0); CREATININE 0.8 mg/dL (0.70-1.30); Calcium 8.6 mg/dL (8.5-10.1); Chloride 109 mmol/L (98-107); Glucose 116 mg/dL (74-106); Potassium 3.6 mmol/L (3.5-5.1); Sodium 145 mmol/L (136-145)
[2021-01-02 07:47] VITALS: BP 170/84; PULSE 75; RESP 19; TEMP 36.9; O2SAT 90
[2021-01-02] MEDS: Metoprolol 25 MG TAB PO (08:18)
[2021-01-02] MEDS: Cholecalciferol (Vitamin D3) 1,000 UNIT TAB 1000 UNITS PO (08:18)
[2021-01-02] MEDS: Allopurinol 300 MG TAB PO (08:18)
[2021-01-02] MEDS: Omeprazole 20 MG CAPCR PO (08:18)
[2021-01-02] MEDS: Magnesium Oxide 400 MG TAB PO (08:18)
[2021-01-02] MEDS: Cyanocobalamin 500 MCG TAB 1000 MCG PO (08:18)
[2021-01-02] MEDS: amLODIPine 5 MG TAB PO (08:18)
[2021-01-02] MEDS: Thiamine 100 MG TAB PO (08:18)
[2021-01-02] MEDS: Apixaban 5 MG TAB PO (08:18)
[2021-01-02] MEDS: Prazosin 5 MG CAP PO (08:36)
[2021-01-02] MEDS: Fexofenadine 180 MG TAB PO (08:36)
--- NOTE | 2021-01-02 09:27 | IN_ITS ---
Date of service: 01/02/21 Time of Service: 09:27 PT Notes Visit Reasons: PERSISTANT NAUSEA AND VOMIT, HYOMAGNESMIA Physical Therapy Inpatient Initial Evaluation Date: 01/02/2021 Referring Doctor: Ben Rangel MD PT Orders: PT CONSULT: Eval/treat. Precautions: Fall. Standard. Activity as tolerated Patient Profile/Admitting Diagnosis: Eduar is an 80-year-old male with diagnosis of multiple myeloma and squamous cell carcinoma of skin of right LE presently on chemotherapy who presented to the ED on 01/01/2021 with nausea, vomiting, and feeling of weakness a day after his second chemotherapy session. Patient is diagnosed with hypomagnesemia, nausea and vomiting, and frequent falls. PMHX: Medical History Abnormal prostate specific antigen Abnormal weight loss Actinic keratosis Adenomatous colon polyp Alcohol consumption heavy Allergic rhinitis Ataxic gait Benign essential tremor Bilateral artificial lens implant BPH (benign prostatic hyperplasia) 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/13) Cancer related pain Chronic insomnia Cough Diverticulosis Diverticulosis Encounter for hospice care discussion Erectile dysfunction Essential hypertension Ex-smoker quit 1986 Frequent falls GERD (gastroesophageal reflux disease) Goals of care, counseling/discussion Gout H/O supraventricular tachycardia Heavy alcohol consumption History of DVT (deep vein thrombosis) History of positive PPD History of prediabetes History of PSVT (paroxysmal supraventricular tachycardia) History of pulmonary embolism History of urinary urgency (03/09/13) Hx of adenomatous colonic polyps Hyperlipidemia Hypertension Hypogonadism Impaired fasting glucose Insomnia Low testosterone in male Lumbar back pain Macrocytosis Male hypogonadism Memory impairment Mild cognitive impairment Myelodysplasia (myelodysplastic syndrome) Neutropenia Ocular migraine Osteoarthritis Other and unspecified hyperlipidemia Overactive bladder Palliative care patient Peripheral neuropathy Personal history of venous thrombosis and embolism Positive PPD Preventative health care Recurrent cellulitis of lower leg with sepsis related to his RLE SCC Renal cyst Sacroiliac joint pain Shaking chills Sleep apnea Spinal stenosis in cervical region Spondylosis Spondylosis of cervical joint 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 Jovita Roberts THUMB RHINOPLASTY S/P TURP S/P TURP (status post transurethral resection of prostate) (12/19/13) Tonsillectomy and adenoidectomy Total replacement of hip (05/13/16) RIGHT/DR. OLEA Social History/Home Situation: Lives with in a private home with 4 steps to enter. Has another flight of steps to the second floor of the house. Plans on moving to [place] as soon as possible to spend more time with most of his grandkids for the longest time. Has a FWW that he shares with his . Equipment Owned/DME: Shares FWW use with as needed Subjective: Agreeable to PT consult. Receptive to recommendations of using FWW for increased stability and of the possibility of going to outpatient PT in [place] to address balance issues. Quite set about leaving te hopsital today as he has a lot in his agenda to be done with selling his house. Objective: General Observation: Supine in bed. Appeared unstable turning in the standing position. Appears restless and hopeful to go home NITESH. Mental Status: Alert and oriented x 4 Pain: Chronic pain in back and legs due to multiple myeloma and beginning chemotherapy effects ROM: Right Upper Extremity: Shoulder Flexion WFL. Shoulder abduction WFL. Elbow flexion WFL. Wrist flexion WFL. Opening and closing of hand WFL. Left Upper Extremity: Shoulder Flexion WFL. Shoulder abduction WFL. Elbow flexion WFL. Wrist flexion WFL. Opening and closing of hand WFL. Right Lower Extremity: Hip flexion WFL. Hip abduction WFL. Knee flexion WFL. Ankle dorsiflexion WFL. Ankle plantarflexion WFL. Left Lower Extremity: Hip flexion WFL. Hip abduction WFL. Knee flexion WFL. Ankle dorsiflexion WFL. Ankle plantarflexion WFL. Strength: Right Upper Extremity: Shoulder flexors 5/5. Shoulder abductors 5/5. Elbow flexors 5/5. Elbow extensors 5/5. Aircraft Accessories Mechanic strong. Left Upper Extremity: Shoulder flexors 5/5. Shoulder abductors 5/5. Elbow flexors 5/5. Elbow extensors 5/5. Aircraft Accessories Mechanic strong. Right Lower Extremity: Hip flexors 4/5. Hip abductors 5/5. Knee flexors 5/5. Knee extensors 4-/5. Ankle dorsiflexors 4/5. Ankle plantarflexors 5/5. Left Lower Extremity:Hip flexors 4/5. Hip abductors 5/5. Knee flexors 5/5. Knee extensors 4-/5. Ankle dorsiflexors 4/5. Ankle plantarflexors 5/5. Sensation: Intact as to pain and pressure on bilateral lower extremities. Bed Mobility/Transfers: Rolling independent Supine to sit independent Sit to supine independent Sit to stand standby assist. Appeared unstable and nearly lost balance turning around while in standing position to shrimp picker his phone to answer a call, needed minimal assist from PT to restabilize himself Stand to sit standby assist Bed to chair standby assist Chair to bed standby assist Gait: Guided patient through level surface ambulation of 100 feet using FWW Balance: Static Sitting: Normal Dynamic Sitting: Normal Static Standing: Fair Dynamic Standing: Fair Special Tests: Mobility Limitations Standardized Measure [facility] 6 clicks Basic Mobility Inpatient Short Form: Raw Score: 20 CMS Score: 36% deficit 4-stage Balance test: Unable to maiatin all 4 positions of feet together, semi- tandem, full tandem, and one-legged stance indicating high risk for falls. Informed Consent/Education: Patient instructed in purpose of PT consult and plan of care. Assessment: Eduar demonstrates the need for the use of a front-wheeled walker to reduce fall risk and maintain independence at home while increasing activity tolerance. He was not able to assume all 4 balance positions in the 4-stage balance test and is therefore at high risk for falls. He will benefit from balance skilling at an outpatient basis to maintain safe community ambulation. Patient presents with clinical signs and symptoms consistent with current/admitting diagnoses that have resulted to mobility limitations, gait instability, generalized weakness, and impairment of motor control as demonstrated by the following impairment level findings: 1. Impaired standing balance 2. Impaired activity tolerance Impairments are contributing to the following functional limitations: 1. Inability to safely ambulate without assistive device 2. Increase completion time for mobility ADL performance 3. Increased fall risk 4. Inability to negotiate steps alone safely Patient is assessed as a [id number] moderate complexity based on the following: History: 80-year-old male with impairment level findings, functional limitations, and past medical history as indicated above Examination: Demonstrable impairment in strength, balance, and mobility level with underlying impairments and functional limitations as documented above Presentation: Evolving Decision Makin moderate complexity Goals: Goals X1 week 1. Supine-Sit independent 2. Sit-Supine independent 3. Sit-Stand independent 4. Stand-Sit independent 5. Bed-Chair independent 6. Chair-Bed independent 7. Independent gait on level surface with use of least restrictive device for at least 300 feet without report of pain nor dyspnea 8. Independent stair negotiation while holding onto bilateral rails for at least 10 steps without report of pain nor dyspnea 9. Independent with home exercise program 10. Good static and dynamic standing balance/tolerance Plan of Care/Treatment Plan: 1-2x/day, 7 days/week x 1 week. Plan of care has been reviewed with the [employer] MECHANIC providing the service under Physical Therapy direction. Initiate Physical Therapy intervention for strengthening, bed mobility, transfers, gait, stairs, balance training, use of assistive device. DISCHARGE RECOMMENDATIONS: Home when medically cleared by hospitalist. HH PT vs OP PT services for balance retraining and AD progression. TREATMENT CODE/TIME: [id number] x 30 minutes beginning at 9:27 AM. Thank you for the opportunity to participate in the care of this patient. Rosy Kim PT, DPT, CLT [facility] [place], [place]
[2021-01-02] MEDS: oxyCODONE-CR 10 MG TABCR 30 MG PO (10:11)
--- NOTE | 2021-01-02 12:03 | DSE_ITS ---
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 (4) History of alcohol abuse: Status: Chronic (5) Frequent falls: Status: Chronic (6) Multiple myeloma: Status: Chronic (7) COPD (chronic obstructive pulmonary disease): Status: Chronic Discharge Plan Disposition Patient Disposition: HOME W/HOME HEALTH SERVICE Condition: Good Discharge Details Reason For Visit: PERSISTANT NAUSEA AND VOMIT, HYOMAGNESMIA Admit Date/Time: 01/01/21 18:00 Admit Provider: Ben Rangel Attending Provider: Ben Rangel Primary Care Provider: Janina Reinoso [facility] Course Hospital Course: his is an 80 yo male with the following medical problems: multiple myeloma, COPD, HTN, HLD, squamous cell cancer of RLE, h/o alcohol abuse, frequent falls. He presented to the ED with c/o N/V that began at 7 PM the previous evening. He had received a dose of his chemotherapy, Libtayo on the Wednesday preceding this admission. No previous N/V after his treatment. No diarrhea. + mild headache. + chills but no fever. No c/o increased cough or SOA beyond his baseline. He endorses feeling very weak. In the ED his CXR showed no acute findings. CT brain negative for any acute findings. CT abd/pelvis with no GI abnormalities. + findings of enoch lesions consistent with his myeloma. WBC count normal. Hgb 10.6. Platelets normal. VBG lactate 1.9 (elevated), Na 146, K+ 3.7, BUN 9, creatinine 0.9, Mg+ 1.6. Troponin negative. UA negative for infectious markers. He was given Zofran and then IV compazine in the ED but continued to have nausea; no emesis. Overnight, he had no further nausea or vomiting and he tolerated his breakfast. He asked to be discharged home NITESH as he needed to get home to his . He and his are preparing to move to [place]. It was recommended by overnight caregiver that home physical therapy be added to his home health nursing plans. This will allow P.T. to evaluate his gait/strenght and evaluate his hx of frequent falls. He is to follow up w/ his PCP within a week and keep follow ups w[facility]. Home Meds and New Rx's Prescriptions: New ondansetron HCl [Zofran] 4 mg tablet 4 mg PO Q8H PRNQty: 12 RF: 0 Continued oxycodone 30 mg tablet,oral only,ext.rel.12 hr 30 mg PO Q12H MDD 60 mg Qty: 60 RF: 0 oxycodone 10 mg tablet 10 mg PO Q4H MDD 40 mg PRN (Reason: pain) Qty: 60 RF: 0 montelukast 10 MG tablet 10 mg PO DAILY PRNRF: 0 allopurinol 300 MG tablet 300 mg PO DAILY RF: 0 prazosin 5 MG capsule 5 mg PO BID RF: 0 diazepam 5 MG tablet 5 mg PO HS PRN PRNRF: 0 fexofenadine 180 mg tablet 180 mg PO DAILY RF: 0 atorvastatin 40 mg tablet 40 mg PO HS RF: 0 zolpidem 10 mg tablet 10 mg PO QHS PRNRF: 0 cyanocobalamin (vitamin B-12) [Vitamin B-12] 1,000 mcg tablet 1,000 mcg PO DAILY RF: 0 pantothenic ac-glyc-pet,h anil Cream 1 applic topical TID RF: 0 fluticasone propionate [Flonase Allergy Relief] 9.9 ML spray,suspension 2 spray NS DAILY PRN PRNRF: 0 testosterone cypionate 200 MG/ML oil 1.5 ml IM .[id number] RF: 0 metoprolol tartrate 25 MG tablet 25 mg PO BID RF: 0 cholecalciferol (vitamin D3) 1,000 UNITS tablet 1,000 unit PO DAILY RF: 0 magnesium oxide 400 mg (241.3 mg magnesium) Tablet 400 mg PO DAILY RF: 0 thiamine mononitrate (vit B1) [Vitamin B-1 (mononitrate)] 100 mg Tablet 100 mg PO DAILY Qty: 30 RF: 0 turmeric root extract 500 mg Capsule 500 mg PO DAILY RF: 0 dexamethasone 4 mg tablet 40 mg PO QWEEK RF: 0 omeprazole 20 mg Capsule,Delayed Release(Dr/Ec) 20 mg PO DAILY RF: 0 ipratropium bromide 42 mcg (0.06 %) [place],Non-Aerosol 2 spray INTRANASAL TID PRNRF: 0 Libtayo 50 mg/mL Solution 350 mg IV Q3W RF: 0 amlodipine 5 mg Tablet 5 mg PO DAILY Qty: 0 RF: 0 doxycycline hyclate 100 mg capsule 100 mg PO BID Qty: 14 RF: 0 acitretin 10 mg capsule 25 mg PO DAILY Qty: 0 RF: 0 acyclovir 400 mg tablet 400 mg PO BID PRN PRNQty: 0 RF: 0 albuterol sulfate [ProAir HFA] 90 mcg/actuation HFA aerosol inhaler 2 inh IH Q6H PRN (Reason: shortness of breath or wheezing) Qty: 18 RF: 0 Eliquis 5 mg tablet 5 mg PO BID RF: 0 Discharge Instructions Instructions: Chemo Induced Nausea and Vomiting (DC) Stand Alone Forms: Nursing Discharge Form Referrals: Janina Reinoso MD [Primary Care Provider] - Activity:: Activity as Tolerated Equipment/Supplies:: No Equipment Needed Diet:: Normal Diet Discharge Orders Discharge Orders: Discharge Order (Routine); Ordered 01/02/21 Ordered By: Eben Martin DS: Summary Time Spent with Patient providing and/or coordinating discharge services: Less than 30 minutes Status at Discharge Functional status at discharge: independent ambulation Overall status at discharge: patient is back to baseline Mental Status: mental status grossly normal Speech and Movement: speech and movement normal Mood: congruent mood Affect: normal affect Exam Psych Mental Status: mental status grossly normal Speech and Movement: speech and movement normal Mood: congruent mood Affect: normal affect DS: Data Vitals/I&O Vitals and I&O: Vital Signs Temperature 36.9 C 01/02/21 07:47 Temperature Source Tympanic 01/02/21 07:47 Pulse 75 01/02/21 07:47 Pulse Rhythm Regular 01/02/21 10:24 Pulse 72 01/01/21 18:50 Respiratory Rate 19 01/02/21 07:47 Respiratory Effort Non-Labored 01/02/21 10:24 Respiratory Depth Normal 01/02/21 10:24 Respiratory Pattern Normal 01/02/21 10:24 Blood Pressure 170/84 H 01/02/21 07:47 Blood Pressure Mean 111 01/01/21 18:47 Blood Pressure Position Supine 01/01/21 15:41 Pulse Oximetry 90 L 01/02/21 07:47 Oxygen Delivery Method Room Air 01/02/21 07:47 Oxygen Flow Rate 0 01/02/21 07:47 Pain Level 6 01/02/21 10:11 Comment 01/02/21 07:15 Intake & Output 01/01/21 01/02/21 01/02/21 23:59 11:59 23:59 Intake Total 1060 / 1060 370 / 370 Output Total 1250 / 1250 Balance 1060 / 910 -880 / -880 Weight 83.4 kg Intake: IV 1060 / 1060 Oral 370 / 370 Output: Urine 1250 / 1250 Other: Urine Color Yellow Urine Appearance Clear Urine Odor Normal Emesis Description None Voiding Methods Urinal Data Completed and Pending Labs on day of discharge: Labs from last 24 hours 01/02/21 01/02/21 01/01/21 06:05 06:05 18:55 WBC 4.17 L RBC 2.96 L Hgb 9.7 L Hct 29.7 L MCV 100.3 H MCH 32.8 MCHC 32.7 RDW 14.4 H Plt Count 251 MPV 10.2 Immature Gran % 0.5 Neutrophils % 68.3 Lymphocytes % 24.0 Monocytes % 4.1 Eosinophils % 2.9 Basophils % 0.2 Nucleated RBC % 0 Absolute Neutrophils 2.85 Absolute Lymphocytes 1.00 L Absolute Monocytes 0.17 Absolute Eosinophils 0.12 Absolute Basophils 0.01 PT INR APTT VBG Lactate Sodium 145 Potassium 3.6 Chloride 109 H Carbon Dioxide 26.4 Anion Gap 9.6 BUN 8 Creatinine 0.8 Estimated GFR/1.73 m2 >= 60.00 Glucose 116 H Calcium 8.6 Magnesium 2.0 Total Bilirubin Conjugated Bilirubin AST ALT Alkaline Phosphatase Troponin I < 0.05 Total Protein Albumin Lipase Urine Color Urine Clarity Urine pH Ur Specific [place] Urine Protein Urine Ketones Urine Blood Urine Nitrite Urine Bilirubin Urine Urobilinogen Ur Leukocyte Esterase Urine Glucose COVID-19 Source SARS-CoV-2 (PCR) 01/01/21 01/01/21 01/01/21 18:20 18:12 15:55 WBC RBC Hgb Hct MCV MCH MCHC RDW Plt Count MPV Immature Gran % Neutrophils % Lymphocytes % Monocytes % Eosinophils % Basophils % Nucleated RBC % Absolute Neutrophils Absolute Lymphocytes Absolute Monocytes Absolute Eosinophils Absolute Basophils PT 10.6 INR 1.1 APTT 23.9 VBG Lactate Sodium Potassium Chloride Carbon Dioxide Anion Gap BUN Creatinine Estimated GFR/1.73 m2 Glucose Calcium Magnesium Total Bilirubin Conjugated Bilirubin AST ALT Alkaline Phosphatase Troponin I Total Protein Albumin Lipase Urine Color Yellow Urine Clarity Clear Urine pH 8.5 H Ur Specific [place] 1.015 Urine Protein Negative Urine Ketones 40 H Urine Blood Negative Urine Nitrite Negative Urine Bilirubin Negative Urine Urobilinogen 0.2 Ur Leukocyte Esterase Negative Urine Glucose Negative COVID-19 Source Nasopharyx SARS-CoV-2 (PCR) Negative 01/01/21 01/01/21 01/01/21 15:55 15:55 15:55 WBC 4.46 RBC 3.32 L Hgb 10.6 L Hct 33.4 L MCV 100.6 H MCH 31.9 MCHC 31.7 L RDW 14.0 Plt Count 305 MPV 9.8 Immature Gran % 0.7 Neutrophils % 62.8 Lymphocytes % 30.7 Monocytes % 3.4 Eosinophils % 2.2 Basophils % 0.2 Nucleated RBC % 0 Absolute Neutrophils 2.80 Absolute Lymphocytes 1.37 Absolute Monocytes 0.15 Absolute Eosinophils 0.10 Absolute Basophils 0.01 PT INR APTT VBG Lactate 1.9 H Sodium Potassium Chloride Carbon Dioxide Anion Gap BUN Creatinine Estimated GFR/1.73 m2 Glucose Calcium Magnesium 1.6 L Total Bilirubin Conjugated Bilirubin AST ALT Alkaline Phosphatase Troponin I Total Protein Albumin Lipase 94 Urine Color Urine Clarity Urine pH Ur Specific [place] Urine Protein Urine Ketones Urine Blood Urine Nitrite Urine Bilirubin Urine Urobilinogen Ur Leukocyte Esterase Urine Glucose COVID-19 Source SARS-CoV-2 (PCR) 01/01/21 15:55 WBC RBC Hgb Hct MCV MCH MCHC RDW Plt Count MPV Immature Gran % Neutrophils % Lymphocytes % Monocytes % Eosinophils % Basophils % Nucleated RBC % Absolute Neutrophils Absolute Lymphocytes Absolute Monocytes Absolute Eosinophils Absolute Basophils PT INR APTT VBG Lactate Sodium 146 H Potassium 3.7 Chloride 108 H Carbon Dioxide 25.3 Anion Gap 12.7 H BUN 9 D Creatinine 0.9 Estimated GFR/1.73 m2 >= 60.00 Glucose 136 H Calcium 9.3 Magnesium Total Bilirubin 0.6 Conjugated Bilirubin 0.1 AST 14 L ALT 17 Alkaline Phosphatase 65 Troponin I < 0.05 Total Protein 7.1 Albumin 3.2 L Lipase Urine Color Urine Clarity Urine pH Ur Specific [place] Urine Protein Urine Ketones Urine Blood Urine Nitrite Urine Bilirubin Urine Urobilinogen Ur Leukocyte Esterase Urine Glucose COVID-19 Source SARS-CoV-2 (PCR) 01/01/21 18:20 Urine - Voided Urine Culture - Pending 01/01/21 16:20 Blood Blood Culture - Pending 01/01/21 15:54 Blood Blood Culture - Pending Preliminary micro results at discharge 01/01/21 18:20 Urine Culture - Pending Urine - Voided 01/01/21 16:20 Blood Culture - Pending Blood 01/01/21 15:54 Blood Culture - Pending Blood [facility] Medical History Abnormal prostate specific antigen Abnormal weight loss Actinic keratosis Adenomatous colon polyp Alcohol consumption heavy Allergic rhinitis Ataxic gait Benign essential tremor Bilateral artificial lens implant BPH (benign prostatic hyperplasia) 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/13) Cancer related pain Chronic insomnia Cough Diverticulosis Diverticulosis Encounter for hospice care discussion Erectile dysfunction Essential hypertension Ex-smoker quit 1986 Frequent falls GERD (gastroesophageal reflux disease) Goals of care, counseling/discussion Gout H/O supraventricular tachycardia Heavy alcohol consumption History of DVT (deep vein thrombosis) History of positive PPD History of prediabetes History of PSVT (paroxysmal supraventricular tachycardia) History of pulmonary embolism History of urinary urgency (03/09/13) Hx of adenomatous colonic polyps Hyperlipidemia Hypertension Hypogonadism Impaired fasting glucose Insomnia Low testosterone in male Lumbar back pain Macrocytosis Male hypogonadism Memory impairment Mild cognitive impairment Myelodysplasia (myelodysplastic syndrome) Neutropenia Ocular migraine Osteoarthritis Other and unspecified hyperlipidemia Overactive bladder Palliative care patient Peripheral neuropathy Personal history of venous thrombosis and embolism Positive PPD Preventative health care 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 Jovita Roberts THUMB RHINOPLASTY S/P TURP S/P TURP (status post transurethral resection of prostate) (12/19/13) Tonsillectomy and adenoidectomy Total replacement of hip (05/13/16) RIGHT/DR. OLEA Family History Mother , age 81 of pancreatic cancer with mets to liver Personal history of malignant neoplasm PANCREATIC/LIVER Father , from alcoholism and cardiomyopathy Heart disease Alcohol abuse Sister , in MVC age 37 due to motor vehicle traffic accident Brother Heart disease Brother Heart disease Mental disorder BIPOLAR Brother Hypertension Diabetes Hyperlipidemia Son Obesity Diabetes Son Arthritis Daughter No problems noted. Social History Smoking/Tobacco Use Status: Former Tobacco Use Tobacco: How many years used: 25 Smoking risk assessment performed?: Yes Alcohol Intake: current Alcohol Intake frequency: 3 or more drinks per day Alcohol type: beer, wine and hard liquor Counseling given: Yes Counseling provided: reduce to 2 or less/day Drug use: Never Substance use type: does not use Details: vodka/wine drink REPRESENTATIVE Caregiver/Support person: Yes Household members: spouse Housing: house Number of Children: 3 Communication Needs: Corrective Lenses Education Level: college Do you need help understanding health information?: Often current occupation: retired from [employer] and from [employer] Pets and animals: No Current gender identity: male What is your relationship status?: How often do you talk on the phone with friends or family?: three or more times per week How often do you get together with friends or relatives?: never Panel score (0-1 are the most socially isolated patients): 2 What type of physical activity do you participate in: aerobic, regular exercise and weight lifting Duration: 30-45 minutes/day Frequency: 3-4 times per week Special geetha needs: No Seatbelt use: always Working smoke detector in home: Yes Fire extinguisher in home: Yes Firearms in home: Yes Do you feel safe at home: Yes Do you feel safe in your relationship?: Yes Additional Social history: to [place] , who is chronically ill with vertigo of unknown etiology. He started exercising regular when he was 33 yo; very hard for him not to be able to continue to exercise. Has a VERY unsteady gait; says he has fallen about 4 x in last 6 weeks. Says that PT doesn't help. He refuses to use a cane or walker, due to personal pride. Hard for him to access himself as both sick and older. Not interested in cutting back on etoh. Was planning on relocating to [facility] but cannot due to COVID.
--- NOTE | 2021-01-02 13:53 | CHAPLAIN ---
I had a brief visit with Eduar. He was dressed and ready to go home, waiting to be discharged.
--- NOTE | 2021-01-02 17:32 | PDOC.CMPRO ---
- If Service Date Differs Date of service: 01/02/21 Time of Service: 17:32 Care Management Progress Note S/O: Eduar was sitting up in bed when CM met with him. He reported that he was ready to return home, and that he has a lot to coordinate at home right now. Him and his are selling their house and moving to [place] to be closer to their kids and grandkids. He is getting all of his medical appointments transferred down to [place], including his chemotherapy. He reported that he was not feeling well and had nausea/vomiting, but he feels that it is a side effect of his chemo, and feels well enough to return home. He has HH RN, will add PT, per PT. His friend will drive him home. A: Eduar is an 80 year old male admitted to [facility] on 01/01/21 with nausea/vomiting. P: Eduar is being discharged home today after a short period of observation. He will resume HH RN, add PT. His friend will drive him home via private vehicle. He will follow up with his Oncologist, PCP and discharge plan of care.
--- NOTE | 2021-01-03 13:47 | INDS_ITS ---
Date of service: 01/03/21 Time of Service: 13:47 PT Notes Visit Reasons: PERSISTANT NAUSEA AND VOMIT, HYOMAGNESMIA Physical Therapy Inpatient Discharge Summary Date: 01/03/2021 Dates of Service: 01/02/2021 only This is a clinical summary of care provided on the duration of dates listed above. No charge was made in the completion of this documentation. Referring Doctor: Ben Rangel MD PT Orders: PT CONSULT: Eval/treat. Precautions: Fall. Standard. Activity as tolerated Patient Profile/Admitting Diagnosis: Eduar is an 80-year-old male with diagnosis of multiple myeloma and squamous cell carcinoma of skin of right LE presently on chemotherapy who presented to the ED on 01/01/2021 with nausea, vomiting, and feeling of weakness a day after his second chemotherapy session. Patient is diagnosed with hypomagnesemia, nausea and vomiting, and frequent falls. PMHX: Medical History Abnormal prostate specific antigen Abnormal weight loss Actinic keratosis Adenomatous colon polyp Alcohol consumption heavy Allergic rhinitis Ataxic gait Benign essential tremor Bilateral artificial lens implant BPH (benign prostatic hyperplasia) 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/13) Cancer related pain Chronic insomnia Cough Diverticulosis Diverticulosis Encounter for hospice care discussion Erectile dysfunction Essential hypertension Ex-smoker quit 1986 Frequent falls GERD (gastroesophageal reflux disease) Goals of care, counseling/discussion Gout H/O supraventricular tachycardia Heavy alcohol consumption History of DVT (deep vein thrombosis) History of positive PPD History of prediabetes History of PSVT (paroxysmal supraventricular tachycardia) History of pulmonary embolism History of urinary urgency (03/09/13) Hx of adenomatous colonic polyps Hyperlipidemia Hypertension Hypogonadism Impaired fasting glucose Insomnia Low testosterone in male Lumbar back pain Macrocytosis Male hypogonadism Memory impairment Mild cognitive impairment Myelodysplasia (myelodysplastic syndrome) Neutropenia Ocular migraine Osteoarthritis Other and unspecified hyperlipidemia Overactive bladder Palliative care patient Peripheral neuropathy Personal history of venous thrombosis and embolism Positive PPD Preventative health care 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 Jovita Roberts THUMB RHINOPLASTY S/P TURP S/P TURP (status post transurethral resection of prostate) (12/19/13) Tonsillectomy and adenoidectomy Total replacement of hip (05/13/16) RIGHT/DR. OLEA Social History/Home Situation: Lives with in a private home with 4 steps to enter. Has another flight of steps to the second floor of the house. Plans on moving to [place] as soon as possible to spend more time with most of his grandkids for the longest time. Has a FWW that he shares with his . Equipment Owned/DME: Shares FWW use with as needed Subjective: NT. See most recent PRODUCT MANAGEMENT SPECIALIST notes. Objective: General Observation: NT. See most recent PRODUCT MANAGEMENT SPECIALIST notes. Mental Status: NT. See most recent PRODUCT MANAGEMENT SPECIALIST notes. Pain: NT. See most recent PRODUCT MANAGEMENT SPECIALIST notes. ROM: Right Upper Extremity: Shoulder Flexion WFL. Shoulder abduction WFL. Elbow flexion WFL. Wrist flexion WFL. Opening and closing of hand WFL. Left Upper Extremity: Shoulder Flexion WFL. Shoulder abduction WFL. Elbow flexion WFL. Wrist flexion WFL. Opening and closing of hand WFL. Right Lower Extremity: Hip flexion WFL. Hip abduction WFL. Knee flexion WFL. Ankle dorsiflexion WFL. Ankle plantarflexion WFL. Left Lower Extremity: Hip flexion WFL. Hip abduction WFL. Knee flexion WFL. Ankle dorsiflexion WFL. Ankle plantarflexion WFL. Strength: Right Upper Extremity: Shoulder flexors 5/5. Shoulder abductors 5/5. Elbow flexors 5/5. Elbow extensors 5/5. Audio Visual Engineer strong. Left Upper Extremity: Shoulder flexors 5/5. Shoulder abductors 5/5. Elbow flexors 5/5. Elbow extensors 5/5. Audio Visual Engineer strong. Right Lower Extremity: Hip flexors 4/5. Hip abductors 5/5. Knee flexors 5/5. Knee extensors 4-/5. Ankle dorsiflexors 4/5. Ankle plantarflexors 5/5. Left Lower Extremity:Hip flexors 4/5. Hip abductors 5/5. Knee flexors 5/5. Knee extensors 4-/5. Ankle dorsiflexors 4/5. Ankle plantarflexors 5/5. Sensation: Intact as to pain and pressure on bilateral lower extremities. Bed Mobility/Transfers: Rolling independent Supine to sit independent Sit to supine independent Sit to stand standby assist. Appeared unstable and nearly lost balance turning around while in standing position to filler picker his phone to answer a call, needed minimal assist from PT to restabilize himself Stand to sit standby assist Bed to chair standby assist Chair to bed standby assist Gait: Guided patient through level surface ambulation of 100 feet using FWW with report of back pain which he says has affected him but not limited him with mobility ADL performance Balance: Static Sitting: Normal Dynamic Sitting: Normal Static Standing: Fair Dynamic Standing: Fair 4-stage Balance test: Unable to maiatin all 4 positions of feet together, semi- tandem, full tandem, and one-legged stance indicating high risk for falls. Assessment: Eduar continues to demonstrate the need for the use of a front- wheeled walker to reduce fall risk and maintain independence at home while increasing activity tolerance. He was not able to assume all 4 balance positions in the 4-stage balance test and is therefore at high risk for falls. He will benefit from balance skilling at an outpatient basis to maintain safe community ambulation. Patient continues to present with clinical signs and symptoms consistent with current/admitting diagnoses that have resulted to mobility limitations, gait instability, generalized weakness, and impairment of motor control as demonstrated by the following impairment level findings: 1. Impaired standing balance 2. Impaired activity tolerance Impairments are continuing to contribute to the following functional limitations: 1. Inability to safely ambulate without assistive device 2. Increase completion time for mobility ADL performance 3. Increased fall risk 4. Inability to negotiate steps alone safely Goals: Goals X1 week 1. Supine-Sit independent NOT MET 2. Sit-Supine independent NOT MET 3. Sit-Stand independent NOT MET 4. Stand-Sit independent NOT MET 5. Bed-Chair independent NOT MET 6. Chair-Bed independent NOT MET 7. Independent gait on level surface with use of least restrictive device for at least 300 feet without report of pain nor dyspnea NOT MET 8. Independent stair negotiation while holding onto bilateral rails for at least 10 steps without report of pain nor dyspnea NOT MET 9. Independent with home exercise program NOT MET 10. Good static and dynamic standing balance/tolerance NOT MET DISCHARGE RECOMMENDATIONS: Home when medically cleared by hospitalist. HH PT vs OP PT services for balance retraining and AD progression. TREATMENT CODE/TIME: NH Thank you for the opportunity to participate in the care of this patient. Rosy Kim PT, DPT, CLT [facility] [place], [place]
== END 2021-01-02 13:30 | disposition home health service (06) ==
LOC: ER 18:30 → MS 19:22
PROVIDERS: Admitting Provider Family Medicine; Emergency Provider Emergency Medicine; PCP Family Medicine; Visit Provider Family Medicine
DX: R11.2 Nausea with vomiting, unspecified (principal); E83.42 Hypomagnesemia; F10.11 Alcohol abuse, in remission; R29.6 Repeated falls; C90.00 Multiple myeloma not having achieved remission; J44.9 Chronic obstructive pulmonary disease, unspecified; C44.722 Squamous cell carcinoma of skin of right lower limb, including hip; I10 Essential (primary) hypertension; E78.5 Hyperlipidemia, unspecified; R51.9 Headache, unspecified
CPT/HCPCS: 36415; 80048; 80053; 83690; 87040; 87635; 93005; 96361; 96365; 96375; 97162; 99222; 99238; 99285; 70450; 71045; 74177; 81003; 82248; 83605; 83735; 84484; 85025; 85610; 85730; 87086; 93010; 99217; 99219; G0378; J0780; J2405; J3490

== ENCOUNTER 2021-01-10 02:26 | Outpatient (CLI) | payer MEDICARE, OTHER, SELFPAY ==
[2021-01-10 13:57] LABS: Abs Immature Grans 0.04 10^3/uL (0.0-0.06); Absolute Basophil Count 0.01 10^3/uL (0.0-0.2); Absolute Eosinophil Count 0.04 10^3/uL (0.0-0.7); Absolute Lymphocyte Count 0.96 10^3/uL (1.2-3.4); Absolute Monocyte Count 0.07 10^3/uL (0.1-0.8); Absolute Neutrophil Count 5.96 10^3/uL (1.2-6.7); Basophils % 0.1; Eosinophils % 0.6; HCT 35.7 % (40.0-50.0); HGB 11.1 g/dL (13.5-17.5); Immature Grans % 0.6; Lymphocytes % 13.6; MCH 32.2 pg (27.0-33.0); MCHC 31.1 % (32.0-36.0); MCV 103.5 fL (80-95); MPV 10.4 fL (8.0-11.0); Neutrophils % 84.1; Nucleated RBC 0 %; Platelet Count 136 10^3/uL (130-400); RBC 3.45 10^6/uL (4.36-5.78); RDW 14.6 % (11.8-14.1); RDW-SD 54.9 fL; WBC 7.08 10^3/uL (4.4-10.8)
[2021-01-10 14:14] LABS: ALT 20 U/L (16-63); AST 11 U/L (15-37); Albumin 3.4 g/dL (3.4-5.0); Alkaline Phosphatase 54 U/L (46-116); Anion Gap 7.6 mmol/L (3-11); BUN 20 mg/dL (7-18); Bilirubin, Total 0.4 mg/dL (0.2-1.0); CO2 29.4 mmol/L (21.0-32.0); Calcium 9.6 mg/dL (8.5-10.1); Chloride 105 mmol/L (98-107); FREE T4 0.98 ng/dL (0.76-1.46); Glucose 140 mg/dL (74-106); Potassium 4.4 mmol/L (3.5-5.1); Sodium 142 mmol/L (136-145); Total Protein 7.1 g/dL (6.4-8.2)
[2021-01-13 11:11] LABS: IgA 777 mg/dL (85-499); IgG 250 mg/dL (610-1,616); IgM 16 mg/dL (35-242); Kappa Free Light Chain 0.51 mg/dL (0.33-1.94); Lambda Free Light Chain <0.44 mg/dL (0.57-2.63)
[2021-01-13 13:55] LABS: Comment (See Note); Monoclonal Spike 15.2 % (None Seen); Total Protein 6.7 g/dL (6.3-8.2)
== END 2021-01-10 02:27 | disposition home or self-care (01) ==
LOC: LBO 02:26
PROVIDERS: PCP Family Medicine; Visit Provider Internal Medicine Hematology & Oncology
DX: C90.00 Multiple myeloma not having achieved remission (principal); E07.9 Disorder of thyroid, unspecified; Z85.828 Personal history of other malignant neoplasm of skin
CPT/HCPCS: 36415; 80053; 82784; 83883; 84165; 84439; 85025

== ENCOUNTER → 2021-01-17 11:32 | Outpatient (BNVA) | payer MEDICARE, OTHER, SELFPAY | PROVIDERS: PCP Family Medicine; Referring Provider Family Medicine; Visit Provider Urology | DX: N40.1 Benign prostatic hyperplasia with lower urinary tract symptoms (principal); R97.20 Elevated prostate specific antigen [PSA] | CPT/HCPCS: 99213 ==

== ENCOUNTER → 2022-04-16 08:24 | Outpatient (BNVA) | payer MEDICARE, OTHER, SELFPAY | PROVIDERS: PCP Family Medicine; Referring Provider Family Medicine; Visit Provider Urology | DX: R35.0 Frequency of micturition (principal); C90.00 Multiple myeloma not having achieved remission; D04.71 Carcinoma in situ of skin of right lower limb, including hip; N40.1 Benign prostatic hyperplasia with lower urinary tract symptoms | CPT/HCPCS: 99443 ==

== ENCOUNTER → 2022-12-11 07:47 | Outpatient (BNVA) | payer MEDICARE, OTHER, SELFPAY | PROVIDERS: PCP Family Medicine; Referring Provider Family Medicine; Visit Provider Urology | DX: N39.41 Urge incontinence (principal) | CPT/HCPCS: 99443 ==

== ENCOUNTER → 2023-02-12 08:42 | Outpatient (BNVA) | payer MEDICARE, OTHER, SELFPAY | PROVIDERS: PCP Family Medicine; Referring Provider Family Medicine; Visit Provider Urology | DX: N39.41 Urge incontinence (principal) | CPT/HCPCS: 99442 ==